=== PATIENT | female | born 1985 | race Caucasian/White ===

== ENCOUNTER → 2019-12-31 15:53 | Outpatient (BNVA) | payer OTHER, SELFPAY | PROVIDERS: Family Provider Family Medicine; PCP Family Medicine; Visit Provider Nurse Practitioner | DX: F31.76 Bipolar disorder, in full remission, most recent episode depressed (principal); F43.12 Post-traumatic stress disorder, chronic | CPT/HCPCS: 99214 ==

== ENCOUNTER → 2020-02-11 15:14 | Outpatient (BNVA) | payer OTHER, SELFPAY | PROVIDERS: Family Provider Family Medicine; PCP Family Medicine; Visit Provider Nurse Practitioner | DX: F43.12 Post-traumatic stress disorder, chronic (principal); F31.76 Bipolar disorder, in full remission, most recent episode depressed | CPT/HCPCS: 99214 ==

== ENCOUNTER → 2020-03-28 08:28 | Outpatient (BNVA) | payer OTHER, SELFPAY | PROVIDERS: Family Provider Family Medicine; PCP Family Medicine; Visit Provider Nurse Practitioner | DX: F43.12 Post-traumatic stress disorder, chronic (principal); F31.76 Bipolar disorder, in full remission, most recent episode depressed | CPT/HCPCS: 99213 ==

== ENCOUNTER → 2020-05-28 07:51 | Outpatient (BNVA) | payer OTHER, SELFPAY | PROVIDERS: Family Provider Family Medicine; PCP Family Medicine; Visit Provider Nurse Practitioner | DX: F43.12 Post-traumatic stress disorder, chronic (principal); F31.76 Bipolar disorder, in full remission, most recent episode depressed | CPT/HCPCS: 90832; 99213 ==

== ENCOUNTER 2020-06-07 16:37 | Emergency (ER) | payer OTHER, SELFPAY ==
[2020-06-07 16:57] VITALS: BP 133/87; PULSE 97; RESP 18; TEMP 37.6; O2SAT 99; BMI 22.3
--- NOTE | 2020-06-07 17:07 | ED_ITS ---
HPI - Wound/Laceration General: Chief Complaint: Wound/Laceration Stated Complaint: face lac Time Seen by Provider: 06/07/20 17:06 Source: patient Mode of arrival: ambulatory Limitations: no limitations History of Present Illness: HPI narrative: 35-year-old female comes in today with laceration to the left side of the cheek. [place] lacerating the left cheek. Patient appears well. Patient appears in no acute distress. Patient has a history of posttraumatic stress disorder and bipolar disorder. Review of Systems General: Reports: 10 or more systems reviewed and unremarkable except in HPI and below Skin/Breast: Reports: other (face laceration) [facility] ED PFS: Medical History (Updated 06/07/20 @ 18:08 by DARRYL Farias) Bipolar disorder, in full remission, most recent episode depressed Post-traumatic stress disorder, chronic Social History (Updated 12/31/19 @ 16:00 by Sheeba Yoon LPN) Smoking and tobacco status: current every day smoker cigarettes Smoking risk assessment/counseling performed?: Yes Tobacco counseling given: counseling >3 minutes Physical Exam Const: COMMON NORMALS: no acute distress and patient oriented x3 GENERAL APPEARANCE: cooperative HENMT: COMMON NORMALS: normocephalic, TM's normal bilaterally and Normal external nose present HEAD & SCALP: normocephalic and other (3 cm irregular laceration to the left facial cheek. Patient has good facial movement. No injury to the teeth were noted.) NOSE: Normal external nose present TYMPANIC MEMBRANE: TM's normal bilaterally MOUTH: Normal oral and palatal mucosa present THROAT: posterior oropharynx normal Eye: GENERAL EYE: appearance normal, both eyes and all related structures Neck/C-Spine: COMMON NORMALS: full ROM Chest: COMMONS NORMALS: normal inspection of the chest Resp: COMMON NORMALS: normal respiratory effort EFFORT & INSPECTION: Yes able to speak in complete sentences Cardio: COMMON NORMALS: regular rate and regular rhythm RATE: regular rate RHYTHM: regular rhythm GI: COMMON NORMALS: non-tender Back/Pelvis: COMMON NORMALS: thoracic and lumbar spine normal to inspection Extremity: COMMON NORMALS: normal to inspection Neuro: COMMON NORMALS: patient oriented x3 and moves all extremities Psych: COMMON NORMALS: mental status grossly normal and cooperative Skin: COMMON NORMALS: no rashes or lesions noted GENERAL SKIN EXAM: no rashes or lesions noted Procedures Laceration Laceration 1: Site: face Side (If applicable): left Size (cm): 2 Description: linear Depth: simple, single layer Local Anesthetic: lidocaine 1% and with epi Amount of anesthesia used (mL): 2 Pre-repair: wound explored and irrigated extensively Skin layer closed with: vicryl Size (cm): 6-0 Number of sutures: 4 Technique: simple, interrupted Laceration 2: Site: face Side (If applicable): left Size (cm): 3 Description: irregular Depth: simple, single layer Local Anesthetic: lidocaine 1% and with epi Amount of anesthesia used (mL): 5 Pre-repair: wound explored, irrigated extensively and deep structures intact Skin layer closed with: vicryl Size (cm): 6-0 Number of sutures: 9 Technique: simple, interrupted Course Vital Signs: Vital signs: Vital Signs Temperature 99.7 F H 06/07/20 16:57 Pulse Rate 97 06/07/20 16:57 Respiratory Rate 18 06/07/20 16:57 Blood Pressure 133/87 06/07/20 16:57 Pulse Oximetry 99 06/07/20 16:57 MDM - Wound/Laceration MDM Narrative: Medical decision making narrative: Patient comes in today for injury to the left facial cheek. Patient reports slipping at the river and cutting face on a rock. On exam we note 2 simple lacerations 1 approximately 4 centimeters and the other approximately 2 cm. Patient had good facial movement without any deficits in the muscle. Patient does have trigeminal neuralgia chronic to that side of the face. Vital signs were normal. Differential diagnosis includes but not limited to foreign body, fracture, dental injury, laceration, need for prophylaxis tetanus. Patient reports tetanus is up-to-date within the last 10 years. No sign of fracture or dental injury was noted. Wounds were irrigated and some mild debris was noted to the wound but it flushed out without difficulty. Some contusions were noted to the tissue of the face. Patient was anesthetized and both wounds were closed with simple interrupted sutures. Well approximation of the margins were noted. Reviewed postprocedure treatment and recommendations for follow-up with patient. Patient reported understanding and agreed to plan. Discharge Plan Discharge Patient Disposition: Home, Self-Care Clinical Impression: Laceration, Bipolar disorder, in full remission, most recent episode depressed Condition: Stable Prescriptions: New cephalexin 500 mg capsule 500 mg PO TID 7 Days Qty: 21 RF: 0 No Action lorazepam 0.5 mg tablet 0.5 mg PO TID PRN (Reason: anxiety) Qty: 90 RF: 1 sertraline [Zoloft] 50 mg tablet 50 mg PO DAILY Qty: 30 RF: 1 eszopiclone [Lunesta] 3 mg tablet 3 mg PO .HS Qty: 30 RF: 1 bupropion HCl [Forfivo XL] 450 mg tablet extended release 24 hr 450 mg PO QAM Qty: 30 RF: 1 aripiprazole [Abilify] 15 mg tablet 15 mg PO DAILY Qty: 30 RF: 1 Discharge Orders: Discharge Order (Routine); Ordered 06/07/20 Ordered By: Wero Araujo Referrals: Natalie Moraes MD [Primary Care Provider] - Jay Collins MD [Family Provider] - Discharge Diet: Usual diet Discharge Activity: Increase activity as tolerated Patient Instructions: Laceration (ED) Activity Restrictions/Additional Instructions: Keep wound clean and dry. You may wash it gently with some mild soap and water then pat dry immediately. It is important to keep the wound as dry as possible for the next 48 hours. You may use a little petroleum jelly or bacitracin antibiotic ointment to the abrasions and wound. Take antibiotic as directed. Have sutures taken out in 5 to 7 days. Return to the ER for high fever or new concerns. Follow-up with primary care within 1 week. Coding Level of Care Code ED Back Stayer for Ranulfo Fwbenny Exam Comprehensive
--- NOTE | 2020-06-07 17:25 | PC.NURSE ---
Notified provider of SI statement to triage nurse, provider spoke with family and patient, she denied SI to provider. Provider not concerned with this at this time, family has strong family support and feels she is safe to go home.
[2020-06-07] MEDS: cephALEXin 500 mg Capsule PO (17:28)
[2020-06-07 18:22] VITALS: BP 110/68; PULSE 95; RESP 18; O2SAT 100
== END 2020-06-07 18:20 | disposition home or self-care (01) ==
PROVIDERS: Emergency Provider Nurse Practitioner Family; Family Provider Family Medicine; PCP Family Medicine
DX: S01.412A Laceration without foreign body of left cheek and temporomandibular area, initial encounter (principal); W01.198A Fall on same level from slipping, tripping and stumbling with subsequent striking against other object, initial encounter; F17.210 Nicotine dependence, cigarettes, uncomplicated
CPT/HCPCS: 12013; 12345; 99281; 99283

== ENCOUNTER → 2020-07-01 10:00 | Outpatient (BNVA) | payer OTHER, SELFPAY | PROVIDERS: Family Provider Family Medicine; PCP Family Medicine; Visit Provider Nurse Practitioner | DX: F31.76 Bipolar disorder, in full remission, most recent episode depressed (principal); F43.12 Post-traumatic stress disorder, chronic | CPT/HCPCS: 90832; 99214 ==

== ENCOUNTER 2020-07-18 20:08 | Inpatient (IN) | payer OTHER, SELFPAY ==
[2020-07-18 20:42] VITALS: BP 127/83; PULSE 89; RESP 18; TEMP 36.7; O2SAT 100; BMI 23.1
--- NOTE | 2020-07-18 20:53 | ECG_ITS ---
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 Measurements Intervals [place] Rate: 66 P: 74 DE: 181 QRS: 18 QRSD: 91 T: 52 QT: 415 QTc: 435 Interpretive Statements SINUS RHYTHM No previous ECG available for comparison Electronically Signed On 07-19-2020 19:25:26 CDT by Derik Dolan M.D. [id number]
[2020-07-18 21:07] LABS: Basophils # 0.1 10^3/uL (0.0-0.1); Basophils % 1.1 %; Eosinophils # 0.3 10^3/uL (0.0-0.8); Eosinophils % 4.7 %; Hematocrit 42.4 % (37.0-47.0); Hemoglobin 12.8 g/dL (11.5-15.3); Mean Corpuscular HGB Conc 30.2 g/dL (30.0-36.0); Mean Corpuscular Hemoglobin 31.1 pg (28.0-34.0); Mean Corpuscular Volume 102.9 fL (81-99); Mean Platelet Volume 8.6 fL (7.4-10.4); Monocytes # 0.5 10^3/uL (0.2-0.9); Monocytes % 9.4 %; Neutrophils # 2.49 10^3/uL (1.8-7.7); Neutrophils % 46.6 %; Nucleated Red Blood Cells % 0 %; Platelet Count 295 10^3/cmm (130-400); Red Blood Count 4.12 10^6/uL (4.1-5.3); Red Cell Distribution Width 12.5 % (12.1-15.1); White Blood Count 5.3 10^3/uL (4.0-10.0)
[2020-07-18 21:12] VITALS: BP 113/79; PULSE 69; RESP 14; O2SAT 100
[2020-07-18 21:24] LABS: INR 1.04 (0.8-1.2)
[2020-07-18 21:24] LABS: ABG PCO2 34.7 mmHg (35-45); Alveolar-Arterial Oxygen Gradi 3.7 mmHg (5-10); Arterial Blood Gas Hematocrit 38.7 % (37-47); Base Excess ABG -8.3 mmol/L (-2.0-2.0); Blood Gas Allen Test Pos; Blood Gas Sample Site Brachial, right; Blood Gas Sample Type Arterial; Carboxyhemoglobin 1.4 %THgb (0.4-20.1); HCO3 ABG 17.2 mmol/L (22-26); HGB O2 Sat 93.8 % (95-100); Ionized Calcium Level - ABG 1.3 mmol/L (1.1-1.4); Methemoglobin 0.8 % (0.4-1.5); Oxygen Saturation ABG 95.9; PO2 ABG 77.1 mmHg (80.0-100.0); Potassium Level - ABG 3.8 mmol/L (3.5-5.0); Total Hemoglobin 12.6 g/dL (12-16)
[2020-07-18 21:31] VITALS: BP 115/85; PULSE 79; RESP 13; O2SAT 100
[2020-07-18] MEDS: sodium chloride 0.9% 1,000 ML 999 ML IV (21:36)
[2020-07-18 21:38] LABS: Acetaminophen 6.6 ug/mL (10-30); Alanine Aminotransferase 20 U/L (0-33); Albumin Level 4.6 g/dL (3.5-5.2); Alkaline Phosphatase 55 IU/L (35-105); Aspartate Amino Transferase 15 U/L (0-32); Blood Urea Nitrogen 17 mg/dL (6-20); Calcium 8.4 mg/dL (8.5-10.5); Carbon Dioxide 21 mmol/L (22-29); Chloride 113 mmol/L (98-107); Globulin 2.3 g/dL (1.3-4.6); Glomerular Filtration Rate 81.2 mL/min (90-130); Glucose 82 mg/dL (65-115); HCG, Serum Qual Negative (Negative); Osmolality Calculated 287 mOsm/kg (285-295); Sodium 141 mmol/L (136-145); Thyroid Stimulating Hormone 1.16 uIU/mL (0.27-4.20); Total Bilirubin 0.2 mg/dL (0.15-1.2); Total Protein 6.9 g/dL (6.6-8.7)
[2020-07-18 21:39] LABS: Alcohol Level < 10 mg/dL (0-10); Salicylate < 0.3 mg/dL (3-10)
[2020-07-18 21:50] LABS: Lithium 0.1 mmol/L (0.6-1.2); Phenytoin Dilantin 0.8 ug/mL (10-20); Valproic Acid Level 2.8 ug/mL (50-100)
[2020-07-18 21:53] LABS: Amphetamines Screen Urine Negative (Negative); Barbiturates Screen Urine Negative (Negative); Benzodiazepines Screen Urine Positive (Negative); Cocaine Screen Urine Negative (Negative); Opiate Screen Urine Negative (Negative); PCP Screen Urine Negative (Negative); THC Screen Urine Negative (Negative)
--- NOTE | 2020-07-18 22:15 | W.ED.PSYCH ---
HPI - Psych General: Chief Complaint: Psychiatric Symptoms Stated Complaint: mhe Time Seen by Provider: 07/18/20 20:53 Source: patient Mode of arrival: ambulatory Limitations: no limitations History of Present Illness: HPI Narrative: Kiara is a 35-year-old female who comes in after an overdose attempt last night. Patient states that she was just taking the medicines for pain but family believes that she did this in a suicidal gesture. Patient took a large amount of gabapentin, Topamax, and small amounts of Ativan and [place]. Patient is lethargic here but has a GCS of 15. Patient does not want to go into details but has had significant posttraumatic stress in her life. She does agree that she needs psychiatric help and wants to get that. Review of Systems Const: Denies: fever(s), chills, body aches, fatigue, malaise or diaphoresis Eyes: Denies: change in vision, blurry vision, photophobia, eye discomfort, eye discharge or eye redness ENMT: Denies: throat pain, odynophagia, hoarseness, swelling of lips/tongue, ear or mastoid pain, ear discharge, change in hearing or nasal discharge Card: Denies: chest pain, palpitations, irregular heart rhythm, edema, lightheadedness, syncope, pre-syncope, dyspnea on exertion or orthopnea Resp: Denies: dyspnea, productive cough, non-productive cough, wheezing, hemoptysis or chest congestion GI: Denies: abdominal pain, nausea, vomiting, hematemesis, coffee ground emesis, heartburn, diarrhea, constipation, GI cramping, hematochezia or melena : Denies: flank pain, dysuria, urinary frequency, urinary urgency or hematuria Musc: Denies: neck pain, back pain, extremity pain, extremity swelling, joint pain, joint swelling, joint redness, joint warmth or joint stiffness Skin/Breast: Denies: rash, pruritus, erythema or skin tenderness Neuro: Denies: headache(s), numbness in extremities, weakness in extremities, sensory changes, lack of coordination, difficulty walking, dizziness, vertigo, confusion, Slurred speech present or seizure-like activity Naveen/Lymph: Denies: easy bruising, easy bleeding, petechiae, purpura or enlarged lymph nodes All/Imm: Denies: urticaria, throat swelling, tongue swelling, facial swelling or acute wheezing PFSH ED PFSH: Medical History Bipolar disorder with psychotic features Bipolar disorder, in full remission, most recent episode depressed Hypothyroidism Lumbar post-laminectomy syndrome Motor nerve conduction block Post-traumatic stress disorder, chronic Spondylosis of lumbar region without myelopathy or radiculopathy Social History Smoking and tobacco status: current every day smoker cigarettes Smoking risk assessment/counseling performed?: Yes Tobacco counseling given: counseling >3 minutes Alcohol intake: current Substance/Drug Use: former Date of last use: Overdosed on her prescription medications such as lithium Household members: family Housing: House Current occupational status: unemployed Physical Exam Const: COMMON NORMALS: no acute distress, patient oriented x3, no limitations, healthy appearing and well nourished GENERAL APPEARANCE: cooperative, well kempt and well developed HENMT: COMMON NORMALS: normocephalic, atraumatic, external ears normal, EAC's normal and Normal external nose present HEAD & SCALP: normal to inspection, normocephalic and atraumatic FACE & SINUS: normal facial exam and face symmetric NOSE: Normal external nose present and Normal nares present EXTERNAL EAR: Yes external ears normal EXTERNAL AUDITORY CANAL: EAC's normal MOUTH: Normal oral and palatal mucosa present, lip normal and tongue normal Eye: COMMON NORMALS: Equal, round and reactive pupils present and conjunctivae normal GENERAL EYE: appearance normal, both eyes and all related structures ALIGNMENT: Yes alignment normal PERIORBITAL: periorbital findings normal EYELID: eyelids normal CONJUNCTIVA: Yes conjunctivae normal SCLERA: sclerae normal PUPIL: Yes Equal, round and reactive pupils present Neck/C-Spine: COMMON NORMALS: full ROM, no lymphadenopathy, supple, no meningeal signs and no JVD GENERAL: Yes normal visual inspection and Yes trachea midline Chest: COMMONS NORMALS: normal inspection of the chest and normal palpation of entire chest wall Resp: COMMON NORMALS: normal respiratory effort, No retractions, No use of accessory muscles and clear to auscultation bilaterally EFFORT & INSPECTION: Yes able to speak in complete sentences and Yes symmetric chest movement AUSCULTATION: clear to auscultation bilaterally, no crackles, no rales, no rhonchi and no wheezes Cardio: COMMON NORMALS: no JVD, regular rate, regular rhythm, S1 normal heart sound present and S2 normal heart sound present RATE: regular rate RHYTHM: regular rhythm HEART SOUNDS: S1 normal heart sound present, S2 normal heart sound present, no click, no gallops, no murmurs, no rubs and abnormal split S2 GI: COMMON NORMALS: Soft to palpation and No hepatosplenomegaly present PALPATION: Yes Soft to palpation, No Tenderness to palpation present (GI), No Guarding due to palpation present (GI), No Rigid due to palpation, Yes No hepatosplenomegaly present, No Hernia present, No Palpable mass present and No Pulsatile mass present : COMMON NORMALS: Yes no CVA tenderness BLADDER/KIDNEY EXAM: Yes no CVA tenderness EXTERNAL FEMALE EXAM: No Hernia present Back/Pelvis: COMMON NORMALS: no CVA tenderness, thoracic and lumbar spine normal to inspection, no thoracic nor lumbar tenderness and thoraco-lumbar ROM normal Extremity: COMMON NORMALS: normal to inspection, full ROM, capillary refill normal, no joint enlargement, no clubbing, cyanosis or edema and no calf tenderness Neuro: COMMON NORMALS: patient oriented x3, CN's II-XII intact bilaterally, moves all extremities, no focal motor deficits and no sensory deficits noted MENINGEAL SIGNS: Yes no meningeal signs SPEECH: speech normal Psych: COMMON NORMALS: mental status grossly normal, Normal thought process present, cooperative, normal affect, speech normal and activity/motor behavior normal APPEARANCE: Yes well kempt SPEECH: Yes normal speech THOUGHT PROCESS: Normal thought process present Skin: COMMON NORMALS: no rashes or lesions noted, turgor normal, no jaundice, no petechiae and no mottling GENERAL SKIN EXAM: no rashes or lesions noted and turgor normal MDM - Psych MDM Narrative: Medical decision making narrative: The case was reviewed with poison control. Based upon the patient's lab results they think that she has a non-gap metabolic acidosis caused by the Topamax. This can cause EKG abnormalities and though hers does not show any at this time the half-life is 21 hours and they recommend observation. I have reviewed the case in full with Dr. Kaur and he agrees to admission for further evaluation and care. Lab Data: Attestation: I reviewed the patient's lab results. Labs: Lab Results 08/21/20 08/21/20 08/21/20 Range/Units 21:02 21:02 21:02 WBC 5.3 (4.0-10.0) 10^3/ uL RBC 4.12 (4.1-5.3) 10^6/u L Hgb 12.8 (11.5-15.3) g/dL Hct 42.4 (37.0-47.0) % MCV 102.9 H (81-99) fL MCH 31.1 (28.0-34.0) pg MCHC 30.2 (30.0-36.0) g/dL RDW 12.5 (12.1-15.1) % Plt Count 295 (130-400) 10^3/c mm MPV 8.6 (7.4-10.4) fL Neut % (Auto) 46.6 % Lymph % (Auto) 38.0 % [place] % (Auto) 9.4 % Eos % (Auto) 4.7 % Baso % (Auto) 1.1 % Neut # (Auto) 2.49 (1.8-7.7) 10^3/u L Lymph # (Auto) 2.0 (0.8-4.8) 10^3/u L [place] # (Auto) 0.5 (0.2-0.9) 10^3/u L Eos # (Auto) 0.3 (0.0-0.8) 10^3/u L Baso # (Auto) 0.1 (0.0-0.1) 10^3/u L Nucleated RBC % (a uto) 0 % Nucleated RBCs # 0.0 /100WBC PT 13.90 (12.1-14.9) SECO NDS INR 1.04 (0.8-1.2) Specimen Type Sample Site ABG pH (7.35-7.45) ABG pCO2 (35-45) mmHg ABG pO2 (80.0-100.0) mmH g ABG HCO3 (22-26) mmol/L ABG O2 Saturation ABG Base Excess (-2.0-2.0) mmol/ L Vince Test A-a O2 Gradient (5-10) mmHg Hematocrit (37-47) % Hgb O2 Saturation (95-100) % Carboxyhemoglobin (0.4-20.1) %THgb Methemoglobin (0.4-1.5) % Total Hemoglobin (12-16) g/dL Ionized Calcium (1.1-1.4) mmol/L O2 Delivery Device FiO2 % Backer Up ID Sodium 141 (136-145) mmol/L Potassium 4.0 (3.5-5.1) mmol/L Chloride 113 H (98-107) mmol/L Carbon Dioxide 21 L (22-29) mmol/L Anion Gap 11.0 (5-19) BUN 17 (6-20) mg/dL Creatinine 0.8 (0.5-0.9) mg/dL GFR Calculation 81.2 L (90-130) mL/min Glucose 82 (65-115) mg/dL Calculated Osmolal ity 287 (285-295) mOsm/k g Calcium 8.4 L (8.5-10.5) mg/dL Total Bilirubin 0.2 (0.15-1.2) mg/dL AST 15 (0-32) U/L ALT 20 (0-33) U/L Alkaline Phosphata se 55 (35-105) IU/L Total Protein 6.9 (6.6-8.7) g/dL Albumin 4.6 (3.5-5.2) g/dL Globulin 2.3 (1.3-4.6) g/dL TSH 1.16 (0.27-4.20) uIU/ mL HCG, Qual (Negative) Salicylates < 0.3 L (3-10) mg/dL Urine Opiates Scre en (Negative) ng/mL Acetaminophen 6.6 L (10-30) ug/mL Ur Barbiturates Sc reen (Negative) ng/mL Phenytoin (10-20) ug/mL Valproic Acid 2.8 L (50-100) ug/mL Carbamazepine (4.0-12.0) ug/mL Ur Phencyclidine S crn (Negative) ng/mL Ur Amphetamines Sc reen (Negative) ng/mL U Benzodiazepines Scrn (Negative) ng/mL [place] (0.6-1.2) mmol/L Urine Cocaine Scre en (Negative) ng/mL U Marijuana (THC) Screen (Negative) ng/mL Ethyl Alcohol < 10 (0-10) mg/dL 07/18/20 07/18/20 07/18/20 Range/Units 21:02 21:02 21:12 WBC (4.0-10.0) 10^3/ uL RBC (4.1-5.3) 10^6/u L Hgb (11.5-15.3) g/dL Hct (37.0-47.0) % MCV (81-99) fL MCH (28.0-34.0) pg MCHC (30.0-36.0) g/dL RDW (12.1-15.1) % Plt Count (130-400) 10^3/c mm MPV (7.4-10.4) fL Neut % (Auto) % Lymph % (Auto) % [place] % (Auto) % Eos % (Auto) % Baso % (Auto) % Neut # (Auto) (1.8-7.7) 10^3/u L Lymph # (Auto) (0.8-4.8) 10^3/u L [place] # (Auto) (0.2-0.9) 10^3/u L Eos # (Auto) (0.0-0.8) 10^3/u L Baso # (Auto) (0.0-0.1) 10^3/u L Nucleated RBC % (a uto) % Nucleated RBCs # /100WBC PT (12.1-14.9) SECO NDS INR (0.8-1.2) Specimen Type Arterial Sample Site Brachial, right ABG pH 7.30 L (7.35-7.45) ABG pCO2 34.7 L (35-45) mmHg ABG pO2 77.1 L (80.0-100.0) mmH g ABG HCO3 17.2 L (22-26) mmol/L ABG O2 Saturation 95.9 ABG Base Excess -8.3 L (-2.0-2.0) mmol/ L Vince Test Pos A-a O2 Gradient 3.7 L (5-10) mmHg Hematocrit 38.7 (37-47) % Hgb O2 Saturation 93.8 L (95-100) % Carboxyhemoglobin 1.4 (0.4-20.1) %THgb Methemoglobin 0.8 (0.4-1.5) % Total Hemoglobin 12.6 (12-16) g/dL Ionized Calcium 1.3 (1.1-1.4) mmol/L O2 Delivery Device None FiO2 21.0 % Backer Up ID [id number] Sodium 143.0 (136-145) mmol/L Potassium 3.8 (3.5-5.1) mmol/L Chloride (98-107) mmol/L Carbon Dioxide (22-29) mmol/L Anion Gap (5-19) BUN (6-20) mg/dL Creatinine (0.5-0.9) mg/dL GFR Calculation (90-130) mL/min Glucose 83.0 (65-115) mg/dL Calculated Osmolal ity (285-295) mOsm/k g Calcium (8.5-10.5) mg/dL Total Bilirubin (0.15-1.2) mg/dL AST (0-32) U/L ALT (0-33) U/L Alkaline Phosphata se (35-105) IU/L Total Protein (6.6-8.7) g/dL Albumin (3.5-5.2) g/dL Globulin (1.3-4.6) g/dL TSH (0.27-4.20) uIU/ mL HCG, Qual Negative (Negative) Salicylates (3-10) mg/dL Urine Opiates Scre en (Negative) ng/mL Acetaminophen (10-30) ug/mL Ur Barbiturates Sc reen (Negative) ng/mL Phenytoin 0.8 L (10-20) ug/mL Valproic Acid (50-100) ug/mL Carbamazepine 2.0 L (4.0-12.0) ug/mL Ur Phencyclidine S crn (Negative) ng/mL Ur Amphetamines Sc reen (Negative) ng/mL U Benzodiazepines Scrn (Negative) ng/mL [place] 0.1 L (0.6-1.2) mmol/L Urine Cocaine Scre en (Negative) ng/mL U Marijuana (THC) Screen (Negative) ng/mL Ethyl Alcohol (0-10) mg/dL 07/18/20 Range/Units 21:24 WBC (4.0-10.0) 10^3/ uL RBC (4.1-5.3) 10^6/u L Hgb (11.5-15.3) g/dL Hct (37.0-47.0) % MCV (81-99) fL MCH (28.0-34.0) pg MCHC (30.0-36.0) g/dL RDW (12.1-15.1) % Plt Count (130-400) 10^3/c mm MPV (7.4-10.4) fL Neut % (Auto) % Lymph % (Auto) % [place] % (Auto) % Eos % (Auto) % Baso % (Auto) % Neut # (Auto) (1.8-7.7) 10^3/u L Lymph # (Auto) (0.8-4.8) 10^3/u L [place] # (Auto) (0.2-0.9) 10^3/u L Eos # (Auto) (0.0-0.8) 10^3/u L Baso # (Auto) (0.0-0.1) 10^3/u L Nucleated RBC % (a uto) % Nucleated RBCs # /100WBC PT (12.1-14.9) SECO NDS INR (0.8-1.2) Specimen Type Sample Site ABG pH (7.35-7.45) ABG pCO2 (35-45) mmHg ABG pO2 (80.0-100.0) mmH g ABG HCO3 (22-26) mmol/L ABG O2 Saturation ABG Base Excess (-2.0-2.0) mmol/ L Vince Test A-a O2 Gradient (5-10) mmHg Hematocrit (37-47) % Hgb O2 Saturation (95-100) % Carboxyhemoglobin (0.4-20.1) %THgb Methemoglobin (0.4-1.5) % Total Hemoglobin (12-16) g/dL Ionized Calcium (1.1-1.4) mmol/L O2 Delivery Device FiO2 % Backer Up ID Sodium (136-145) mmol/L Potassium (3.5-5.1) mmol/L Chloride (98-107) mmol/L Carbon Dioxide (22-29) mmol/L Anion Gap (5-19) BUN (6-20) mg/dL Creatinine (0.5-0.9) mg/dL GFR Calculation (90-130) mL/min Glucose (65-115) mg/dL Calculated Osmolal ity (285-295) mOsm/k g Calcium (8.5-10.5) mg/dL Total Bilirubin (0.15-1.2) mg/dL AST (0-32) U/L ALT (0-33) U/L Alkaline Phosphata se (35-105) IU/L Total Protein (6.6-8.7) g/dL Albumin (3.5-5.2) g/dL Globulin (1.3-4.6) g/dL TSH (0.27-4.20) uIU/ mL HCG, Qual (Negative) Salicylates (3-10) mg/dL Urine Opiates Scre en Negative (Negative) ng/mL Acetaminophen (10-30) ug/mL Ur Barbiturates Sc reen Negative (Negative) ng/mL Phenytoin (10-20) ug/mL Valproic Acid (50-100) ug/mL Carbamazepine (4.0-12.0) ug/mL Ur Phencyclidine S crn Negative (Negative) ng/mL Ur Amphetamines Sc reen Negative (Negative) ng/mL U Benzodiazepines Scrn Positive H (Negative) ng/mL [place] (0.6-1.2) mmol/L Urine Cocaine Scre en Negative (Negative) ng/mL U Marijuana (THC) Screen Negative (Negative) ng/mL Ethyl Alcohol (0-10) mg/dL EKG Data^: EKG 1: Attestation: I personally reviewed and interpreted this EKG as follows: EKG interpretation date: 07/18/20 EKG interpretation time: 22:35 Interpretation: Normal sinus rhythm at 66 beats a minute, normal axis, no acute ST-T wave changes. No blocks, normal intervals. Discharge Plan Discharge Patient Disposition: Admitted As Inpatient Admit Provider: Avril Kaur Clinical Impression: Overdose Condition: Stable Coding Level of Care Code ED Electrical Engineering Drafting Officer for Ranulfo Fernandez
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
[2020-07-18 23:53] LABS: Creatine Phosphokinase 77 U/L (26-192)
[2020-07-19] VITALS (56 sets, daily range): BP systolic 101–131; BP diastolic 63–96; PULSE 62–112; RESP 11–23; TEMP 36.3–37.1; O2SAT 97–100; BMI 24.0
--- NOTE | 2020-07-19 00:12 | PC.NURSE ---
Verbal report given to ICU nurse who was sitting with patient at bedside.
[2020-07-19] MEDS: LORazepam 0.5 mg Tablet PO ×3 (00:55→18:48)
[2020-07-19] MEDS: sodium chloride 0.9% 1,000 ML 30 ML IV (00:56)
[2020-07-19] MEDS: enoxaparin 40 mg/0.4 mL Syringe SUBCUT (00:59)
[2020-07-19] MEDS: sertraline 50 mg Tablet PO ×2 (02:17→08:07)
[2020-07-19] MEDS: buPROPion XL (24 HR) 300 mg Tablet PO ×2 (02:17→08:07)
[2020-07-19 03:09] LABS: Basophils # 0.1 10^3/uL (0.0-0.1); Eosinophils # 0.2 10^3/uL (0.0-0.8); Eosinophils % 4.3 %; Hematocrit 38.8 % (37.0-47.0); Hemoglobin 12.2 g/dL (11.5-15.3); Lymphocytes # 1.9 10^3/uL (0.8-4.8); Lymphocytes % 38.2 %; Mean Corpuscular HGB Conc 31.4 g/dL (30.0-36.0); Mean Corpuscular Hemoglobin 32.5 pg (28.0-34.0); Mean Corpuscular Volume 103.5 fL (81-99); Mean Platelet Volume 8.3 fL (7.4-10.4); Monocytes # 0.4 10^3/uL (0.2-0.9); Monocytes % 8.4 %; Neutrophils # 2.34 10^3/uL (1.8-7.7); Neutrophils % 47.9 %; Nucleated Red Blood Cells % 0 %; Platelet Count 235 10^3/cmm (130-400); Red Blood Count 3.75 10^6/uL (4.1-5.3); Red Cell Distribution Width 12.5 % (12.1-15.1); White Blood Count 4.9 10^3/uL (4.0-10.0)
[2020-07-19 03:31] LABS: Anion Gap 9.1 (5-19); Blood Urea Nitrogen 14 mg/dL (6-20); Calcium 8.1 mg/dL (8.5-10.5); Carbon Dioxide 20 mmol/L (22-29); Chloride 116 mmol/L (98-107); Glomerular Filtration Rate 81.2 mL/min (90-130); Glucose 86 mg/dL (65-115); Magnesium 2.1 mg/dL (1.7-2.3); Osmolality Calculated 288 mOsm/kg (285-295); Potassium 4.1 mmol/L (3.5-5.1); Sodium 141 mmol/L (136-145)
[2020-07-19] MEDS: HYDROmorphone 1 mg/mL INJ 1 mL 2 MG IVP (03:57)
--- NOTE | 2020-07-19 06:11 | PC.NURSE ---
Pt arrived to unit in , accompanied by RN x2. Placed in bed, HOB up at 30 degrees, and leads attached. VSS. Pt awake but sleepy, oriented x4. Winifred and was a bit unsteady when getting out of WC with 1 assist. LS clear, resps easy. O2 sats are 97-100% on RA. NSR on monitor. Pt c/o pain in left lower face d/t trigeminal neuralgia. Stated that she was not trying to hurt herself yesterday but that she was trying to get the facial pain under control by taking a larger amt of gabapentin. Stated pain 07/07 and is cont. Pt observed rocking back and forth in bed, rubbing her face. Reported to doctor and he ordered a 1x dose of IV Dilaudid which did give her some relief and allowed her to get some sleep for about 90 mins. Indep with repo in bed. Pt has not voided since arriving from ER. IVF infusing per order. Resting quietly at this time and in no acute distress.
--- NOTE | 2020-07-19 06:36 | PC.NURSE ---
Pt awake, watching TV. Stated that her pain was returning. Explained that the doctor would be rounding here shortly and would be seeing her. Asked pt if she need to void and she asked if there was a toilet to used BSC at change of shift. Report to Sammie ROSARIO.
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
[2020-07-19] MEDS: folic acid 1 mg Tablet PO (08:07)
--- NOTE | 2020-07-19 08:20 | ECG_ITS ---
[facility] [facility] Date: 2020-07-19 Pat Name: Kiara Ventura Department: Room: ICU10 Gender: Female Clinical Application Manager: : [id number] Requested By: Ez Jackson Order Number: [id number] Tess MD: Derik Dolan M.D. Measurements Intervals [place] Rate: 73 P: 70 ID: [id number] QRS: 55 QRSD: 95 T: 71 QT: 402 QTc: 445 Interpretive Statements SINUS RHYTHM Compared to ECG 07/18/2020 22:35:16 No significant changes Electronically Signed On 07-21-2020 12:13:58 CDT by Derik Dolan M.D. [email or web address]
[2020-07-19 09:30] LABS: Alanine Aminotransferase 250 U/L (0-33); Albumin Level 3.9 g/dL (3.5-5.2); Alkaline Phosphatase 81 IU/L (35-105); Anion Gap 8.9 (5-19); Aspartate Amino Transferase 403 U/L (0-32); Blood Urea Nitrogen 14 mg/dL (6-20); Calcium 8.2 mg/dL (8.5-10.5); Carbon Dioxide 21 mmol/L (22-29); Chloride 113 mmol/L (98-107); Globulin 1.8 g/dL (1.3-4.6); Glomerular Filtration Rate 81.2 mL/min (90-130); Glucose 87 mg/dL (65-115); Osmolality Calculated 284 mOsm/kg (285-295); Potassium 3.9 mmol/L (3.5-5.1); Sodium 139 mmol/L (136-145); Total Bilirubin 0.6 mg/dL (0.15-1.2); Total Protein 5.7 g/dL (6.6-8.7)
[2020-07-19 09:31] LABS: Acetaminophen < 5.0 ug/mL (10-30)
--- NOTE | 2020-07-19 10:28 | PC.NURSE ---
[place] [facility] called for update on patient. made aware of new lab/lab trends. and recent vitals
--- NOTE | 2020-07-19 10:30 | PC.NURSE ---
made aware that consult was not ordered for psychiatry. stated he would put in orders and make call for consult.
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
[2020-07-19] MEDS: HYDROcodone-acetaminophen 10-325 mg Tablet 1 TAB PO (16:44)
[2020-07-19 19:02] LABS: Alanine Aminotransferase 204 U/L (0-33); Aspartate Amino Transferase 147 U/L (0-32); Gamma Glutamyl Transferase 118 U/L (5-36); Lactate Dehydrogenase 182 U/L (135-214)
[2020-07-20] VITALS (12 sets, daily range): BP systolic 100–127; BP diastolic 65–87; PULSE 66–88; RESP 14–19; TEMP 36.6–37; O2SAT 92–100
[2020-07-20] MEDS: enoxaparin 40 mg/0.4 mL Syringe SUBCUT (01:34)
[2020-07-20] MEDS: HYDROcodone-acetaminophen 10-325 mg Tablet 1 TAB PO ×2 (01:37→12:01)
--- NOTE | 2020-07-20 05:10 | PC.NURSE ---
Shift Summary Patient was tearful at beginning of shift, stating that she wanted to go home at she wanted to talk to her mother. I let her speak with her mother on the phone. Patient seemed to calm down and agreed to stay overnight and speak with the DR in the morning. Patient seems to be in constant pain with her left jaw pain. PRN pain medication given and slightly helps for her to rest and sleep some. See MAR. Patient is able to ambulate with stand by assist well.
[2020-07-20] MEDS: LORazepam 0.5 mg Tablet PO ×2 (05:50→16:45)
--- NOTE | 2020-07-20 07:50 | PC.NURSE ---
ok to change vital signs to q2 hour per MD [email or web address]
[2020-07-20 07:58] LABS: Basophils % 0.8 %; Eosinophils # 0.2 10^3/uL (0.0-0.8); Eosinophils % 4.9 %; Hematocrit 36.5 % (37.0-47.0); Hemoglobin 11.5 g/dL (11.5-15.3); Lymphocytes # 1.2 10^3/uL (0.8-4.8); Lymphocytes % 31.4 %; Mean Corpuscular HGB Conc 31.5 g/dL (30.0-36.0); Mean Corpuscular Hemoglobin 31.8 pg (28.0-34.0); Mean Corpuscular Volume 100.8 fL (81-99); Mean Platelet Volume 8.8 fL (7.4-10.4); Monocytes # 0.3 10^3/uL (0.2-0.9); Monocytes % 8.2 %; Neutrophils # 1.99 10^3/uL (1.8-7.7); Neutrophils % 54.4 %; Nucleated Red Blood Cells % 0 %; Platelet Count 243 10^3/cmm (130-400); Red Blood Count 3.62 10^6/uL (4.1-5.3); Red Cell Distribution Width 12.2 % (12.1-15.1); White Blood Count 3.7 10^3/uL (4.0-10.0)
[2020-07-20 08:10] LABS: Alanine Aminotransferase 167 U/L (0-33); Albumin Level 3.8 g/dL (3.5-5.2); Alkaline Phosphatase 79 IU/L (35-105); Anion Gap 9.3 (5-19); Aspartate Amino Transferase 98 U/L (0-32); Blood Urea Nitrogen 11 mg/dL (6-20); Calcium 8.7 mg/dL (8.5-10.5); Carbon Dioxide 21 mmol/L (22-29); Chloride 113 mmol/L (98-107); Globulin 1.9 g/dL (1.3-4.6); Glomerular Filtration Rate 70.8 mL/min (90-130); Glucose 94 mg/dL (65-115); Osmolality Calculated 284 mOsm/kg (285-295); Potassium 4.3 mmol/L (3.5-5.1); Sodium 139 mmol/L (136-145); Total Bilirubin 0.2 mg/dL (0.15-1.2); Total Protein 5.7 g/dL (6.6-8.7)
--- NOTE | 2020-07-20 08:20 | P.PN_ITS ---
Subjective Subjective: Interval history: Patient reports feeling better this morning. Reports that her headache is improved. She is requesting to restart Topamax as it was helping with her trigeminal neuralgia. Her liver enzymes are trending down. Today she reports that she only overdosed on gabapentin. Vitals/I&O/Wt Last Vital Signs Temp 98.2 F 07/19/20 20:00 Pulse 69 07/20/20 05:00 Resp 19 H 07/20/20 05:00 BP 119/83 07/20/20 06:00 Pulse Ox 97 07/20/20 06:00 07/19/20 07/20/20 07/20/20 22:59 06:59 14:59 Intake Total 160 / 620 Balance 160 / 470 Weight last 48 hrs Weight 63.458 kg Weight 61.235 kg Physical Exam Const: COMMON NORMALS: no acute distress and patient oriented x3 Resp: COMMON NORMALS: normal respiratory effort and clear to auscultation bilaterally AUSCULTATION: clear to auscultation bilaterally Cardio: COMMON NORMALS: regular rate, regular rhythm and S2 normal heart sound present RATE: regular rate RHYTHM: regular rhythm HEART SOUNDS: S2 normal heart sound present OTHER: No lower extremity edema GI: COMMON NORMALS: Normal to inspection, nondistended, normoactive bowel sounds present, Soft to palpation and non-tender PALPATION: Yes Soft to palpation Neuro: COMMON NORMALS: patient oriented x3 and no focal motor deficits Data : 07/20/20 07:38 07/20/20 07:38 A&P Assessment and plan (1) Drug overdose: Status: Acute (2) Normal anion gap metabolic acidosis: Status: Acute (3) Dehydration: Status: Acute (4) Post-traumatic stress disorder, chronic: Status: Acute Additional A&P Information Suicidal attempt with drug overdose Patient took multiple doses of Topamax, gabapentin and Ativan These are her prescription medications, Patient currently attending [facility], looking for a therapist at the moment Scheduled to see neurosurgeon for trigeminal neuralgia in September of this year, patient is endorsing that her gabapentin has been graduated up to 120 mg and she probably took 90 tablets today 96-hour hold Poison control recommended ICU monitoring with monitoring for QRS interval widening, for severe acidosis recommend bicarb Currently patient has normal anion gap acidosis, I would request calculated and measured osmolality Monitor in ICU PTSD/major depressive disorder 96-hour To avoid benzodiazepine withdrawal I would continue her home regimen for now along with antidepressant When she is medically stable kindly consult psychiatry in the morning Dehydration: I will keep patient on mechanical soft diet and normal saline for resuscitation PLAN: Patient medically stable and we will go ahead and transfer her to neuropsychiatric unit for further monitoring and treatment. DVT prophylaxis Lovenox Full code Mechanical soft diet Attestations Medical Necessity Statement*: Patient with suicidal attempt requires close inpatient monitoring and treatment until deemed safe for discharge. Time Spent in Patient Care: 16 - 35 minutes Coding Level of Care Code Acute Sql Developer for Ranulfo Fwd Diagnoses Drug overdose T50.901A Normal anion gap metabolic acidosis E87.2 Dehydration E86.0 Post-traumatic stress disorder, chronic F43.12
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
[2020-07-20] MEDS: folic acid 1 mg Tablet PO (09:31)
[2020-07-20] MEDS: buPROPion XL (24 HR) 300 mg Tablet PO (09:31)
--- NOTE | 2020-07-20 09:50 | PC.CHAP ---
Pastoral Care Encounter/Spiritual Assessment Type of Contact [] Declined vinyl welder and fabricator visit [] Patient/Family/Request visit [] Outpatient visit [X] Follow-up visit [] Physician referral [] Code/Alert [] Routine visit [] Staff referral [] Actively dying [] Patient sleeping [] Family support [] [] Out of room [] Palliative care [] [] Receiving care in room [] Pre-surgical visit [] Trauma [] Long length of stay [X] ICU visit [] Other: Relational/Emotional Strength [] Patient feels connected with others/family/visitors/staff [] Distress [] Loneliness/isolation [] Abandonment Spirituality of Patient [] Person of Garima [] Attends Congregational of their Garima [] Believes in Prayer [] Reads Bible or Mosque materials [] There are Spiritual issues to be addressed Business Liaison Officer Interventions [] Prayer [] Active listening [] Non-anxious presence [] Spiritual/emotional support [] Crisis/trauma care [] Spiritual counseling [] Bereavement support [] Provided bereavement packet [X] Provided Bible/devotional materials [] Provided toy/stuffed animal, coloring book to patient or family member [] Provided Communion [] Anointing/[place] [] Salvation [] Completed spiritual assessment [] Other: Impact on Illness or Injury [] Angry [] Fearful [] Anxious [] Often cries [] Exhaustion [] Unable to work [] Unable to attend jainism [] Unable to walk/stand [] Unable to read [] Unable to drive [] Unable to eat/drink [] Unable to sleep [] Unable to be with family [] Patient intubated [] Other: Summary: Provided her with a 12 steps and 12 traditions book from AA as promised from our conversation yesterday. Time spent with patient: negligible
[2020-07-20] MEDS: OLANZapine 5 mg ODT PO (12:02)
--- NOTE | 2020-07-20 12:04 | PC.NURSE ---
Addendum entered by Lizabeth Collado LPN 07/20/20 12:50: medication effective, no further c/o agitation/anxiety. patient is resting. Original Note: PRN ZYPREXA ZYDIS ZYPREXA ZYDIS 5MG PO PER PATIENT C/O AGITATION/ANXIETY. WILL CONTINUE TO MONITOR FOR MEDICATION EFFECTIVENESS.
[2020-07-20] MEDS: acetaminophen 325 mg Tablet 650 MG PO (16:45)
--- NOTE | 2020-07-20 16:45 | PC.NURSE ---
Addendum entered by Lizabeth Collado LPN 07/20/20 17:47: medication effective, no further c/o anxiety. Original Note: PRN ATIVAN ATIVAN 0.5MG PO PER PATIENT C/O ANXIETY. WILL CONTINUE TO MONITOR FOR MEDICATION EFFECTIVENESS.
[2020-07-20] MEDS: topiramate 100 mg Tablet 200 MG PO (20:30)
--- NOTE | 2020-07-20 20:30 | PC.NURSE ---
pt given scheduled HS topamax
[2020-07-21 06:00] VITALS: BP 108/72; PULSE 75; RESP 14; TEMP 36.7; O2SAT 98
[2020-07-21] MEDS: HYDROcodone-acetaminophen 10-325 mg Tablet 1 TAB PO ×2 (06:33→20:16)
--- NOTE | 2020-07-21 06:35 | PC.NURSE ---
pt given norco for c/o jaw pain.
[2020-07-21] MEDS: folic acid 1 mg Tablet PO (09:11)
[2020-07-21] MEDS: buPROPion XL (24 HR) 300 mg Tablet PO (09:11)
[2020-07-21] MEDS: buPROPion XL (24 HR) 150 mg Tablet PO (11:57)
[2020-07-21] MEDS: LORazepam 0.5 mg Tablet PO (11:57)
[2020-07-21] MEDS: escitalopram 10 mg Tablet PO (11:57)
--- NOTE | 2020-07-21 11:57 | PC.NURSE ---
PRN ATIVAN ATIVAN 0.5MG PO PER PATIENT C/O ANXIETY. WILL CONTINUE TO MONITOR FOR MEDICATION EFFECTIVENESS.
--- NOTE | 2020-07-21 13:00 | PC.NURSE ---
PRN ATIVAN FOLLOW UP MEDICATION EFFECTIVE. NO FURTHER C/O ANXIETY. PATIENT RESTING IN ROOM.
--- NOTE | 2020-07-21 13:22 | P.PN_ITS ---
Subjective NPU Subjective: Interval history: Kiara presents today reporting that she made some calls and from what she recalls she has been on Prozac which maybe helped some, but she ended up having some kind of issue with it at some point, but she reports it was a long time ago and that it might not be the same now that she is significantly older. After discussing the different SSRI?s, which she has been exposed to, and reviewing her symptoms again, we discussed the risks, benefits and alternatives of initiating Lexapro and she understood and agreed to proceed as is documented in this note. She reports that she is feeling a tiny bit better but still feeling like she needs something to help the intensity of her depression and she was open to giving the Lexapro a try. Otherwise she endorsed that sleep was tough last night, but she has been eating okay but that eating has been a problem recently. She reviewed having some difficulty with managing how she had been taking the Lamictal. We discussed considering what to do with that but right now just sticking with one change at a time. Mental Status Exam MSE Comments: This is a well-nourished, well-developed, white female, with adequate dress, grooming, and eye contact. No abnormal movements except for psychomotor retardation. Cooperative with exam in no acute distress. Speech was decreased rate and volume. Mood described as depressed; affect congruent. Thought process, organized. Thought content: patient denied any suicidal or john icidal ideation, there were no delusions reported or noted, patient denied any auditory or visual hallucinations. Attention, concentration, and memory appear intact but were not formally tested. He is alert and oriented times three. Insight and judgment appear fair. Impulse control is limited. Vitals/I&O/Wt Last Vital Signs Temp 98.0 F 07/21/20 06:00 Pulse 75 07/21/20 06:00 Resp 14 07/21/20 06:00 BP 108/72 07/21/20 06:00 Pulse Ox 98 07/21/20 06:00 Data NPU : 07/20/20 07:38 07/20/20 07:38 A&P Additional A&P Information (1) Overdose: (2) Encephalopathy: (3) Drug overdose: (4) Post-traumatic stress disorder, chronic: (5) Bipolar disorder, in full remission, most recent episode depressed: This is a 35 year old, white female, with history of post-traumatic stress disorder, endorsed recent increased alcohol intake, and childhood trauma, as well as recent trauma presenting reporting that she feels overwhelmed and the medication intervention that she and an outpatient doctor had attempted was not effective and endorsed an openness to look at her medications and consider an alternative to assist with her depression. Continue current medication. Start Lexapro 10 mg by mouth every morning Encourage individual, group, and milieu therapy. Continue q-15 minute checks for safety. Recommend sober living treatment at the highest level of care to which the patient is willing to commit. Involuntary Hold Information 96 Hour Hold: 96 Hour Involuntary Admission: No Attestations NPU Medical Necessity Statement*: Inpatient hospitalization is medically necessary and the clinically appropriate intervention, at this time. We will monitor medications and make changes as indicated. Likely length of stay 3-5 days. Coding Level of Care Code Acute Cigarette Machine Filler for Ranulfo Fernandez
[2020-07-21 14:00] VITALS: BP 110/73; PULSE 83; RESP 18; TEMP 37.1; O2SAT 98
[2020-07-21 15:22] LABS: Osmolality Serum 293 mOsm/kg (278-305)
[2020-07-21 15:22] LABS: Osmolality Urine 471 mOsm/kg (50-1200)
[2020-07-21] MEDS: acetaminophen 325 mg Tablet 650 MG PO (15:51)
[2020-07-21] MEDS: OLANZapine 5 mg ODT PO (15:51)
--- NOTE | 2020-07-21 15:51 | PC.NURSE ---
PRN ZYPREXA ZYDIS ZYPREXA ZYDIS 5MG PO PER PATIENT C/O ANXIETY/AGITATION. WILL CONTINUE TO MONITOR FOR MEDICATION EFFECTIVENESS.
--- NOTE | 2020-07-21 15:56 | PC.RESP ---
SMOKING CESSATION INFORMATION SENT TO PATIENT.
--- NOTE | 2020-07-21 16:50 | PC.NURSE ---
PRN ZYPREXA ZYDIS FOLLOW UP MEDICATION EFFECTIVE. NO FURTHER C/O ANXIETY.
[2020-07-21] MEDS: topiramate 100 mg Tablet 200 MG PO (20:15)
--- NOTE | 2020-07-21 20:33 | PC.NURSE ---
pt given scheduled topamax and prn norco per pt request for c/o jaw pain.
[2020-07-21 20:54] VITALS: BP 101/70; PULSE 71; RESP 17; TEMP 37.1; O2SAT 97
[2020-07-22 06:00] VITALS: BP 96/62; PULSE 62; RESP 20; TEMP 37; O2SAT 95
[2020-07-22] MEDS: folic acid 1 mg Tablet PO (08:24)
[2020-07-22] MEDS: escitalopram 10 mg Tablet PO (08:24)
[2020-07-22] MEDS: buPROPion XL (24 HR) 150 mg Tablet 450 MG PO (08:24)
[2020-07-22] MEDS: HYDROcodone-acetaminophen 10-325 mg Tablet 1 TAB PO ×2 (08:24→20:08)
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
[2020-07-22 13:25] VITALS: BP 116/81; PULSE 80; RESP 18; TEMP 36.8; O2SAT 96
[2020-07-22] MEDS: LORazepam 0.5 mg Tablet PO (17:22)
[2020-07-22] MEDS: acetaminophen 325 mg Tablet 650 MG PO (17:22)
--- NOTE | 2020-07-22 17:23 | PC.NURSE ---
PRN ATIVAN 0.5 MG GIVEN PO PER PT C/O STATED ANXIETY. PT TEARFUL, C/O JUST HAVING A HARD TIME WILL CONT TO MONITOR FOR DESIRED MED EFFECTIVENESS.
[2020-07-22] MEDS: topiramate 100 mg Tablet 200 MG PO (20:08)
[2020-07-22 21:09] VITALS: BP 115/77; PULSE 66; RESP 17; TEMP 37.2; O2SAT 99
--- NOTE | 2020-07-22 21:09 | PC.NURSE ---
pt requested pain med for jaw pain. prn [place] given with scheduled topamax.
[2020-07-23 06:00] VITALS: BP 107/74; PULSE 82; RESP 15; TEMP 37.1; O2SAT 98
[2020-07-23] MEDS: folic acid 1 mg Tablet PO (08:43)
[2020-07-23] MEDS: escitalopram 10 mg Tablet PO (08:43)
[2020-07-23] MEDS: buPROPion XL (24 HR) 150 mg Tablet 450 MG PO (08:43)
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
[2020-07-23 13:21] VITALS: BP 107/74; PULSE 82; RESP 15; TEMP 37.1; O2SAT 98
--- NOTE | 2020-07-23 15:37 | PC.SOCIAL ---
Appointment scheduled with Dr. Diaz, [facility] for 08/22/2020 at 9:30am. Clinic will call patient to confirm.
== END 2020-07-23 13:47 | disposition home or self-care (01) | DRG 917 ==
LOC: ER 20:53 → ICU 22:55 → NP 07-20 10:09
PROVIDERS: Emergency Medicine; Internal Medicine; Admitting Provider Internal Medicine; PCP Family Medicine; Visit Provider Psychiatry & Neurology Psychiatry
DX: T42.6X2A Poisoning by other antiepileptic and sedative-hypnotic drugs, intentional self-harm, initial encounter (principal); G93.5 Compression of brain; R45.851 Suicidal ideations; E87.2 Acidosis; G93.40 Encephalopathy, unspecified; F43.12 Post-traumatic stress disorder, chronic; F31.76 Bipolar disorder, in full remission, most recent episode depressed; G50.0 Trigeminal neuralgia; F10.20 Alcohol dependence, uncomplicated; F17.210 Nicotine dependence, cigarettes, uncomplicated; E03.9 Hypothyroidism, unspecified; E86.0 Dehydration; Z81.8 Family history of other mental and behavioral disorders
CPT/HCPCS: 12345; 36415; 36600; 80048; 80051; 80053; 80156; 80164; 80178; 80185; 80306; 80307; 82550; 82810; 82977; 83615; 83735; 83930; 83935; 83986; 84443; 84450; 84460; 84703; 85025; 85610; 93005; 96372; 96375; 99284; J1170; J1650; J3411; J7030

== ENCOUNTER → 2020-08-01 10:17 | Outpatient (BNVA) | payer OTHER, SELFPAY | PROVIDERS: PCP Family Medicine; Visit Provider Counselor Professional | DX: F43.12 Post-traumatic stress disorder, chronic (principal); F31.31 Bipolar disorder, current episode depressed, mild | CPT/HCPCS: 90834 ==

== ENCOUNTER → 2020-08-08 09:19 | Outpatient (BNVA) | payer OTHER, SELFPAY | PROVIDERS: PCP Family Medicine; Visit Provider Nurse Practitioner | DX: F43.12 Post-traumatic stress disorder, chronic (principal); F31.30 Bipolar disorder, current episode depressed, mild or moderate severity, unspecified | CPT/HCPCS: 99214 ==

== ENCOUNTER → 2020-08-13 08:30 | Outpatient (BNVA) | payer OTHER, SELFPAY | PROVIDERS: PCP Family Medicine; Visit Provider Counselor Professional | DX: F43.12 Post-traumatic stress disorder, chronic (principal); F31.31 Bipolar disorder, current episode depressed, mild | CPT/HCPCS: 90834 ==

== ENCOUNTER → 2020-08-20 09:47 | Outpatient (BNVA) | payer OTHER, SELFPAY | PROVIDERS: PCP Family Medicine; Visit Provider Counselor Professional | DX: F43.12 Post-traumatic stress disorder, chronic (principal); F31.31 Bipolar disorder, current episode depressed, mild | CPT/HCPCS: 90834 ==

== ENCOUNTER → 2020-08-27 08:32 | Outpatient (BNVA) | payer OTHER, SELFPAY | PROVIDERS: PCP Family Medicine; Visit Provider Counselor Professional | DX: F43.12 Post-traumatic stress disorder, chronic (principal); F31.31 Bipolar disorder, current episode depressed, mild | CPT/HCPCS: 90832 ==

== ENCOUNTER → 2020-09-08 07:41 | Outpatient (BNVA) | payer OTHER, SELFPAY | PROVIDERS: PCP Family Medicine; Visit Provider Nurse Practitioner | DX: F31.30 Bipolar disorder, current episode depressed, mild or moderate severity, unspecified (principal); F43.12 Post-traumatic stress disorder, chronic | CPT/HCPCS: 99214 ==

== ENCOUNTER 2020-10-08 14:24 | Inpatient (IN) | payer OTHER, SELFPAY ==
[2020-10-08 14:28] VITALS: BP 121/84; PULSE 62; RESP 16; TEMP 36.6; O2SAT 97; BMI 22.6
[2020-10-08 15:11] LABS: HCG Qualitative Urine. Negative (Negative)
--- NOTE | 2020-10-08 15:11 | W.ED.PSYCH ---
HPI - Psych General: Chief Complaint: Psychiatric Symptoms Stated Complaint: MHE Time Seen by Provider: 10/08/20 14:46 Source: patient Mode of arrival: ambulatory Limitations: no limitations History of Present Illness: HPI Narrative: 35-year-old female who is here from her PCPs office for suicidal ideations along with acute psychosis. I spoke to her PCP and she has not been taking her meds and has a history of bipolar disorder has been quite manic per her PCP and her mother. Patient is anxious here as well. She states she is hurting so bad yesterday from her trigeminal neuralgia she wanted to get a gun and shoot herself. Mother is concerned that she is just been extremely manic and feels she needs to be admitted to the psych [facility]. Associated symptoms: Reports suicidal ideation Review of Systems Const: Denies: fever(s), chills, body aches or change in appetite Eyes: Denies: blurry vision or eye discomfort ENMT: Denies: throat pain or dental pain Card: Denies: chest pain Resp: Denies: dyspnea GI: Denies: abdominal pain, nausea, vomiting or diarrhea : Denies: dysuria Musc: Denies: neck pain or back pain Skin/Breast: Denies: rash Neuro: Denies: headache(s) Psych: Reports: anxiety and suicidal ideation Naveen/Lymph: Denies: easy bruising All/Imm: Denies: urticaria PFSH ED PFSH: Medical History (Updated 10/08/20 @ 15:45 by Mihaela Weaver MD) Bipolar disorder with psychotic features Bipolar disorder, current episode depressed, mild or moderate severity, unspecified Bipolar disorder, in full remission, most recent episode depressed Endometriosis Facial scar Hypothyroidism Lumbar post-laminectomy syndrome Motor nerve conduction block Post-traumatic stress disorder, chronic Spondylosis of lumbar region without myelopathy or radiculopathy Surgical History History of liver biopsy Hx of cholecystectomy Family History Denies family history of Psychiatric illness Social History Smoking and tobacco status: current every day smoker cigarettes [ Other cigarette details: 3 to 4 cigarettes a day ] Smoking risk assessment/counseling performed?: Yes Tobacco counseling given: counseling >3 minutes Alcohol intake: current Household members: family Housing: House Current occupational status: employed Female Reproductive History: Date of last menstrual period: 07/17/20 Physical Exam Const: COMMON NORMALS: no acute distress, patient oriented x3 and healthy appearing HENMT: COMMON NORMALS: normocephalic and atraumatic HEAD & SCALP: normocephalic and atraumatic Eye: COMMON NORMALS: Equal, round and reactive pupils present and EOMs intact bilaterally PUPIL: Yes Equal, round and reactive pupils present Neck/C-Spine: COMMON NORMALS: full ROM and supple Chest: COMMONS NORMALS: normal inspection of the chest and normal palpation of entire chest wall Resp: COMMON NORMALS: normal respiratory effort, No retractions, No use of accessory muscles and clear to auscultation bilaterally AUSCULTATION: clear to auscultation bilaterally Cardio: COMMON NORMALS: regular rate, regular rhythm and No murmurs present (Cardio) RATE: regular rate RHYTHM: regular rhythm GI: COMMON NORMALS: Normal to inspection, nondistended, normoactive bowel sounds present, Soft to palpation, non-tender and no masses PALPATION: Yes Soft to palpation Extremity: COMMON NORMALS: normal to inspection and full ROM Neuro: COMMON NORMALS: patient oriented x3, moves all extremities and no focal motor deficits Psych: COMMON NORMALS: mental status grossly normal, Normal thought process present and cooperative MOOD & AFFECT: Yes anxious THOUGHT PROCESS: Normal thought process present THOUGHT CONTENT: Yes Suicidality present Skin: COMMON NORMALS: no rashes or lesions noted and no wounds GENERAL SKIN EXAM: no rashes or lesions noted MDM - Psych MDM Narrative: Medical decision making narrative: Kiara presents for suicidal ideation along with bipolar disorder. I not feel she is safe on her own and she has not been taking her meds. She is well-appearing here and I placed her in a 96-hour hold. I spoke to Dr. Linda and will admit. Lab Data: Labs: Lab Results 10/08/20 10/08/20 Range/Units 15:04 15:10 WBC 9.5 (4.0-10.0) 10^3/ uL RBC 4.51 (4.1-5.3) 10^6/u L Hgb 14.4 (11.5-15.3) g/dL Hct 44.6 (37.0-47.0) % MCV 98.9 (81-99) fL MCH 31.9 (28.0-34.0) pg MCHC 32.3 (30.0-36.0) g/dL RDW 12.0 L (12.1-15.1) % Plt Count 320 (130-400) 10^3/c mm MPV 8.9 (7.4-10.4) fL Neut % (Auto) 60.8 % Lymph % (Auto) 28.0 % Bowman % (Auto) 7.6 % Eos % (Auto) 2.5 % Baso % (Auto) 0.8 % Neut # (Auto) 5.79 (1.8-7.7) 10^3/u L Lymph # (Auto) 2.7 (0.8-4.8) 10^3/u L Bowman # (Auto) 0.7 (0.2-0.9) 10^3/u L Eos # (Auto) 0.2 (0.0-0.8) 10^3/u L Baso # (Auto) 0.1 (0.0-0.1) 10^3/u L Nucleated RBC % (a uto) 0 % Nucleated RBCs # 0.0 /100WBC HCG, Qual Negative (Negative) Discharge Plan Discharge Patient Disposition: Admitted As Inpatient Clinical Impression: Bipolar disorder, current episode depressed, mild or moderate severity, unspecified, Suicidal ideation Condition: Stable Coding Level of Care Code ED Surface Supply Breathing Apparatus for Ranulfo Fwd Exam Comprehensive
[2020-10-08 15:23] LABS: Basophils # 0.1 10^3/uL (0.0-0.1); Basophils % 0.8 %; Eosinophils # 0.2 10^3/uL (0.0-0.8); Eosinophils % 2.5 %; Hematocrit 44.6 % (37.0-47.0); Hemoglobin 14.4 g/dL (11.5-15.3); Lymphocytes # 2.7 10^3/uL (0.8-4.8); Mean Corpuscular HGB Conc 32.3 g/dL (30.0-36.0); Mean Corpuscular Hemoglobin 31.9 pg (28.0-34.0); Mean Corpuscular Volume 98.9 fL (81-99); Mean Platelet Volume 8.9 fL (7.4-10.4); Monocytes # 0.7 10^3/uL (0.2-0.9); Monocytes % 7.6 %; Neutrophils # 5.79 10^3/uL (1.8-7.7); Neutrophils % 60.8 %; Nucleated Red Blood Cells % 0 %; Platelet Count 320 10^3/cmm (130-400); Red Blood Count 4.51 10^6/uL (4.1-5.3); White Blood Count 9.5 10^3/uL (4.0-10.0)
[2020-10-08 15:49] LABS: Alanine Aminotransferase 24 U/L (0-33); Albumin Level 4.8 g/dL (3.5-5.2); Alkaline Phosphatase 75 IU/L (35-105); Anion Gap 11.2 (5-19); Aspartate Amino Transferase 16 U/L (0-32); Blood Urea Nitrogen 15 mg/dL (6-20); Calcium 9.2 mg/dL (8.5-10.5); Carbon Dioxide 23 mmol/L (22-29); Chloride 107 mmol/L (98-107); Globulin 2.4 g/dL (1.3-4.6); Glomerular Filtration Rate 113.1 mL/min (90-130); Glucose 84 mg/dL (65-115); Osmolality Calculated 286 mOsm/kg (285-295); Potassium 3.2 mmol/L (3.5-5.1); Sodium 138 mmol/L (136-145); Total Bilirubin 0.5 mg/dL (0.15-1.2); Total Protein 7.2 g/dL (6.6-8.7)
[2020-10-08 15:59] LABS: Amphetamines Screen Urine Negative (Negative); Barbiturates Screen Urine Negative (Negative); Benzodiazepines Screen Urine Negative (Negative); Cocaine Screen Urine Negative (Negative); Opiate Screen Urine Negative (Negative); PCP Screen Urine Negative (Negative); THC Screen Urine Negative (Negative)
[2020-10-08 16:10] LABS: Acetaminophen < 5.0 ug/mL (10-30); Alcohol Level < 10 mg/dL (0-10); Salicylate < 0.3 mg/dL (3-10)
[2020-10-08 16:27] VITALS: BP 120/85; PULSE 64; RESP 16; O2SAT 98
[2020-10-08 16:51] VITALS: BP 111/75; PULSE 66; RESP 18; TEMP 36.3; O2SAT 96
[2020-10-08 19:36] LABS: Lithium 0.1 mmol/L (0.6-1.2)
[2020-10-08 21:48] VITALS: BP 115/79; PULSE 60; RESP 18; TEMP 36.7; O2SAT 99
--- NOTE | 2020-10-08 23:00 | PC.NURSE ---
ASSESSMENT [PT DENIES HI/SI. PT DENIES AH/VH. PT IS PLEASANT AND COOPERATIVE. SHE SEEMS SAD AND CONFUSED AT TO WHY SHE IS HERE.
[2020-10-09 06:00] VITALS: BP 104/64; PULSE 75; RESP 18; TEMP 36.7; O2SAT 97
[2020-10-09 13:29] VITALS: BP 113/76; PULSE 60; RESP 18; TEMP 37.2; O2SAT 98
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
[2020-10-09 20:08] VITALS: BP 139/80; PULSE 72; RESP 17; TEMP 36.4; O2SAT 100
[2020-10-10 05:25] VITALS: BP 109/73; PULSE 76; RESP 17; TEMP 36.7; O2SAT 97
--- NOTE | 2020-10-10 07:55 | PC.RESP ---
SMOKING CESSATION INFORMATION SENT TO PATIENT.
[2020-10-10] MEDS: lithium carbonate 300 mg Capsule PO ×2 (11:45→17:20)
[2020-10-10 13:37] VITALS: BP 107/76; PULSE 72; RESP 18; TEMP 36.6; O2SAT 100
--- NOTE | 2020-10-10 17:10 | P.PN_ITS ---
Subjective NPU Subjective: Interval history: Kiara presented today reporting that she was doing okay on the medication. She only had 1 dose at this time and denied any significant changes. She had seen her visitor and reported that it was her brother and there was a good visit. She denied any significant changes since her admission. Mental Status Exam MSE Comments: This is a well-nourished, well-developed white female with scrubs on with appropriate grooming and eye contact. Notable scar at the angle of her upper and lower lips on the left side. Cooperative with exam in mild distress. Speech was decreased rate and volume with pauses for confusion occasionally. Mood described as Okay, affect odd with inappropriate laughter on multiple occasions. Thought process organized at times other times confused. Thought content: Patient denied suicidal or homicidal ideation, there were no delusions reported or noted, she denied any auditory or visual hallucinations, but did at times seem to be attending to internal realities. Attention and concentration appeared impaired memory was unreliable but none were formally tested. She is alert and oriented x3. Insight and judgment are impaired. Vitals/I&O/Wt Last Vital Signs Temp 97.7 F 10/11/20 02:13 Pulse 82 10/10/20 20:02 Resp 17 10/10/20 20:02 BP 128/82 10/10/20 20:02 Pulse Ox 100 10/10/20 20:02 Data NPU : 10/08/20 15:10 10/08/20 15:10 A&P Additional A&P Information (1) Suicidal ideation: (2) Post-traumatic stress disorder, chronic: (3) Bipolar 1 disorder: Additional A&P Information This is a 35-year-old white female with bipolar disorder and PTSD who presents confused likely secondary to bryan being off of her medications. 1. Continue current medication. We will continue the lithium and plan to increase dose aggressively, then add an SSRI and if that does not get stability explore a new antipsychotic. 2. Continue every 15 minute checks for safety. 3. Encourage individual, group and milieu therapy. 4. We will attempt to get a hold of mom to get a sense of what she thinks has been going on the last months. Involuntary Hold Information 96 Hour Hold: 96 Hour Involuntary Admission: No Attestations NPU Medical Necessity Statement*: Inpatient hospitalization is medically necessary and the clinically appropriate intervention, at this time. We will monitor medications and make changes as indicated. Likely length of stay 4-6 days. Coding Level of Care Code Acute Horse Riding Coach Or Instructor for Ranulfo Fernandez
[2020-10-10 20:02] VITALS: BP 128/82; PULSE 82; RESP 17; TEMP 36.6; O2SAT 100
[2020-10-11] MEDS: hyDROXYzine 25 mg Capsule 50 MG PO (01:14)
[2020-10-11] MEDS: acetaminophen 325 mg Tablet 650 MG PO (01:14)
--- NOTE | 2020-10-11 02:09 | PC.NURSE ---
pt reports feeling like she has a fever. tylenol given 0114- temp taken temporal 99.3 & retaken orally 97.7. Will continue to monitor patient for s/s of illness.
[2020-10-11 02:11] VITALS: TEMP 37.4
[2020-10-11 02:13] VITALS: TEMP 36.5
[2020-10-11 06:00] VITALS: BP 108/72; PULSE 72; RESP 15; TEMP 37; O2SAT 97
[2020-10-11] MEDS: lithium carbonate 300 mg Capsule PO ×2 (07:55→17:00)
[2020-10-11 13:38] VITALS: BP 106/70; PULSE 70; RESP 18; TEMP 36.7; O2SAT 100
--- NOTE | 2020-10-11 13:45 | P.PN_ITS ---
Subjective NPU Subjective: Interval history: Kiara presented today appearing a little better and seeming more stable. She was interacting with other patients in a healthy manner. She denies any side effects to the initiation of lithium. We discussed the risks, benefits and alternatives of possibly of increasing her lithium tomorrow, and she understood and agreed to proceed as is documented in this note. She reports that sleep was tough but that she is eating okay. Mental Status Exam MSE Comments: This is a well-nourished, well-developed white female with scrubs on with appropriate grooming and eye contact. Notable scar at the angle of her upper and lower lips on the left side. Cooperative with exam in mild distress. Speech was decreased rate and volume with less pauses for confusion o ccasionally. Mood described as alright, affect odd with less inappropriate laughter. Thought process organized at times other times confused. Thought content: Patient denied suicidal or homicidal ideation, there were no delusions reported or noted, she denied any auditory or visual hallucinations, but did at times seem to be attending to internal realities. Attention and concentration appeared impaired memory was unreliable but none were formally tested. She is alert and oriented x3. Insight and judgment are impaired. Vitals/I&O/Wt Last Vital Signs Temp 98.0 F 10/11/20 13:38 Pulse 70 10/11/20 13:38 Resp 18 10/11/20 13:38 BP 106/70 10/11/20 13:38 Pulse Ox 100 10/11/20 13:38 Data NPU : 10/08/20 15:10 10/08/20 15:10 A&P Additional A&P Information (1) Suicidal ideation: (2) Post-traumatic stress disorder, chronic: (3) Bipolar 1 disorder: This is a 35-year-old white female with bipolar disorder and PTSD who presents confused likely secondary to bryan being off of her medications. 1. Continue current medication. We will continue the lithium and plan to increase dose aggressively, then add an SSRI and if that does not get stability explore a new antipsychotic. 2. Continue every 15 minute checks for safety. 3. Encourage individual, group and milieu therapy. 4. We will attempt to get a hold of mom to get a sense of what she thinks has been going on the last months. Involuntary Hold Information 96 Hour Hold: 96 Hour Involuntary Admission: No Attestations NPU Medical Necessity Statement*: Inpatient hospitalization is medically necessary and the clinically appropriate intervention, at this time. We will monitor medications and make changes as indicated. Likely length of stay 3-5 days. Coding Level of Care Code Acute Pool Hall Inspector for Ranulfo Fernandez
[2020-10-11 20:11] VITALS: BP 115/82; PULSE 76; RESP 15; TEMP 36.5; O2SAT 98
[2020-10-12] MEDS: acetaminophen 325 mg Tablet 650 MG PO ×3 (02:35→21:21)
[2020-10-12 06:00] VITALS: BP 107/71; PULSE 66; RESP 14; TEMP 36.4; O2SAT 98
[2020-10-12] MEDS: lithium carbonate 300 mg Capsule PO ×3 (08:31→17:34)
[2020-10-12 13:52] VITALS: BP 107/68; PULSE 74; RESP 18; TEMP 36.9
--- NOTE | 2020-10-12 15:09 | PM.NPN ---
Subjective NPU Subjective: Interval history: Kiara presents today reporting that things are going a little better. She endorses feeling a little less energy/edginess. We discussed the risk benefits and alternatives of adding 300 mg of lithium this evening and checking her lithium level in the morning and she understood and agreed to proceed as is documented in this note.. Additionally talked about plans for a antidepressant moving forward. She reports she did see the plastic surgeon about her face and gave her something to use in the interim before their appointment again in December. Mental Status Exam MSE Comments: This is a well-nourished, well-developed white female with scrubs on with appropriate grooming and eye contact. Notable scar at the angle of her upper and lower lips on the left side. Cooperative with exam in no acute distress. Speech was decreased rate and volume with no pauses for confusion occasionally. Mood described as better, affect congruent with no inappropriate laughter. Thought process more organized. Thought content: Patient denied suicidal or homicidal ideation, there were no delusions reported or noted, she denied any auditory or visual hallucinations. Attention and concentration appeared intact and memory was more reliable but none were formally tested. She is alert and oriented x3. Insight and judgment are improving. Vitals/I&O/Wt Last Vital Signs Temp 97.6 F 10/12/20 20:07 Pulse 67 10/12/20 20:07 Resp 18 10/12/20 20:07 BP 114/79 10/12/20 20:07 Pulse Ox 100 10/12/20 20:07 Weight last 48 hrs Weight 58.967 kg Data NPU : 10/08/20 15:10 10/08/20 15:10 A&P Additional A&P Information (1) Suicidal ideation: (2) Post-traumatic stress disorder, chronic: (3) Bipolar 1 disorder: This is a 35-year-old white female with bipolar disorder and PTSD who presents confused likely secondary to bryan being off of her medications. 1. Continue current medication. Increase lithium to 300mg qam and 600mg qhs 2. Continue every 15 minute checks for safety. 3. Encourage individual, group and milieu therapy. 4. We will attempt to get a hold of mom to get a sense of what she thinks has been going on the last months. Involuntary Hold Information 96 Hour Hold: 96 Hour Involuntary Admission: No Attestations NPU Medical Necessity Statement*: Inpatient hospitalization is medically necessary and the clinically appropriate intervention, at this time. We will monitor medications and make changes as indicated. Likely length of stay 1-3 days. Coding Level of Care Code Acute Palm And Back Forger for Ranulfo Fernandez
[2020-10-12 20:07] VITALS: BP 114/79; PULSE 67; RESP 18; TEMP 36.4; O2SAT 100
[2020-10-12] MEDS: trazodone 50 mg Tablet PO (21:22)
--- NOTE | 2020-10-12 22:30 | PC.NURSE ---
Addendum entered by Rosaura Kimbrough RN 10/12/20 22:32: followup-= pt is resting exhibiting no s/s of pain Original Note: @2121-tylenol 650mg po given for pain rated4 on scale of 1-10.
--- NOTE | 2020-10-12 22:33 | PC.NURSE ---
Hold [place] Hold morning lithium dose until lab completes level.
--- NOTE | 2020-10-13 05:07 | PC.NURSE ---
trazodone 50mg po for sleep. Patient has slept well all evening.
[2020-10-13 06:00] VITALS: BP 100/59; PULSE 68; RESP 15; TEMP 36.7; O2SAT 97
[2020-10-13] MEDS: lithium carbonate 300 mg Capsule PO (08:21)
[2020-10-13] MEDS: acetaminophen 325 mg Tablet 650 MG PO (08:24)
[2020-10-13 08:47] LABS: Lithium 0.5 mmol/L (0.6-1.2)
[2020-10-13 14:00] VITALS: BP 107/72; PULSE 71; RESP 18; TEMP 36.6; O2SAT 97
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
[2020-10-13 15:00] VITALS: BP 107/72; PULSE 71; RESP 18; TEMP 36.6; O2SAT 97
== END 2020-10-13 15:53 | disposition home or self-care (01) | DRG 885 ==
LOC: ER 15:45 → NP 16:06
PROVIDERS: Admitting Provider Psychiatry & Neurology Psychiatry; Emergency Provider Emergency Medicine; PCP Family Medicine; Visit Provider Psychiatry & Neurology Psychiatry
DX: F23 Brief psychotic disorder (principal); R45.851 Suicidal ideations; F31.9 Bipolar disorder, unspecified; F43.12 Post-traumatic stress disorder, chronic; G50.0 Trigeminal neuralgia; Z91.5 Personal history of self-harm; F17.210 Nicotine dependence, cigarettes, uncomplicated; Z81.8 Family history of other mental and behavioral disorders
CPT/HCPCS: 12345; 36415; 80053; 80178; 80306; 80307; 81025; 85025; 99284

== ENCOUNTER → 2020-10-27 07:44 | Outpatient (BNVA) | payer OTHER, SELFPAY | PROVIDERS: PCP Family Medicine; Visit Provider Nurse Practitioner | DX: F43.12 Post-traumatic stress disorder, chronic (principal); F31.76 Bipolar disorder, in full remission, most recent episode depressed | CPT/HCPCS: 99214 ==

== ENCOUNTER → 2020-12-09 07:55 | Outpatient (BNVA) | payer OTHER, SELFPAY | PROVIDERS: PCP Family Medicine; Visit Provider Nurse Practitioner | DX: F31.9 Bipolar disorder, unspecified (principal); F43.12 Post-traumatic stress disorder, chronic | CPT/HCPCS: 99214 ==

== ENCOUNTER 2022-02-09 08:58 | Inpatient (IN) | payer OTHER, SELFPAY ==
[2022-02-09] VITALS (8 sets, daily range): BP systolic 112–136; BP diastolic 70–87; PULSE 97–118; RESP 17–22; TEMP 36.6–37.1; O2SAT 97–99; BMI 22.8
--- NOTE | 2022-02-09 09:28 | ED.C_ITS ---
HPI - Psych General: Chief Complaint: Psychiatric Symptoms Stated Complaint: Mental health eval Time Seen by Provider: 02/09/22 09:01 Source: patient Mode of arrival: ambulatory Limitations: altered mental status History of Present Illness: 36-year-old female presents emergency room she has a history of bipolar disorder. She has been having auditory visual hallucinations for the last couple of days. She states she has been feeling overwhelmed at work. She not missed any medications but she had been states she has been trying to cut down her Ativan she takes 2 mg at night and to mention taking 1 mg but when I try to get a confirm when she started trying to taper states she did take 2 mg last night. Otherwise she has been current on all of her medications. She denies any intent to harm herself or others. She has a very flat timid affect at this time avoids all eye contact. Hesitant to answer questions at times. She denies any recent illness denies any cough fever sweats chills. MD complaint: feels depressed and other (Auditory visual loose Nations) Onset (ago): day(s) (3-4) History of same: Yes Relieving factors: none Exacerbating factors: none Context: significant life stressor Associated psychiatric symptoms: depression, auditory hallucinations and visual hallucinations Associated symptoms: Reports auditory hallucinations and visual hallucinations; Deny homicidal ideation or suicidal ideation Treatments prior to arrival: none Review of Systems Const: Denies: fever(s), chills, body aches, change in appetite, fatigue or malaise ENMT: Denies: throat pain, ear or mastoid pain, nasal discharge or nasal congestion Card: Denies: chest pain, edema, dyspnea on exertion or orthopnea Resp: Denies: dyspnea, productive cough or non-productive cough GI: Denies: abdominal pain, nausea, vomiting, hematemesis, coffee ground emesis, diarrhea, constipation, bloating, hematochezia or melena : Denies: flank pain, difficulty voiding, dysuria, urinary frequency or urinary urgency Psych: Reports: visual hallucinations and auditory hallucinations; Denies: suicidal ideation or homicidal ideation [facility] PFSH: Medical History (Updated 02/09/22 @ 10:35 by Harry Julian DO) Bipolar disorder with psychotic features Endometriosis Facial scar Hypothyroidism Lumbar post-laminectomy syndrome Motor nerve conduction block Post-traumatic stress disorder, chronic Psychiatric care Spondylosis of lumbar region without myelopathy or radiculopathy Surgical History History of liver biopsy Hx of cholecystectomy Family History Denies family history of Psychiatric illness Social History Smoking and tobacco status: current every day smoker cigarettes [ Other cigarette details: 3 to 4 cigarettes a day] Smoking risk assessment/counseling performed?: Yes Tobacco counseling given: counseling >3 minutes Alcohol intake: current Household members: family Housing: House Current occupational status: employed Physical Exam Const: COMMON NORMALS: no acute distress GENERAL APPEARANCE: cooperative and comfortable ORIENTATION/CONSCIOUSNESS: Yes awake, Yes oriented to person, Yes oriented to place and Yes oriented to time HENMT: COMMON NORMALS: normocephalic, atraumatic and hearing grossly normal bilaterally HEAD & SCALP: normocephalic and atraumatic Neck/C-Spine: COMMON NORMALS: no JVD Resp: COMMON NORMALS: normal respiratory effort, No retractions, No use of accessory muscles and clear to auscultation bilaterally AUSCULTATION: clear to auscultation bilaterally Cardio: COMMON NORMALS: no JVD, regular rate, regular rhythm and No murmurs present (Cardio) RATE: regular rate RHYTHM: regular rhythm Extremity: COMMON NORMALS: normal to inspection, capillary refill normal, no clubbing, cyanosis or edema, no calf tenderness and no pedal edema Neuro: SENSORIUM/ORIENTATION: Yes oriented to person, Yes oriented to place and Yes oriented to time Course Vital Signs: Vital signs: Vital Signs Temperature 98.7 F 02/09/22 11:05 Pulse Rate 100 02/09/22 11:05 Respiratory Rate 22 H 02/09/22 11:05 Blood Pressure 127/87 02/09/22 11:05 Pulse Oximetry 97 02/09/22 11:05 MDM - Psych Medical Decision Making Reviewed findings with the patient also discussed Dr. Dean. Recommend that she be admitted for acute psychosis related to her bipolar. Patient still extremely anxious give her 2 mg Ativan. Medical Records I reviewed the patient's medical records. Lab Data I reviewed the patient's lab results. : 02/09/22 09:33 02/09/22 09:33 Laboratory Results WBC 7.5 10^3/uL (4.0-10.0) 02/09/22 09: RBC 4.89 10^6/uL (4.1-5.3) 02/09/22 09: Hgb 15.6 g/dL (11.5-15.3) H 02/09/22: Hct 46.2 % (37.0-47.0) 02/09/22: MCV 94.5 fl (81-99) 02/09/22 09: MCH 31.9 pg (28.0-34.0) 02/09/22: MCHC 33.8 g/dL (30.0-36.0) 02/09/22: RDW 11.9 % (12.1-15.1) L 02/09/22: Plt Count 310 10^3/cmm (130-400) 02/09/22: MPV 8.9 fL (7.4-10.4) 02/09/22 09: Neut % (Auto) 72.3 % 02/09/22 09: Lymph % (Auto) 17.7 % 02/09/22 09: [place] % (Auto) 8.5 % 02/09/22 09: Eos % (Auto) 0.7 % 02/09/22 09: Baso % (Auto) 0.5 % 02/09/22 09: Neut # (Auto) 5.44 10^3/uL (1.8-7.7) 02/09/22 09: Lymph # (Auto) 1.3 10^3/uL (0.8-4.8) 02/09/22 09:33 [place] # (Auto) 0.6 10^3/uL (0.2-0.9) 02/09/22 09: Eos # (Auto) 0.1 10^3/uL (0.0-0.8) 02/09/22 09: Baso # (Auto) 0.0 10^3/uL (0.0-0.1) 02/09/22: Nucleated RBC % (auto) 0 % 02/09/22:33 Nucleated RBCs # 0.0 /100WBC 02/09/22 09:33 Sodium 137 mmol/L (136-145) 02/09/22 09:33 Potassium 3.1 mmol/L (3.5-5.1) L 02/09/22 09:33 Chloride 103 mmol/L (98-107) 02/09/22 09:33 Carbon Dioxide 19 mmol/L (22-29) L 02/09/22 09:33 Anion Gap 18.1 (5-19) 02/09/22 09:33 BUN 14 mg/dL (6-20) 02/09/22 09:33 Creatinine 0.9 mg/dL (0.5-0.9) 02/09/22 09:33 GFR Calculation 70.5 mL/min (90-130) L 02/09/22 09:33 Glucose 85 mg/dL (65-115) 02/09/22 09:33 Calculated Osmolality 284 mOsm/kg (285-295) L 02/09/22 09:33 Calcium 8.7 mg/dL (8.5-10.5) 02/09/22 09:33 Total Bilirubin 0.5 mg/dL (0.15-1.2) 02/09/22 09:33 AST 16 U/L (0-32) 02/09/22 09:33 ALT 19 U/L (0-33) 02/09/22 09:33 Alkaline Phosphatase 76 IU/L (35-105) 02/09/22 09:33 Total Protein 7.2 g/dL (6.6-8.7) 02/09/22 09:33 Albumin 5.1 g/dL (3.5-5.2) 02/09/22 09:33 Globulin 2.1 g/dL (1.3-4.6) 02/09/22 09:33 HCG, Qual Negative (Negative) 02/09/22 09:33 Salicylates < 0.3 mg/dL (3-10) L 02/09/22 09:33 Acetaminophen < 5.0 ug/mL (10-30) L 02/09/22 09:33 Discharge Plan Discharge Patient Disposition: Admitted As Inpatient Admit Provider: Hemant Dean Clinical Impression: Bipolar 1 disorder, Acute psychosis, Post-traumatic stress disorder, chronic Condition: Stable Coding Level of Care Code ED Service Car Driver for [facility] Fwd Exam Detailed
[2022-02-09 09:52] LABS: Basophils % 0.5 %; Eosinophils # 0.1 10^3/uL (0.0-0.8); Eosinophils % 0.7 %; Hematocrit 46.2 % (37.0-47.0); Hemoglobin 15.6 g/dL (11.5-15.3); Lymphocytes # 1.3 10^3/uL (0.8-4.8); Lymphocytes % 17.7 %; Mean Corpuscular HGB Conc 33.8 g/dL (30.0-36.0); Mean Corpuscular Hemoglobin 31.9 pg (28.0-34.0); Mean Corpuscular Volume 94.5 fl (81-99); Mean Platelet Volume 8.9 fL (7.4-10.4); Monocytes # 0.6 10^3/uL (0.2-0.9); Monocytes % 8.5 %; Neutrophils # 5.44 10^3/uL (1.8-7.7); Neutrophils % 72.3 %; Nucleated Red Blood Cells % 0 %; Platelet Count 310 10^3/cmm (130-400); Red Blood Count 4.89 10^6/uL (4.1-5.3); Red Cell Distribution Width 11.9 % (12.1-15.1); White Blood Count 7.5 10^3/uL (4.0-10.0)
[2022-02-09 10:07] LABS: HCG, Serum Qual Negative (Negative)
[2022-02-09 10:13] LABS: Alanine Aminotransferase 19 U/L (0-33); Albumin Level 5.1 g/dL (3.5-5.2); Alkaline Phosphatase 76 IU/L (35-105); Anion Gap 18.1 (5-19); Aspartate Amino Transferase 16 U/L (0-32); Blood Urea Nitrogen 14 mg/dL (6-20); Calcium 8.7 mg/dL (8.5-10.5); Carbon Dioxide 19 mmol/L (22-29); Chloride 103 mmol/L (98-107); Globulin 2.1 g/dL (1.3-4.6); Glomerular Filtration Rate 70.5 mL/min (90-130); Glucose 85 mg/dL (65-115); Osmolality Calculated 284 mOsm/kg (285-295); Potassium 3.1 mmol/L (3.5-5.1); Sodium 137 mmol/L (136-145); Total Bilirubin 0.5 mg/dL (0.15-1.2); Total Protein 7.2 g/dL (6.6-8.7)
[2022-02-09 10:20] LABS: Acetaminophen < 5.0 ug/mL (10-30); Salicylate < 0.3 mg/dL (3-10)
[2022-02-09] MEDS: LORazepam 2 mg Tablet PO (11:19)
--- NOTE | 2022-02-09 11:19 | NPU.GN ---
[facility] Group Topic: Roll The Dice General Mood of Group: Kiara did not attend group today.
[2022-02-09] MEDS: OLANZapine 5 mg ODT PO (12:16)
[2022-02-09] MEDS: LORazepam 0.5 mg Tablet PO (21:11)
[2022-02-09] MEDS: meloxicam 7.5 mg tablet PO (21:11)
[2022-02-09] MEDS: topiramate 100 mg Tablet 200 MG PO (21:11)
[2022-02-09] MEDS: lamoTRIgine 25 mg Tablet 50 MG PO (21:12)
--- NOTE | 2022-02-10 05:05 | PC.NURSE ---
Patient received Lorazepam 0.5mg po with her night meds per request related to anxiety.
[2022-02-10 06:00] VITALS: BP 108/71; PULSE 91; RESP 18; TEMP 36.6; O2SAT 97
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
[2022-02-10] MEDS: fluoxetine 20 mg Capsule PO (10:01)
[2022-02-10] MEDS: buPROPion XL (24 HR) 300 mg Tablet PO (10:02)
[2022-02-10] MEDS: fluoxetine 10 mg Capsule PO (10:02)
[2022-02-10] MEDS: meloxicam 7.5 mg tablet PO ×2 (10:48→20:55)
[2022-02-10] MEDS: cyclobenzaprine 10 mg Tablet 5 MG PO (10:48)
[2022-02-10] MEDS: LORazepam 0.5 mg Tablet PO (10:48)
--- NOTE | 2022-02-10 11:27 | NPU.GN ---
[facility] Group Topic:Coping Mechanisms Activity General Mood of Group: Kiara did not attend group today. CSS did meet with patient and discussed [facility] services. This CSS aided client in completing the intake [facility] paperwork and discussed treatment programs , the process to access the initial intake for out patient mental health services. Patient completed the [facility] intake paperwork. Patient does see [facility] provider for medication management. Patient would also like Case Management services as well as therapy services with [facility]. CSS turned in the intake paperwork and contacted the treatment team.
[2022-02-10 14:00] VITALS: BP 128/82; PULSE 93; RESP 18; TEMP 36.6; O2SAT 98
[2022-02-10] MEDS: topiramate 100 mg Tablet 200 MG PO (20:54)
[2022-02-10] MEDS: lamoTRIgine 25 mg Tablet 50 MG PO (20:54)
[2022-02-10 21:02] VITALS: BP 118/85; PULSE 100; RESP 16; TEMP 36.7; O2SAT 98
[2022-02-11 06:00] VITALS: BP 106/68; PULSE 93; RESP 18; TEMP 36.8; O2SAT 96
[2022-02-11] MEDS: acetaminophen 325 mg Tablet 650 MG PO ×2 (10:03→23:21)
[2022-02-11] MEDS: fluoxetine 10 mg Capsule PO (10:04)
[2022-02-11] MEDS: fluoxetine 20 mg Capsule PO (10:04)
[2022-02-11] MEDS: meloxicam 7.5 mg tablet PO ×2 (10:04→20:23)
[2022-02-11] MEDS: buPROPion XL (24 HR) 300 mg Tablet PO (10:04)
[2022-02-11 13:49] VITALS: BP 133/67; PULSE 95; RESP 16; TEMP 37.1; O2SAT 97
--- NOTE | 2022-02-11 14:50 | PC.NURSE ---
PRN C/O BACK PAIN RATED AT A 4. TOOK PRN TYLENOL AT 1003 TO GOOD EFFECT.
--- NOTE | 2022-02-11 15:23 | W.PM.NPUPNS ---
Subjective NPU Subjective: She says that she is doing a little better. She was visiting with her mother in the day room at 3:15 PM. They seem to be having a good conversation. She says that she slept fairly well last night. Mental Status Exam MSE Comments: This is a 36-year-old appropriate weight female who appears approximately her stated age and is in no acute distress. She is pleasant and cooperative with the evaluation. Fairly good. She is dressed in hospital scrubs. psychomotor activity is normal Speech is is not pressured. She has difficulty organizing her thoughts and is frequently delayed in her answers. Alert, oriented X3 Attention and concentration may be somewhat decreased Memory is intact Mood is depressed and affect is dysphoric Thought process is logical and goal-directed. Thought content: She reports visual and auditory hallucinations as described above. No delusions or paranoia are noted. No current suicidal ideation, and no homicidal ideation. Fund of knowledge is average Insight and judgment appear to be only fair. Impulse control is only fair. Cognition: Patient Appearance: Appropriate Level of Consciousness: Awake, Alert and Follows Commands Patient Cognition Impaired: No Ability to Follow Directions: Excellent Patient Orientation (long list): Person, Place, Name, Age and Birthday Comprehension Ability: No Impairment Hallucination Type: None Delusion Description: Not Present Thought Process: Blocking, Disorganized and Flight of Ideas Affect: Affect Description: Appropriate Depressive Symptoms: Difficulty Concentrating, Difficulty Sleeping, Insomnia, Increased Anxiety and Unexplained Headaches Behavior: Patient Behavior: Appropriate Speech Pattern: Appropriate Vitals/I&O/Wt Last Vital Signs Temp 98.8 F 02/11/22 13:49 Pulse 95 02/11/22 13:49 Resp 16 02/11/22 13:49 BP 133/67 02/11/22 13:49 Pulse Ox 97 02/11/22 13:49 Data NPU : 02/09/22 09:33 02/09/22 09:33 A&P Assessment and plan (1) Acute psychosis: Status: Acute (2) Bipolar 1 disorder: Status: Acute (3) Post-traumatic stress disorder, chronic: Status: Acute Plan This is a 36-year old female with a history of bipolar 1 disorder and PTSD who reports worsening of psychosis over the last week, possibly due to stress. She has been compliant with her medications. Plan: 1. Continue current medication. 2. Continue every 15 minute checks for safety. 3. Encourage individual, group and milieu therapies. 4. Encourage sober living treatment after discharge at the highest level of care to which she is willing to commit. 5. We will monitor for safety for herself in the community prior to discharge. Involuntary Hold Information 96 Hour Hold: 96 Hour Involuntary Admission: No Attestations NPU Medical Necessity Statement*: Inpatient hospitalization is medically necessary and the clinically appropriate intervention at this time. We will initiate medications and make changes as indicated. Coding Level of Care Code Acute Servicenow Administrator Developer for Ranulfo Fernandez Diagnoses Acute psychosis F23 Bipolar 1 disorder F31.9 Post-traumatic stress disorder, chronic F43.12
[2022-02-11] MEDS: topiramate 100 mg Tablet 200 MG PO (20:22)
[2022-02-11] MEDS: lamoTRIgine 25 mg Tablet 50 MG PO (20:23)
[2022-02-11 21:27] VITALS: BP 109/67; PULSE 78; RESP 17; TEMP 37; O2SAT 97
[2022-02-12 06:00] VITALS: BP 105/69; PULSE 77; RESP 17; TEMP 36.8; O2SAT 97
[2022-02-12] MEDS: buPROPion XL (24 HR) 300 mg Tablet PO (08:32)
[2022-02-12] MEDS: fluoxetine 10 mg Capsule PO (08:33)
[2022-02-12] MEDS: fluoxetine 20 mg Capsule PO (08:33)
[2022-02-12] MEDS: meloxicam 7.5 mg tablet PO ×2 (08:33→20:56)
--- NOTE | 2022-02-12 13:19 | P.NPUPN_ITS ---
Subjective NPU Subjective: She said that she continues to struggle. She says that she has seen flashes of light and shadows almost all of her life. She has taken Abilify in Geodon but it does cause side effects. Geodon caused akathisia. She does not want to take any of the other second-generation antipsychotics because she really struggles with her appetite the way it is. She thinks she will not have insurance because she is going to lose her job. She took off too much time last year and was fired and then they have rehired her but she is sure if she will be fired again now. She said that she quit taking the Lamictal at 1 point because she was already on Topamax. Topamax is for her trigeminal neuralgia. She has just been on the lamotrigine for a short time. She did not take the 25 mg as long as she was supposed to have the right to the 50 mg because her hallucinations were getting worse. Her hallucinations are just back to baseline now she has not seen the things hanging from the ceiling since she has been here. She agreed to try some perphenazine. He also agreed to increase the lamotrigine to 100 mg. Mental Status Exam MSE Comments: This is a 36-year-old appropriate weight female who appears a pproximately her stated age and is in no acute distress. She is pleasant and cooperative with the evaluation. Fairly good. She is dressed in hospital scrubs. psychomotor activity is normal Speech is is not pressured. She has difficulty organizing her thoughts and is frequently delayed in her answers. Alert, oriented X3 Attention and concentration may be somewhat decreased Memory is intact Mood is depressed and affect is anxious and dysphoric Thought process is logical and goal-directed. Thought content: She reports visual and auditory hallucinations as described above. No delusions or paranoia are noted. No current suicidal ideation, and no homicidal ideation. Fund of knowledge is average Insight and judgment appear to be only fair. Impulse control is only fair. Cognition: Patient Appearance: Appropriate Level of Consciousness: Awake, Alert and Follows Commands Patient Cognition Impaired: No Ability to Follow Directions: Excellent Patient Orientation (long list): Person, Place, Name, Age and Birthday Comprehension Ability: No Impairment Hallucination Type: None Delusion Description: Not Present Thought Process: Blocking, Disorganized and Flight of Ideas Affect: Affect Description: Calm Depressive Symptoms: Difficulty Concentrating, Difficulty Sleeping, Insomnia, Increased Anxiety and Unexplained Headaches Behavior: Patient Behavior: Appropriate, Cooperative and Withdrawn Speech Pattern: Appropriate Vitals/I&O/Wt Last Vital Signs Temp 98.3 F 02/12/22 06:00 Pulse 77 02/12/22 06:00 Resp 17 02/12/22 06:00 BP 105/69 02/12/22 06:00 Pulse Ox 97 02/12/22 06:00 Data NPU : 02/09/22 09:33 02/09/22 09:33 A&P Assessment and plan (1) Acute psychosis: Status: Acute (2) Bipolar 1 disorder: Status: Acute (3) Post-traumatic stress disorder, chronic: Status: Acute Plan This is a 36-year old female with a history of bipolar 1 disorder and PTSD who reports worsening of psychosis over the last week, possibly due to stress. She has been compliant with her medications. Plan: 1. Continue current medication. Increase lamotrigine to 100 mg and add perphenazine 4 mg at bedtime. 2. Continue every 15 minute checks for safety. 3. Encourage individual, group and milieu therapies. 4. Encourage sober living treatment after discharge at the highest level of care to which she is willing to commit. 5. We will monitor for safety for herself in the community prior to discharge. Involuntary Hold Information 96 Hour Hold: 96 Hour Involuntary Admission: No Attestations NPU Medical Necessity Statement*: Inpatient hospitalization is medically necessary and the clinically appropriate intervention at this time. We will initiate medications and make changes as indicated. Coding Level of Care Code Acute Ruching Machine Operator for Ranulfo Fernandez Diagnoses Acute psychosis F23 Bipolar 1 disorder F31.9 Post-traumatic stress disorder, chronic F43.12
[2022-02-12 14:00] VITALS: BP 128/81; PULSE 74; RESP 18; TEMP 36.8; O2SAT 100
--- NOTE | 2022-02-12 16:31 | PC.NURSE ---
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 INFORMATION LEFT FOR CONTINUED CONTACT. MOTHER INFORMED THAT [employer] AND OFF UNIT FOR DAY AND MOTHER VOICED THAT FOLLOW UP ON TUESDAY WOULD BE FINE SINCE [place]'S HR WOULD BE OUT FOR WEEKEND. COPY OF CONTACT INFORMATION PLACED IN OFFICE WELL IN HARD CHART. [facility] HR [employer]: [phone] HR FAX: [phone]
[2022-02-12 20:16] VITALS: BP 134/87; PULSE 99; RESP 17; TEMP 36.6; O2SAT 100
[2022-02-12] MEDS: lamoTRIgine 25 mg Tablet 50 MG PO (20:56)
[2022-02-12] MEDS: topiramate 100 mg Tablet 200 MG PO (20:56)
[2022-02-12] MEDS: perphenazine 4 mg Tablet PO (21:47)
[2022-02-13 06:00] VITALS: PULSE 110; RESP 16; TEMP 36.9; O2SAT 94
[2022-02-13] MEDS: buPROPion XL (24 HR) 300 mg Tablet PO (10:30)
[2022-02-13] MEDS: meloxicam 7.5 mg tablet PO ×2 (10:30→21:35)
[2022-02-13] MEDS: fluoxetine 10 mg Capsule PO (10:31)
[2022-02-13] MEDS: fluoxetine 20 mg Capsule PO (10:31)
--- NOTE | 2022-02-13 12:34 | P.NPUPN_ITS ---
Subjective NPU Subjective: She is about the same. She did not have any side effects from Trilafon that she took last night. Her sleep is about the same. She said that the antipsychotics generally shut her down. She said that she was on lithium before and it was one of the best medicine she has been on. Except for down in a different way, a better way. She said that 1200 mg was too much but a lower dose would be good. She said that she stopped taking it because of general noncompliance not because of there was a problem with the lithium. She would like to try some lithium. Mental Status Exam MSE Comments: This is a 36-year-old appropriate weight female who appears approximately her stated age and is in no acute distress. She is pleasant and cooperative with the evaluation. Fairly good. She is dressed in hospital scrubs. psychomotor activity is normal Speech is is not pressured. She has difficulty organizing her thoughts and is frequently delayed in her answers. Alert, oriented X3 Attention and concentration may be somewhat decreased Memory is intact Mood is depressed and affect is anxious and dysphoric Thought process is logical and goal-directed. Thought content: She reports visual and auditory hallucinations as described above. No delusions or paranoia are noted. No current suicidal ideation, and no homicidal ideation. Fund of knowledge is average Insight and judgment appear to be only fair. Impulse control is only fair. Cognition: Patient Appearance: Appropriate Level of Consciousness: Awake, Alert and Follows Commands Patient Cognition Impaired: No Ability to Follow Directions: Excellent Patient Orientation (long list): Person, Place, Name, Age and Birthday Comprehension Ability: No Impairment Hallucination Type: None Delusion Description: Not Present Thought Process: Blocking, Disorganized and Flight of Ideas Affect: Affect Description: Calm Depressive Symptoms: Difficulty Concentrating, Difficulty Sleeping, Insomnia, Increased Anxiety and Unexplained Headaches Behavior: Patient Behavior: Appropriate and Cooperative Speech Pattern: Appropriate Vitals/I&O/Wt Last Vital Signs Temp 98.4 F 02/13/22 06:00 Pulse 110 H 02/13/22 06:00 Resp 16 02/13/22 06:00 BP 134/87 02/12/22 20:16 Pulse Ox 94 02/13/22 06:00 Data NPU : 02/09/22 09:33 02/09/22 09:33 A&P Assessment and plan (1) Acute psychosis: Status: Acute (2) Bipolar 1 disorder: Status: Acute (3) Post-traumatic stress disorder, chronic: Status: Acute Plan This is a 36-year old female with a history of bipolar 1 disorder and PTSD who reports worsening of psychosis over the last week, possibly due to stress. She has been compliant with her medications. Plan: 1. Continue current medication. Increase lamotrigine to 100 mg and add perphenazine 4 mg at bedtime. Add Bassett 300 mg once today and BID tomorrow. 2. Continue every 15 minute checks for safety. 3. Encourage individual, group and milieu therapies. 4. Encourage sober living treatment after discharge at the highest level of care to which she is willing to commit. 5. We will monitor for safety for herself in the community prior to discharge. Involuntary Hold Information 96 Hour Hold: 96 Hour Involuntary Admission: No Attestations U Medical Necessity Statement*: Inpatient hospitalization is medically necessary and the clinically appropriate intervention at this time. We will initiate medications and make changes as indicated. Coding Level of Care Code Acute Electrical Maintenance Man for Ranulfo Fernandez Diagnoses Acute psychosis F23 Bipolar 1 disorder F31.9 Post-traumatic stress disorder, chronic F43.12
[2022-02-13] MEDS: OLANZapine 5 mg ODT PO (13:59)
[2022-02-13 14:00] VITALS: BP 149/106; PULSE 77; RESP 16; TEMP 36.4; O2SAT 100
--- NOTE | 2022-02-13 14:01 | PC.NURSE ---
PRN OLANZAPINE PT WAS VISIBLY ANXIOUS, HANDS TREMBLING, BP WAS ALSO ELEVATED. ASKED PT IS SHE WOULD LIKE SOMETHING TO HELP WITH AFOREMENTIONED SYMPTOMS, PT AGREED. ADMINISTERED PRN ZYPREXA, WILL CONTINUE TO MONITOR WITH BP RECHECK AFTER THERAPEUTIC EFFECT HAS BEEN ACHIEVED.
[2022-02-13] MEDS: lithium carbonate 300 mg Capsule PO (17:18)
[2022-02-13 20:26] VITALS: BP 143/96; PULSE 91; RESP 20; O2SAT 99
[2022-02-13] MEDS: lamoTRIgine 100 mg Tablet PO (21:14)
[2022-02-13] MEDS: topiramate 100 mg Tablet 200 MG PO (21:14)
[2022-02-13] MEDS: perphenazine 4 mg Tablet PO (21:14)
--- NOTE | 2022-02-14 00:40 | PC.NURSE ---
She came up to the aide station asking to go AMA. She stated, I don't feel safe. Dr. Dean was called. He stated that she could go. She called her mother for a ride. She became tearful on the phone. After phone call, she went back to her room. I went in and asked if she is still wanting to go. She stated, NO . I asked if she wanted to talk and she shook her head.
[2022-02-14] MEDS: OLANZapine 5 mg ODT PO ×2 (05:37→09:29)
[2022-02-14 06:00] VITALS: BMI 23.1
[2022-02-14] MEDS: lithium carbonate 300 mg Capsule PO ×2 (08:44→17:16)
[2022-02-14] MEDS: buPROPion XL (24 HR) 300 mg Tablet PO (08:44)
[2022-02-14] MEDS: fluoxetine 20 mg Capsule PO (08:44)
[2022-02-14] MEDS: meloxicam 7.5 mg tablet PO ×2 (08:44→20:18)
[2022-02-14] MEDS: fluoxetine 10 mg Capsule PO (08:44)
--- NOTE | 2022-02-14 09:42 | W.PM.NPUPNS ---
Subjective NPU Subjective: She continues to be very anxious. She almost signed out AGAINST MEDICAL ADVICE last night because of mother patient was having an episode and required sedation. She said that she did not feel safe. She said that she slept fairly well last night. She says that she feels like she is overmedicated. She feels like she started to go downhill when the Prozac was increased from 20 up to 30 mg and asked for that to be decreased 20 mg. She would also like the Trilafon discontinued. She has had 2 doses of lithium and feels a little more thirsty but no other side effects. Mental Status Exam MSE Comments: This is a 36-year-old appropriate weight female who appears approximately her stated age and is in mild distress. She is pleasant and cooperative with the evaluation. Grooming is fairly good. She is dressed in hospital scrubs. psychomotor activity is normal Speech is is not pressured. She has difficulty organizing her thoughts and is frequently delayed in her answers. Alert, oriented X3 Attention and concentration may be somewhat decreased Memory is intact Mood is depressed and affect is anxious and dysphoric Thought process is logical and goal-directed. Thought content: She denies visual and auditory hallucinations. No delusions or paranoia are noted. No current suicidal ideation, and no homicidal ideation. Fund of knowledge is average Insight and judgment appear to be only fair. Impulse control is only fair. Cognition: Patient Appearance: Appropriate Level of Consciousness: Awake, Alert and Follows Commands Patient Cognition Impaired: No Ability to Follow Directions: Excellent Patient Orientation (long list): Person, Place, Time, Name, Age, Birthday, Day of Month, Day of Week, Month, Time of Day and Year Comprehension Ability: No Impairment Hallucination Type: None Delusion Description: Not Present Thought Process: Confused Affect: Affect Description: Anxious and Guarded Depressive Symptoms: Difficulty Concentrating, Difficulty Sleeping, Insomnia, Increased Anxiety and Unexplained Headaches Behavior: Patient Behavior: Appropriate and Cooperative Speech Pattern: Appropriate and Clear Vitals/I&O/Wt Last Vital Signs Temp 97.6 F 02/13/22 14:00 Pulse 91 02/13/22 20:26 Resp 20 H 02/13/22 20:26 BP 143/96 02/13/22 20:26 Pulse Ox 99 02/13/22 20:26 Weight last 48 hrs Weight 61.235 kg Data NPU : 02/09/22 09:33 02/09/22 09:33 A&P Assessment and plan (1) Acute psychosis: Status: Acute (2) Bipolar 1 disorder: Status: Acute (3) Post-traumatic stress disorder, chronic: Status: Acute Plan This is a 36-year old female with a history of bipolar 1 disorder and PTSD who reports worsening of psychosis over the last week, possibly due to stress. She has been compliant with her medications. Plan: 1. Continue current medication. lamotrigine 100 mg's continue perphenazine 4 mg at bedtime. Decrease Prozac to 20 mg. [place] BID today and probably 3 times daily tomorrow. 2. Continue every 15 minute checks for safety. 3. Encourage individual, group and milieu therapies. 4. Encourage sober living treatment after discharge at the highest level of care to which she is willing to commit. 5. We will monitor for safety for herself in the community prior to discharge. Involuntary Hold Information 96 Hour Hold: 96 Hour Involuntary Admission: No Attestations NPU Medical Necessity Statement*: Inpatient hospitalization is medically necessary and the clinically appropriate intervention at this time. We will initiate medications and make changes as indicated. Coding Level of Care Code Acute Title Department Manager for [facility] Fernandez Diagnoses Acute psychosis F23 Bipolar 1 disorder F31.9 Post-traumatic stress disorder, chronic F43.12
[2022-02-14] MEDS: haloperidol 5 mg Tablet PO (10:38)
--- NOTE | 2022-02-14 10:45 | PC.NURSE ---
Addendum entered by Rupa Marcelo RN 02/14/22 12:08: Patient less anxious, in day room having lunch. Haldol effective at this time. Original Note: Prn note Patient given Zyprexa at 0929 for anxiety, patient noted to be standing by nurses station shaking and staring into space. Zyprexa not effective. Given Haldol for worsening anxiety. Patient continues to shake. She denies all but is visibly anxious. Will monitor for effectiveness.
--- NOTE | 2022-02-14 12:57 | PC.NURSE ---
prn note Patient noted to be standing in [place], when asked if staff could help or if patient would like to talk she is noted to have tears in her eyes and stated I am fine, noone can help. She stated she would let staff know if she needed anything.
[2022-02-14 14:00] VITALS: BP 139/78; PULSE 108; RESP 18; TEMP 36.1; O2SAT 100
--- NOTE | 2022-02-14 17:36 | PC.NURSE ---
Prn note Patient continues to show signs of anxiety while denying needs. She trembles all over, darts her eyes and is paranoid around staff. She is refusing to eat, stating its more important for me to shower rather than eat. I can do without food. Physician aware.
[2022-02-14 20:05] VITALS: BP 123/68; PULSE 91; RESP 17; TEMP 36.6; O2SAT 98
[2022-02-14] MEDS: topiramate 100 mg Tablet 200 MG PO (20:18)
[2022-02-14] MEDS: lamoTRIgine 100 mg Tablet PO (20:19)
[2022-02-15 06:00] VITALS: BP 93/66; PULSE 98; RESP 16; TEMP 37; O2SAT 97
[2022-02-15] MEDS: fluoxetine 20 mg Capsule PO (09:26)
[2022-02-15] MEDS: meloxicam 7.5 mg tablet PO ×2 (09:26→20:20)
[2022-02-15] MEDS: buPROPion XL (24 HR) 300 mg Tablet PO (09:26)
[2022-02-15] MEDS: lithium carbonate 300 mg Capsule PO ×2 (09:26→20:20)
--- NOTE | 2022-02-15 10:06 | P.NPUPN_ITS ---
Subjective NPU Subjective: She continues to be very anxious. She said that everything is too much. She wanted to go home but understood that she is not ready. She would like to get back to work. I asked her if she thought that she was capable of working and she did not respond. She thought that she had taken lithium 3 times yesterday and felt that it was too much and thought that we had already talked about reducing it back to twice a day. She actually only took 2 doses yesterday. She says that she cannot take Vistaril, Benadryl or Zyprexa for anxiety. She also said that she could not deal with our conversation and asked that I leave. Medications: Medication Review Details: This is a 36-year-old appropriate weight female who appears approximately her stated age and is in moderate distress.? She is pleasant and cooperative with the evaluation.? Grooming is fairly good.? She is dressed in hospital scrubs. psychomotor activity is normal Speech is is not pressured.? She has difficulty organizing her thoughts and is frequently delayed in her answers. Alert, oriented X3 Attention and concentration may be somewhat decreased Memory is intact Mood is depressed and affect is anxious and dysphoric Thought process is logical and goal-directed. Thought content: She denies visual and auditory hallucinations.? No delusions or paranoia are noted.? No current suicidal ideation, and no homicidal ideation.? Fund of knowledge is average Insight and judgment appear to be only fair.? Impulse control is only fair. Mental Status Exam Cognition: Patient Appearance: Appropriate Level of Consciousness: Awake, Alert and Follows Commands Patient Cognition Impaired: No Ability to Follow Directions: Excellent Patient Orientation (long list): Person, Place, Time, Name, Age, Birthday, Day of Month, Day of Week, Month, Time of Day and Year Comprehension Ability: No Impairment Hallucination Type: None Delusion Description: Not Present Thought Process: Appropriate Affect: Affect Description: Anxious, Depressed and Sad Depressive Symptoms: Difficulty Concentrating, Difficulty Sleeping, Insomnia, Increased Anxiety and Unexplained Headaches Behavior: Patient Behavior: Appropriate Speech Pattern: Pressured Vitals/I&O/Wt Last Vital Signs Temp 98.6 F 02/15/22 06:00 Pulse 98 02/15/22 06:00 Resp 16 02/15/22 06:00 BP 93/66 02/15/22 06:00 Pulse Ox 97 02/15/22 06:00 Weight last 48 hrs Weight 61.235 kg Data NPU : 02/09/22 09:33 02/09/22 09:33 A&P Assessment and plan (1) Acute psychosis: Status: Acute (2) Bipolar 1 disorder: Status: Acute (3) Post-traumatic stress disorder, chronic: Status: Acute Plan This is a 36-year old female with a history of bipolar 1 disorder and PTSD who reports worsening of psychosis over the last week, possibly due to stress.? She has been compliant with her medications. Plan: 1.? Continue current medication. ? lamotrigine 100 mg,? Decrease Prozac to 20 mg. increase [place]? TID today. Clonazepam .5 mg now and 1 mg QHS. 2.? Continue every 15 minute checks for safety. 3.? Encourage individual, group and milieu therapies. 4.? Encourage sober living treatment after discharge at the highest level of care to which she is willing to commit. 5.? We will monitor for safety for herself in the community prior to discharge Involuntary Hold Information 96 Hour Hold: 96 Hour Involuntary Admission: No Attestations NPU Medical Necessity Statement*: Inpatient hospitalization is medically necessary and the clinically appropriate intervention at this time. We will initiate medications and make changes as indicated. 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
[2022-02-15] MEDS: acetaminophen 325 mg Tablet 650 MG PO ×2 (10:20→16:40)
[2022-02-15] MEDS: hyDROXYzine 25 mg Capsule 50 MG PO (10:23)
--- NOTE | 2022-02-15 10:35 | PC.NURSE ---
Addendum entered by Scot Bowman RN 02/15/22 11:38: PT CALM AT THIS TIME MED EFFECTIVE, WILL CONTINUE TO MONITOR. Original Note: prn med pt given 50mg vistaril for anxiety, will continue to monitor.
--- NOTE | 2022-02-15 11:35 | NPU.GN ---
[facility] Topic:Mental Health discussion General Mood of Group: Kiara did not attend group today she seemed anxious today and withdrawn.
[2022-02-15] MEDS: CLONazepam 0.5 mg Tablet PO (12:56)
[2022-02-15 14:00] VITALS: BP 122/86; PULSE 102; RESP 16; TEMP 36.7; O2SAT 99
[2022-02-15] MEDS: CLONazepam 1 mg Tablet PO (20:19)
[2022-02-15] MEDS: lamoTRIgine 100 mg Tablet PO (20:20)
[2022-02-15] MEDS: topiramate 100 mg Tablet 200 MG PO (20:20)
[2022-02-15 21:11] VITALS: BP 132/82; PULSE 137; RESP 17; TEMP 36.8; O2SAT 98
[2022-02-16 06:00] VITALS: BP 104/71; PULSE 103; RESP 18; TEMP 37.3; O2SAT 98
[2022-02-16] MEDS: fluoxetine 20 mg Capsule PO (08:34)
[2022-02-16] MEDS: buPROPion XL (24 HR) 300 mg Tablet PO (08:34)
[2022-02-16] MEDS: lithium carbonate 300 mg Capsule PO ×3 (08:35→21:02)
[2022-02-16] MEDS: meloxicam 7.5 mg tablet PO ×2 (08:35→21:02)
--- NOTE | 2022-02-16 10:52 | NPU.GN ---
[facility] Topic:Positive Coping Skills General Mood of Group: Kiara did attend group today. She was social and her hygiene was ok. Her demeanor was good.
[2022-02-16] MEDS: HYDROcodone-acetaminophen 10-325 mg Tablet 1 TAB PO (13:33)
--- NOTE | 2022-02-16 13:33 | W.PM.NPUPNS ---
Subjective NPU Subjective: She is much better with the clonazepam 0.5 mg yesterday afternoon and 1 mg last night. She slept better last night. She understands that she was being overmedicated because would not have improved with clonazepam. She agreed to increase the lithium to 3 times a day and Prozac to 40 mg daily. She was reminded again that Prozac needed to generally get up to 80 mg before helping with anxiety. She has been suspended on and needs to get back to work. She agreed to stay until tomorrow. Medications: Medication Review Details: This is a 36-year-old appropriate weight female who appears approximately her stated age and is in moderate distress.? She is pleasant and cooperative with the evaluation.? Grooming is fairly good.? She is dressed in hospital scrubs. psychomotor activity is normal Speech is is not pressured.? She has difficulty organizing her thoughts and is frequently delayed in her answers. Alert, oriented X3 Attention and concentration may be somewhat decreased Memory is intact Mood is depressed and affect is anxious and dysphoric Thought process is logical and goal-directed. Thought content: She denies visual and auditory hallucinations.? No delusions or paranoia are noted.? No current suicidal ideation, and no homicidal ideation.? Fund of knowledge is average Insight and judgment appear to be only fair.? Impulse control is only fair. Mental Status Exam MSE Comments: This is a 36-year-old appropriate weight female who appears about her stated age and is in no acute distress. She continues to be anxious. She is fairly well-groomed in hospital scrubs. psychomotor activity is normal. She is somewhat tremulous. Speech is at a regular rate and rhythm, normal volume, good articulation, not pressured. Alert, oriented X3 Attention and concentration appear to be normal. Memory is intact Mood is mildly depressed. Affect is mildly dysphoric. Much better than yesterday Thought process is logical and goal-directed. Thought content: Denies auditory and visual hallucinations. No delusions or paranoia are noted. No current suicidal ideation, and no homicidal ideation. Fund of knowledge is average. Insight and judgment appear to be fair. Impulse control is fairly good. Cognition: Patient Appearance: Appropriate Level of Consciousness: Awake, Alert and Follows Commands Patient Cognition Impaired: No Ability to Follow Directions: Excellent Patient Orientation (long list): Person, Place, Time, Name, Age, Birthday, Day of Month, Day of Week, Month, Time of Day and Year Comprehension Ability: No Impairment Hallucination Type: None Delusion Description: Not Present Thought Process: Appropriate Affect: Affect Description: Appropriate Depressive Symptoms: Difficulty Concentrating, Difficulty Sleeping, Insomnia, Increased Anxiety and Unexplained Headaches Behavior: Patient Behavior: Appropriate Speech Pattern: Appropriate Vitals/I&O/Wt Last Vital Signs Temp 99.1 F 02/16/22 06:00 Pulse 103 H 02/16/22 06:00 Resp 18 02/16/22 06:00 BP 104/71 02/16/22 06:00 Pulse Ox 98 02/16/22 06:00 Data NPU : 02/09/22 09:33 02/09/22 09:33 A&P Assessment and plan (1) Acute psychosis: Status: Acute (2) Bipolar 1 disorder: Status: Acute (3) Post-traumatic stress disorder, chronic: Status: Acute Plan This is a 36-year old female with a history of bipolar 1 disorder and PTSD who reports worsening of psychosis over the last week, possibly due to stress.? She has been compliant with her medications. Plan: 1.? Continue current medication. ? lamotrigine 100 mg,?increase Prozac to 40 mg. increase [place]? TID today. Clonazepam 1 mg QHS. 2.? Continue every 15 minute checks for safety. 3.? Encourage individual, group and milieu therapies. 4.? Encourage sober living treatment after discharge at the highest level of care to which she is willing to commit. 5.? We will monitor for safety for herself in the community prior to discharge Involuntary Hold Information 96 Hour Hold: 96 Hour Involuntary Admission: No Attestations NPU Medical Necessity Statement*: Inpatient hospitalization is medically necessary and the clinically appropriate intervention at this time. We will initiate medications and make changes as indicated. Coding Level of Care Code Acute Senior Python Developer for Ranulfo Fernandez Diagnoses Acute psychosis F23 Bipolar 1 disorder F31.9 Post-traumatic stress disorder, chronic F43.12
[2022-02-16] MEDS: hyDROXYzine 25 mg Capsule 50 MG PO (13:34)
[2022-02-16 17:23] VITALS: BP 125/87; PULSE 78; RESP 16; TEMP 36.7; O2SAT 100
[2022-02-16] MEDS: topiramate 100 mg Tablet 200 MG PO (21:02)
[2022-02-16] MEDS: CLONazepam 1 mg Tablet PO (21:02)
[2022-02-16] MEDS: acetaminophen 325 mg Tablet 650 MG PO (21:03)
[2022-02-16] MEDS: lamoTRIgine 100 mg Tablet PO (21:03)
[2022-02-16 22:00] VITALS: BP 112/82; PULSE 74; RESP 16; TEMP 36.4; O2SAT 100
[2022-02-17] MEDS: HYDROcodone-acetaminophen 10-325 mg Tablet 1 TAB PO (05:01)
[2022-02-17 06:00] VITALS: BP 107/72; PULSE 78; RESP 18; TEMP 36.7; O2SAT 99
[2022-02-17] MEDS: fluoxetine 20 mg Capsule 40 MG PO (09:55)
[2022-02-17] MEDS: meloxicam 7.5 mg tablet PO (09:55)
[2022-02-17] MEDS: lithium carbonate 300 mg Capsule PO (09:55)
[2022-02-17] MEDS: buPROPion XL (24 HR) 300 mg Tablet PO (09:55)
--- NOTE | 2022-02-17 11:24 | NPU.GN ---
[facility] Topic:Positive Thoughts/ Negative Thoughts General Mood of Group: Kiara did attend group . She was social and her hygiene is good. 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 Patient expressed that she needs a note for work. Patient seems stable.
--- NOTE | 2022-02-17 11:29 | W.PM.NPUDCS ---
Diagnoses at Discharge Discharge Diagnosis (1) Acute psychosis: Status: Acute (2) Bipolar 1 disorder: Status: Acute (3) Post-traumatic stress disorder, chronic: Status: Acute Reason for Visit Reason for Visit: Mental health eval Brief History: History of Present Illness Kiara Ventura is a 36 year old female with who was admitted through an outside emergency room with the following report.? 36-year-old female presents emergency room she has a history of bipolar disorder.? She has been having auditory visual hallucinations for the last couple of days.? She states she has been feeling overwhelmed at work.? She not missed any medications but she had been states she has been trying to cut down her Ativan she takes 2 mg at night and to mention taking 1 mg but when I try to get a confirm when she started trying to taper states she did take 2 mg last night.? Otherwise she has been current on all of her medications.? She denies any intent to harm herself or others.? She has a very flat timid affect at this time avoids all eye contact.? Hesitant to answer questions at times.? She denies any recent illness denies any cough fever sweats chills. ? She was admitted to the neuropsychiatry unit for definitive treatment of these issues. She says that she has been compliant with her medication. She says that she messed up in October and used methamphetamine one time. She says she had increased auditory visual hallucinations after that but they cleared up. She has been under more stress recently because of her mother's friend who has been living with them. She said there is nothing bad about this friend but it is her issue. She says that she auditory and visual hallucinations have been bad again for the last week. She says that she saw herself as a child hanging from the ceiling. She saw other people and ropes hanging down from the ceiling. She also hears voices and see shadows. She says that she is very distracted by hearing everything when she works. She hears her phone, the computer screen and people in the next room. 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 She also has been sleeping with the lights on and cannot sleep. Things taste bad and she has not been eating well. She slept well last night and ate a good breakfast this morning and things tasted normal. She feels it is most appropriate to leave her medication unchanged and see how she does in a less stressful environment. Hospital Course Hospital Course She slowly acclimated to the individual, group and milieu therapies provided. We tried increasing the Prozac and adding lithium but she was so anxious she could not tolerate that. Finally added clonazepam 1 mg at bedtime which helped dramatically. She was unable to tolerate increasing doses of Prozac to 40 mg and the addition of lithium 300 mg TID which she felt was beneficial. She tolerated these doses and showed steady improvement during her stay. She was able to contract for safety outside hospital prior to discharge. During the hospitalization, patient had routine laboratory studies which were within normal limits except for few outliers. Additionally there was a general medical evaluation which was also within normal limits and revealed no new acute processes. Discharge Summary: At the time of discharge, lethality was denied. Mood and anxiety were well managed. Patient endorsed a plan to follow-up with the aftercare recommendations of the treatment team. Patient was evaluated and deemed to be absent credible lethality, and had achieved the maximum benefit from an inpatient hospitalization, so was discharged. Involuntary Hold Information 96 Hour Hold: 96 Hour Involuntary Admission: No Mental Status Exam MSE Comments: This is a 36-year-old appropriate weight female who appears about her stated age and is in no acute distress. She appears much more comfortable. She is fairly well-groomed in hospital scrubs. psychomotor activity is normal. She is somewhat tremulous. Speech is at a regular rate and rhythm, normal volume, good articulation, not pressured. Alert, oriented X3 Attention and concentration appear to be normal. Memory is intact Mood is good. Affect is euthymic. Thought process is logical and goal-directed. Thought content: Denies auditory and visual hallucinations. No delusions or paranoia are noted. No current suicidal ideation, and no homicidal ideation. Fund of knowledge is average. Insight and judgment appear to be fair. Impulse control is fairly good. Cognition: Patient Appearance: Appropriate Level of Consciousness: Awake, Alert and Follows Commands Patient Cognition Impaired: No Ability to Follow Directions: Excellent Patient Orientation (long list): Person, Place, Time, Name, Age, Birthday, Day of Month, Month and Year Comprehension Ability: No Impairment Hallucination Type: None Delusion Description: Not Present Thought Process: Appropriate Affect: Affect Description: Appropriate and Calm Depressive Symptoms: Difficulty Concentrating, Difficulty Sleeping, Insomnia, Increased Anxiety and Unexplained Headaches Behavior: Patient Behavior: Appropriate and Cooperative Speech Pattern: Appropriate and Clear Discharge Data Studies Completed and Pending: Laboratory Results WBC 7.5 10^3/uL (4.0- 10.0) 02/09/22 09: RBC 4.89 10^6/uL (4.1 -5.3) 02/09/22 09:33 Hgb 15.6 g/dL (11.5-1 5.3) H 02/09/22: Hct 46.2 % (37.0-47.0 ) 02/09/22 09: MCV 94.5 fl (81-99) 02/09/22 09: MCH 31.9 pg (28.0-34. 0) 02/09/22 09: MCHC 33.8 g/dL (30.0-3 6.0) 02/09/22 09: RDW 11.9 % (12.1-15.1 ) L 02/09/22 09: Plt Count 310 10^3/cmm (130 -400) 02/09/22 09: MPV 8.9 fL (7.4-10.4) 02/09/22 09: Neut % (Auto) 72.3 % 02/09/22 09: Lymph % (Auto) 17.7 % 02/09/22 09: [place] % (Auto) 8.5 % 02/09/22 09:33 Eos % (Auto) 0.7 % 02/09/22 09:33 Baso % (Auto) 0.5 % 02/09/22: Neut # (Auto) 5.44 10^3/uL (1.8 -7.7) 02/09/22 09: Lymph # (Auto) 1.3 10^3/uL (0.8- 4.8) 02/09/22 09: [place] # (Auto) 0.6 10^3/uL (0.2- 0.9) 02/09/22 09:33 Eos # (Auto) 0.1 10^3/uL (0.0- 0.8) 02/09/22 09:33 Baso # (Auto) 0.0 10^3/uL (0.0- 0.1) 02/09/22 09:33 Nucleated RBC % (a uto) 0 % 02/09/22 09:33 Nucleated RBCs # 0.0 /100WBC 02/09/22 09:33 Sodium 137 mmol/L (136-1 45) 02/09/22 09:33 Potassium 3.1 mmol/L (3.5-5 .1) L 02/09/22 09:33 Chloride 103 mmol/L (98-10 7) 02/09/22 09:33 Carbon Dioxide 19 mmol/L (22-29) L 02/09/22 09:33 Anion Gap 18.1 (5-19) 02/09/22 09:33 BUN 14 mg/dL (6-20) 02/09/22 09:33 Creatinine 0.9 mg/dL (0.5-0. 9) 02/09/22 09:33 GFR Calculation 70.5 mL/min (90-1 30) L 02/09/22 09:33 Glucose 85 mg/dL (65-115) 02/09/22 09:33 Calculated Osmolal ity 284 mOsm/kg (285- 295) L 02/09/22 09:33 Calcium 8.7 mg/dL (8.5-10 .5) 02/09/22 09:33 Total Bilirubin 0.5 mg/dL (0.15-1 .2) 02/09/22 09:33 AST 16 U/L (0-32) 02/09/22 09:33 ALT 19 U/L (0-33) 02/09/22 09:33 Alkaline Phosphata se 76 IU/L (35-105) 02/09/22 09:33 Total Protein 7.2 g/dL (6.6-8.7 ) 02/09/22 09:33 Albumin 5.1 g/dL (3.5-5.2 ) 02/09/22 09:33 Globulin 2.1 g/dL (1.3-4.6 ) 02/09/22 09:33 HCG, Qual Negative (Negati ve) 02/09/22 09:33 Salicylates < 0.3 mg/dL (3-10 ) L 02/09/22 09:33 Acetaminophen < 5.0 ug/mL (10-3 0) L 02/09/22 09:33 Vitals: Last Vital Signs Temp 98.0 F 02/17/22 06:00 Pulse 78 02/17/22 06:00 Resp 18 02/17/22 06:00 BP 107/72 02/17/22 06:00 Pulse Ox 99 02/17/22 06:00 Discharge Plan Discharge Patient Disposition: Home Condition: Stable Prescriptions: New lithium carbonate 300 mg Capsule 300 mg PO TID 30 Days Qty: 90 1RF fluoxetine 20 mg Capsule 40 mg PO DAILY 30 Days Qty: 60 0RF lamotrigine 100 mg Tablet 100 mg PO BEDTIME 30 Days Qty: 30 0RF clonazepam 1 mg Tablet 1 mg PO BEDTIME 30 Days Qty: 30 0RF Continued bupropion HCl [Wellbutrin XL] 300 mg tablet extended release 24 hr 300 mg PO QAM Qty: 30 2RF meloxicam 7.5 mg tablet 7.5 mg PO BID 0RF hydrocodone-acetaminophen 10-325 mg tablet 1 tab PO Q6H MDD 2 tabs PRN (Reason: Pain) 0RF ibuprofen 200 mg Tablet 800 mg PO Q8H PRN (Reason: Pain) 0RF topiramate 200 mg tablet 200 mg PO BEDTIME 0RF Excedrin Migraine 250-250-65 mg Tablet 1 tab PO Q6H PRN (Reason: Migraine Headache) 0RF cyclobenzaprine 5 mg tablet 5 mg PO Q12H PRN (Reason: Muscle Spasm) 0RF Discontinued lorazepam 0.5 mg tablet 0.5 mg PO TID PRN (Reason: anxiety) Qty: 90 2RF lamotrigine [Lamictal] 25 mg tablet 50 mg PO QPM 0RF fluoxetine [Prozac] 10 mg capsule 10 mg PO QAM 0RF Rx Instructions: takes with 20mg to =30mg fluoxetine [Prozac] 20 mg capsule 20 mg PO QAM 0RF Rx Instructions: takes with 10mg to =30mg Discharge Orders: Discharge Order (Routine); Ordered 02/17/22 Ordered By: Hemant Dean Referrals: Kacie Christina PMHNP [Staff Physician] - 02/22/22 7:45 am Jay Collins MD [Primary Care Provider] - Discharge Diet: Regular Discharge Activity: Resume usual activity Patient Instructions: Opioid Safety Discharge Attestations NPU Time Spent in Discharge Care*: less than 30 min Specific Discharge Activities: Specific discharge activities: educating patient, discussing with telehealth case manager/social workers/dc planners, documenting/other paperwork and evaluating patient/reviewing data Coding Level of Care Code Acute Chg FW DC note Diagnoses Acute psychosis F23 Bipolar 1 disorder F31.9 Post-traumatic stress disorder, chronic F43.12
[2022-02-17 11:42] VITALS: BP 107/72; PULSE 78; RESP 18; TEMP 36.7; O2SAT 99
[2022-02-17 11:44] VITALS: BP 107/72; PULSE 78; RESP 18; TEMP 36.7; O2SAT 99
[2022-02-17 11:55] VITALS: BP 107/72; PULSE 78; RESP 18; TEMP 36.7; O2SAT 99
== END 2022-02-17 12:20 | disposition home or self-care (01) | DRG 885 ==
LOC: ER 10:45 → NP 11:11
PROVIDERS: Admitting Provider Psychiatry & Neurology Psychiatry; Emergency Provider Family Medicine; PCP Family Medicine; Visit Provider Psychiatry & Neurology Psychiatry
DX: F23 Brief psychotic disorder (principal); F31.9 Bipolar disorder, unspecified; F43.12 Post-traumatic stress disorder, chronic; F41.9 Anxiety disorder, unspecified; F17.210 Nicotine dependence, cigarettes, uncomplicated; G89.29 Other chronic pain; M47.816 Spondylosis without myelopathy or radiculopathy, lumbar region; M96.1 Postlaminectomy syndrome, not elsewhere classified; G50.0 Trigeminal neuralgia; Z73.3 Stress, not elsewhere classified; Z79.891 Long term (current) use of opiate analgesic
CPT/HCPCS: 80053; 80307; 84703; 85025; 97150; 97165; 99285; Q0175

== ENCOUNTER 2022-11-12 12:27 | Inpatient (IN) | payer OTHER, SELFPAY ==
[2022-11-12 13:11] VITALS: BP 122/81; PULSE 105; RESP 14; TEMP 36.8; O2SAT 100; BMI 24.9
--- NOTE | 2022-11-12 13:42 | ED.C_ITS ---
HPI - Psych General: Chief Complaint: Psychiatric Symptoms Stated Complaint: psycosis Time Seen by Provider: 11/12/22 13:22 History of Present Illness: 37-year-old female presents to the emergency department along with her mother who reports that she is having psychosis and suicidal ideation. Patient lives with her mother. She has a history of bipolar disorder with psychosis. Patient also has a chronic pain disorder related to trigeminal neuralgia and scoliosis. Patient is currently taking 1400 mg of gabapentin per day, Prozac 30 mg daily, hydrocodone twice a day, Ativan 4 times a day, meloxicam twice a day, Wellbutrin 450 mg daily. She does not endorse currently taking Topamax or lithium. Mother found out that patient was attempting to buy a pistol. She stopped the t ransaction. The patient states that she was planning to shoot herself in the head to get rid of her trigeminal neuralgia pain. Patient reports her only protective factor is her mother. She is not attached to anyone else, her job, restoration, or any other protective factors. She has been using alcohol to cope with pain, according to her report. This morning patient had visual hallucinations of relatives bantering [id number] in the hallway and talking about [place] presents. She also has seemingly nonsensical commentary in her head that is being projected in her own voice. Associated symptoms: Reports auditory hallucinations, visual hallucinations, depression and suicidal ideation; Deny homicidal ideation Review of Systems General: Reports: 10 or more systems reviewed and unremarkable except in HPI and below Const: Denies: fever(s), chills or body aches Eyes: Denies: change in vision ENMT: Denies: throat pain Card: Denies: chest pain, edema or syncope Resp: Denies: dyspnea or productive cough GI: Denies: abdominal pain, nausea, vomiting or diarrhea : Denies: flank pain, dysuria or urinary frequency Musc: Denies: neck pain or extremity swelling Skin/Breast: Denies: rash or erythema Neuro: Reports: headache(s), lack of coordination (Gabapentin, vodka, Ativan), dizziness, Slurred speech present and difficulty communicating thoughts; Denies: seizure-like activity Psych: Reports: anxiety, depression, hopelessness, loss of interest, change in appetite, difficulty concentrating, visual hallucinations, auditory hallucinat ions and suicidal ideation; Denies: sleeping less, sleeping more, paranoia or homicidal ideation PFS ED PFSH: Medical History (Updated 11/12/22 @ 14:51 by Omkar Sharp MD) Bipolar disorder with psychotic features Endometriosis Facial scar Hypothyroidism [place]bow use Lumbar post-laminectomy syndrome Motor nerve conduction block Post-traumatic stress disorder, chronic Psychiatric care Spondylosis of lumbar region without myelopathy or radiculopathy Surgical History History of liver biopsy Hx of cholecystectomy Family History Denies family history of Psychiatric illness Social History Smoking and tobacco status: current every day smoker cigarettes [ Other cigarette details: 3 to 4 cigarettes a day] Smoking risk assessment/counseling performed?: Yes Tobacco counseling given: counseling >3 minutes Alcohol intake: current Household members: family Housing: House Current occupational status: employed Physical Exam Const: COMMON NORMALS: no limitations, alert and well nourished EXAM LIMITATIONS: no altered mental status GENERAL APPEARANCE: well kempt HENMT: COMMON NORMALS: normocephalic, atraumatic and external ears normal HEAD & SCALP: normocephalic and atraumatic EXTERNAL EAR: Yes external ears normal MOUTH: no muffled voice Eye: COMMON NORMALS: EOMs intact bilaterally, conjunctivae normal and no scleral icterus CONJUNCTIVA: Yes conjunctivae normal Neck/C-Spine: COMMON NORMALS: no JVD GENERAL: Yes normal visual inspection and Yes trachea midline Resp: COMMON NORMALS: normal respiratory effort, No use of accessory muscles and clear to auscultation bilaterally AUSCULTATION: clear to auscultation bilaterally Cardio: COMMON NORMALS: no JVD and regular rhythm RATE: tachycardic RHYTHM: regular rhythm GI: COMMON NORMALS: Soft to palpation and non-tender PALPATION: Yes Soft to palpation and No Guarding due to palpation present (GI) Extremity: COMMON NORMALS: normal to inspection Neuro: COMMON NORMALS: moves all extremities, no focal motor deficits and no sensory deficits noted SENSORIUM/ORIENTATION: Yes alert COORDINATION/BALANCE: No tandem gait normal and sways with eyes open SPEECH: Other neuro speech findings (Slight slur) MOTOR EXAM: no tremor noted and no asterixis COORDINATION: tandem gait abnormal Psych: COMMON NORMALS: mental status grossly normal and cooperative; negative for Normal thought process present APPEARANCE: Yes grossly normal and Yes well kempt ATTITUDE: Yes calm MOOD & AFFECT: Yes constricted affect THOUGHT PROCESS: abnormal and Illogical thought process present THOUGHT CONTENT: Yes Suicidality present ATTENTION/CONCENTRATION: Yes attention grossly intact INSIGHT: Fair insight present (Psych) JUDGEMENT: Fair judgement present (Psych) Skin: COMMON NORMALS: no rashes or lesions noted, turgor normal and no jaundice GENERAL SKIN EXAM: no rashes or lesions noted and turgor normal Course Vital Signs: Vital signs: Vital Signs Temperature 98.2 F 11/12/22 13:11 Pulse Rate 105 H 11/12/22 13:11 Respiratory Rate 14 11/12/22 13:11 Blood Pressure 122/81 11/12/22 13:11 Pulse Oximetry 100 11/12/22 13:11 Oxygen Delivery Me thod 11/12/22 13:11 [facility] - Psych Medical Decision Making Patient is presenting with audiovisual hallucinations, suicidal thoughts, and apparent polysubstance dependence with benzodiazepines, gabapentin, opiates, and intermittent abuse of alcohol. Patient will be medically screened and will require admission to inpatient psychiatry. Patient's UA/UPT/UDS are pending. Otherwise, she is medically cleared. I went ahead and discussed with Dr Linda for psychiatric admission and he has accepted. Lab Data 11/12/22 12:50 11/12/22 12:50 Laboratory Results WBC 11.1 10^3/uL (4.0-10.0) H 11/12/22 12:50 RBC 4.58 10^6/uL (4.1-5.3) 11/12/22 12:50 Hgb 14.7 g/dL (11.5-15.3) 11/12/22 12:50 Hct 45.6 % (37.0-47.0) 11/12/22 12:50 MCV 99.6 fl (81-99) H 11/12/22 12:50 MCH 32.1 pg (28.0-34.0) 11/12/22 12:50 MCHC 32.2 g/dL (30.0-36.0) 11/12/22 12:50 RDW 12.6 % (12.1-15.1) 11/12/22 12:50 Plt Count 331 10^3/cmm (130-400) 11/12/22 12:50 MPV 8.8 fL (7.4-10.4) 11/12/22 12:50 Neut % (Auto) 73.6 % 11/12/22 12:50 Lymph % (Auto) 18.1 % 11/12/22 12:50 [place] % (Auto) 7.0 % 11/12/22 12:50 Eos % (Auto) 0.4 % 11/12/22 12:50 Baso % (Auto) 0.6 % 11/12/22 12:50 Neut # (Auto) 8.16 10^3/uL (1.8-7.7) H 11/12/22 12:50 Lymph # (Auto) 2.0 10^3/uL (0.8-4.8) 11/12/22 12:50 [place] # (Auto) 0.8 10^3/uL (0.2-0.9) 11/12/22 12:50 Eos # (Auto) 0.0 10^3/uL (0.0-0.8) 11/12/22 12:50 Baso # (Auto) 0.1 10^3/uL (0.0-0.1) 11/12/22 12:50 Nucleated RBC % (auto) 0 % 11/12/22 12:50 Nucleated RBCs # 0.0 /100WBC 11/12/22 12:50 Sodium 139 mmol/L (136-145) 11/12/22 12:50 Potassium 3.9 mmol/L (3.5-5.1) 11/12/22 12:50 Chloride 109 mmol/L (98-107) H 11/12/22 12:50 Carbon Dioxide 18 mmol/L (22-29) L 11/12/22 12:50 Anion Gap 15.9 (5-19) 11/12/22 12:50 BUN 14 mg/dL (6-20) 11/12/22 12:50 Creatinine 1.0 mg/dL (0.5-0.9) H 11/12/22 12:50 GFR Calculation 62.1 mL/min (90-130) L 11/12/22 12:50 Glucose 85 mg/dL (65-115) 11/12/22 12:50 Calculated Osmolality 288 mOsm/kg (285-295) 11/12/22 12:50 Calcium 9.0 mg/dL (8.5-10.5) 11/12/22 12:50 Total Bilirubin 0.2 mg/dL (0.15-1.2) 11/12/22 12:50 AST 14 U/L (0-32) 11/12/22 12:50 ALT 14 U/L (0-33) 11/12/22 12:50 Alkaline Phosphatase 72 U/L (35-105) 11/12/22 12:50 Total Protein 7.8 g/dL (6.6-8.7) 11/12/22 12:50 Albumin 5.1 g/dL (3.5-5.2) 11/12/22 12:50 Globulin 2.7 g/dL (1.3-4.6) 11/12/22 12:50 HCG, Qual Negative (Negative) 11/12/22 13:53 Salicylates < 0.3 mg/dL (3-10) L 11/12/22 12:50 Acetaminophen < 5.0 ug/mL (10-30) L 11/12/22 12:50 Ethyl Alcohol < 10 mg/dL (0-10) 11/12/22 12:50 EKG Data EKG 1: Interpretation: Sinus rhythm at a rate of 97 bpm, normal axis, normal intervals, no concerning ST segment elevations, few nonspecific ST to T wave morphology transitions Discharge Plan Discharge Patient Disposition: Admitted As Inpatient Clinical Impression: Bipolar 1 disorder, Acute psychosis, Suicidal behavior, Chronic pain disorder Condition: Stable Coding Level of Care Code ED Epidemiology Investigator for Joelg Fwd Exam Comprehensive
[2022-11-12] MEDS: nicotine 14 mg Patch 1 PATCH TRANSDERMA (14:00)
[2022-11-12 14:05] LABS: HCG Qualitative Urine. Negative (Negative)
[2022-11-12 14:08] LABS: Basophils # 0.1 10^3/uL (0.0-0.1); Basophils % 0.6 %; Eosinophils % 0.4 %; Hematocrit 45.6 % (37.0-47.0); Hemoglobin 14.7 g/dL (11.5-15.3); Lymphocytes % 18.1 %; Mean Corpuscular HGB Conc 32.2 g/dL (30.0-36.0); Mean Corpuscular Hemoglobin 32.1 pg (28.0-34.0); Mean Corpuscular Volume 99.6 fl (81-99); Mean Platelet Volume 8.8 fL (7.4-10.4); Monocytes # 0.8 10^3/uL (0.2-0.9); Neutrophils # 8.16 10^3/uL (1.8-7.7); Neutrophils % 73.6 %; Nucleated Red Blood Cells % 0 %; Platelet Count 331 10^3/cmm (130-400); Red Blood Count 4.58 10^6/uL (4.1-5.3); Red Cell Distribution Width 12.6 % (12.1-15.1); White Blood Count 11.1 10^3/uL (4.0-10.0)
--- NOTE | 2022-11-12 14:14 | ECG_ITS ---
[facility] Test Date: 2022-11-12 Pat Name: Kiara Ventura Department: Room: Gender: Female Take Away Man: : 1985 Requested By: Omkar Sharp Order Number: [id number] Pulido MD: Derik Dolan M.D. Measurements Intervals [place] Rate: 97 P: 55 WI: 168 QRS: 33 QRSD: 93 T: 55 QT: 357 QTc: 454 Interpretive Statements SINUS RHYTHM NONSPECIFIC T-WAVE ABNORMALITY Compared to ECG 07/19/2020 09:29:01 T-wave abnormality now present Electronically Signed On 11-12-2022 15:17:11 PEWTER FABRICATOR by Derik Dolan M.D. [id number]
[2022-11-12 14:28] LABS: Alanine Aminotransferase 14 U/L (0-33); Albumin Level 5.1 g/dL (3.5-5.2); Alkaline Phosphatase 72 U/L (35-105); Anion Gap 15.9 (5-19); Aspartate Amino Transferase 14 U/L (0-32); Blood Urea Nitrogen 14 mg/dL (6-20); Carbon Dioxide 18 mmol/L (22-29); Chloride 109 mmol/L (98-107); Globulin 2.7 g/dL (1.3-4.6); Glomerular Filtration Rate 62.1 mL/min (90-130); Glucose 85 mg/dL (65-115); Osmolality Calculated 288 mOsm/kg (285-295); Potassium 3.9 mmol/L (3.5-5.1); Sodium 139 mmol/L (136-145); Total Bilirubin 0.2 mg/dL (0.15-1.2); Total Protein 7.8 g/dL (6.6-8.7)
[2022-11-12 14:31] LABS: Acetaminophen < 5.0 ug/mL (10-30); Alcohol Level < 10 mg/dL (0-10); Salicylate < 0.3 mg/dL (3-10)
[2022-11-12 14:47] VITALS: BP 132/94; PULSE 101; RESP 18; TEMP 36.3; O2SAT 100
--- NOTE | 2022-11-12 15:26 | PC.NURSE ---
REPORT CALLED TO LENORE ROSARIO IN NPU.
[2022-11-12 15:48] LABS: Add Urine Microscopic? YES; Bilirubin Urine Neg (Negative); Blood Urine Neg (Negative); Glucose Urine UA Norm (Normal); Ketones Urine 1+ (Negative); Leukocyte Esterase Urine Negative (Negative); Nitrate Urine Negative (Negative); Protein Urine 1+ (Negative); RBC Urine 0-4 /hpf (0-2); Specific Gravity, Urine 1.015 (1.005-1.030); Urine Appearance Cloudy (CLEAR); Urine Color Yellow (Yellow); Urobilinogen Urine Norm (Negative); WBC Urine 0-4 /hpf (0-5); pH Urine 5 (5-7)
[2022-11-12 15:49] LABS: Bacteria Urine TRACE /hpf
[2022-11-12 15:50] LABS: Amphetamines Screen Urine Positive (Negative); Barbiturates Screen Urine Negative (Negative); Benzodiazepines Screen Urine Positive (Negative); Cocaine Screen Urine Negative (Negative); Opiate Screen Urine Positive (Negative); PCP Screen Urine Negative (Negative); THC Screen Urine Negative (Negative)
[2022-11-12] MEDS: meloxicam 7.5 mg tablet PO (18:02)
[2022-11-12 20:41] VITALS: RESP 18
[2022-11-12] MEDS: topiramate 100 mg Tablet 200 MG PO (20:58)
[2022-11-12] MEDS: HYDROcodone-acetaminophen 10-325 mg Tablet 1 TAB PO (21:46)
[2022-11-12 21:57] LABS: Lithium 0.1 mmol/L (0.6-1.2)
[2022-11-13 06:00] VITALS: RESP 18
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
[2022-11-13] MEDS: fluoxetine 20 mg Capsule PO (07:38)
[2022-11-13] MEDS: fluoxetine 10 mg Capsule PO (07:39)
[2022-11-13] MEDS: meloxicam 7.5 mg tablet PO ×2 (07:39→18:04)
[2022-11-13] MEDS: HYDROcodone-acetaminophen 10-325 mg Tablet 1 TAB PO ×2 (07:39→20:52)
[2022-11-13] MEDS: LORazepam 2 mg Tablet PO ×2 (07:40→12:10)
[2022-11-13] MEDS: gabapentin 300 mg Capsule 900 MG PO ×3 (08:49→20:48)
[2022-11-13] MEDS: acetaminophen 325 mg Tablet 650 MG PO (12:10)
[2022-11-13 14:00] VITALS: BP 116/67; PULSE 87; RESP 20; TEMP 36.7; O2SAT 100
[2022-11-13 20:00] VITALS: BP 123/81; PULSE 87; RESP 16; TEMP 37.1; O2SAT 98
[2022-11-13] MEDS: topiramate 100 mg Tablet 200 MG PO (20:49)
[2022-11-13] MEDS: LORazepam 0.5 mg Tablet PO (20:52)
[2022-11-13] MEDS: loperamide 2 mg Capsule PO (20:52)
[2022-11-14 06:00] VITALS: BP 108/75; PULSE 90; RESP 17; TEMP 36.6; O2SAT 92
[2022-11-14] MEDS: ibuprofen 800 mg tablet PO ×2 (06:29→17:06)
[2022-11-14] MEDS: fluoxetine 20 mg Capsule PO (08:05)
[2022-11-14] MEDS: gabapentin 300 mg Capsule 900 MG PO ×3 (08:05→20:08)
[2022-11-14] MEDS: fluoxetine 10 mg Capsule PO (08:05)
[2022-11-14] MEDS: meloxicam 7.5 mg tablet PO ×2 (08:06→17:07)
[2022-11-14] MEDS: HYDROcodone-acetaminophen 10-325 mg Tablet 1 TAB PO ×2 (09:14→20:10)
[2022-11-14 14:00] VITALS: BP 135/74; PULSE 68; RESP 18; TEMP 36.9; O2SAT 99
[2022-11-14] MEDS: LORazepam 0.5 mg Tablet PO ×2 (15:34→20:10)
--- NOTE | 2022-11-14 15:35 | PC.NURSE ---
PRN ATIVAN 0.5 MG GIVEN PO PER PT REQUEST AND C/O ANXIETY. UPSET AFTER VISIT WITH MOTHER, TEARFUL. WILL CONT TO MONITOR
--- NOTE | 2022-11-14 16:43 | W.PM.NPUPNS ---
Subjective NPU Subjective: Patient is a 37-year-old white female with a history of depression admitted with suicidal ideation and reports of auditory hallucinations. Patient has reported that she has been having increased problems with her pain over the past few months with complaints of trigeminal neuralgia. She was reporting that she continued to have suicidal thoughts. She had reported a long history of depressed mood and stated she been having increased problems with concentration and memory. She reports that she had struggled to maintain her mood and stated that she had attempted to purchase a gun. She continued to isolate herself on the milieu. She had reported continued problems with being able to complete tasks since starting Topamax several years ago. Mental Status Exam MSE Comments: This is a medium built white female in hospital scrubs with appropriate grooming and eye contact. Notable scar starting at the angle of upper and lower lips on the left side angling up. No abnormal involuntary motor movements other than mild psychomotor retardation. Cooperative with exam in mild distress. Speech was normal rate and volume. Mood described as depressed. Her affect was constricted and mood congruent.. Thought process: was linear and logical. Thought content: patient endorses suicidal ideation but denies homicidal ideation, no delusions reported or noted and denies any auditory or visual hallucinations currently but reports experiencing some recent auditory hallucinations. Attention was variable and memory appeared grossly intact.She is alert and oriented times three. Insight and judgment are limited. Impulse control is limited. Vitals/I&O/Wt Last Vital Signs Temp 98.5 F 11/14/22 14:00 Pulse 68 11/14/22 14:00 Resp 18 11/14/22 14:00 BP 135/74 11/14/22 14:00 Pulse Ox 99 11/14/22 14:00 O2 Del Method 11/14/22 14:00 Weight last 48 hrs Weight 70.125 kg Data NPU 11/12/22 12:50 11/12/22 12:50 A&P Assessment and plan (1) Acute psychosis: (2) Post-traumatic stress disorder, chronic: (3) Bipolar disorder, unspecified: (4) Bipolar 1 disorder: Plan This is a 37-year old female with a history of bipolar disorder N[place] PTSD who presents reporting challenging issues related to her relationship with her mother and stress at work with recent psychosis with a UDS positive for amphetamines. She has been compliant with her medications. Plan: 1. Discontinue prozac and continue wellbutrin xl at this time with addition of low dose of Cymbalta 30mg in am. 2. Continue every 15 minute checks for safety. 3. Encourage individual, group and milieu therapies. 4. Encourage sober living treatment after discharge at the highest level of care to which she is willing to commit. Evaluate the significance of her positive UDS. 5. We will monitor for safety for herself in the community prior to discharge. Involuntary Hold Information 96 Hour Hold: 96 Hour Involuntary Admission: No Attestations NPU Medical Necessity Statement*: Inpatient hospitalization is medically necessary and the clinically appropriate intervention at this time. We will monitor/initiate medications and make changes as indicated. She will be in the hospital with likely length of stay 2-4 days. Coding Level of Care Code Established Pt Acute Claims Support Specialist for Ranulfo Fernandez Patient Type Established History Problem Focused Exam Problem Focused Medical Decision Making Straight Forward Diagnoses Acute psychosis F23 Post-traumatic stress disorder, chronic F43.12 Bipolar disorder, unspecified F31.9 Bipolar 1 disorder F31.9
[2022-11-14] MEDS: topiramate 100 mg Tablet 200 MG PO (20:07)
[2022-11-14 20:11] VITALS: RESP 16
[2022-11-15] MEDS: HYDROcodone-acetaminophen 10-325 mg Tablet 1 TAB PO ×2 (07:49→19:57)
[2022-11-15] MEDS: topiramate 100 mg Tablet PO ×2 (07:49→19:59)
[2022-11-15] MEDS: duloxetine 30 mg Capsule PO (07:49)
[2022-11-15] MEDS: meloxicam 7.5 mg tablet PO ×2 (07:49→19:58)
[2022-11-15] MEDS: gabapentin 300 mg Capsule 900 MG PO ×3 (07:49→19:59)
[2022-11-15] MEDS: ibuprofen 800 mg tablet PO ×2 (09:46→17:01)
[2022-11-15 14:00] VITALS: BP 114/75; PULSE 87; RESP 18; TEMP 36.8; O2SAT 100
[2022-11-15] MEDS: LORazepam 0.5 mg Tablet PO ×2 (17:09→19:57)
--- NOTE | 2022-11-15 17:10 | PC.NURSE ---
PRN ATIVAN 0.5 MG GIVEN PO PER PT C/O ANXIETY
--- NOTE | 2022-11-15 19:16 | W.PM.NPUPNS ---
Subjective NPU Subjective: Patient is a 37-year-old white female with a history of depression admitted with suicidal ideation and reports of auditory hallucinations. Patient has reported that she has been having increased problems with her pain over the past few months with complaints of trigeminal neuralgia. Patient reported feeling better after taking her first dose of Cymbalta today. She continued to report that she had no idea why she has tested positive for amphetamines as she states that she had not used methamphetamine for several. She minimized having any problems with addiction. She had reported issues with chronic pain that had exacerbated her depression recently. Patient had reported increased motivation to return to work and stated that she no longer had thoughts of suicide. He was compliant on the milieu and was able to attend groups today. Mental Status Exam MSE Comments: This is a medium built white female in hospital scrubs with appropriate grooming and eye contact. Notable scar starting at the angle of upper and lower lips on the left side angling up. No abnormal involuntary motor movements other than mild psychomotor retardation. Cooperative with exam in mild distress. Speech was normal rate and volume. Mood described as better. Her affect was constricted and mood congruent.. Thought process: was linear and logical. Thought content: patient endorses no suicidal ideation and no homicidal ideation, no delusions reported or noted and denies any auditory or visual hallucinations currently but reports experiencing some recent auditory hallucinations. Attention was variable and memory appeared grossly intact.She is alert and oriented times three. Insight and judgment are limited. Impulse control is limited. Vitals/I&O/Wt Last Vital Signs Temp 98.2 F 11/15/22 14:00 Pulse 87 11/15/22 14:00 Resp 18 11/15/22 14:00 BP 114/75 11/15/22 14:00 Pulse Ox 100 11/15/22 14:00 O2 Del Method 11/14/22 14:00 Weight last 48 hrs Weight 70.125 kg Data NPU 11/12/22 12:50 11/12/22 12:50 A&P Assessment and plan (1) Acute psychosis: (2) Post-traumatic stress disorder, chronic: (3) Bipolar disorder, unspecified: (4) Bipolar 1 disorder: Plan This is a 37-year old female with a history of bipolar disorder NOSand PTSD who presents reporting challenging issues related to her relationship with her mother and stress at work with recent psychosis with a UDS positive for amphetamines. She has been compliant with her medications. Plan: 1. Continue wellbutrin xl 450mg in am at this time with addition of low dose of Cymbalta 30mg in am. 2. Continue every 15 minute checks for safety. 3. Encourage individual, group and milieu therapies. 4. Encourage sober living treatment after discharge at the highest level of care to which she is willing to commit. Evaluate the significance of her positive UDS for amphetamine. 5. We will monitor for safety for herself in the community prior to discharge. Involuntary Hold Information 96 Hour Hold: 96 Hour Involuntary Admission: No Attestations NPU Medical Necessity Statement*: Inpatient hospitalization is medically necessary and the clinically appropriate intervention at this time. We will monitor/initiate medications and make changes as indicated. She will be in the hospital with likely length of stay 2-4 days. 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
[2022-11-15 20:54] VITALS: BP 137/82; PULSE 75; RESP 16; TEMP 36.8; O2SAT 100
[2022-11-16 05:54] VITALS: RESP 16
[2022-11-16] MEDS: ibuprofen 800 mg tablet PO ×3 (06:03→17:59)
[2022-11-16] MEDS: meloxicam 7.5 mg tablet PO ×2 (08:40→20:02)
[2022-11-16] MEDS: HYDROcodone-acetaminophen 10-325 mg Tablet 1 TAB PO ×2 (08:40→20:02)
[2022-11-16] MEDS: gabapentin 300 mg Capsule 900 MG PO ×3 (08:40→20:01)
[2022-11-16] MEDS: topiramate 100 mg Tablet PO ×2 (08:40→20:03)
[2022-11-16] MEDS: duloxetine 30 mg Capsule PO (08:40)
--- NOTE | 2022-11-16 09:25 | PC.NURSE ---
notified pt does not have her own bpupropion hcl here so staff unable to give her anything today.
[2022-11-16] MEDS: LORazepam 0.5 mg Tablet PO ×4 (09:54→20:01)
--- NOTE | 2022-11-16 11:56 | PC.NURSE ---
Pt requesting additional ativan due to increasing pressure/discomfort from her trigeminal nerve problem. Rated it 6/10. Pt said if she's 10/10, she can't talk or eat. Appears as if the pt's face on left side isn't as mobile as the right. Pt aware of the QID prn schedule.
--- NOTE | 2022-11-16 13:09 | PC.NURSE ---
Pt reported Ibuprofen effective in relieving her head pain; appears less anxious and uncomfortable. Pt smiling and appreciative pain has dissipated.
[2022-11-16 13:35] VITALS: BP 105/73; PULSE 115; RESP 18; TEMP 36.7; O2SAT 97
--- NOTE | 2022-11-16 15:16 | P.NPUPN_ITS ---
Subjective NPU Subjective: Patient is a 37-year-old white female with a history of depression admitted with suicidal ideation and reports of auditory hallucinations. The patient had reported no auditory hallucinations at this time. She reports having a slight decrease in pain from her trigeminal neuralgia since the We llbutrin was discontinued. The patient had reported having no suicidal thoughts and states that she has continued to remain in pain but states that it has been more tolerable since the initiation of Cymbalta. She had reported some feelings of hopelessness and worthlessness but states that it has been improving. She had reported that she had been using recreational stimulants to help with energy in the past but reports no active use in over 1 month of cocaine despite the positive test for methamphetamines. Mental Status Exam MSE Comments: This is a medium built white female in hospital scrubs with appropriate grooming and eye contact. Notable scar starting at the angle of upper and lower lips on the left side angling up. No abnormal involuntary motor movements other than mild psychomotor retardation. Cooperative with exam in mild distress. Speech was normal rate and volume. Mood described as better. Her affect remained constricted. Thought process was linear and logical. Thought content: patient endorses no suicidal ideation and no homicidal ideation, no delusions reported or noted and denies any auditory or visual hallucinations. She did not appear to be responding to internal stimuli. Attention was variable and memory appeared grossly intact.She is alert and oriented times three. Insight and judgment are limited. Impulse control is limited. Vitals/I&O/Wt Last Vital Signs Temp 98.1 F 11/16/22 13:35 Pulse 115 H 11/16/22 13:35 Resp 18 11/16/22 13:35 BP 105/73 11/16/22 13:35 Pulse Ox 97 11/16/22 13:35 O2 Del Method 11/14/22 14:00 Data NPU 11/12/22 12:50 11/12/22 12:50 A&P Assessment and plan (1) Acute psychosis: (2) Post-traumatic stress disorder, chronic: (3) Bipolar disorder, unspecified: (4) Bipolar 1 disorder: Plan This is a 37-year old female with a history of bipolar disorder NOSand PTSD who presents reporting challenging issues related to her relationship with her mother and stress at work with recent psychosis with a UDS positive for amphetamines. She has been compliant with her medications. Plan: 1. Increase Cymbalta 60mg in am (patient had not been taking Wellbutrin 450mg on unit) , continue topamax 100mg bid, continue Neurontin 900 mg 3 times a day. 2. Continue every 15 minute checks for safety. 3. Encourage individual, group and milieu therapies. 4. Encourage sober living treatment after discharge at the highest level of care to which she is willing to commit. Evaluate the significance of her positive UDS for amphetamine.-referral for substance abuse counseling/dual diagnosis treatment. 5. We will monitor for safety for herself in the community prior to discharge. Involuntary Hold Information 96 Hour Hold: 96 Hour Involuntary Admission: No Attestations NPU Medical Necessity Statement*: Inpatient hospitalization is medically necessary and the clinically appropriate intervention at this time. We will monitor/initiate medications and make changes as indicated. She will be in the hospital with likely length of stay 2-4 days. 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
[2022-11-16 20:44] VITALS: BP 112/64; PULSE 80; RESP 15; O2SAT 100
[2022-11-17 05:50] VITALS: BP 103/69; PULSE 79; RESP 18; O2SAT 100
[2022-11-17] MEDS: meloxicam 7.5 mg tablet PO ×2 (08:00→20:33)
[2022-11-17] MEDS: HYDROcodone-acetaminophen 10-325 mg Tablet 1 TAB PO ×2 (08:00→20:37)
[2022-11-17] MEDS: duloxetine 30 mg Capsule 60 MG PO (08:00)
[2022-11-17] MEDS: LORazepam 0.5 mg Tablet PO ×2 (08:00→12:46)
[2022-11-17] MEDS: topiramate 100 mg Tablet PO ×2 (08:01→20:33)
[2022-11-17] MEDS: gabapentin 300 mg Capsule 900 MG PO ×3 (08:01→20:32)
--- NOTE | 2022-11-17 09:34 | PC.NURSE ---
IN DAY AREA CALM AND COOPERATIVE. DENIES SI/HI AND AVH AT THIS TIME. REPORTS PAIN IS BETTER SINCE TAKING NORCO. LAST BM 11/17/22. REPORTS IMPROVED ANXIETY AND DEPRESSION. AFFECT IS FLAT AND GUARDED. NEEDS MET AND SUPPORT VOICED.
[2022-11-17] MEDS: acetaminophen 325 mg Tablet 650 MG PO (12:45)
[2022-11-17 14:00] VITALS: BP 116/76; PULSE 93; RESP 18; TEMP 36.9; O2SAT 100
--- NOTE | 2022-11-17 17:02 | W.PM.NPUPNS ---
Subjective NPU Subjective: Patient is a 37-year-old white female with a history of depression admitted with suicidal ideation and reports of auditory hallucinations. The patient had refused to consider any substance abuse treatment. She did report that she was willing to consider outpatient treatment as she had reported that she had attended a job that required a 40-hour workweek. Patient had reported less pain associated with her trigeminal neuralgia. She did report having acute exacerbations of her of the neuralgia which had led her to at times feel depressed and suicidal but states it has been better managed. The patient did not endorse any feelings of hopelessness or worthlessness. She had reported some adequate sleep and reported that she would be ready to return home to her mother and began work soon. Patient has been attending groups and had been attending to her self-care. She reported that she had no desire to purchase a gun at this time and reported that she felt motivated to get further treatment for her depression. Mental Status Exam MSE Comments: This is a medium built white female in hospital scrubs with appropriate grooming and eye contact. Notable scar starting at the angle of upper and lower lips on the left side angling up. No abnormal involuntary motor movements other than mild psychomotor retardation. Cooperative with exam in no acute mood distress. Speech was normal rate, rhythm and volume. Mood described as good. Her affect was less restricted today. Thought process was linear and logical. Thought content: patient endorses no suicidal ideation and no homicidal ideation, no delusions reported or noted and denies any auditory or visual hallucinations. She did not appear to be responding to internal stimuli. Attention was variable and memory appeared grossly intact.She is alert and oriented times three. Insight and judgment are limited. Impulse control is limited. Vitals/I&O/Wt Last Vital Signs Temp 98.5 F 11/17/22 14:00 Pulse 93 11/17/22 14:00 Resp 18 11/17/22 14:00 BP 116/76 11/17/22 14:00 Pulse Ox 100 11/17/22 14:00 O2 Del Method 11/17/22 14:00 Data NPU 11/12/22 12:50 11/12/22 12:50 A&P Assessment and plan (1) Acute psychosis: (2) Post-traumatic stress disorder, chronic: (3) Bipolar disorder, unspecified: (4) Bipolar 1 disorder: Plan This is a 37-year old female with a history of bipolar disorder NOSand PTSD who presents reporting challenging issues related to her relationship with her mother and stress at work with recent psychosis with a UDS positive for amphetamines. She has been compliant with her medications. Plan: 1. Continue Cymbalta 60mg in am , continue topamax 100mg bid, continue Neurontin 900 mg 3 times a day. 2. Continue every 15 minute checks for safety. 3. Encourage individual, group and milieu therapies. 4. Encourage sober living treatment after discharge at the highest level of care to which she is willing to commit. Evaluate the significance of her positive UDS for amphetamine.-referral for substance abuse counseling/dual diagnosis treatment. 5. We will monitor for safety for herself in the community prior to discharge. Involuntary Hold Information 96 Hour Hold: 96 Hour Involuntary Admission: No Attestations NPU Medical Necessity Statement*: Inpatient hospitalization is medically necessary and the clinically appropriate intervention at this time. We will monitor/initiate medications and make changes as indicated. She will be in the hospital with likely length of stay 2-4 days. 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
[2022-11-17 20:05] VITALS: BP 111/76; PULSE 92; RESP 16; O2SAT 100
[2022-11-18 06:00] VITALS: RESP 16
[2022-11-18] MEDS: HYDROcodone-acetaminophen 10-325 mg Tablet 1 TAB PO ×2 (09:09→19:26)
[2022-11-18] MEDS: meloxicam 7.5 mg tablet PO ×2 (09:09→19:25)
[2022-11-18] MEDS: topiramate 100 mg Tablet PO ×2 (09:09→19:26)
[2022-11-18] MEDS: duloxetine 30 mg Capsule 60 MG PO (09:09)
[2022-11-18] MEDS: LORazepam 0.5 mg Tablet PO ×2 (09:10→14:25)
[2022-11-18] MEDS: gabapentin 300 mg Capsule 900 MG PO ×3 (09:10→19:26)
[2022-11-18] MEDS: ibuprofen 800 mg tablet PO ×2 (11:20→14:25)
[2022-11-18 14:00] VITALS: BP 106/54; PULSE 79; RESP 18; TEMP 36.4; O2SAT 96
[2022-11-18] MEDS: acetaminophen 325 mg Tablet 650 MG PO (16:24)
--- NOTE | 2022-11-18 17:43 | W.PM.NPUPNS ---
Subjective NPU Subjective: LastPatient is a 37-year-old white female with a history of depression admitted with suicidal ideation and reports of auditory hallucinations. The patient had reported episodes of intense pain from the trigeminal neuralgia. She was more active and social on the milieu. She had attended therapy. She had reported that her depression was improving. She had felt optimistic about getting help for her pain with her impending appointment with her pain specialist and a separate appointment with her neurosurgeon for her trigeminal neuralgia. She also reported a history of back pain that had led to the patient having unbearable back pain and nerve pain. She had reported being motivated to return back to work and return to live with her mother. She had acknowledged having used alcohol excessively over the last few years and had stated that she had used cocaine in the past but had expressed confusion as to why she tested positive for amphetamines. Mental Status Exam MSE Comments: This is a medium built white female in hospital scrubs with appropriate grooming and eye contact. Notable scar starting at the angle of upper and lower lips on the left side angling up. No abnormal involuntary motor movements were appreciated. She was cooperative with exam in no acute mood distress. Speech was normal rate, rhythm and volume. Mood described as good. Her affect appeared brighter today. Thought process was linear and logical. Thought content: patient endorses no suicidal ideation and no homicidal ideation. There was no evidence of any delusional thinking. She denies any auditory or visual hallucinations. She did not appear to be responding to internal stimuli. Attention was variable and memory appeared grossly intact. She is alert and oriented times three. Insight and judgment are limited. Impulse control is limited. Vitals/I&O/Wt Last Vital Signs Temp 97.5 F L 11/18/22 14:00 Pulse 79 11/18/22 14:00 Resp 18 11/18/22 14:00 BP 106/54 11/18/22 14:00 Pulse Ox 96 11/18/22 14:00 O2 Del Method 11/17/22 14:00 Data NPU 11/12/22 12:50 11/12/22 12:50 A&P Assessment and plan (1) Acute psychosis: (2) Post-traumatic stress disorder, chronic: (3) Bipolar disorder, unspecified: (4) Bipolar 1 disorder: Plan This is a 37-year old female with a history of bipolar disorder NOSand PTSD who presents reporting challenging issues related to her relationship with her mother and stress at work with recent psychosis with a UDS positive for amphetamines. She has been compliant with her medications. Plan: 1. Continue Cymbalta 60mg in am , continue topamax 100mg bid, continue Neurontin 900 mg 3 times a day. 2. Continue every 15 minute checks for safety. 3. Encourage individual, group and milieu therapies. 4. Encourage sober living treatment after discharge at the highest level of care to which she is willing to commit. Evaluate the significance of her positive UDS for amphetamine.-referral for substance abuse counseling/dual diagnosis treatment. 5. We will monitor for safety for herself in the community prior to discharge. Involuntary Hold Information 96 Hour Hold: 96 Hour Involuntary Admission: No Attestations NPU Medical Necessity Statement*: Inpatient hospitalization is medically necessary and the clinically appropriate intervention at this time. We will monitor/initiate medications and make changes as indicated. She will be in the hospital with likely length of stay 2-4 days. 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
[2022-11-18 19:55] VITALS: BP 120/82; PULSE 76; RESP 17; TEMP 36.6; O2SAT 100
[2022-11-19] MEDS: ibuprofen 800 mg tablet PO (04:55)
[2022-11-19 06:00] VITALS: BP 107/72; PULSE 73; RESP 16; TEMP 36.8; O2SAT 98
[2022-11-19] MEDS: gabapentin 300 mg Capsule 900 MG PO (08:40)
[2022-11-19] MEDS: duloxetine 30 mg Capsule 60 MG PO (08:40)
[2022-11-19] MEDS: meloxicam 7.5 mg tablet PO (08:40)
[2022-11-19] MEDS: topiramate 100 mg Tablet PO (08:41)
[2022-11-19] MEDS: HYDROcodone-acetaminophen 10-325 mg Tablet 1 TAB PO (08:43)
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
[2022-11-19 14:10] VITALS: BP 107/72; PULSE 73; RESP 16; TEMP 36.8; O2SAT 98
== END 2022-11-19 15:30 | disposition home or self-care (01) | DRG 885 ==
LOC: ER 14:51 → NP 15:02
PROVIDERS: Admitting Provider Psychiatry & Neurology Psychiatry; Emergency Provider Emergency Medicine; PCP Family Medicine; Visit Provider Psychiatry & Neurology Psychiatry
DX: F31.9 Bipolar disorder, unspecified (principal); R45.851 Suicidal ideations; G89.29 Other chronic pain; G50.0 Trigeminal neuralgia; F10.10 Alcohol abuse, uncomplicated; F15.90 Other stimulant use, unspecified, uncomplicated; E03.9 Hypothyroidism, unspecified; M96.1 Postlaminectomy syndrome, not elsewhere classified; F43.12 Post-traumatic stress disorder, chronic; M47.816 Spondylosis without myelopathy or radiculopathy, lumbar region; F17.210 Nicotine dependence, cigarettes, uncomplicated; Z79.891 Long term (current) use of opiate analgesic
CPT/HCPCS: 80053; 80178; 80306; 80307; 81001; 81025; 85025; 93005; 97150; 97165; 99285

== ENCOUNTER 2022-11-30 09:37 | Inpatient (IN) | payer OTHER, SELFPAY ==
[2022-11-30] VITALS (88 sets, daily range): BP systolic 111–158; BP diastolic 82–108; PULSE 91–128; RESP 13–36; TEMP 36.8–37.1; O2SAT 91–100; BMI 24.9; BMI 25.7
[2022-11-30] MEDS: sodium chloride 0.9% 1,000 ML 999 ML IV (09:50)
--- NOTE | 2022-11-30 10:08 | PC.PHAR ---
pt unable to verify - pt brought in pill bottles - verified by pill bottles and last filled on external med history.
--- NOTE | 2022-11-30 10:08 | W.ED.AMS ---
HPI - Altered Mental Status General: Chief Complaint: ER Hold Stated Complaint: AMS/ POSSIBLE OVERDOSE Time Seen by Provider: 11/30/22 09:48 Source: patient Mode of arrival: EMS History of Present Illness: 37-year-old female presents to the emergency room altered mental status. Family called EMS because she was altered at home she told EMS she had taken pills in attempt to hurt herself. She has multiple bruises on her knees looks like from various episodes and small hematoma to the right eye no other evidence of trauma anywhere in the extremities or torso. She has a lidocaine patch on her lower back she is not able to really give us any other information. She is grasping at her IVs not responding to questions other than just some some eye coherent babbling. No family member available at the bedside. MD complaint: altered mental status and confusion Onset (ago): hour(s) Severity: severe Consistency of symptoms: Constant Context: history of similar presentation (Intentional medication overdose) Associated symptoms: Reports depression and suicidal ideation (Recurrent hx of SI in the past recent statements similar) Review of Systems General: Reports: ROS unobtainable due to mental status Psych: Reports: depression and suicidal ideation (Recurrent hx of SI in the past recent statements similar) PFS ED PFSH: Medical History Bipolar disorder with psychotic features Endometriosis Facial scar Hypothyroidism [place] use Lumbar post-laminectomy syndrome Motor nerve conduction block Post-traumatic stress disorder, chronic Psychiatric care Spondylosis of lumbar region without myelopathy or radiculopathy Surgical History History of liver biopsy Hx of cholecystectomy Family History Denies family history of Psychiatric illness Social History Smoking and tobacco status: current every day smoker cigarettes [ Other cigarette details: 3 to 4 cigarettes a day] Smoking risk assessment/counseling performed?: Yes Tobacco counseling given: counseling >3 minutes Alcohol intake: current Household members: family Housing: House Current occupational status: employed Physical Exam Const: EXAM LIMITATIONS: altered mental status GENERAL APPEARANCE: disheveled and lethargic ORIENTATION/CONSCIOUSNESS: Yes lethargic HENMT: COMMON NORMALS: normocephalic, atraumatic, EAC's normal, TM's normal bilaterally and Normal external nose present HEAD & SCALP: normocephalic and atraumatic FACE & SINUS: normal facial exam NOSE: Normal external nose present and Normal nares present EXTERNAL AUDITORY CANAL: EAC's normal TYMPANIC MEMBRANE: TM's normal bilaterally MOUTH: Normal oral and palatal mucosa present THROAT: posterior oropharynx normal Eye: COMMON NORMALS: conjunctivae normal and no scleral icterus CONJUNCTIVA: Yes conjunctivae normal Neck/C-Spine: COMMON NORMALS: full ROM and no lymphadenopathy Lymph: LYMPHATIC: no lymphadenopathy noted Resp: COMMON NORMALS: normal respiratory effort and clear to auscultation bilaterally EFFORT & INSPECTION: No able to speak in complete sentences AUSCULTATION: clear to auscultation bilaterally Cardio: RATE: tachycardic HEART SOUNDS: no murmurs GI: COMMON NORMALS: Soft to palpation and No hepatosplenomegaly present PALPATION: Yes Soft to palpation, No Tenderness to palpation present (GI), No Guarding due to palpation present (GI) and Yes No hepatosplenomegaly present : COMMON NORMALS: Yes no CVA tenderness BLADDER/KIDNEY EXAM: Yes no CVA tenderness Back/Pelvis: COMMON NORMALS: no CVA tenderness Neuro: SENSORIUM/ORIENTATION: Yes lethargic Course Vital Signs: Vital signs: Vital Signs Temperature 98.1 F 12/01/22 22:00 Pulse Rate 90 12/01/22 22:00 Respiratory Rate 18 12/01/22 22:00 Blood Pressure 134/84 12/01/22 22:00 Pulse Oximetry 98 12/01/22 22:00 Oxygen Delivery Me thod 12/01/22 16:00 MDM - Altered Mental Status Medical Decision Making Tegretol level significantly elevated patient very sedate. In addition to Tegretol other concerning medicines may be appropriate on lorazepam and topiramate and hydrocodone. No anion gap. Acetaminophen and salicylate levels are undetectable. She is positive for benzodiazepines. Discussed with hospitalist will admit to ICU because of overdose and have psychiatry consult Medical Records I reviewed the patient's medical records. Lab Data I reviewed the patient's lab results. 11/30/22 09:21 11/30/22 10:[address] 11/30/22 13:[address]: [address] evidence of acute intracranial pathology. 2. Additional findings, as above. Chest X-Ray 11/30/22 13:31 Impression: Right aortic arch with no acute cardiopulmonary disease. Laboratory Results WBC 16.3 10^3/uL (4.0-10.0) H 11/30/22 09:21 RBC 4.06 10^6/uL (4.1-5.3) L 11/30/22 09:21 Hgb 12.9 g/dL (11.5-15.3) 11/30/22 09:21 Hct 40.3 % (37.0-47.0) 11/30/22 09:21 MCV 99.3 fl (81-99) H 11/30/22 09:21 MCH 31.8 pg (28.0-34.0) 11/30/22 09: MCHC 32.0 g/dL (30.0-36.0) 11/30/22 09: RDW 12.6 % (12.1-15.1) 11/30/22 09:21 Plt Count 371 10^3/cmm (130-400) 11/30/22 09:21 MPV 9.2 fL (7.4-10.4) 11/30/22 09:21 Neut % (Auto) 88.7 % 11/30/22 09:21 Lymph % (Auto) 5.3 % 11/30/22 09:21 [place] % (Auto) 4.7 % 11/30/22 09:21 Eos % (Auto) 0.3 % 11/30/22 09:21 Baso % (Auto) 0.6 % 11/30/22 09:21 Neut # (Auto) 14.49 10^3/uL (1.8-7.7) H 11/30/22 09:21 Lymph # (Auto) 0.9 10^3/uL (0.8-4.8) 11/30/22 09:21 [place] # (Auto) 0.8 10^3/uL (0.2-0.9) 11/30/22 09:21 Eos # (Auto) 0.1 10^3/uL (0.0-0.8) 11/30/22 09:21 Baso # (Auto) 0.1 10^3/uL (0.0-0.1) 11/30/22 09:21 Nucleated RBC % (auto) 0 % 11/30/22 09:21 Nucleated RBCs # 0.0 /100WBC 11/30/22 09:21 Specimen Type Arterial 11/30/22 09:57 Sample Site Radial, left 11/30/22 09:57 ABG pH 7.33 (7.35-7.45) L 11/30/22 09:57 ABG pCO2 31.6 mmHg (35-45) L 11/30/22 09:57 ABG pO2 113.0 mmHg (80.0-100.0) H 11/30/22 09:57 ABG HCO3 16.7 mmol/L (22-26) L 11/30/22 09:57 ABG O2 Saturation 99.1 11/30/22 09:57 ABG Base Excess -8.1 mmol/L (-2.0-2.0) L 11/30/22 09:57 Vince Test Pos 11/30/22 09:57 A-a O2 Gradient Not Reportable 11/30/22 09:57 Hematocrit 37.0 % (37-47) 11/30/22 09:57 Hgb O2 Saturation 97.5 % (95-100) 11/30/22 09:57 Carboxyhemoglobin 1.0 %THgb (0.4-20.1) 11/30/22 09:57 Methemoglobin 0.6 % (0.4-1.5) 11/30/22 09:57 Total Hemoglobin 12.1 g/dL (12-16) 11/30/22 09:57 Sodium 144.0 mmol/L (131-143) H 11/30/22 09:57 Potassium 3.5 mmol/L (3.5-5.0) 11/30/22 09:57 Glucose 120.0 mg/dL (70-115) H 11/30/22 09:57 Ionized Calcium 1.1 mmol/L (1.1-1.4) 11/30/22 09:57 O2 Delivery Device Room air 11/30/22 09:57 FiO2 21.0 % 11/30/22 09:57 Utility Bag Assembler ID Cak 11/30/22 09:57 Sodium 139 mmol/L (136-145) 11/30/22 10:39 Potassium 3.5 mmol/L (3.5-5.1) 11/30/22 10:39 Chloride 113 mmol/L (98-107) H 11/30/22 10:39 Carbon Dioxide 17 mmol/L (22-29) L 11/30/22 10:39 Anion Gap 12.5 (5-19) 11/30/22 10:39 BUN 13 mg/dL (6-20) 11/30/22 10:39 Creatinine 0.5 mg/dL (0.5-0.9) 11/30/22 10:39 GFR Calculation 138.1 mL/min (90-130) H 11/30/22 10:39 Glucose 104 mg/dL (65-115) 11/30/22 10:39 Calculated Osmolality 288 mOsm/kg (285-295) 11/30/22 10:39 Lactic Acid 1.0 mmol/L (0.5-2.2) 11/30/22 10:01 Calcium 7.6 mg/dL (8.5-10.5) L 11/30/22 10:39 Total Bilirubin 0.2 mg/dL (0.15-1.2) 11/30/22 10:39 AST 65 U/L (0-32) H 11/30/22 10:39 ALT 98 U/L (0-33) H 11/30/22 10:39 Alkaline Phosphatase 72 U/L (35-105) 11/30/22 10:39 Creatine Kinase 154 U/L (26-192) 11/30/22 10:39 Total Protein 6.2 g/dL (6.6-8.7) L 11/30/22 10:39 Albumin 4.2 g/dL (3.5-5.2) 11/30/22 10:39 Globulin 2.0 g/dL (1.3-4.6) 11/30/22 10:39 HCG, Qual Negative (Negative) 11/30/22 10:39 Urine Color Yellow (Yellow) 11/30/22 14:20 Urine Appearance Hazy (CLEAR) A 11/30/22 14:20 Urine pH 6.5 (5-7) 11/30/22 14:20 Ur Specific [place] 1.015 (1.005-1.030) 11/30/22 14:20 Urine Protein Neg (Negative) 11/30/22 14:20 Urine Glucose (UA) Norm (Normal) 11/30/22 14:20 Urine Ketones Negative (Negative) 11/30/22 14:20 Urine Blood 2+ (Negative) H 11/30/22 14:20 Urine Nitrate Negative (Negative) 11/30/22 14:20 Urine Bilirubin Neg (Negative) 11/30/22 14:20 Urine Urobilinogen Neg mg/dL (Negative) 11/30/22 14:20 Ur Leukocyte Esterase Negative (Negative) 11/30/22 14:20 Urine RBC 0-4 /hpf (0-2) H 11/30/22 14:20 Urine WBC 0-4 /hpf (0-5) H 11/30/22 14:20 Ur Squamous Epith Cells 5-10 /hpf (0-5) H 11/30/22 14:20 Amorphous Sediment Not Reportable 11/30/22 14:20 Urine Bacteria 2+ /hpf (NONE) H 11/30/22 14:20 Salicylates < 0.3 mg/dL (3-10) L 11/30/22 10:39 Urine Opiates Screen Negative ng/mL (Negative) 11/30/22 14:20 Acetaminophen < 5.0 ug/mL (10-30) L 11/30/22 10:39 Ur Barbiturates Screen Negative ng/mL (Negative) 11/30/22 14:20 Carbamazepine 32.0 ug/mL (4.0-12.0) H* 11/30/22 10:39 Ur Phencyclidine Scrn Negative ng/mL (Negative) 11/30/22 14:20 Ur Amphetamines Screen Negative ng/mL (Negative) 11/30/22 14:20 U Benzodiazepines Scrn Positive ng/mL (Negative) H 11/30/22 14:20 Urine Cocaine Screen Negative ng/mL (Negative) 11/30/22 14:20 U Marijuana (THC) Screen Negative ng/mL (Negative) 11/30/22 14:20 Ethyl Alcohol < 10 mg/dL (0-10) 11/30/22 10:39 Serum Ketones Negative (Negative) 11/30/22 10:39 Hepatitis A IgM Ab Non-reactive (Nonreactive) 11/30/22 10:39 Hep Bs Antigen Non-reactive (Nonreactive) 11/30/22 10:39 Hep B Core IgM Ab Non-reactive (Nonreactive) 11/30/22 10:39 Hepatitis C Antibody Non-reactive (Nonreactive) 11/30/22 10:39 Discharge Plan Discharge Patient Disposition: Admitted As Inpatient Admit Provider: Ashish Reina Clinical Impression: Suicidal ideation, Overdose, Head contusion Condition: Stable Coding Level of Care Code ED Bolt Maker for [facility]
[2022-11-30 10:09] LABS: ABG PCO2 31.6 mmHg (35-45); ABG PH Result 7.33 (7.35-7.45); Base Excess ABG -8.1 mmol/L (-2.0-2.0); Blood Gas Allen Test Pos; Blood Gas Operator Identificat CAK; Blood Gas Sample Site Radial, left; Blood Gas Sample Type Arterial; HCO3 ABG 16.7 mmol/L (22-26); HGB O2 Sat 97.5 % (95-100); Ionized Calcium Level - ABG 1.1 mmol/L (1.1-1.4); Methemoglobin 0.6 % (0.4-1.5); Oxygen Device ROOM AIR; Oxygen Saturation ABG 99.1; Potassium Level - ABG 3.5 mmol/L (3.5-5.0); Total Hemoglobin 12.1 g/dL (12-16)
--- NOTE | 2022-11-30 10:12 | ECG_ITS ---
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 Measurements Intervals [place] Rate: 105 P: 49 MD: 187 QRS: 32 QRSD: 93 T: 44 QT: 349 QTc: 463 Interpretive Statements SINUS TACHYCARDIA LOW QRS VOLTAGE IN PRECORDIAL LEADS [QRS DEFLECTION < 1.0 mV IN CHEST LEADS] NONSPECIFIC T-WAVE ABNORMALITY ABNORMAL RHYTHM ECG Compared to ECG 11/12/2022 14:14:26 Low QRS voltage now present Sinus rhythm no longer present T-wave abnormality still present Electronically Signed On 11-30-2022 20:26:56 SAUSAGE SMOKER by Elizabeth Donnelly M.D. [id number]
[2022-11-30 10:13] LABS: Basophils # 0.1 10^3/uL (0.0-0.1); Basophils % 0.6 %; Eosinophils # 0.1 10^3/uL (0.0-0.8); Eosinophils % 0.3 %; Hematocrit 40.3 % (37.0-47.0); Hemoglobin 12.9 g/dL (11.5-15.3); Lymphocytes # 0.9 10^3/uL (0.8-4.8); Lymphocytes % 5.3 %; Mean Corpuscular Hemoglobin 31.8 pg (28.0-34.0); Mean Corpuscular Volume 99.3 fl (81-99); Mean Platelet Volume 9.2 fL (7.4-10.4); Monocytes # 0.8 10^3/uL (0.2-0.9); Monocytes % 4.7 %; Neutrophils # 14.49 10^3/uL (1.8-7.7); Neutrophils % 88.7 %; Nucleated Red Blood Cells % 0 %; Platelet Count 371 10^3/cmm (130-400); Red Blood Count 4.06 10^6/uL (4.1-5.3); Red Cell Distribution Width 12.6 % (12.1-15.1); White Blood Count 16.3 10^3/uL (4.0-10.0)
[2022-11-30 11:09] LABS: Ketone (Acetest) Serum Negative (Negative)
[2022-11-30 11:13] LABS: HCG, Serum Qual Negative (Negative)
[2022-11-30 11:18] LABS: Alanine Aminotransferase 98 U/L (0-33); Albumin Level 4.2 g/dL (3.5-5.2); Alkaline Phosphatase 72 U/L (35-105); Anion Gap 12.5 (5-19); Aspartate Amino Transferase 65 U/L (0-32); Blood Urea Nitrogen 13 mg/dL (6-20); Calcium 7.6 mg/dL (8.5-10.5); Carbon Dioxide 17 mmol/L (22-29); Chloride 113 mmol/L (98-107); Creatine Phosphokinase 154 U/L (26-192); Glomerular Filtration Rate 138.1 mL/min (90-130); Glucose 104 mg/dL (65-115); Osmolality Calculated 288 mOsm/kg (285-295); Potassium 3.5 mmol/L (3.5-5.1); Sodium 139 mmol/L (136-145); Total Bilirubin 0.2 mg/dL (0.15-1.2); Total Protein 6.2 g/dL (6.6-8.7)
[2022-11-30 11:20] LABS: Acetaminophen < 5.0 ug/mL (10-30); Alcohol Level < 10 mg/dL (0-10); Salicylate < 0.3 mg/dL (3-10)
--- NOTE | 2022-11-30 12:52 | PM.HP ---
Providers/Chief Complaint Admitting Physician: Ashish Reina MD Primary Care Provider: Jay Collins MD Chief Complaint: AMS/ POSSIBLE OVERDOSE History of Present Illness Kiara Ventura is a 37 year old female presenting to the emergency department with confusion. Mother reports that she seemed to be doing okay Tuesday, but Tuesday was becoming more tearful. Mother relates she has bipolar disorder, and was recently in the neuropsychiatric unit and has prior history of suicide attempts. She states she found her down at home, between the bed and a piece of furniture acting oddly. Pills were at bedside and she suspect she overdosed. Patient herself is able to respond, but seems confused and talking very simply. No recent history of fever, headache, other injury. Review of Systems General: Reports: 10 or more systems reviewed and unremarkable except in HPI and below and ROS unobtainable due to mental status (Patient unable to participate well enough in review of systems to be reliab) Medications/Allergies Home Medications Medication Instructions Recorded Confirmed Last Taken Type vnetvwc-grgwlmkgxzvjc-amygokaz 250 1 tab PO Q6H PRN Migraine Headache 02/09/22 11/30/22 02/05/22 History mg-250 mg-65 mg tablet (Excedrin Migraine) hydrocodone 10 mg-acetaminophen 1 tab PO Q6H PRN Pain 02/09/22 11/30/22 02/09/22 07:15 History 325 mg tablet ibuprofen 200 mg tablet 800 mg PO Q8H PRN Pain 02/09/22 11/30/22 02/05/22 History topiramate 200 mg tablet 200 mg PO BEDTIME 02/09/22 11/30/22 11/11/22 History cyclobenzaprine 5 mg tablet 5 mg PO Q12H 07/12/22 11/30/22 Unknown History lorazepam 0.5 mg tablet 0.5 mg PO QID PRN anxiety #120 tabs 11/04/22 11/30/22 Unknown Rx gabapentin 300 mg capsule 900 mg PO TID 11/13/22 11/30/22 Unknown History (Neurontin) duloxetine 30 mg capsule,delayed 60 mg PO DAILY 30 days #60 caps 11/19/22 11/30/22 Unknown Rx release bupropion HCl 450 mg 24 hr tablet, 450 mg PO DAILY 11/30/22 11/30/22 Unknown History extended release (Forfivo XL) carbamazepine 200 mg 200 mg PO BID 11/30/22 11/30/22 Unknown History tablet,extended release,12 hr Allergies Allergy/AdvReac Type Severity Reaction Status Date / Time No Known Allergies Allergy Verified 11/04/22 15:30 PFSH Acute PFSH: Medical History Bipolar disorder with psychotic features Endometriosis Facial scar Hypothyroidism [place] use Lumbar post-laminectomy syndrome Motor nerve conduction block Post-traumatic stress disorder, chronic Psychiatric care Spondylosis of lumbar region without myelopathy or radiculopathy Surgical History History of liver biopsy Hx of cholecystectomy Family History Denies family history of Psychiatric illness Social History Smoking and tobacco status: current every day smoker cigarettes [ Other cigarette details: 3 to 4 cigarettes a day] Smoking risk assessment/counseling performed?: Yes Tobacco counseling given: counseling >3 minutes Alcohol intake: current Household members: family Housing: House Current occupational status: employed Vitals/I&O/Wt Last Vital Signs Temp 98.2 F 11/30/22 09:38 Pulse 101 H 11/30/22 12:04 Resp 18 11/30/22 11:25 BP 158/101 11/30/22 12:04 Pulse Ox 99 11/30/22 12:04 O2 Del Method 11/30/22 10:46 Weight last 48 hrs Weight 65.771 kg Physical Exam Narrative: General exam demonstrates a white female, with multiple redirection can say hello but I cannot carry on a good conversation. She does not appear to be in any pain. Mother is with her at bedside and she is able to recognize and name her mother. HEENT: Contusion is noted overlying her right eyebrow area. Pupils equally round. Oropharynx clear. Neck is supple no lymphadenopathy or thyromegaly. She appears to be moving and free of pain Cardiovascular slight tachycardia, no murmur Lungs clear no wheezing or crackles Abdomen is soft nontender positive bowel sounds. No obvious organomegaly exam demonstrates Shultz Extremities no cyanosis or clubbing. Bruising is noted over her knees and lower extremities. It appears she has full range of motion. Cap refill brisk. Skin see findings above Neuro: No obvious focal deficits. Data 11/30/22 09:21 11/30/22 10:39 Other Labs: I have ordered a CT head noncontrast I have ordered a chest x-ray as she was found on the ground and could have fallen ABG demonstrates a pH 7.33, PCO2 32, PO2 of 113 on room air LFTs slightly high with an AST of 65, and ALT of 98. Bilirubin, alk phos are normal. Calcium 7.6. Urinalysis not yet obtained along with urine drug screen Tegretol level 32 Salicylates, Tylenol level not detectable. Alcohol level not detectable. Serum ketones negative. Serum hCG negative. EKG demonstrates sinus tachycardia, normal axis, no acute changes A&P Assessment and plan (1) Overdose: Patient presents with mother. She has filled out an affidavit concerning for intentional overdose with suicidal ideation. Continue 96-hour hold Psychiatric consultation Tegretol level is high. Hydrate. Recheck tomorrow. Fall precautions, suicide precautions (2) Suicidal ideation: See above (3) Bipolar disorder, unspecified: See above Recent hospitalization for suicidal ideation (4) Head contusion: Patient with head contusion on exam, bruising to her legs Monitor for any other injury not apparent on admission Check chest x-ray secondary to likely fall as well as CT head Plan Other medical problems as noted in past medical history Full code Low risk for DVT, no prophylaxis needed. Attestations Medical Necessity Statement*: Will require greater than 2 midnight stay secondary to Tegretol overdose, suicidal ideation Critical Care Time: The high probability of a clinically significant, sudden or life threatening deterioration of the patient's [neurologic, metabolic, psychiatric] system(s) required my full and direct attention, intervention and personal management. The critical care time is as shown. This time is in addition to time spent performing any reported procedures but includes the following: [x] Data and vital sign review and interpretation [x] Patient assessment, examination and intervention [x] Documentation [x] Medication orders and management Critical Care Time (min): 50 Coding Level of Care Code Acute Software Implementation Specialist for [facility] Fwd Diagnoses Overdose T50.901A Suicidal ideation R45.851 Bipolar disorder, unspecified F31.9 Head contusion S00.93XA
--- NOTE | 2022-11-30 13:28 | CTR_ITS ---
PROCEDURE INFORMATION: Exam: CT Head Without Contrast Exam date and time: 11/30/2022 2:24 PM Age: 37 years old Clinical indication: Altered mental status/memory loss; Prior surgery; Additional info: Confusion, contusion above right eye TECHNIQUE: Imaging protocol: Computed tomography of the head without contrast. Axial, coronal and sagittal reformatted images were created and reviewed. Radiation optimization: All CT scans at this facility use at least one of these dose optimization techniques: automated exposure control; mA and/or kV adjustment per patient size (includes targeted exams where dose is matched to clinical indication); or iterative reconstruction. COMPARISON: CT head wo con* [id number] 01/14/2019 6:29 PM RADIATION DOSE METRICS: Total DLP (mGy-cm): 1045.68 FINDINGS: Brain: No CT evidence of acute intracranial hemorrhage or acute territorial infarction. No significant mass effect or midline shift. Basal cisterns patent. Cerebral ventricles: Normal in size and configuration. Paranasal sinuses: Unremarkable. No fluid levels. Mastoid air cells: Grossly unremarkable. Bones/joints: No acute osseous abnormality. Postsurgical changes in the left occipital calvarium. Soft tissues: Mild right periorbital soft tissue swelling. CT/CT head wo con* [id number] IMPRESSION: 1. No CT evidence of acute intracranial pathology. 2. Additional findings, as above.
--- NOTE | 2022-11-30 13:31 | XR_ITS ---
WS: [id number] Portable AP supine chest, 11/30/2022 Clinical Data: fall Comparison: Portable chest, 01/14/2019 Findings: No nodules, masses or effusions are seen. The heart is normal. The pulmonary vascularity is not increased. No pneumonia or pneumothorax is seen. There is a right aortic arch. There is a levosc oliosis of the upper thoracic spine with a dextroscoliosis of the lower thoracic spine. Monitor leads are on the chest wall. XR/XR chest 1V portable [id number] Impression: Right aortic arch with no acute cardiopulmonary disease.
[2022-11-30] MEDS: LORazepam 2 mg/mL INJ 1 mL IVP (13:55)
[2022-11-30 14:36] LABS: Urine Color Yellow (Yellow)
[2022-11-30 14:37] LABS: Add Urine Microscopic? YES; Bacteria Urine 2+ /hpf; Bilirubin Urine Neg (Negative); Blood Urine 2+ (Negative); Glucose Urine UA Norm (Normal); Ketones Urine Negative (Negative); Leukocyte Esterase Urine Negative (Negative); Nitrate Urine Negative (Negative); Protein Urine Neg (Negative); RBC Urine 0-4 /hpf (0-2); Specific Gravity, Urine 1.015 (1.005-1.030); Urine Appearance Hazy (CLEAR); Urobilinogen Urine Neg (Negative); WBC Urine 0-4 /hpf (0-5); pH Urine 6.5 (5-7)
[2022-11-30 14:38] LABS: Add Urine Culture? Yes
[2022-11-30 14:39] LABS: Amphetamines Screen Urine Negative (Negative); Barbiturates Screen Urine Negative (Negative); Benzodiazepines Screen Urine Positive (Negative); Cocaine Screen Urine Negative (Negative); Opiate Screen Urine Negative (Negative); PCP Screen Urine Negative (Negative); THC Screen Urine Negative (Negative)
[2022-11-30] MEDS: ondansetron 2 mg/ML SDV 2 mL 4 MG IVP (17:06)
[2022-11-30] MEDS: sodium chloride 0.9% 1,000 ML 100 ML IV (17:31)
--- NOTE | 2022-11-30 18:58 | PC.NURSE ---
Transfer Note Patient transferred to ICU from ER via stretcher. Handoff received from MARLENE Aparicio. Patient oriented to environment and equipment. Covering service notified. Orders reviewed and will continue to monitor. Family and/or registered representative notified. Patient on room air and is alert upon arrival to ICU, home medications and phone human resources generalist brought with patient. Multiple bruises noted to arms and legs. Contusion noted to right side face.
[2022-11-30 22:52] LABS: Hepatitis A Antibody IgM Non-Reactive (Nonreactive); Hepatitis B Core IgM Non-Reactive (Nonreactive); Hepatitis B Surface Antigen Non-Reactive (Nonreactive); Hepatitis C Virus Antibody Non-Reactive (Nonreactive)
[2022-12-01] VITALS (119 sets, daily range): BP systolic 106–140; BP diastolic 71–92; PULSE 82–102; RESP 8–31; TEMP 36.7–37.1; O2SAT 92–100
[2022-12-01 04:03] LABS: Basophils % 0.7 %; Eosinophils # 0.1 10^3/uL (0.0-0.8); Eosinophils % 2.4 %; Hematocrit 35.2 % (37.0-47.0); Hemoglobin 11.2 g/dL (11.5-15.3); Lymphocytes # 1.2 10^3/uL (0.8-4.8); Lymphocytes % 22.7 %; Mean Corpuscular HGB Conc 31.8 g/dL (30.0-36.0); Mean Corpuscular Hemoglobin 31.7 pg (28.0-34.0); Mean Corpuscular Volume 99.7 fl (81-99); Mean Platelet Volume 8.6 fL (7.4-10.4); Monocytes # 0.6 10^3/uL (0.2-0.9); Monocytes % 10.8 %; Neutrophils # 3.44 10^3/uL (1.8-7.7); Nucleated Red Blood Cells % 0 %; Platelet Count 234 10^3/cmm (130-400); Red Blood Count 3.53 10^6/uL (4.1-5.3); Red Cell Distribution Width 12.3 % (12.1-15.1); White Blood Count 5.5 10^3/uL (4.0-10.0)
[2022-12-01] MEDS: sodium chloride 0.9% 1,000 ML 100 ML IV (04:19)
[2022-12-01 04:32] LABS: Carbamazepine Tegretol 14.9 ug/mL (4.0-12.0)
[2022-12-01 04:34] LABS: Alanine Aminotransferase 69 U/L (0-33); Albumin Level 3.7 g/dL (3.5-5.2); Alkaline Phosphatase 66 U/L (35-105); Anion Gap 11.4 (5-19); Aspartate Amino Transferase 35 U/L (0-32); Blood Urea Nitrogen 7 mg/dL (6-20); Calcium 7.6 mg/dL (8.5-10.5); Carbon Dioxide 21 mmol/L (22-29); Chloride 112 mmol/L (98-107); Globulin 1.9 g/dL (1.3-4.6); Glomerular Filtration Rate 138.1 mL/min (90-130); Glucose 89 mg/dL (65-115); Osmolality Calculated 289 mOsm/kg (285-295); Potassium 3.4 mmol/L (3.5-5.1); Sodium 141 mmol/L (136-145); Total Bilirubin 0.3 mg/dL (0.15-1.2); Total Protein 5.6 g/dL (6.6-8.7)
[2022-12-01 04:37] LABS: Creatine Phosphokinase 195 U/L (26-192); Magnesium 1.9 mg/dL (1.7-2.3)
[2022-12-01] MEDS: acetaminophen 325 mg Tablet 650 MG PO ×2 (07:22→13:47)
[2022-12-01] MEDS: HYDROcodone-acetaminophen 10-325 mg Tablet 1 TAB PO ×3 (08:53→20:33)
[2022-12-01] MEDS: gabapentin 300 mg Capsule PO ×3 (08:53→20:33)
[2022-12-01] MEDS: potassium chloride ER 20 mEq Tablet 40 MEQ PO (08:54)
--- NOTE | 2022-12-01 10:27 | PM.PN ---
Subjective Subjective: Kiara reports she feels okay. She denies any suicidal ideation or attempt, reporting she was just in pain and started taking more Tegretol. Medications: Reviewed: Yes Vitals/I&O/Wt Last Vital Signs Temp 98.6 F 12/01/22 07:30 Pulse 91 12/01/22 09:36 Resp 15 12/01/22 07:35 BP 124/85 12/01/22 07:35 Pulse Ox 96 12/01/22 09:36 O2 Del Method 12/01/22 09:36 11/30/22 12/01/22 12/01/22 22:59 06:59 14:59 Intake Total 110 / 1110 1110 / 2220 Output Total 1475 / 1475 375 / 1850 Balance -1365 / -365 735 / 370 Weight last 48 hrs Weight 73 kg Weight 68.175 kg Weight 65.771 kg Physical Exam Narrative: General exam demonstrates a white female, much more interactive than yesterday with some of her her verbal responses still odd HEENT: Contusion is noted overlying her right eyebrow area. Unchanged from yesterday Neck is supple no lymphadenopathy or thyromegaly. She appears to be moving and free of pain Cardiovascular regular rate and rhythm without murmur Lungs clear no wheezing or crackles Abdomen is soft nontender positive bowel sounds. No obvious organomegaly exam demonstrates [place] Extremities no cyanosis or clubbing. Bruising is noted over her knees and lower extremities. It appears she has full range of motion. Cap refill brisk. Skin see findings above Neuro: No obvious focal deficits. Urinary Catheter Management: Shultz: Cath Placed During This Visit: yes Reason for Continuing Indwelling Catheter: Accurate Measurement of Urinary Output in Critically Ill Patients Urinary Catheter Date of Insertion: 11/30/22 Urinary Catheter Time of Insertion: 14:40 Data 12/01/22 03:32 12/01/22 03:32 A&P Assessment and plan (1) Overdose: Patient presents with mother. She has filled out an affidavit concerning for intentional overdose with suicidal ideation. Continue 96-hour hold Psychiatric consultation pending Tegretol level is high. Hydrated, and Tegretol level only slightly elevated this morning Fall precautions, suicide precautions (2) Suicidal ideation: See above (3) Bipolar disorder, unspecified: See above Recent hospitalization for suicidal ideation (4) Head contusion: Patient with head contusion on exam, bruising to her legs Monitor for any other injury not apparent on admission CT head, chest x-ray negative Plan Mild hypokalemia, supplement Mild transaminitis. Hepatitis panel negative. Other medical problems as noted in past medical history Full code Low risk for DVT, no prophylaxis needed. Attestations Medical Necessity Statement*: Appears to be stable to transfer to neuropsychiatric unit Needs continued hospitalization secondary to overdose with questionable intent Coding Level of Care Code Acute Revolving Field Assembler for [facility] Diagnoses Overdose T50.901A Suicidal ideation R45.851 Bipolar disorder, unspecified F31.9 Head contusion S00.93XA
--- NOTE | 2022-12-01 10:50 | PC.CHAP ---
Pastoral Care Encounter/Spiritual Assessment Type of Contact [] Declined gold buyer visit [] Patient/Family/Request visit [] Outpatient visit [] Follow-up visit [] Physician referral [] Code/Alert [x] Routine visit [] Staff referral [] Actively dying [x] Patient sleeping [] Family support [] [] Out of room [] Palliative care [] [] Receiving care in room [] Pre-surgical visit [] Trauma [] Long length of stay [x] ICU visit [x] Other: sitter Relational/Emotional Strength [] Patient feels connected with others/family/visitors/staff [] Distress [] Loneliness/isolation [] Abandonment Spirituality of Patient [] Person of Garima [] Attends Islam of their Garima [] Believes in Prayer [] Reads Bible or Zoroastrian materials [] There are Spiritual issues to be addressed Bookkeeping Machine Operator Interventions [x] Prayer [] Active listening [] Non-anxious presence [] Spiritual/emotional support [] Crisis/trauma care [] Spiritual counseling [] Bereavement support [] Provided bereavement packet [] Provided Bible/devotional materials [] Provided toy/stuffed animal, coloring book to patient or family member [] Provided Communion [] Anointing/[place] [] Salvation [x] Completed spiritual assessment [] Other: Impact on Illness or Injury [] Angry [] Fearful [] Anxious [] Often cries [] Exhaustion [] Unable to work [] Unable to attend caodaism [] Unable to walk/stand [] Unable to read [] Unable to drive [] Unable to eat/drink [] Unable to sleep [] Unable to be with family [] Patient intubated [] Other: Summary Time spent with patient
[2022-12-01] MEDS: LORazepam 0.5 mg Tablet PO ×2 (11:02→20:33)
--- NOTE | 2022-12-01 15:14 | PC.NURSE ---
Patient has a bed in NPU. ICU nurse gave report to nurse blanco in NPU. Patient home medicaitons were sent home with the patients mom. The patient is aware of this. Patient taken to NPU via wheelchair and internal security manager. IVs and ugalde catheter removed before transfer to NPU.
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
[2022-12-02] MEDS: gabapentin 300 mg Capsule PO ×3 (08:07→20:16)
[2022-12-02] MEDS: HYDROcodone-acetaminophen 10-325 mg Tablet 1 TAB PO ×3 (08:09→20:16)
[2022-12-02 09:35] LABS: Basophils # 0.1 10^3/uL (0.0-0.1); Basophils % 1.1 %; Eosinophils # 0.2 10^3/uL (0.0-0.8); Eosinophils % 3.5 %; Hematocrit 39.4 % (37.0-47.0); Hemoglobin 12.2 g/dL (11.5-15.3); Lymphocytes # 1.1 10^3/uL (0.8-4.8); Lymphocytes % 23.2 %; Mean Corpuscular Hemoglobin 31.5 pg (28.0-34.0); Mean Corpuscular Volume 101.8 fl (81-99); Monocytes # 0.4 10^3/uL (0.2-0.9); Monocytes % 8.8 %; Neutrophils # 2.86 10^3/uL (1.8-7.7); Neutrophils % 63.2 %; Nucleated Red Blood Cells % 0 %; Platelet Count 282 10^3/cmm (130-400); Red Blood Count 3.87 10^6/uL (4.1-5.3); Red Cell Distribution Width 12.1 % (12.1-15.1); White Blood Count 4.5 10^3/uL (4.0-10.0)
[2022-12-02] MEDS: ibuprofen 600 mg Tablet PO ×3 (09:52→22:55)
[2022-12-02 10:05] LABS: Alanine Aminotransferase 53 U/L (0-33); Albumin Level 4.1 g/dL (3.5-5.2); Alkaline Phosphatase 73 U/L (35-105); Anion Gap 12.7 (5-19); Aspartate Amino Transferase 21 U/L (0-32); Blood Urea Nitrogen 8 mg/dL (6-20); Carbamazepine Tegretol 10.4 ug/mL (4.0-12.0); Carbon Dioxide 24 mmol/L (22-29); Chloride 107 mmol/L (98-107); Creatinine Clr Calc Pharmacy 148.9554; Globulin 2.2 g/dL (1.3-4.6); Glomerular Filtration Rate 138.1 mL/min (90-130); Glucose 91 mg/dL (65-115); Osmolality Calculated 288 mOsm/kg (285-295); Potassium 3.7 mmol/L (3.5-5.1); Sodium 140 mmol/L (136-145); Total Bilirubin 0.2 mg/dL (0.15-1.2); Total Protein 6.3 g/dL (6.6-8.7)
[2022-12-02 14:00] VITALS: BP 127/72; PULSE 86; RESP 16; TEMP 36.6; O2SAT 99
--- NOTE | 2022-12-02 15:22 | PM.PN ---
Subjective Subjective: Kiara reports she feels better. Would like to be back on Tegretol to try to help with trigeminal neuralgia pain. I discussed with her the need to take the prescribed dose, and not more than needed. Discussed this briefly with psychiatry as well. Medications: Reviewed: Yes Vitals/I&O/Wt Last Vital Signs Temp 98 F 12/02/22 14:00 Pulse 86 12/02/22 14:00 Resp 16 12/02/22 14:00 BP 127/72 12/02/22 14:00 Pulse Ox 99 12/02/22 14:00 O2 Del Method 12/02/22 14:00 Weight last 48 hrs Weight 72.575 kg Weight 73 kg Weight 68.175 kg Physical Exam Narrative: General exam demonstrates a white female, no distress Conversant and alert Urinary Catheter Management: Shultz: Cath Placed During This Visit: yes Reason for Continuing Indwelling Catheter: Accurate Measurement of Urinary Output in Critically Ill Patients Urinary Catheter Date of Insertion: 11/30/22 Urinary Catheter Time of Insertion: 14:40 Data 12/02/22 09:05 12/02/22 09:05 Micro: Microbiology 11/30/22 14:20 Urine Culture - Final Urine,Clean Catch A&P Assessment and plan (1) Overdose: Tegretol level has come back down to within normal range Psychiatry managing concern with suicide ideation and overdose (2) Suicidal ideation: See above (3) Bipolar disorder, unspecified: See above Recent hospitalization for suicidal ideation (4) Head contusion: Patient with head contusion on exam, bruising to her legs Monitor for any other injury not apparent on admission CT head, chest x-ray negative Plan Trigeminal neuralgia. Restart carbamazepine at 200 mg twice daily. Check a level on Tuesday. Mild hypokalemia, resolved Mild transaminitis. Hepatitis panel negative. Other medical problems as noted in past medical history Full code Low risk for DVT, no prophylaxis needed. Attestations Medical Necessity Statement*: As per primary, psychiatry Coding Level of Care Code Acute Retail Service Lead Merchandiser for Chg Fwd Diagnoses Overdose T50.901A Suicidal ideation R45.851 Bipolar disorder, unspecified F31.9 Head contusion S00.93XA
[2022-12-02] MEDS: carBAMazepine 200 mg Tablet PO (18:03)
[2022-12-02 20:21] VITALS: BP 132/87; PULSE 77; RESP 16; TEMP 36.8; O2SAT 97
[2022-12-03] MEDS: LORazepam 0.5 mg Tablet PO ×3 (01:05→22:36)
[2022-12-03 06:00] VITALS: BMI 27.4
[2022-12-03] MEDS: HYDROcodone-acetaminophen 10-325 mg Tablet 1 TAB PO ×3 (07:29→20:46)
[2022-12-03] MEDS: carBAMazepine 200 mg Tablet PO ×2 (09:34→17:29)
[2022-12-03] MEDS: fluoxetine 20 mg Capsule PO (09:34)
[2022-12-03] MEDS: gabapentin 300 mg Capsule PO ×3 (09:34→20:46)
[2022-12-03 14:00] VITALS: BP 80/61; PULSE 70; RESP 16; TEMP 36.6; O2SAT 99
--- NOTE | 2022-12-03 14:18 | W.PM.NPUPNS ---
Subjective NPU Subjective: Patient presented today reporting that she feels much better and is wanting to be discharged. She did get a visit from her mother who was quite supportive and wondering about the process and making sure that we do not have a bad outcome given the 2 fairly concerning suicidal gestures/attempts in the last 30 to 40 days. She denies feeling suicidal anymore but she cannot give a real sense of what has changed that would make her safe now other than her just reporting she does not feel like she would hurt herself now. She is tolerating the restarting of the Prozac and we are considering restarting her Topamax soon. Mental Status Exam MSE Comments: This is an overweight female in hospital scrubs with appropriate grooming and eye contact. Notable scar starting at the angle of upper and lower lips on the left side angling up. Notable bruising above and around her right eye and on her exposed skin of her arms. No abnormal movements except for mild psychomotor agitation. She was cooperative with exam in no acute distress. Speech was slightly increased rate, but with normal rhythm and volume. Mood described as good. Her affect appeared congruent. Thought process was linear and logical. Thought content: patient endorses no suicidal ideation and no homicidal ideation. There was no evidence of any delusional thinking. She denies any auditory or visual hallucinations. She did not appear to be responding to internal stimuli. Attention was and concentration were intact and memory appeared grossly intact and none were formally tested. She is alert and oriented times three. Insight and judgment are limited. Impulse control appeared impaired. Vitals/I&O/Wt Last Vital Signs Temp 98.3 F 12/02/22 20:21 Pulse 77 12/02/22 20:21 Resp 16 12/02/22 20:21 BP 132/87 12/02/22 20:21 Pulse Ox 97 12/02/22 20:21 O2 Del Method 12/02/22 14:00 Weight last 48 hrs Weight 72.575 kg Weight 72.575 kg Physical Exam Urinary Catheter Management: Shultz: Cath Placed During This Visit: yes Reason for Continuing Indwelling Catheter: Accurate Measurement of Urinary Output in Critically Ill Patients Urinary Catheter Date of Insertion: 11/30/22 Urinary Catheter Time of Insertion: 14:40 Data NPU 12/02/22 09:05 12/02/22 09:05 Micro: Microbiology 11/30/22 14:20 Urine Culture - Final Urine,Clean Catch Microbiology 11/30/22 14:20 Urine,Clean Catch Urine Culture - Final A&P Assessment and plan (1) Acute psychosis: (2) Bipolar 1 disorder: (3) Post-traumatic stress disorder, chronic: (4) Suicidal ideation: (5) Overdose: Plan This is a 37-year old female with a history of bipolar 1 disorder and PTSD who presents reporting challenging issues related to her relationship with her mother and stress at work with recent psychosis with a UDS positive for amphetamines. She has been compliant with her medications. Plan: 1. Continue current medication. Restarted Prozac 20 mg p.o. every morning. We will evaluate medication for possible changes including either adding or increasing a mood stabilizer she is already on. 2. Continue every 15 minute checks for safety. 3. Encourage individual, group and milieu therapies. 4. Encourage sober living treatment after discharge at the highest level of care to which she is willing to commit. Evaluate the significance of her positive UDS. 5. We will monitor for safety for herself in the community prior to discharge. 6. Consider restarting Topamax. Involuntary Hold Information 96 Hour Hold: 96 Hour Involuntary Admission: Yes 96 Hour Hold Ending Date: 12/06/22 96 Hour Hold Ending Time: 10:50 Attestations NPU Medical Necessity Statement*: Inpatient hospitalization is medically necessary and the clinically appropriate intervention at this time. We will monitor/initiate medications and make changes as indicated. Likely length of stay 3-5 days. Coding Level of Care Code Acute Director Life Insurance for Ranulfo Fernandez Diagnoses Acute psychosis F23 Bipolar 1 disorder F31.9 Post-traumatic stress disorder, chronic F43.12 Suicidal ideation R45.851 Overdose T50.909D
[2022-12-03] MEDS: ibuprofen 600 mg Tablet PO ×2 (14:37→21:04)
[2022-12-03] MEDS: acetaminophen 325 mg Tablet 650 MG PO (18:01)
[2022-12-03 20:04] VITALS: BP 140/85; PULSE 70; RESP 16; TEMP 36.7; O2SAT 98
[2022-12-04 06:00] VITALS: BP 126/85; PULSE 71; RESP 16; TEMP 36.7; O2SAT 97
[2022-12-04] MEDS: HYDROcodone-acetaminophen 10-325 mg Tablet 1 TAB PO ×3 (06:21→20:46)
[2022-12-04] MEDS: ibuprofen 600 mg Tablet PO ×3 (07:28→22:34)
[2022-12-04] MEDS: fluoxetine 20 mg Capsule PO (09:14)
[2022-12-04] MEDS: carBAMazepine 200 mg Tablet PO ×2 (09:14→17:57)
[2022-12-04] MEDS: gabapentin 300 mg Capsule PO ×3 (09:15→20:45)
[2022-12-04] MEDS: acetaminophen 325 mg Tablet 650 MG PO (10:35)
[2022-12-04] MEDS: LORazepam 0.5 mg Tablet PO ×3 (10:35→20:48)
[2022-12-04 14:00] VITALS: BP 124/86; PULSE 70; RESP 16; TEMP 36.5; O2SAT 100
--- NOTE | 2022-12-04 17:14 | W.PM.NPUPNS ---
Subjective NPU Subjective: Patient presented today reporting that she is feeling somewhat antsy about going home. We talked about some of the concerns specifically for safety given her most recent para suicidal behavior. We discussed the situation with her mother who was somewhat leaning towards having her not work. We discussed having concerns with her not having anything to fill her time and that we may need to look at more intensive outpatient services. She continued to focus on her trigeminal neuralgia and that these behaviors surrounding suicide have been more related to pain control than pure depression per se. Mental Status Exam MSE Comments: This is an overweight female in hospital scrubs with appropriate grooming and eye contact. Notable scar starting at the angle of upper and lower lips on the left side angling up. Notable bruising above and around her right eye and on her exposed skin of her arms. No abnormal movements except for mild psychomotor retardation. She was cooperative with exam in no acute distress. Speech was slightly increased rate, but with normal rhythm and volume. Mood described as a little irritated with my mom. Her affect appeared congruent. Thought process was linear and logical. Thought content: patient endorses no suicidal ideation and no homicidal ideation. There was no evidence of any delusional thinking. She denies any auditory or visual hallucinations. She did not appear to be responding to internal stimuli. Attention was and concentration were intact and memory appeared grossly intact and none were formally tested. She is alert and oriented times three. Insight and judgment are limited. Impulse control appeared impaired. Vitals/I&O/Wt Last Vital Signs Temp 97.8 F 12/04/22 20:41 Pulse 76 12/04/22 20:41 Resp 18 12/04/22 20:41 BP 143/96 12/04/22 20:41 Pulse Ox 100 12/04/22 20:41 O2 Del Method 12/03/22 14:00 Weight last 48 hrs Weight 73.028 kg Weight 73.028 kg Weight 71.838 kg Physical Exam Urinary Catheter Management: Shultz: Cath Placed During This Visit: yes Reason for Continuing Indwelling Catheter: Accurate Measurement of Urinary Output in Critically Ill Patients Urinary Catheter Date of Insertion: 11/30/22 Urinary Catheter Time of Insertion: 14:40 Data NPU 12/02/22 09:05 12/02/22 09:05 A&P Assessment and plan (1) Acute psychosis: (2) Bipolar 1 disorder: (3) Post-traumatic stress disorder, chronic: (4) Suicidal ideation: (5) Overdose: Plan This is a 37-year old female with a history of bipolar 1 disorder and PTSD who presents reporting challenging issues related to her relationship with her mother and stress at work with recent psychosis with a UDS positive for amphetamines. She has been compliant with her medications. Plan: 1. Continue current medication. Restarted Prozac 20 mg p.o. every morning. We will evaluate medication for possible changes including either adding or increasing a mood stabilizer she is already on. Add Topamax 100 mg p.o. nightly in the process of returning to 200 mg p.o. nightly. 2. Continue every 15 minute checks for safety. 3. Encourage individual, group and milieu therapies. 4. Encourage sober living treatment after discharge at the highest level of care to which she is willing to commit. Evaluate the significance of her positive UDS. 5. We will monitor for safety for herself in the community prior to discharge. Involuntary Hold Information 96 Hour Hold: 96 Hour Involuntary Admission: Yes 96 Hour Hold Ending Date: 12/06/22 96 Hour Hold Ending Time: 10:50 Attestations NPU Medical Necessity Statement*: Inpatient hospitalization is medically necessary and the clinically appropriate intervention at this time. We will monitor/initiate medications and make changes as indicated. Likely length of stay 2-4 days. Coding Level of Care Code Acute Director Speech And Hearing for Ranulfo Fernandez Diagnoses Acute psychosis F23 Bipolar 1 disorder F31.9 Post-traumatic stress disorder, chronic F43.12 Suicidal ideation R45.851 Overdose T50.906B
[2022-12-04 20:41] VITALS: BP 143/96; PULSE 76; RESP 18; TEMP 36.6; O2SAT 100
[2022-12-05] MEDS: HYDROcodone-acetaminophen 10-325 mg Tablet 1 TAB PO ×3 (06:06→18:15)
[2022-12-05] MEDS: fluoxetine 20 mg Capsule PO (08:10)
[2022-12-05] MEDS: ibuprofen 600 mg Tablet PO ×3 (08:11→21:20)
[2022-12-05] MEDS: LORazepam 0.5 mg Tablet PO ×2 (08:11→19:57)
[2022-12-05] MEDS: gabapentin 300 mg Capsule PO ×3 (08:11→19:57)
[2022-12-05] MEDS: carBAMazepine 200 mg Tablet PO ×2 (08:11→17:50)
[2022-12-05 10:06] LABS: Carbamazepine Tegretol 6.2 ug/mL (4.0-12.0)
--- NOTE | 2022-12-05 10:20 | P.NPUPN_ITS ---
Subjective NPU Subjective: Patient presented today reporting that she is feeling better. She has some anxiety about missing an appointment on Tuesday for her 1 year follow-up for her surgery for trigeminal neuralgia. Spoke with mother and patient and we discussed the likelihood of discharge on Tuesday with appropriate follow-up and family support. We had a long discussion about the seriousness of the last 2 Suicidal episodes and how we could stop the chain of events prior to action. Mental Status Exam MSE Comments: This is an overweight female in hospital scrubs with appropriate grooming and eye contact. Notable scar starting at the angle of upper and lower lips on the left side angling up. Resolving ecchymosis/bruising above and around her right eye and on her exposed skin of her arms. No abnormal movements except for mild psychomotor retardation. She was cooperative with exam in no acute distress. Speech was more normal rate, rhythm and volume. Mood described as better than yesterday. Her affect appeared congruent. Thought process was linear and logical. Thought content: patient endorses no suicidal ideation and no homicidal ideation. There was no evidence of any delusional thinking. She denies any auditory or visual hallucinations. She did not appear to be responding to internal stimuli. Attention was and concentration were intact and memory appeared grossly intact and none were formally tested. She is alert and oriented times three. Insight and judgment are limited. Impulse control appeared limited but improving . Vitals/I&O/Wt Last Vital Signs Temp 97.8 F 12/04/22 20:41 Pulse 76 12/04/22 20:41 Resp 18 12/04/22 20:41 BP 143/96 12/04/22 20:41 Pulse Ox 100 12/04/22 20:41 O2 Del Method 12/03/22 14:00 Weight last 48 hrs Weight 73.028 kg Weight 73.028 kg Weight 71.838 kg Physical Exam Urinary Catheter Management: Shultz: Cath Placed During This Visit: yes Reason for Continuing Indwelling Catheter: Accurate Measurement of Urinary Output in Critically Ill Patients Urinary Catheter Date of Insertion: 11/30/22 Urinary Catheter Time of Insertion: 14:40 Data NPU 12/02/22 09:05 12/02/22 09:05 A&P Assessment and plan (1) Acute psychosis: (2) Bipolar 1 disorder: (3) Post-traumatic stress disorder, chronic: (4) Suicidal ideation: (5) Overdose: Plan This is a 37-year old female with a history of bipolar 1 disorder and PTSD who presents reporting challenging issues related to her relationship with her mother and stress at work with recent psychosis with a UDS positive for amphetamines. She has been compliant with her medications. Plan: 1. Continue current medication. Restarted Prozac 20 mg p.o. every morning. We will evaluate medication for possible changes including either adding or increasing a mood stabilizer she is already on. Add Topamax 100 mg p.o. nightly in the process of returning to 200 mg p.o. nightly. 2. Continue every 15 minute checks for safety. 3. Encourage individual, group and milieu therapies. 4. Encourage sober living treatment after discharge at the highest level of care to which she is willing to commit. Evaluate the significance of her positive UDS. 5. We will monitor for safety for herself in the community prior to discharge. Involuntary Hold Information 96 Hour Hold: 96 Hour Involuntary Admission: Yes 96 Hour Hold Ending Date: 12/06/22 96 Hour Hold Ending Time: 10:50 Attestations NPU Medical Necessity Statement*: Inpatient hospitalization is medically necessary and the clinically appropriate intervention at this time. We will monitor/initiate medications and make changes as indicated. Likely length of stay 1-3 days. Coding Level of Care Code Acute Skill Training Program Coordinator for Ranulfo Fernandez Diagnoses Acute psychosis F23 Bipolar 1 disorder F31.9 Post-traumatic stress disorder, chronic F43.12 Suicidal ideation R45.851 Overdose T50.907H
[2022-12-05 14:00] VITALS: BP 110/75; PULSE 65; RESP 16; TEMP 36.9; O2SAT 100
[2022-12-05] MEDS: topiramate 100 mg Tablet PO (19:56)
[2022-12-05 21:49] VITALS: BP 135/82; PULSE 76; RESP 18; TEMP 37; O2SAT 97
[2022-12-06] MEDS: HYDROcodone-acetaminophen 10-325 mg Tablet 1 TAB PO ×4 (01:26→20:08)
[2022-12-06] MEDS: ibuprofen 600 mg Tablet PO ×3 (03:03→17:55)
[2022-12-06 04:47] LABS: Add Urine Culture? No; Bacteria Urine TRACE /hpf; Bilirubin Urine Neg (Negative); Blood Urine Neg (Negative); Glucose Urine UA Norm (Normal); Ketones Urine Negative (Negative); Leukocyte Esterase Urine Negative (Negative); Nitrate Urine Negative (Negative); Protein Urine Neg (Negative); RBC Urine 0-4 /hpf (0-2); Specific Gravity, Urine 1.005 (1.005-1.030); Squamous Epithelial Cell Urine 0-4 /hpf (0-5); Urine Appearance Clear (CLEAR); Urine Color Yellow (Yellow); Urobilinogen Urine Norm (Negative); WBC Urine 0-4 /hpf (0-5); pH Urine 7 (5-7)
[2022-12-06 05:22] VITALS: RESP 16
[2022-12-06 06:00] VITALS: BMI 27.6
[2022-12-06] MEDS: acetaminophen 325 mg Tablet 650 MG PO ×2 (06:55→12:47)
[2022-12-06] MEDS: carBAMazepine 200 mg Tablet PO ×2 (08:11→17:55)
[2022-12-06] MEDS: gabapentin 300 mg Capsule PO ×3 (08:11→19:18)
[2022-12-06] MEDS: fluoxetine 20 mg Capsule PO (08:11)
[2022-12-06 14:00] VITALS: BP 112/62; PULSE 76; RESP 17; TEMP 36.7; O2SAT 98
[2022-12-06] MEDS: LORazepam 0.5 mg Tablet PO ×2 (15:48→19:18)
--- NOTE | 2022-12-06 15:49 | PC.NURSE ---
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 Patient did appear to get more anxious and fidgety when her mother arrived to visit at 3 and she is still visiting with her at this time. Ativan 2mg PO administered.
--- NOTE | 2022-12-06 18:01 | P.NPUPN_ITS ---
Subjective NPU Subjective: Patient presented today reporting that she is feeling better. She continues to report feeling safe and not having any suicidal thoughts. She has a follow-up with her surgeon for the trigeminal neuralgia on Tuesday and she is desirous of discharge so she can attend that appointment. We continued to discuss ways for her to manage her pain and depression. We agreed to continue her Topamax after discharge. She also submitted a request for [place] to support her continue to work given her recent absences due to hospitalizations. Mental Status Exam MSE Comments: This is an overweight female in hospital scrubs with appropriate grooming and eye contact. Notable scar starting at the angle of upper and lower lips on the left side angling up. Resolving ecchymosis/bruising above and around her right eye and on her exposed skin of her arms. No abnormal movements except for mild psychomotor retardation. She was cooperative with exam in no acute distress. Speech was more normal rate, rhythm and volume. Mood described as I feel ready. Her affect appeared euthymic and congruent. Thought process was linear and logical. Thought content: patient endorses no suicidal ideation and no homicidal ideation. There was no evidence of any delusional thinking. She denies any auditory or visual hallucinations. She did not appear to be responding to internal stimuli. Attention was and concentration were intact and memory appeared grossly intact and none were formally tested. She is alert and oriented times three. Insight, judgment and impulse control appear improving . Vitals/I&O/Wt Last Vital Signs Temp 98.3 F 12/06/22 22:00 Pulse 82 12/06/22 22:00 Resp 16 12/06/22 22:00 BP 125/83 12/06/22 22:00 Pulse Ox 97 12/06/22 22:00 O2 Del Method 12/05/22 14:00 Weight last 48 hrs Weight 73.028 kg Physical Exam Urinary Catheter Management: Shultz: Cath Placed During This Visit: yes Reason for Continuing Indwelling Catheter: Accurate Measurement of Urinary Output in Critically Ill Patients Urinary Catheter Date of Insertion: 11/30/22 Urinary Catheter Time of Insertion: 14:40 Data NPU 12/02/22 09:05 12/02/22 09:05 A&P Assessment and plan (1) Acute psychosis: (2) Bipolar 1 disorder: (3) Post-traumatic stress disorder, chronic: (4) Suicidal ideation: (5) Overdose: Plan This is a 37-year old female with a history of bipolar 1 disorder and PTSD who presents reporting challenging issues related to her relationship with her mother and stress at work with recent psychosis with a UDS positive for amphetamines. She has been compliant with her medications. Plan: 1. Continue current medication. Restarted Prozac 20 mg p.o. every morning. We will evaluate medication for possible changes including either adding or increasing a mood stabilizer she is already on. Add Topamax 100 mg p.o. nightly in the process of returning to 200 mg p.o. nightly. 2. Continue every 15 minute checks for safety. 3. Encourage individual, group and milieu therapies. 4. Encourage sober living treatment after discharge at the highest level of care to which she is willing to commit. Evaluate the significance of her positive UDS. 5. We will monitor for safety for herself in the community prior to discharge. Involuntary Hold Information 96 Hour Hold: 96 Hour Involuntary Admission: Yes 96 Hour Hold Ending Date: 12/06/22 96 Hour Hold Ending Time: 10:50 Attestations NPU Medical Necessity Statement*: Inpatient hospitalization is medically necessary and the clinically appropriate intervention at this time. We will monitor/initiate medications and make changes as indicated. Likely length of stay 1-2 days. Tentative plan for discharge tomorrow. Coding Level of Care Code Acute Senior Facilities Manager for Ranulfo Fernandez Diagnoses Acute psychosis F23 Bipolar 1 disorder F31.9 Post-traumatic stress disorder, chronic F43.12 Suicidal ideation R45.851 Overdose T50.903E
[2022-12-06] MEDS: topiramate 100 mg Tablet PO (19:18)
[2022-12-06 22:00] VITALS: BP 125/83; PULSE 82; RESP 16; TEMP 36.8; O2SAT 97
[2022-12-07 06:00] VITALS: RESP 16
[2022-12-07] MEDS: HYDROcodone-acetaminophen 10-325 mg Tablet 1 TAB PO (06:54)
[2022-12-07] MEDS: fluoxetine 20 mg Capsule PO (08:34)
[2022-12-07] MEDS: gabapentin 300 mg Capsule PO (08:34)
[2022-12-07] MEDS: carBAMazepine 200 mg Tablet PO (08:35)
[2022-12-07 11:03] VITALS: BP 125/83; PULSE 82; RESP 16; TEMP 36.8; O2SAT 97
--- NOTE | 2022-12-07 11:04 | P.NPUDS_ITS ---
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 450 mg tablet extended release 24 hr 450 mg PO DAILY gabapentin [Neurontin] 300 mg capsule 900 mg PO TID duloxetine 30 mg Capsule,Delayed Release(Dr/Ec) 60 mg PO DAILY 30 Days Qty: 60 1RF Discharge Orders: Discharge Order (Routine); Ordered 12/07/22 Ordered By: John Linda Referrals: [facility]- Dr. Cordell Leos [Other] - 12/09/22 1:30 pm (Check in at 1:30 pm and appointment time at 2:00 pm. ) Kacie Christina PMHNP [Staff Physician] - 12/08/22 1:45 pm Jay Collins MD [Primary Care Provider] - (Follow up) Discharge Diet: Regular Discharge Activity: Resume usual activity Patient Instructions: Fluoxetine (By mouth), Gabapentin (By mouth), Bipolar Disorder (DC), Suicide Prevention (DC), Opioid Safety Discharge Attestations NPU Time Spent in Discharge Care*: less than 30 min Specific Discharge Activities: Specific discharge activities: educating patient, discussing with patient case manager/social workers/dc planners, documenting/other paperwork and evaluating patient/reviewing data Coding Level of Care Code Acute Chg FW DC note Diagnoses Acute psychosis F23 Bipolar 1 disorder F31.9 Post-traumatic stress disorder, chronic F43.12 Suicidal ideation R45.851 Overdose T50.901A
== END 2022-12-07 12:34 | disposition home or self-care (01) | DRG 918 ==
LOC: ER 18:25 → ICU 19:15 → NP 12-01 14:54
PROVIDERS: Admitting Provider Internal Medicine; Emergency Provider Family Medicine; PCP Family Medicine; Visit Provider Psychiatry & Neurology Psychiatry
DX: T42.1X2A Poisoning by iminostilbenes, intentional self-harm, initial encounter (principal); R45.851 Suicidal ideations; F31.9 Bipolar disorder, unspecified; Z91.51 Personal history of suicidal behavior; E03.9 Hypothyroidism, unspecified; F43.12 Post-traumatic stress disorder, chronic; F17.210 Nicotine dependence, cigarettes, uncomplicated; S00.11XA Contusion of right eyelid and periocular area, initial encounter; W19.XXXA Unspecified fall, initial encounter; Z81.8 Family history of other mental and behavioral disorders; G50.0 Trigeminal neuralgia
CPT/HCPCS: 36415; 36600; 51702; 70450; 71045; 80051; 80053; 80074; 80156; 80306; 80307; 81001; 82009; 82330; 82550; 82805; 83605; 83735; 84703; 85025; 87086; 93005; 96374; 97150; 97165; 99285; J2060; J2405; J7030

== ENCOUNTER 2023-01-11 08:45 | Inpatient (IN) | payer OTHER, MEDICAID, SELFPAY ==
[2023-01-11] VITALS (90 sets, daily range): BP systolic 72–151; BP diastolic 37–105; PULSE 76–122; RESP 15–26; TEMP 34.1–37.6; O2SAT 85–100; BMI 27.4; BMI 29.1
--- NOTE | 2023-01-11 08:45 | PC.NURSE ---
PT PLACED ON CONTINUOUS SPO2, NIBP, AND CM.
--- NOTE | 2023-01-11 08:45 | PC.NURSE ---
PER DR. RANGEL ORDER 20 MG OF ETOMIDATE AND 10 MG OF VECURONIUM ADM VIA IVP. PT THEN INTUBATED BY DR. RANGEL.
--- NOTE | 2023-01-11 08:52 | CT_ITS ---
WS: [id number] CT HEAD NONCONTRAST HISTORY: LOC TECHNIQUE: Contiguous axial imaging performed through the brain in 2.5 mm imaging. Bone and soft tiss ue windows. Sagittal and coronal reformats reviewed. All CT scans at [facility] use at least one of these dose optimization techniques: automated exposure control; mA and/or kV adjustment per pa tient size (includes targeted exams where dose is matched to clinical indication); or iterative recon struction. DLP: 1077.35 mGy.cm COMPARISON: Prior CT head 11/30/2022, prior MRI brain two 2015 No acute intracranial hemorrhage, midline shift or mass effect. No atrophy or prior infarcts or herniation. Ventricles: Normal size with no hydrocephalus. Crowding of the foramen magnum by inferior descent of the cerebellar tonsils. This was previously bernie cribed also by MRI. At least 6 mm descent of the cerebellar tonsils. Paranasal sinuses: As visualized are clear. Mastoid air cells: Well pneumatized. Calvarium and scalp: Skull is intact with no soft tissue edema or swelling. CT/CT head wo con* [id number] IMPRESSION: 1. No acute intracranial hemorrhage or edema. 2. 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
--- NOTE | 2023-01-11 08:53 | CT_ITS ---
WS: [id number] CT ABDOMEN AND PELVIS WITH CONTRAST HISTORY: abd pain TECHNIQUE: Imaging performed of the abdomen and pelvis with IV contrast. Single phase imaging of the abdomen. Coronal and sagittal reformats are submitted. All CT scans at [facility] use at cha st one of these dose optimization techniques: automated exposure control; mA and/or kV adjustment per patient size (includes targeted exams where dose is matched to clinical indication); or iterative re construction. IV CONTRAST: Omnipaque 300; 100 mL IV. Oral contrast: No DLP: 707.98 mGy.cm COMPARISON: 08/23/2019 Lower thorax: Mild dependent changes at the lung bases. Mild cardiomegaly. No hiatal hernia. Significant artifact through the patient's abdomen from patient's lead wires are most. Liver/biliary system: Normal size. Intrahepatic and extra hepatic duct dilatation has been previously described. No obvious progression. Poorly visualized portal vein. Gallbladder: Prior cholecystectomy. Mild physiologic dilatation of the common bile duct is similar to the prior studies. Pancreas: Normal size pancreas and pancreatic duct. No adjacent inflammation. Spleen: Normal size spleen. No mass or infarct. Adrenal glands: Normal. Right kidney: Normal size with a few tiny hypodensities which are too small to characterize. No obstr uction or perinephric stranding. 5 mm nonobstructing calcification lower pole. Left kidney: Normal size. No obstruction. No perinephric stranding. Aorta: Normal. Lymphadenopathy: None. Free fluid: None. No free air. GI tract: Moderate distention of the stomach with fluid. Small bowel loops are normal. No obstruction or wall thickening is evident. There is fluid distention of the colon. Majority of fluid distention is proximally. Collapsed distal colon. No evidence for acute diverticulitis. Normal appendix. Abdominal wall: Unremarkable abdominal wall. No hernia. Pelvis: Urinary bladder is nondistended. There is a Shultz catheter in the bladder. Uterus is antevert ed and slightly displaced to the LEFT of midline by a large cystic mass in the RIGHT adnexa. Cystic m ass in the RIGHT adnexa measures 4.5 x 5.7 cm. This is probably an ovarian cyst, complex cyst. No adj acent fluid. Bones: Mild curvature and scoliosis lumbar spine. CT/CT abdomen pelvis w con* [id number] IMPRESSION: 1. Mild fluid distention of the stomach and RIGHT colon. 2. Status post cholecystectomy with intrahepatic and extra hepatic mild duct d ilatation is similar to prior studies. 3. No free fluid or free air. 4. RIGHT adnexal complex cystic mass measures 4.5 x 5.7 cm. This mass can be f urther evaluated by transvaginal ultrasound as patients condition permits.
--- NOTE | 2023-01-11 08:53 | XRR_ITS ---
PROCEDURE INFORMATION: Exam: XR Chest Exam date and time: 01/11/2023 9:32 AM Age: 37 years old Clinical indication: Cough and dyspnea; Additional info: Dyspnea/cough TECHNIQUE: Imaging protocol: Radiologic exam of the chest. Views: 1 view. COMPARISON: CR XR chest 1V portable [id number] 11/30/2022 1:48 PM FINDINGS: Lungs: Unremarkable. No consolidation. There is a circumscribed density in the right lung apex 10 mm x 18 mm. This finding was not present on prior examination and may represent a structure outside of patient. Pleural spaces: Unremarkable. No pleural effusion. No pneumothorax. Heart/Mediastinum: Unremarkable. No cardiomegaly. Bones/joints: Unremarkable. Endotracheal tube is 40 mm above the shady. XR/XR chest 1V portable [id number] IMPRESSION: No acute findings. Endotracheal tube is above the shady.
--- NOTE | 2023-01-11 08:57 | ED_ITS ---
HPI - Overdose General: Chief Complaint: Overdose Stated Complaint: OVERDOSE Time Seen by Provider: 01/11/23 08:51 Source: EMS Mode of arrival: EMS History of Present Illness: 37-year-old female arrives via EMS with a GCS of 3. She was found down for an unknown length of time at home. She has a history of bipolar disorder multiple previous suicide attempts with hospitalization last month for suicide attempt. She was given 4 mg of Narcan in route with no improvement in condition on arrival here she has coffee-ground emesis in the hypopharynx MD complaint: intentional overdose Onset (ago): unknown Review of Systems General: Reports: ROS unobtainable due to endotracheal tube PFSH ED PFSH: Medical History Bipolar disorder with psychotic features Endometriosis Facial scar Hypothyroidism [place] use Lumbar post-laminectomy syndrome Motor nerve conduction block Post-traumatic stress disorder, chronic Psychiatric care Spondylosis of lumbar region without myelopathy or radiculopathy Surgical History History of liver biopsy Hx of cholecystectomy Family History Denies family history of Psychiatric illness Social History Smoking and tobacco status: current every day smoker cigarettes [ Other cigarette details: 3 to 4 cigarettes a day] Smoking risk assessment/counseling performed?: Yes Tobacco counseling given: counseling >3 minutes Alcohol intake: current Household members: family Housing: House Current occupational status: employed Female Reproductive History: Date of last menstrual period: 11/24/22 Physical Exam HENMT: COMMON NORMALS: normocephalic and atraumatic HEAD & SCALP: normocephalic and atraumatic Neck/C-Spine: COMMON NORMALS: no JVD Resp: EFFORT & INSPECTION: Yes abnormal respiratory pattern and Yes decreased respiratory effort Cardio: COMMON NORMALS: no JVD, regular rate, regular rhythm and No murmurs present (Cardio) RATE: regular rate RHYTHM: regular rhythm GI: COMMON NORMALS: Soft to palpation and No hepatosplenomegaly present AUSCULTATION: Yes normoactive bowel sounds PALPATION: Yes Soft to palpation, No Tenderness to palpation present (GI), No Guarding due to palpation present (GI) and Yes No hepatosplenomegaly present Extremity: COMMON NORMALS: normal to inspection, capillary refill normal, no clubbing, cyanosis or edema, no calf tenderness and no pedal edema Neuro: JIM COMA SCALE: document GCS findings Jim coma scale eye opening: None Jim coma scale verbal response: None Jim coma scale motor response: None [place] coma scale total score: 3 Skin: COMMON NORMALS: no rashes or lesions noted GENERAL SKIN EXAM: no rashes or lesions noted Procedures Intubation Time out performed: Yes sedative: Etomidate Mg Given: 20 Mg Given: 10 Laryngoscope: Cole ET Tube Size: 8 ET Tube Uncuffed: Yes Tube Secured Depth (cm): 22 Tube Secured Location: teeth Tube Placement Confirmation: visualized tube passing through cords, equal breath sounds bilaterally, no breath sounds over epigastrium and confirmation by capnometry Patient Tolerated Procedure: well Intubation Complications: none Course Vital Signs: Vital signs: Vital Signs Temperature 98.6 F 01/12/23 04:00 Pulse Rate 84 01/12/23 06:00 Respiratory Rate 15 01/12/23 06:00 Blood Pressure 103/67 01/12/23 06:00 Pulse Oximetry 100 01/12/23 06:00 Oxygen Delivery Me thod 01/12/23 04:00 Fraction of Inspir ed Oxygen 30 01/12/23 04:00 MDM - Overdose Medical Decision Making Tegretol level elevated other labs reviewed. Given patient's known history of previous suicide attempts suspect that this was intentional overdose. Patient intubated immediately upon arrival and stabilized. Laboratory test reviewed. CT head and abdomen pelvis all negative. Patient stabilized initially did not require any sedation later in the ER visit just prior to going to the ICU did begin to show signs of reaction to stimulus of the ET tube and required some sedation. Discussed patient with Dr. Garcia orders written admit. Medical Records I reviewed the patient's medical records. Lab Data I reviewed the patient's lab results. 01/12/23 02:48 01/12/23 02:[address] 01/11/23 08:52 IMPRESSION: 1. No acute intracranial hemorrhage or edema. 2. 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 Abdomen/Pelvis CT 01/11/23 08:53 IMPRESSION: 1. Mild fluid distention of the stomach and RIGHT colon. 2. Status post cholecystectomy with intrahepatic and extra hepatic mild duct dilatation is similar to prior studies. 3. No free fluid or free air. 4. RIGHT adnexal complex cystic mass measures 4.5 x 5.7 cm. This mass can be further evaluated by transvaginal ultrasound as patients condition permits. Chest X-Ray 01/11/23 12:55 IMPRESSION: No evidence of active cardiopulmonary disease. Laboratory Results WBC 12.0 10^3/uL (4.0-10.0) H 01/11/23 09:05 RBC 4.18 10^6/uL (4.1-5.3) 01/11/23 09:05 Hgb 13.1 g/dL (11.5-15.3) 01/11/23 09:05 Hct 41.2 % (37.0-47.0) 01/11/23 09:05 MCV 98.6 fl (81-99) 01/11/23 09:05 MCH 31.3 pg (28.0-34.0) 01/11/23 09:05 MCHC 31.8 g/dL (30.0-36.0) 01/11/23 09:05 RDW 12.8 % (12.1-15.1) 01/11/23 09:05 Plt Count 251 10^3/cmm (130-400) 01/11/23 09:05 MPV 9.3 fL (7.4-10.4) 01/11/23 09:05 Neut % (Auto) 92.1 % 01/11/23 09:05 Lymph % (Auto) 3.9 % 01/11/23 09:05 [place] % (Auto) 3.4 % 01/11/23 09:05 Eos % (Auto) 0.0 % 01/11/23 09:05 Baso % (Auto) 0.2 % 01/11/23 09:05 Neut # (Auto) 11.07 10^3/uL (1.8-7.7) H 01/11/23 09:05 Lymph # (Auto) 0.5 10^3/uL (0.8-4.8) L 01/11/23 09:05 [place] # (Auto) 0.4 10^3/uL (0.2-0.9) 01/11/23 09:05 Eos # (Auto) 0.0 10^3/uL (0.0-0.8) 01/11/23 09:05 Baso # (Auto) 0.0 10^3/uL (0.0-0.1) 01/11/23 09:05 Nucleated RBC % (auto) 0 % 01/11/23 09:05 Nucleated RBCs # 0.0 /100WBC 01/11/23 09:05 PT 13.90 SECONDS (12.1-14.9) 01/11/23 09:05 INR 1.04 (0.8-1.2) 01/11/23 09:05 APTT 22.0 SECONDS (23.9-36.7) L 01/11/23 09:05 Specimen Type Arterial 01/11/23 10:41 Sample Site Radial, right 01/11/23 10:41 ABG pH 7.25 (7.35-7.45) L 01/11/23 10:41 ABG pCO2 36.2 mmHg (35-45) 01/11/23 10:41 ABG pO2 > 488.0 mmHg (80.0-100.0) H 01/11/23 10:41 ABG HCO3 15.7 mmol/L (22-26) L 01/11/23 10:41 ABG O2 Saturation > 100.0 01/11/23 10:41 ABG Base Excess -10.7 mmol/L (-2.0-2.0) L 01/11/23 10:41 Vince Test Pos 01/11/23 10:41 A-a O2 Gradient 20.8 mmHg (5-10) H 01/11/23 10:41 Hematocrit 40.1 % (37-47) 01/11/23 10:41 Hgb O2 Saturation > 98.5 % (95-100) 01/11/23 10:41 Carboxyhemoglobin < 1.0 %THgb (0.4-20.1) 01/11/23 10:41 Methemoglobin 0.7 % (0.4-1.5) 01/11/23 10:41 Total Hemoglobin 13.1 g/dL (12-16) 01/11/23 10:41 Sodium 140.0 mmol/L (131-143) 01/11/23 10:41 Potassium 4.2 mmol/L (3.5-5.0) 01/11/23 10:41 Glucose 139.0 mg/dL (70-115) H 01/11/23 10:41 Ionized Calcium 1.1 mmol/L (1.1-1.4) 01/11/23 10:41 O2 Delivery Device Vent 01/11/23 10:41 FiO2 100.0 % 01/11/23 10:41 Tidal Volume 0.40 01/11/23 10:41 PEEP 8.0 cmH20 01/11/23 10:41 Company Pilot ID glc 01/11/23 10:41 Sodium 138 mmol/L (136-145) 01/11/23 09:05 Potassium 4.6 mmol/L (3.5-5.1) 01/11/23 09:05 Chloride 108 mmol/L (98-107) H 01/11/23 09:05 Carbon Dioxide 17 mmol/L (22-29) L 01/11/23 09:05 Anion Gap 17.6 (5-19) 01/11/23 09:05 BUN 15 mg/dL (6-20) 01/11/23 09:05 Creatinine 1.0 mg/dL (0.5-0.9) H 01/11/23 09:05 GFR Calculation 62.1 mL/min (90-130) L 01/11/23 09:05 Glucose 134 mg/dL (65-115) H 01/11/23 09:05 Calculated Osmolality 289 mOsm/kg (285-295) 01/11/23 09:05 Lactic Acid 1.4 mmol/L (0.5-2.2) 01/11/23 09:39 Calcium 8.3 mg/dL (8.5-10.5) L 01/11/23 09:05 Magnesium 2.2 mg/dL (1.7-2.3) 01/11/23 09:05 Total Bilirubin 0.2 mg/dL (0.15-1.2) 01/11/23 09:05 AST 44 U/L (0-32) H 01/11/23 09:05 ALT 36 U/L (0-33) H 01/11/23 09:05 Alkaline Phosphatase 91 U/L (35-105) 01/11/23 09:05 Creatine Kinase 58 U/L (26-192) 01/11/23 09:05 Troponin T Baseline 6 ng/L (0-10) 01/11/23 09:05 Troponin T 120 Minute 6.00 ng/L (0-10) 01/11/23 10:59 Delta Troponin T 0 ABS# (0-10) 01/11/23 10:59 Total Protein 6.5 g/dL (6.6-8.7) L 01/11/23 09:05 Albumin 4.5 g/dL (3.5-5.2) 01/11/23 09:05 Globulin 2.0 g/dL (1.3-4.6) 01/11/23 09:05 Lipase 26 U/L (13-60) 01/11/23 09:05 Urine Color Yellow (Yellow) 01/11/23 08:56 Urine Appearance Clear (CLEAR) 01/11/23 08:56 Urine pH 6 (5-7) 01/11/23 08:56 Ur Specific [place] 1.010 (1.005-1.030) 01/11/23 08:56 Urine Protein Neg (Negative) 01/11/23 08:56 Urine Glucose (UA) Norm (Normal) 01/11/23 08:56 Urine Ketones Negative (Negative) 01/11/23 08:56 Urine Blood Neg (Negative) 01/11/23 08:56 Urine Nitrate Negative (Negative) 01/11/23 08:56 Urine Bilirubin Neg (Negative) 01/11/23 08:56 Urine Urobilinogen Norm mg/dL (Negative) 01/11/23 08:56 Ur Leukocyte Esterase Negative (Negative) 01/11/23 08:56 Salicylates < 0.3 mg/dL (3-10) L 01/11/23 09:05 Urine Opiates Screen Positive ng/mL (Negative) H 01/11/23 08:56 Acetaminophen < 5.0 ug/mL (10-30) L 01/11/23 09:05 Ur Barbiturates Screen Negative ng/mL (Negative) 01/11/23 08:56 Carbamazepine 38.0 ug/mL (4.0-12.0) H* 01/11/23 09:05 Ur Phencyclidine Scrn Negative ng/mL (Negative) 01/11/23 08:56 Ur Amphetamines Screen Negative ng/mL (Negative) 01/11/23 08:56 U Benzodiazepines Scrn Positive ng/mL (Negative) H 01/11/23 08:56 Urine Cocaine Screen Negative ng/mL (Negative) 01/11/23 08:56 U Marijuana (THC) Screen Negative ng/mL (Negative) 01/11/23 08:56 Ethyl Alcohol < 10 mg/dL (0-10) 01/11/23 09:05 Critical Care Time Critical Care Time: Critical Care Time: Yes Total Critical Care Time: 60 Attestation: The high probability of a clinically significant, sudden or life threatening deterioration of the patient's respiratory system(s) required my full and direct attention, intervention and personal management. The critical care time is as shown. This time is in addition to time spent performing any reported procedures but includes the following: [x] Data and vital sign review and interpretation [x] Patient assessment, examination and intervention [x] Documentation [x] Medication orders and management Discharge Plan Discharge Patient Disposition: Admitted As Inpatient Admit Provider: Ashish Reina Clinical Impression: Acute respiratory failure, Bipolar disorder, unspecified, Overdose, Acute kidney injury, Coffee ground emesis, Transaminitis, Tegretol toxicity, Suicide attempt Condition: Stable Coding Level of Care Code ED [employer] Superintendent for Ranulfo Fernandez
--- NOTE | 2023-01-11 09:00 | PC.NURSE ---
DR. RANGEL INFORMED OF PT 93.3 RECTAL TEMP VO TO HOLD INTERVENTIONS FOR REWARMING UNTIL LABS ARE RESULTED.
--- NOTE | 2023-01-11 09:02 | ECG_ITS ---
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 Measurements Intervals [place] Rate: 83 P: 59 MT: 217 QRS: 61 QRSD: 109 T: 67 QT: 412 QTc: 485 Interpretive Statements SINUS RHYTHM WITH FIRST DEGREE AV BLOCK Compared to ECG 11/30/2022 10:12:38 First degree AV block now present Sinus tachycardia no longer present T-wave abnormality no longer present Electronically Signed On 01-11-2023 11:44:26 BOARDING MOTHER by Derik Dolan M.D. [email or web address]
[2023-01-11] MEDS: sodium chloride 0.9% 1,000 ML 999 ML IV ×2 (09:09→13:25)
[2023-01-11] MEDS: ondansetron 2 mg/ML SDV 2 mL 4 MG IVP (09:09)
[2023-01-11] MEDS: pantoprazole 40 mg SDV IVP ×2 (09:09→20:42)
[2023-01-11 09:12] LABS: Add Urine Microscopic? NO
[2023-01-11 09:13] LABS: Charge for UA Resulting for Rev
[2023-01-11 09:23] LABS: Basophils % 0.2 %; Hematocrit 41.2 % (37.0-47.0); Hemoglobin 13.1 g/dL (11.5-15.3); Lymphocytes # 0.5 10^3/uL (0.8-4.8); Lymphocytes % 3.9 %; Mean Corpuscular HGB Conc 31.8 g/dL (30.0-36.0); Mean Corpuscular Hemoglobin 31.3 pg (28.0-34.0); Mean Corpuscular Volume 98.6 fl (81-99); Mean Platelet Volume 9.3 fL (7.4-10.4); Monocytes # 0.4 10^3/uL (0.2-0.9); Monocytes % 3.4 %; Neutrophils # 11.07 10^3/uL (1.8-7.7); Neutrophils % 92.1 %; Nucleated Red Blood Cells % 0 %; Platelet Count 251 10^3/cmm (130-400); Red Blood Count 4.18 10^6/uL (4.1-5.3); Red Cell Distribution Width 12.8 % (12.1-15.1)
[2023-01-11 09:27] LABS: Bilirubin Urine Neg (Negative); Blood Urine Neg (Negative); Glucose Urine UA Norm (Normal); Ketones Urine Negative (Negative); Leukocyte Esterase Urine Negative (Negative); Nitrate Urine Negative (Negative); Protein Urine Neg (Negative); Urine Appearance Clear (CLEAR); Urine Color Yellow (Yellow); Urobilinogen Urine Norm (Negative); pH Urine 6 (5-7)
[2023-01-11 09:34] LABS: Amphetamines Screen Urine Negative (Negative); Barbiturates Screen Urine Negative (Negative); Benzodiazepines Screen Urine Positive (Negative); Cocaine Screen Urine Negative (Negative); Opiate Screen Urine Positive (Negative); PCP Screen Urine Negative (Negative); THC Screen Urine Negative (Negative)
[2023-01-11] MEDS: piperacillin-tazobactam 4.5 GM in sodium chloride 0.9% (plus) 50 ML IV (09:45)
[2023-01-11 09:46] LABS: INR 1.04 (0.8-1.2)
[2023-01-11 09:50] LABS: Alanine Aminotransferase 36 U/L (0-33); Albumin Level 4.5 g/dL (3.5-5.2); Alkaline Phosphatase 91 U/L (35-105); Anion Gap 17.6 (5-19); Aspartate Amino Transferase 44 U/L (0-32); Blood Urea Nitrogen 15 mg/dL (6-20); Calcium 8.3 mg/dL (8.5-10.5); Carbon Dioxide 17 mmol/L (22-29); Chloride 108 mmol/L (98-107); Creatine Phosphokinase 58 U/L (26-192); Glomerular Filtration Rate 62.1 mL/min (90-130); Glucose 134 mg/dL (65-115); Lipase 26 U/L (13-60); Magnesium 2.2 mg/dL (1.7-2.3); Osmolality Calculated 289 mOsm/kg (285-295); Potassium 4.6 mmol/L (3.5-5.1); Sodium 138 mmol/L (136-145); Total Bilirubin 0.2 mg/dL (0.15-1.2); Total Protein 6.5 g/dL (6.6-8.7)
[2023-01-11 09:51] LABS: Alcohol Level < 10 mg/dL (0-10)
[2023-01-11 09:52] LABS: Troponin(5th) Baseline 6 ng/L (0-10)
[2023-01-11 10:09] LABS: Lactic Sepsis W/Reflex 1.4 mmol/L (0.5-2.2)
--- NOTE | 2023-01-11 10:11 | PC.PHAR ---
pt unable to verify medications-medications entered are from ext med history previous entered med list and medication bottles the pt brought in-notes are made in the pharmacy comments- was notified about the pt getting gabapentin 600mg tid filled 12/28/22 30d/s and gabapentin 300mg take 900mg po tid filled 12/27/22 30d/s from
[2023-01-11 10:22] LABS: Acetaminophen < 5.0 ug/mL (10-30); Salicylate < 0.3 mg/dL (3-10)
--- NOTE | 2023-01-11 10:32 | P.HP_ITS ---
Providers/Chief Complaint Admitting Physician: Ashish Reina MD, hospitalist Primary Care Provider: Jay Collins MD Chief Complaint: OVERDOSE History of Present Illness Kiara Ventura is a 37 year old female with history of bipolar disorder as well as trigeminal neuralgia who presents to the hospital after being found down at home. Family reports she was last normal around 7 or 8 in the evening and they found her around 7 this morning, on the floor, with some coffee ground emesis over her face making a gurgling noise. She was found down on her stomach. They suspect that an overdose occurred. They are not for sure what she overdosed on but she is overdosed on medication in the past, with her last hospitalization in early November with Tegretol overdose. No other history can be obtained from the patient. Family reports no recent history of infection. Review of Systems General: Reports: ROS unobtainable due to mental status Medications/Allergies Home Medications Medication Instructions Recorded Confirmed Last Taken Type yasbbtx-oylpkazdmiyqy-scrukwms 250 1 tab PO Q6H PRN Migraine Headache 02/09/22 01/11/23 02/05/22 History mg-250 mg-65 mg tablet (Excedrin Migraine) hydrocodone 10 mg-acetaminophen 1 tab PO Q6H PRN Pain 02/09/22 01/11/23 02/09/22 07:15 History 325 mg tablet ibuprofen 200 mg tablet 800 mg PO Q8H PRN Pain 02/09/22 01/11/23 02/05/22 History cyclobenzaprine 5 mg tablet 5 mg PO Q12H PRN Muscle Spasm 07/12/22 01/11/23 Unknown History lorazepam 0.5 mg tablet 0.5 mg PO QID PRN anxiety #120 tabs 11/04/22 01/11/23 Unknown Rx fluoxetine 20 mg capsule 20 mg PO DAILY 30 days #30 caps 12/07/22 01/11/23 Unknown Rx topiramate 100 mg tablet See Rx Instructions .Route .COMPLEX 01/05/23 01/11/23 Unknown History bupropion HCl 300 mg 24 hr tablet, 300 mg PO QAM 01/11/23 01/11/23 Unknown History extended release carbamazepine 200 mg 600 mg PO BID 01/11/23 01/11/23 Unknown History tablet,extended release,12 hr famotidine 20 mg tablet (Pepcid) 20 mg PO DAILY 01/11/23 01/11/23 Unknown History fluoxetine 10 mg capsule 10 mg PO DAILY 01/11/23 01/11/23 Unknown History gabapentin 300 mg capsule 900 mg PO TID 01/11/23 01/11/23 Unknown History gabapentin 600 mg tablet 600 mg PO TID 01/11/23 01/11/23 Unknown History meloxicam 7.5 mg tablet 7.5 mg PO BID 01/11/23 01/11/23 Unknown History Allergies Allergy/AdvReac Type Severity Reaction Status Date / Time No Known Allergies Allergy Verified 01/05/23 15:15 PFSH Acute PFSH: Medical History (Updated 01/11/23 @ 10:42 by Ashish Reina MD) Bipolar disorder with psychotic features Endometriosis Facial scar Hypothyroidism [place] use Lumbar post-laminectomy syndrome Motor nerve conduction block Post-traumatic stress disorder, chronic Psychiatric care Spondylosis of lumbar region without myelopathy or radiculopathy Surgical History History of liver biopsy Hx of cholecystectomy Family History Denies family history of Psychiatric illness Social History Smoking and tobacco status: current every day smoker cigarettes [ Other cigarette details: 3 to 4 cigarettes a day] Smoking risk assessment/counseling performed?: Yes Tobacco counseling given: counseling >3 minutes Alcohol intake: current Household members: family Housing: House Current occupational status: employed Female Reproductive History: Date of last menstrual period: 11/24/22 Vitals/I&O/Wt Last Vital Signs Temp 93.3 F L 01/11/23 08:59 Pulse 89 01/11/23 08:51 Resp 15 01/11/23 09:08 BP 129/81 01/11/23 08:51 Pulse Ox 100 01/11/23 08:51 O2 Del Method 01/11/23 08:51 FiO2 100 01/11/23 09:08 Weight last 48 hrs Weight 72.575 kg Physical Exam Narrative: Patient is unresponsive, on the ventilator, with no sedative medications currently being given. She was given etomidate and paralytic for the innervation, but from my understanding had no gag prior to the procedure. Hypothermic on warmer currently with initial temperature of 93.3 Neurologic: Unresponsive. Pupils are reactive. HEENT: Atraumatic, normocephalic. Pupils dilated but reactive. Oropharynx with some dried blood. Neck is supple no lymph adenopathy, thyromegaly. Some blotchiness is present over her neck but not in any specific pattern. Cardiovascular regular rate and rhythm, no murmur Lungs diminished breath sounds bilaterally but no wheezing Abdomen is soft, no obvious organomegaly. exam demonstrates Shultz Extremities no cyanosis clubbing or edema, refill about 2 seconds Skin see findings under neck Urinary Catheter Management: Shultz: Cath Placed During This Visit: yes Urinary Catheter Date of Insertion: 01/11/23 Urinary Catheter Time of Insertion: 08:58 Data 01/11/23 09:05 01/11/23 09:05 Other Labs: INR is 1.04 Calcium is 8.3 Lactic acid 1.4 Magnesium is normal AST and ALT slightly elevated at 44 and 36 Bilirubin normal Urinalysis negative Opiates positive on urine drug screen. Acetaminophen and salicylate level not elevated Tegretol level pending Benzodiazepines and urine drug screen positive Alcohol level negative CT head no acute findings Chest x-ray CT abdomen pelvis mild fluid distention of the stomach, postcholecystectomy, right adnexal complex cystic mass Chest x-ray which I reviewed demonstrates endotracheal tube above shady, no infiltrate EKG demonstrates normal sinus rhythm, normal axis, and is essentially normal EKG. WA interval is slightly prolonged at 217 ms A&P Assessment and plan (1) Unresponsive: Patient was found down at home unresponsive. She has had multiple overdoses in the past, and suspected overdose this time. Secondary to her unresponsiveness, apparent airway problems, failure to protect airway she was intubated in the ER. At this point we will continue supportive care, provide hydration, and monitor for any meaningful response. Hold any sedation currently It is unknown if she had significant hypotension or hypoxic event at home. (2) Acute respiratory failure: Inability to protect airway. Intubated in the ER Wean FiO2 as tolerated Likely can reduce PEEP to 5 There was concern for possible aspiration. Chest x-ray does not show infiltrate. We will hold on any further antibiotics, reassessing tomorrow. She was given 1 dose of Zosyn in the emergency department. Fentanyl and Versed are ordered, but will hold off on these until we see if patient has meaningful responses (3) Acute kidney injury: Appears to have acute kidney injury Given bolus in the ER Continue IV fluids (4) Bipolar disorder with psychotic features: Long history of bipolar disorder with history of suicidal ideation. We will have to hold medications today, reassessing tomorrow after reexamination. (5) Trigeminal neuralgia: History of multiple medications including Neurontin, Tegretol. Awaiting Tegretol level as she is overdosed on this before. Reassessment tomorrow to ascertain if medication will need to be restarted. Monitor for any seizure activity. (6) Coffee ground emesis: Initiate Protonix 40 mg IV twice daily (7) Transaminitis: Recheck tomorrow. May be secondary to hypoxic event Plan Other medical problems as noted in past medical history Full code currently Visited with her mother who is her decision-maker currently. SCDs for DVT prophylaxis. Anticoagulation contraindicated secondary to coffee- ground emesis. Attestations Medical Necessity Statement*: Will need greater than 2 midnight stay for evaluation and treatment of likely overdose, with respiratory failure Critical Care Time: Critical Care Time (min): 54 Coding Level of Care Code Critical Care >/= 30 minutes Critical care time (in minutes): 54 The high probability of a clinically significant, sudden or life threatening deterioration, as referenced in this documentation, required my full and direct attention, intervention and personal management. The critical care time shown is in addition to time spent performing any reported separately billable procedures and includes the following: [x] Data and vital sign review and interpretation [x ] Patient assessment, examination and intervention [x] Medication orders and ma nagement [x] Patient/Family updates as able [x] Care Coordination and Documentation. Diagnoses Unresponsive R41.89 Acute respiratory failure J96.00 Acute kidney injury N17.9 Bipolar disorder with psychotic features F31.9 Trigeminal neuralgia G50.0 Coffee ground emesis K92.0 Transaminitis R74.01
--- NOTE | 2023-01-11 10:48 | ECG_ITS ---
[facility] Test Date: 2023-01-11 Pat Name: Kiara Ventura Department: Room: Gender: Female Him Specialist: : 1985 Requested By: Harry Hernandez Order Number: [id number] Tess MD: Derik Dolan M.D. Measurements Intervals [place] Rate: 92 P: 52 [place]: 226 QRS: 54 QRSD: 120 T: 54 QT: 413 QTc: 512 Interpretive Statements SINUS RHYTHM WITH FIRST DEGREE AV BLOCK MODERATE INTRAVENTRICULAR CONDUCTION DELAY [110+ ms QRS DURATION] Compared to ECG 01/11/2023 09:02:45 Intraventricular conduction delay now present Electronically Signed On 01-11-2023 11:45:27 PLATE FITTER by Derik Dolan M.D. [id number]
[2023-01-11 10:54] LABS: Arterial Blood Gas Hematocrit 40.1 % (37-47); Base Excess ABG -10.7 mmol/L (-2.0-2.0); Blood Gas Allen Test Pos; Blood Gas Operator Identificat glc; Blood Gas Sample Site Radial, right; Blood Gas Sample Type Arterial; HCO3 ABG 15.7 mmol/L (22-26); Oxygen Device VENT
[2023-01-11 10:55] LABS: Alveolar-Arterial Oxygen Gradi 20.8 mmHg (5-10)
[2023-01-11 10:56] LABS: ABG PCO2 36.2 mmHg (35-45); ABG PH Result 7.25 (7.35-7.45); Carboxyhemoglobin < 1.0 %THgb (0.4-20.1); Ionized Calcium Level - ABG 1.1 mmol/L (1.1-1.4); Methemoglobin 0.7 % (0.4-1.5); Oxygen Saturation ABG > 100.0; Potassium Level - ABG 4.2 mmol/L (3.5-5.0); Total Hemoglobin 13.1 g/dL (12-16)
--- NOTE | 2023-01-11 11:03 | P.HP_ITS ---
Providers/Chief Complaint Admitting Physician: Ashish Reina MD Primary Care Provider: Jay Collins MD Chief Complaint: OVERDOSE History of Present Illness Kiara Ventura is a 37 year old female Medications/Allergies Home Medications Medication Instructions Recorded Confirmed Last Taken Type csugnzr-beljfixnbtull-myvctfxc 250 1 tab PO Q6H PRN Migraine Headache 02/09/22 01/11/23 02/05/22 History mg-250 mg-65 mg tablet (Excedrin Migraine) hydrocodone 10 mg-acetaminophen 1 tab PO Q6H PRN Pain 02/09/22 01/11/23 02/09/22 07:15 History 325 mg tablet ibuprofen 200 mg tablet 800 mg PO Q8H PRN Pain 02/09/22 01/11/23 02/05/22 History cyclobenzaprine 5 mg tablet 5 mg PO Q12H PRN Muscle Spasm 07/12/22 01/11/23 Unknown History lorazepam 0.5 mg tablet 0.5 mg PO QID PRN anxiety #120 tabs 11/04/22 01/11/23 Unknown Rx fluoxetine 20 mg capsule 20 mg PO DAILY 30 days #30 caps 12/07/22 01/11/23 Unknown Rx topiramate 100 mg tablet See Rx Instructions .Route .COMPLEX 01/05/23 01/11/23 Unknown History bupropion HCl 300 mg 24 hr tablet, 300 mg PO QAM 01/11/23 01/11/23 Unknown History extended release carbamazepine 200 mg 600 mg PO BID 01/11/23 01/11/23 Unknown History tablet,extended release,12 hr famotidine 20 mg tablet (Pepcid) 20 mg PO DAILY 01/11/23 01/11/23 Unknown History fluoxetine 10 mg capsule 10 mg PO DAILY 01/11/23 01/11/23 Unknown History gabapentin 300 mg capsule 900 mg PO TID 01/11/23 01/11/23 Unknown History gabapentin 600 mg tablet 600 mg PO TID 01/11/23 01/11/23 Unknown History meloxicam 7.5 mg tablet 7.5 mg PO BID 01/11/23 01/11/23 Unknown History Allergies Allergy/AdvReac Type Severity Reaction Status Date / Time No Known Allergies Allergy Verified 01/05/23 15:15 PFSH Acute PFSH: Medical History (Updated 01/11/23 @ 10:42 by Ashish Reina MD) Bipolar disorder with psychotic features Endometriosis Facial scar Hypothyroidism [place] use Lumbar post-laminectomy syndrome Motor nerve conduction block Post-traumatic stress disorder, chronic Psychiatric care Spondylosis of lumbar region without myelopathy or radiculopathy Surgical History History of liver biopsy Hx of cholecystectomy Family History Denies family history of Psychiatric illness Social History Smoking and tobacco status: current every day smoker cigarettes [ Other cigarette details: 3 to 4 cigarettes a day] Smoking risk assessment/counseling performed?: Yes Tobacco counseling given: counseling >3 minutes Alcohol intake: current Household members: family Housing: House Current occupational status: employed Female Reproductive History: Date of last menstrual period: 11/24/22 Vitals/I&O/Wt Last Vital Signs Temp 93.3 F L 01/11/23 08:59 Pulse 89 01/11/23 08:51 Resp 15 01/11/23 09:08 BP 129/81 01/11/23 08:51 Pulse Ox 100 01/11/23 08:51 O2 Del Method 01/11/23 08:51 FiO2 100 01/11/23 09:08 Weight last 48 hrs Weight 72.575 kg Physical Exam Urinary Catheter Management: Shultz: Cath Placed During This Visit: yes Urinary Catheter Date of Insertion: 01/11/23 Urinary Catheter Time of Insertion: 08:58 Data 01/11/23 09:05 01/11/23 09:05 Coding Level of Care Code Acute Code for Chg Rebecca
--- NOTE | 2023-01-11 11:09 | PC.NURSE ---
REPORT GIVEN TO JUS ROSARIO IN ICU
[2023-01-11 11:35] LABS: Troponin 5 2HR Delta 0 ABS# (0-10)
--- NOTE | 2023-01-11 12:15 | PC.NURSE ---
fentanyl and versed drips were not started and both of them sent with the pt to the ICU
[2023-01-11] MEDS: LORazepam 2 mg/mL INJ 1 mL IVP ×4 (12:42→22:18)
--- NOTE | 2023-01-11 12:55 | XRR_ITS ---
PROCEDURE INFORMATION: Exam: XR Chest Exam date and time: 01/11/2023 1:15 PM Age: 37 years old Clinical indication: Device placement; Other: Og tube placement TECHNIQUE: Imaging protocol: Radiologic exam of the chest. Views: 1 view. COMPARISON: CR XR chest 1V portable [id number] 01/11/2023 9:32 AM FINDINGS: Tubes, catheters and devices: Endotracheal tube is in satisfactory position. Feeding tube is in satisfactory position. Lungs: Unremarkable. No consolidation. Pleural spaces: Unremarkable. No pleural effusion. No pneumothorax. Heart/Mediastinum: Stable cardiomediastinal silhouette. Bones/joints: Mild S shaped curvature of the spine is present. Organs: Cholecystectomy clips project over the right upper quadrant. XR/XR chest 1V portable [id number] IMPRESSION: No evidence of active cardiopulmonary disease.
[2023-01-11] MEDS: sodium chloride 0.9% 1,000 ML 125 ML IV ×2 (14:03→21:52)
--- NOTE | 2023-01-11 15:33 | ECG_ITS ---
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 Measurements Intervals [place] Rate: 94 P: 61 ID: [id number] QRS: 63 QRSD: 108 T: 62 QT: 377 QTc: 473 Interpretive Statements SINUS RHYTHM NONSPECIFIC T-WAVE ABNORMALITY Compared to ECG 01/11/2023 10:48:38 T-wave abnormality now present First degree AV block no longer present Intraventricular conduction delay no longer present Electronically Signed On 01-11-2023 17:36:37 PHARMACY TECHNICIAN TRAINEE by Derik Dolan M.D. [id number]
--- NOTE | 2023-01-11 15:34 | PC.NURSE ---
Addendum entered by Yong Kim RN 01/11/23 15:42: Patient Brought to ICU via stretcher, acocmpanied by RT and ER Staff at 1227. Vitals upon arrival: Temp: 96.9, BP 126/84, HR: 98, SPO2: 100%, RR: 17. SHOrtly after arrival, patient started seizure activity. NUrse alerted Dr velasquez and recieved orders for ativan and to start versed and fentanyl. Seizure activity ceased about 3 minute after administration....... Seizure activty last for about 13 minutes total, full body seizures with rhythmic jerking and decorticate posturing. Patient was on a venilator during the seizures and maintained an intact airway saturating 95-100%. Original Note: Patient Brought to ICU via stretcher, acocmpanied by RT and ER Staff at 1227. Vitals upon arrival: Temp: 96.9, BP 126/84, HR: 98, SPO2: 100%, RR: 17. SHOrtly after arrival, patient started seizure activity. NUrse alerted Dr velasquez and recieved orders for ativan and to start versed and fentanyl.
--- NOTE | 2023-01-11 15:36 | PC.NURSE ---
After starting Versed and Fentanyl, patient became hypotensive. BP: is in the 70's systolic, verified with manual pressure. Nurse turned off sedation and there was no improvement. NUrse alerted Dr velasquez and recieved an order for levophed, a 1L bolus, and PRN ativan pushes for agitation rather than versed and fentanyl.
[2023-01-11 16:39] LABS: Troponin 5 6HR Delta 0 ng/L (0-12)
--- NOTE | 2023-01-11 18:32 | PC.NURSE ---
Shift Summary: Seizure activity near beggining of shift which was treated with ativan and versed. Patient remains mostly resting in bed, but will occaisonally become agitated, gagging, turning side to side, lifting head and torso off the bed slightly. No aggravating factors identified. Blood pressure has been variable sometimes requiring levophed. ER reported that patent squeezed fingers and blinked eyes to command, but this nurse has not witnessed that even when sedations is off.
[2023-01-11] MEDS: propofol 1,000 MG/100 ML INJ 4.76 MG IV (21:38)
[2023-01-12] VITALS (81 sets, daily range): BP systolic 56–177; BP diastolic 31–146; PULSE 69–103; RESP 15–21; TEMP 36.8–37.2; O2SAT 89–100
--- NOTE | 2023-01-12 02:20 | PC.NURSE ---
2002 seizure activity noted 2004 ordered IV ativan given; seizure activity stopped 2156 seizure activity noted; Dr. Belcher notified, new orders noted (see MAR) 2135 seizure activity stopped with no interventions 2213 seizure activity noted 2217 ordred IV ativan given; seizure activity stopped
[2023-01-12 03:21] LABS: Basophils % 0.3 %; Eosinophils % 0.2 %; Hematocrit 36.8 % (37.0-47.0); Hemoglobin 11.5 g/dL (11.5-15.3); Lymphocytes # 1.5 10^3/uL (0.8-4.8); Lymphocytes % 13.9 %; Mean Corpuscular HGB Conc 31.3 g/dL (30.0-36.0); Mean Corpuscular Volume 99.2 fl (81-99); Mean Platelet Volume 9.2 fL (7.4-10.4); Monocytes # 0.8 10^3/uL (0.2-0.9); Monocytes % 7.7 %; Neutrophils # 8.29 10^3/uL (1.8-7.7); Neutrophils % 77.4 %; Nucleated Red Blood Cells % 0 %; Platelet Count 219 10^3/cmm (130-400); Red Blood Count 3.71 10^6/uL (4.1-5.3); Red Cell Distribution Width 13.2 % (12.1-15.1); White Blood Count 10.7 10^3/uL (4.0-10.0)
[2023-01-12 03:41] LABS: Carbamazepine Tegretol 17.2 ug/mL (4.0-12.0)
[2023-01-12 03:42] LABS: ABG PCO2 38.5 mmHg (35-45); ABG PH Result 7.29 (7.35-7.45); Arterial Blood Gas Hematocrit 37.8 % (37-47); Base Excess ABG -7.6 mmol/L (-2.0-2.0); Blood Gas Allen Test Pos; Blood Gas Operator Identificat JB; Blood Gas Sample Site Radial, right; Blood Gas Sample Type Arterial; HCO3 ABG 18.4 mmol/L (22-26); Oxygen Device VENT
[2023-01-12 03:44] LABS: Alanine Aminotransferase 27 U/L (0-33); Albumin Level 3.7 g/dL (3.5-5.2); Alkaline Phosphatase 74 U/L (35-105); Aspartate Amino Transferase 28 U/L (0-32); Blood Urea Nitrogen 12 mg/dL (6-20); Calcium 7.5 mg/dL (8.5-10.5); Carbon Dioxide 18 mmol/L (22-29); Chloride 116 mmol/L (98-107); Globulin 1.9 g/dL (1.3-4.6); Glomerular Filtration Rate 93.6 mL/min (90-130); Glucose 94 mg/dL (65-115); Magnesium 1.8 mg/dL (1.7-2.3); Osmolality Calculated 298 mOsm/kg (285-295); Sodium 144 mmol/L (136-145); Total Bilirubin 0.2 mg/dL (0.15-1.2); Total Protein 5.6 g/dL (6.6-8.7)
[2023-01-12] MEDS: sodium chloride 0.9% 1,000 ML 125 ML IV (05:50)
--- NOTE | 2023-01-12 07:00 | XRR_ITS ---
PROCEDURE INFORMATION: Exam: XR Chest Exam date and time: 01/12/2023 7:09 AM Age: 37 years old Clinical indication: Condition or disease; Lung condition and disease; Respiratory distress; Patient HX: Resp failure. Found unresponsive unknown how long. Intubation. Unable to obtain history and unable to move leads. TECHNIQUE: Imaging protocol: Radiologic exam of the chest. Views: 1 view. COMPARISON: CR XR chest 1V portable [id number] 01/11/2023 1:15 PM FINDINGS: Tubes, catheters and devices: The nasogastric tube is appropriately positioned with the tip in the stomach, well beyond the diaphragmatic hiatus. Endotracheal tube tip is 3 cm above the shady. Lungs: There is no consolidation. Pleural spaces: There is no pleural effusion or pneumothorax. Heart/Mediastinum: Cardiomediastinal contours are unremarkable. Heart size is normal. Vasculature: Right aortic arch noted. Bones/joints: Bones are unremarkable. XR/XR chest 1V portable [id number] IMPRESSION: 1. Stable satisfactory position of the endotracheal and nasogastric tubes. 2. Lungs are clear. 3. Right aortic arch.
[2023-01-12] MEDS: propofol 1,000 MG/100 ML INJ 4.76 MG IV (07:05)
[2023-01-12] MEDS: dexmedetomidine 400 MCG in sodium chloride 0.9% (100 ml) 100 ML 12.2 MCG IV ×2 (08:00→14:16)
[2023-01-12] MEDS: gabapentin 300 mg Capsule PO ×3 (08:21→21:00)
[2023-01-12] MEDS: pantoprazole 40 mg SDV IVP ×2 (08:21→21:00)
[2023-01-12] MEDS: topiramate 25 mg Tablet 50 MG PO ×2 (08:21→17:12)
--- NOTE | 2023-01-12 08:28 | P.PN_ITS ---
Subjective Subjective: Reponse on vent. Can follow directions for me. Nods her head. Family indicates occasional shaking episode. When I was in the room she was more awake on the ventilator, and had some shaking but good follow directions during this. Certainly question of seizure activity when she first came to the ICU, which can be a side effect of carbamazepine overdose. Medications: Reviewed: Yes Vitals/I&O/Wt Last Vital Signs Temp 98.6 F 01/12/23 04:00 Pulse 84 01/12/23 06:00 Resp 18 01/12/23 08:16 BP 103/67 01/12/23 06:00 Pulse Ox 100 01/12/23 08:16 O2 Del Method 01/12/23 04:00 FiO2 20 01/12/23 08:16 01/11/23 01/12/23 01/12/23 22:59 06:59 14:59 Intake Total 3302.205 / 3304.755 1105.833 / 4410.588 44.982 / 44.982 Output Total 1175 / 1175 650 / 1825 Balance 2127.205 / 2129.755 455.833 / 2585.588 44.982 / 44.982 Weight last 48 hrs Weight 78.2 kg Weight 79.379 kg Weight 72.575 kg Physical Exam Narrative: Patient is responsive, on the ventilator. She can follow directions. Neurologic: No obvious deficits. Moving both sides equally. HEENT: Endotracheal tube noted. Pupils equally round, reactive Neck is supple, no rash noted Cardiovascular regular rate and rhythm, no murmur Lungs clear without wheezing Abdomen is soft, no obvious organomegaly. exam demonstrates Shultz Extremities no cyanosis clubbing or edema, refill about 2 seconds Urinary Catheter Management: Shultz: Cath Placed During This Visit: yes Reason for Continuing Indwelling Catheter: Accurate Measurement of Urinary Output in Critically Ill Patients Urinary Catheter Date of Insertion: 01/11/23 Urinary Catheter Time of Insertion: 08:58 Data 01/12/23 02:48 01/12/23 02:48 Other Labs: Tegretol level has gone down substantially. Chest x-ray that I reviewed demonstrates no infiltrate. Endotracheal tube is noted above the shady. Micro: Microbiology 01/11/23 09:00 Gram Stain - Final Sputum - Endotracheal Tube Aspirate A&P Assessment and plan (1) Unresponsive: Patient was found down at home unresponsive. She has had multiple overdoses in the past, and suspected overdose this time. Secondary to her unresponsiveness, apparent airway problems, failure to protect airway she was intubated in the ER. She now appears to be responding She appears to be very anxious We will try to discontinue other sedation, changing to Precedex. After this is done attempt to d wean ventilator off It is unknown if she had significant hypotension or hypoxic event at home. (2) Acute respiratory failure: Inability to protect airway. Intubated in the ER She is currently on minimal ventilator settings. Hopefully can wean off the ventilator today. There was concern for possible aspiration. Chest x-ray does not show infiltrate. Will hold on any further antibiotics, reassessing tomorrow. She was given 1 dose of Zosyn in the emergency department. No evidence of pneumonia currently See above ABG demonstrates evidence of metabolic acidosis. Continue to follow. This is improved from yesterday. (3) Acute kidney injury: Appears to have acute kidney injury With fluids this is resolved. Repeat laboratory in the morning (4) Bipolar disorder with psychotic features: Long history of bipolar disorder with history of suicidal ideation. Will have to hold medications today, reassessing tomorrow after reexamination. She has had multiple overdoses in the past, and Tegretol level is significantly high. She will need a psychiatric consultation. If she attempts to leave the hospital, 96-hour hold will be initiated until evaluation is complete secondary to threat to her life. (5) Trigeminal neuralgia: History of multiple medications including Neurontin, Tegretol. Tegretol level is still slightly high. Hold off on giving this medicine. Start lower dose Neurontin, Topamax which she was on to prevent withdrawal (6) Coffee ground emesis: Continue Protonix 40 mg IV twice daily (7) Transaminitis: Improved. May be secondary to hypoxic event or Tegretol overdose Plan Possible seizure yesterday. This could be related to Tegretol toxicity. Benzodiazepines were used. Continue to monitor for any seizure activity. Check CK level today. Continue Ativan as needed. Other medical problems as noted in past medical history Full code currently Visited with her mother who is her decision-maker currently. SCDs for DVT prophylaxis. Anticoagulation contraindicated secondary to coffee- ground emesis. Attestations Medical Necessity Statement*: Needs continued hospitalization secondary to ventilator support and this ill patient with overdose of Tegretol Critical Care Time: Critical Care Time (min): 32 Coding Level of Care Code Critical Care >/= 30 minutes Critical care time (in minutes): 32 The high probability of a clinically significant, sudden or life threatening deterioration, as referenced in this documentation, required my full and direct attention, intervention and personal management. The critical care time shown is in addition to time spent performing any reported separately billable procedures and includes the following: [x] Data and vital sign review and interpretation [x ] Patient assessment, examination and intervention [x] Medication orders and management [x] Patient/Family updates as able [x] Care Coordination and Documentation. Diagnoses Unresponsive R41.89 Acute respiratory failure J96.00 Acute kidney injury N17.9 Bipolar disorder with psychotic features F31.9 Trigeminal neuralgia G50.0 Coffee ground emesis K92.0 Transaminitis R74.01
[2023-01-12 09:13] LABS: Creatine Phosphokinase 700 U/L (26-192)
[2023-01-12] MEDS: lactated ringers 1,000 ML 150 ML IV ×2 (10:37→17:21)
--- NOTE | 2023-01-12 14:05 | PC.NURSE ---
Patient became alert, tried pulling out ET tube, Dr. velasquez at bedside gave v.o. to extubate patient, extubated per RT
--- NOTE | 2023-01-12 14:10 | PC.NURSE ---
Addendum entered by Radha Suarez RN 01/12/23 19:07: Waste witnessed. Original Note: wasted 195.5 ml reji
--- NOTE | 2023-01-12 15:27 | PC.NURSE ---
Family st bedside, 1:1 sitter flowsheet to be continued once family leaves
[2023-01-13] VITALS (24 sets, daily range): BP systolic 113–167; BP diastolic 80–111; PULSE 87–108; RESP 0–26; TEMP 36.8–37.1; O2SAT 78–100
[2023-01-13] MEDS: lactated ringers 1,000 ML 150 ML IV ×4 (00:14→21:33)
[2023-01-13 03:33] LABS: Basophils % 0.2 %; Eosinophils % 0.4 %; Hematocrit 30.1 % (37.0-47.0); Hemoglobin 9.4 g/dL (11.5-15.3); Lymphocytes # 0.9 10^3/uL (0.8-4.8); Lymphocytes % 10.4 %; Mean Corpuscular HGB Conc 31.2 g/dL (30.0-36.0); Mean Corpuscular Hemoglobin 30.7 pg (28.0-34.0); Mean Corpuscular Volume 98.4 fl (81-99); Mean Platelet Volume 9.6 fL (7.4-10.4); Monocytes # 0.5 10^3/uL (0.2-0.9); Monocytes % 5.8 %; Neutrophils # 7.51 10^3/uL (1.8-7.7); Neutrophils % 82.9 %; Nucleated Red Blood Cells % 0 %; Platelet Count 151 10^3/cmm (130-400); Red Blood Count 3.06 10^6/uL (4.1-5.3); Red Cell Distribution Width 12.7 % (12.1-15.1); White Blood Count 9.1 10^3/uL (4.0-10.0)
[2023-01-13 03:50] LABS: Alanine Aminotransferase 22 U/L (0-33); Alkaline Phosphatase 68 U/L (35-105); Anion Gap 13.1 (5-19); Aspartate Amino Transferase 22 U/L (0-32); Blood Urea Nitrogen 7 mg/dL (6-20); Calcium 7.3 mg/dL (8.5-10.5); Carbon Dioxide 20 mmol/L (22-29); Chloride 105 mmol/L (98-107); Globulin 1.8 g/dL (1.3-4.6); Glomerular Filtration Rate 111.9 mL/min (90-130); Glucose 124 mg/dL (65-115); Osmolality Calculated 279 mOsm/kg (285-295); Potassium 3.1 mmol/L (3.5-5.1); Sodium 135 mmol/L (136-145); Total Bilirubin 0.2 mg/dL (0.15-1.2); Total Protein 4.8 g/dL (6.6-8.7)
[2023-01-13 04:41] LABS: Creatine Phosphokinase 609 U/L (26-192)
[2023-01-13] MEDS: potassium chloride premix 100 ML 25 MEQ IV (05:14)
[2023-01-13 07:43] LABS: Magnesium 1.5 mg/dL (1.7-2.3)
[2023-01-13] MEDS: potassium chloride ER 20 mEq Tablet 40 MEQ PO (09:06)
[2023-01-13] MEDS: ondansetron 2 mg/ML SDV 2 mL 4 MG IVP (09:09)
--- NOTE | 2023-01-13 09:18 | P.PN_ITS ---
Subjective Subjective: Kiara is alert and conversive today. She has pain in her back, and her head. She admits to taking too much Tegretol, but also reports it was not a harm herself. She acknowledges taking too much Tegretol could harm herself however. Medications: Reviewed: Yes Vitals/I&O/Wt Last Vital Signs Temp 98.3 F 01/13/23 04:00 Pulse 102 H 01/13/23 09:00 Resp 17 01/13/23 09:00 BP 159/95 01/13/23 09:00 Pulse Ox 100 01/13/23 08:00 O2 Del Method 01/13/23 04:00 FiO2 24 01/12/23 13:52 01/12/23 01/13/23 01/13/23 22:59 06:59 14:59 Intake Total 1060 / 9340.737 8840 / 3653.586 1050 / 1050 Output Total 550 / 550 1700 / 2250 Balance 510 / 1003.586 400 / 2248.886 3762 / 1050 Weight last 48 hrs Weight 79.469 kg Weight 78.2 kg Weight 79.379 kg Physical Exam Narrative: General exam is alert, responsive, conversive but hard to understand secondary to hoarseness Neck is supple, no rash noted Cardiovascular regular rate and rhythm, no murmur Lungs clear without wheezing Abdomen is soft, no obvious organomegaly. exam demonstrates Shultz Extremities no cyanosis clubbing or edema, refill about 2 seconds Skin no rash Neuro no obvious focal deficits Urinary Catheter Management: Shultz: Cath Placed During This Visit: yes Reason for Continuing Indwelling Catheter: Accurate Measurement of Urinary Output in Critically Ill Patients Urinary Catheter Date of Insertion: 01/11/23 Urinary Catheter Time of Insertion: 08:58 Data 01/13/23 02:38 01/13/23 02:38 Micro: Microbiology 01/11/23 09:00 Gram Stain - Final Sputum - Endotracheal Tube Aspirate Sputum Culture - Preliminary A&P Assessment and plan (1) Unresponsive: Patient was found down at home unresponsive. She has had multiple overdoses in the past, and suspected overdose this time. Secondary to her unresponsiveness, apparent airway problems, failure to protect airway she was intubated in the ER. Extubated 01/12 (2) Acute respiratory failure: Inability to protect airway. Intubated in the ER Extubated 01/12. Currently on room air. (3) Acute kidney injury: Appears to have acute kidney injury Resolved with hydration (4) Bipolar disorder with psychotic features: Long history of bipolar disorder with history of suicidal ideation. Will have to hold medications today, reassessing tomorrow after reexamination. She has had multiple overdoses in the past, and Tegretol level is significantly high. Psychiatric consultation has been ordered. If she attempts to leave the hospital, 96-hour hold will be initiated until evaluation is complete secondary to threat to her life. When she is able to ambulate without risk of fall, she can likely transition down to the neuropsychiatric unit Restart her fluoxetine Hold off on restarting Wellbutrin secondary to seizure risk (5) Trigeminal neuralgia: History of multiple medications including Neurontin, Tegretol. Repeat Tegretol level tomorrow Increase doses of Neurontin and Topamax to prevent withdrawal (6) Coffee ground emesis: No further episodes. Change Protonix to 40 mg twice daily (7) Transaminitis: Improved. May be secondary to hypoxic event or Tegretol overdose Plan Possible seizure yesterday. This could be related to Tegretol toxicity. Benzodiazepines were used. Keppra discontinued. This was thought to be secondary to Tegretol toxicity. Hypokalemia. Supplement today. Recheck tomorrow Mild anemia, recheck tomorrow Other medical problems as noted in past medical history Full code currently Visited with her mother who is her decision-maker currently. SCDs for DVT prophylaxis. Anticoagulation contraindicated secondary to coffee- ground emesis. Advance diet Attestations Medical Necessity Statement*: Needs continued hospitalization secondary to intentional overdose Diagnoses Unresponsive R41.89 Acute respiratory failure J96.00 Acute kidney injury N17.9 Bipolar disorder with psychotic features F31.9 Trigeminal neuralgia G50.0 Coffee ground emesis K92.0 Transaminitis R74.01 Time Spent (min) 29
[2023-01-13] MEDS: topiramate 100 mg Tablet PO ×2 (11:20→18:01)
[2023-01-13] MEDS: fluoxetine 20 mg Capsule PO (11:21)
[2023-01-13] MEDS: acetaminophen 325 mg Tablet 650 MG PO (11:21)
[2023-01-13] MEDS: pantoprazole DR 40 mg Tablet PO ×2 (11:27→18:03)
[2023-01-13] MEDS: gabapentin 300 mg Capsule 600 MG PO ×3 (11:29→20:18)
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
--- NOTE | 2023-01-13 18:15 | PC.NURSE ---
New Orders Received Patient reporting pain in lower back, stated I takes [place] 10-325mg at home every [address] Reina of patient request, received telephone orders from Dr. Reina to order Hydrocodone 10-325mg BID PRN.
--- NOTE | 2023-01-13 19:19 | PC.NURSE ---
Shift Note Frequent safety and comfort rounds continue. Orders and/or nursing care completed as indicated. Patient monitored for response to intervention and treatment(s). Education provided includes treatment plan. Patient family verbalized understanding of teaching. No wounds or skin issues noted at this time. IVF infusing per order please see MAR for detail. Patient voided 3 times since ugalde removal. Will continue to monitor.
[2023-01-13] MEDS: HYDROcodone-acetaminophen 10-325 mg Tablet 1 TAB PO (20:18)
[2023-01-13 21:03] LABS: Potassium 3.4 mmol/L (3.5-5.1)
[2023-01-14] VITALS (10 sets, daily range): BP systolic 127–153; BP diastolic 87–116; PULSE 75–100; RESP 14–21; TEMP 36.6–36.9; O2SAT 94–100
[2023-01-14 03:21] LABS: Basophils % 0.4 %; Eosinophils # 0.2 10^3/uL (0.0-0.8); Eosinophils % 1.9 %; Hematocrit 31.4 % (37.0-47.0); Hemoglobin 10.3 g/dL (11.5-15.3); Lymphocytes # 0.9 10^3/uL (0.8-4.8); Lymphocytes % 11.4 %; Mean Corpuscular HGB Conc 32.8 g/dL (30.0-36.0); Mean Corpuscular Hemoglobin 31.1 pg (28.0-34.0); Mean Corpuscular Volume 94.9 fl (81-99); Mean Platelet Volume 9.6 fL (7.4-10.4); Monocytes # 0.8 10^3/uL (0.2-0.9); Monocytes % 9.8 %; Neutrophils # 6.09 10^3/uL (1.8-7.7); Neutrophils % 76.1 %; Nucleated Red Blood Cells % 0 %; Platelet Count 160 10^3/cmm (130-400); Red Blood Count 3.31 10^6/uL (4.1-5.3); Red Cell Distribution Width 12.4 % (12.1-15.1)
[2023-01-14 03:40] LABS: Alanine Aminotransferase 21 U/L (0-33); Albumin Level 3.5 g/dL (3.5-5.2); Alkaline Phosphatase 77 U/L (35-105); Anion Gap 13.3 (5-19); Aspartate Amino Transferase 25 U/L (0-32); Blood Urea Nitrogen 3 mg/dL (6-20); Calcium 7.9 mg/dL (8.5-10.5); Carbon Dioxide 22 mmol/L (22-29); Chloride 108 mmol/L (98-107); Glomerular Filtration Rate 138.1 mL/min (90-130); Glucose 95 mg/dL (65-115); Magnesium 1.5 mg/dL (1.7-2.3); Osmolality Calculated 286 mOsm/kg (285-295); Potassium 3.3 mmol/L (3.5-5.1); Sodium 140 mmol/L (136-145); Total Bilirubin 0.2 mg/dL (0.15-1.2); Total Protein 5.5 g/dL (6.6-8.7)
[2023-01-14] MEDS: potassium chloride ER 20 mEq Tablet 80 MEQ PO (05:00)
[2023-01-14] MEDS: magnesium sulfate premix 2 GM/50 ML PIGGYBACK IV (05:00)
[2023-01-14] MEDS: lactated ringers 1,000 ML 150 ML IV (08:03)
[2023-01-14] MEDS: fluoxetine 20 mg Capsule PO (08:31)
[2023-01-14] MEDS: gabapentin 300 mg Capsule 600 MG PO ×3 (08:31→22:09)
[2023-01-14] MEDS: topiramate 100 mg Tablet PO ×2 (08:31→18:08)
[2023-01-14] MEDS: pantoprazole DR 40 mg Tablet PO ×2 (08:32→18:08)
--- NOTE | 2023-01-14 08:46 | P.PN_ITS ---
Subjective Subjective: Feels much better today. Denies dizziness. Reports no nausea. Nurse relates she is moving better and more balance. Medications: Reviewed: Yes Vitals/I&O/Wt Last Vital Signs Temp 97.9 F 01/14/23 04:00 Pulse 100 01/14/23 08:35 Resp 17 01/14/23 06:00 BP 137/89 01/14/23 06:00 Pulse Ox 98 01/14/23 08:35 O2 Del Method 01/14/23 08:35 FiO2 24 01/12/23 13:52 01/13/23 01/14/23 01/14/23 22:59 06:59 14:59 Intake Total 1120 / 3270 2050 / 5320 Output Total 3800 / 3800 1600 / 5400 Balance -2680 / -530 450 / -80 Weight last 48 hrs Weight 74.979 kg Weight 79.469 kg Physical Exam Narrative: General exam more conversive, alert on uptake Neck is supple, no rash noted Cardiovascular regular rate and rhythm, no murmur Lungs clear without wheezing Abdomen is soft, no obvious organomegaly. Extremities no cyanosis clubbing or edema Skin no rash Neuro no obvious focal deficits Urinary Catheter Management: Shultz: Cath Placed During This Visit: yes, but has since been removed by the nurse Reason for Continuing Indwelling Catheter: Accurate Measurement of Urinary Output in Critically Ill Patients Urinary Catheter Date of Insertion: 01/11/23 Urinary Catheter Time of Insertion: 08:58 Date Urinary Catheter Removed: 01/13/23 Time Urinary Catheter Discontinued: 11:30 Data 01/14/23 02:26 01/14/23 02:26 Micro: Microbiology 01/11/23 09:00 Gram Stain - Final Sputum - Endotracheal Tube Aspirate Sputum Culture - Preliminary Coag positive Staphylococcus A&P Assessment and plan (1) Unresponsive: Patient was found down at home unresponsive. She has had multiple overdoses in the past, and suspected overdose this time. Secondary to her unresponsiveness, apparent airway problems, failure to protect airway she was intubated in the ER. Extubated 01/12 Currently doing well, on room air (2) Acute respiratory failure: Inability to protect airway. Intubated in the ER Extubated 01/12. Currently on room air. (3) Acute kidney injury: Appears to have acute kidney injury Resolved with hydration Creatinine normal this morning. No need for further laboratory (4) Bipolar disorder with psychotic features: Long history of bipolar disorder with history of suicidal ideation. Will have to hold medications today, reassessing tomorrow after reexamination. She has had multiple overdoses in the past, and Tegretol level is significantly high. Psychiatric consultation has been ordered. If she attempts to leave the hospital, 96-hour hold will be initiated until evaluation is complete secondary to threat to her life. Continue fluoxetine She is now able to ambulate, can transition down to neuropsychiatric unit. (5) Trigeminal neuralgia: History of multiple medications including Neurontin, Tegretol. Neurontin, Topamax reinitiated at lower dose. Tegretol will not be discontinued (6) Coffee ground emesis: No further episodes. Protonix now 40 mg twice daily (7) Transaminitis: Improved. May be secondary to hypoxic event or Tegretol overdose Plan Possible seizure on admission. This could be related to Tegretol toxicity. Benzodiazepines were used. Keppra discontinued. This was thought to be secondary to Tegretol toxicity. Hypokalemia. Supplement today Hypomagnesemia, supplement today Mild anemia, stable Other medical problems as noted in past medical history Full code currently Visited with her mother who is her decision-maker currently. SCDs for DVT prophylaxis. Anticoagulation contraindicated secondary to coffee- ground emesis. Advance diet Attestations Medical Necessity Statement*: Needs continued hospitalization secondary to intentional overdose Diagnoses Unresponsive R41.89 Acute respiratory failure J96.00 Acute kidney injury N17.9 Bipolar disorder with psychotic features F31.9 Trigeminal neuralgia G50.0 Coffee ground emesis K92.0 Transaminitis R74.01
--- NOTE | 2023-01-14 10:09 | PC.NURSE ---
Report called to NPU RN. Patient to be transferred to NPU 131-1 via wheelchair accompanied by this nurse and security. Patient noted to be A&Ox4 at time of transfer.
[2023-01-14] MEDS: HYDROcodone-acetaminophen 10-325 mg Tablet 1 TAB PO ×2 (11:43→22:25)
--- NOTE | 2023-01-14 12:58 | PC.NURSE ---
Patient Overdose on home medication on 01/11/23. Brought to [facility] unresponsive via EMS.Patient is a 37-year-old female; She was found down for an unknown length of time at home. She has a history of bipolar disorder multiple previous suicide attempts with hospitalization last month for suicide attempt. She was given 4 mg of Narcan in route with no improvement in condition from intentional overdose. Patient arrived on NPU at 10:23 and was admitted from ICU. Tearful during assessment. Denies SI/HI at present. Denies AVH. States she has trigimenal pain and back pain all the time and she took all of medication intentional. Patient is involuntary, on a 96hr. hold. Skin intact. Orientated to unit.
--- NOTE | 2023-01-14 15:11 | P.NPUPN_ITS ---
Subjective NPU Subjective: 37-year-old white female admitted with a history of bipolar 1 disorder and multiple medical issues including trigeminal neuralgia currently on multiple medications. The patient reported that she did not wish to have any significant medication changes at this time despite being informed of the concern that the patient was not being treated for bipolar depression. She reported continued desire to return back to work. She had continue to minimize the multiple significant potentially lethal overdoses on medication over the past year. She had reported being agreeable to have her mother be her legal guardian. She had reported increased anxiety and continue to endorse depressed mood. She had reported active pain issues on the unit Mental Status Exam MSE Comments: She was a casually dressed white female with a disheveled appearance and poor hygiene. Her speech was normal in regards to rate rhythm and prosody. She appeared in mild distress with moderate psychomotor retardation. There was no evidence of any abnormal involuntary motor movements tics or tremors appreciated. Her mood was described as depressed and anxious. Her affect was mood congruent constricted. Her thought process was linear logical and superficial. Her thought content showed no evidence of active homicidal ideation she denied any active suicidal ideation there was no clear evidence of delusional thinking. She did not appear to be responding to internal stimuli. Her insight is impaired. Her judgment is poor. Her impulse control is poor as well. She was alert and oriented to person place and time h er recent and remote memory appeared grossly intact Vitals/I&O/Wt Last Vital Signs Temp 98.2 F 01/14/23 10:37 Pulse 76 01/14/23 10:37 Resp 20 H 01/14/23 10:37 BP 138/95 01/14/23 10:37 Pulse Ox 98 01/14/23 10:37 O2 Del Method 01/14/23 11:03 FiO2 24 01/12/23 13:52 01/14/23 01/14/23 01/14/23 06:59 14:59 22:59 Intake Total 2050 / 5320 540 / 540 Output Total 1600 / 5400 Balance 450 / -80 540 / 540 Weight last 48 hrs Weight 74.979 kg Weight 79.469 kg Physical Exam Urinary Catheter Management: Shultz: Cath Placed During This Visit: yes, but has since been removed by the nurse Reason for Continuing Indwelling Catheter: Accurate Measurement of Urinary Output in Critically Ill Patients Urinary Catheter Date of Insertion: 01/11/23 Urinary Catheter Time of Insertion: 08:58 Date Urinary Catheter Removed: 01/13/23 Time Urinary Catheter Discontinued: 11:30 Data NPU 01/14/23 02:26 01/14/23 02:26 Micro: Microbiology 01/11/23 09:00 Gram Stain - Final Sputum - Endotracheal Tube Aspirate Sputum Culture - Preliminary Coag positive Staphylococcus Microbiology 01/11/23 09:00 Sputum - Endotracheal Tube Aspirate Gram Stain - Final 01/11/23 09:00 Sputum - Endotracheal Tube Aspirate Sputum Culture - Preliminary Coag positive Staphylococcus A&P Assessment and plan (1) Bipolar I disorder with depression: (2) Trigeminal neuralgia: (3) Overdose: (4) Tegretol toxicity: Plan Patient is a 37-year-old white female with a history of bipolar disorder with multiple potentially lethal overdoses in the last year now admitted to NPU currently reporting desire to continue medication prescribed despite previous failure with those stated medication to treat bipolar depression. 1. Will increase prozac to 30mg and monitor closely for treating depression. Patient currently refusing lamotrigine, Seroquel, lithium, Latuda, or Vraylar to target bipolar depression. Add Valium in place of ativan to target anxiety. 2. Involuntary hospitalization is necessary and will except to MPU upon stabilization. #3. We will gather collateral information particularly from patient's family. Involuntary Hold Information 96 Hour Hold: 96 Hour Involuntary Admission: Yes 96 Hour Hold Ending Date: 12/06/22 96 Hour Hold Ending Time: 10:50 Attestations NPU Medical Necessity Statement*: Patient will remain hospitalized at the neuropsychiatric unit and her care will be expected to cross at least 2 midnights with a likely length of stay of 10-15 days. Guardianship likely necessary. Coding Level of Care Code Acute Code for [facility] Diagnoses Bipolar I disorder with depression F31.9 Trigeminal neuralgia G50.0 Overdose T50.901A Tegretol toxicity T42.1X1A
[2023-01-14] MEDS: diazePAM 5 mg Tablet PO (22:09)
[2023-01-15 06:00] VITALS: BP 120/75; PULSE 83; RESP 16; TEMP 36.6; O2SAT 97
--- NOTE | 2023-01-15 06:59 | PC.NURSE ---
during med pass pt became verbally aggressive with staff when notified her [place] was discontinued. Pt stated I may as well leave here and shoot myself in the head pt called mom and returned to nurse window stating that it could not be correct for the doctor to discontinue a medication he didn't order. RN recommended for patient to discuss with provider regarding all her meds. MD notified and Lamberton reordered. Pt will discuss with provider. pt calmed down and was cooperative.
[2023-01-15] MEDS: gabapentin 300 mg Capsule 600 MG PO ×3 (08:42→21:36)
[2023-01-15] MEDS: fluoxetine 20 mg Capsule 30 MG PO (08:42)
[2023-01-15] MEDS: pantoprazole DR 40 mg Tablet PO ×2 (08:43→18:30)
[2023-01-15] MEDS: topiramate 100 mg Tablet PO ×2 (08:43→18:30)
[2023-01-15] MEDS: diazePAM 5 mg Tablet PO ×3 (08:43→21:37)
[2023-01-15] MEDS: HYDROcodone-acetaminophen 10-325 mg Tablet 1 TAB PO ×2 (09:35→21:38)
--- NOTE | 2023-01-15 13:23 | W.PM.NPUPNS ---
Subjective NPU Subjective: Kiara is a 37-year-old white female with bipolar 1 disorder admitted with depressed mood after a serious overdose on Tegretol. Patient had reported no worsening pain secondary to her trigeminal neuralgia with the increase in Prozac. She had reported feeling more optimistic about managing pain for the trigeminal neuralgia by use of Botox treatments. She had indicated that much of her stress that had led to her overdoses had to do with the inability to manage acute pain and increased frustration with having to deal with chronic sometimes intractable and incessant pain from the trigeminal neuralgia. She had endorsed some feelings of hopelessness at this time. She had acknowledged some PTSD related issues but stated that she often struggled to talk about this. She had reported interest in continuing with medication management at [facility] and reported that she was okay with her mother becoming her guardian. She had expressed desire to return back to work. Mental Status Exam MSE Comments: She was a casually dressed white female with a disheveled appearance and poor hygiene. Her speech was normal in regards to rate rhythm and prosody. She appeared in mild distress with moderate psychomotor retardation. There was no evidence of any abnormal involuntary motor movements tics or tremors appreciated. Her mood was described as okay. Her affect was mood incongruent constricted. Her thought process was linear logical and superficial. Her thought content showed no evidence of active homicidal ideation she denied any active suicidal ideation there was no clear evidence of delusional thinking. She did not appear to be responding to internal stimuli. Her insight is impaired. Her judgment is poor. Her impulse control is poor as well. She was alert and oriented to person place and time her recent and remote memory appeared grossly intact Vitals/I&O/Wt Last Vital Signs Temp 97.9 F 01/15/23 06:00 Pulse 83 01/15/23 06:00 Resp 16 01/15/23 06:00 BP 120/75 01/15/23 06:00 Pulse Ox 97 01/15/23 06:00 O2 Del Method 01/15/23 06:00 FiO2 24 01/12/23 13:52 01/14/23 01/15/23 01/15/23 22:59 06:59 14:59 Intake Total 540 / 1080 Output Total 4100 / 4100 Balance -3560 / -3020 Weight last 48 hrs Weight 74.979 kg Physical Exam Urinary Catheter Management: Shultz: Cath Placed During This Visit: yes, but has since been removed by the nurse Reason for Continuing Indwelling Catheter: Accurate Measurement of Urinary Output in Critically Ill Patients Urinary Catheter Date of Insertion: 01/11/23 Urinary Catheter Time of Insertion: 08:58 Date Urinary Catheter Removed: 01/13/23 Time Urinary Catheter Discontinued: 11:30 Data NPU 01/14/23 02:26 01/14/23 02:26 A&P Assessment and plan (1) Bipolar I disorder with depression: (2) Trigeminal neuralgia: (3) Overdose: (4) Tegretol toxicity: Plan Patient is a 37-year-old white female with a history of bipolar disorder with multiple potentially lethal overdoses in the last year now admitted to NPU currently reporting desire to continue medication prescribed despite previous failure with those stated medication to treat bipolar depression. 1. Will increase prozac to 30mg and monitor closely for treating depression. Patient currently refusing lamotrigine, Seroquel, lithium, Latuda, or Vraylar to target bipolar depression. Continue Valium 5mg tid. 2. Involuntary hospitalization is necessary and will except to MPU upon stabilization. 3. We will gather collateral information particularly from patient's family. Involuntary Hold Information 96 Hour Hold: 96 Hour Involuntary Admission: Yes 96 Hour Hold Ending Date: 12/06/22 96 Hour Hold Ending Time: 10:50 Attestations NPU Medical Necessity Statement*: Patient will remain hospitalized at the neuropsychiatric unit and her care will be expected to cross at least 2 midnights with a likely length of stay of 10-15 days. Guardianship likely necessary. Coding Level of Care Code Acute Code for [facility] Diagnoses Bipolar I disorder with depression F31.9 Trigeminal neuralgia G50.0 Overdose T50.901A Tegretol toxicity T42.1X1A
[2023-01-15 14:00] VITALS: BP 139/96; PULSE 81; RESP 16; TEMP 36.4; O2SAT 97
[2023-01-15 20:54] VITALS: BP 144/92; PULSE 80; RESP 16; TEMP 36.8; O2SAT 99
[2023-01-16] MEDS: acetaminophen 325 mg Tablet 650 MG PO ×2 (01:05→17:05)
--- NOTE | 2023-01-16 04:07 | PC.NURSE ---
pt unable to sleep, stating she has a headache, explained hydrocodone was given at 2100, pt requesting tylenol at 0000, encouraged to try to use cool compresses, reduce stimuli and patient was requesting to watch TV, pt decided to rest with a cool compress, pt was unable to rest and tylenol given. pt encouraged to discuss pain management with provider. pt verbalized understanding.
--- NOTE | 2023-01-16 04:35 | PC.NURSE ---
pt approached RN stating she wasn't given her Topamax last night, stated she receives 100mg in the morning and 200gm at night, explained to pt she receives her Topamax 100mg twice a day, in the morning and at 1800. she reports she should be on 200mg at night. pt stating the doctor doesn't need to be changing my medications. Discussed with patient the facility verifies home medications with pharmacy and/or patient according to when it was last filled. pt stating I just feel like I have a gun to my head, i just need the gun, the topamax is my mood stabilizer and I need the extra 100 mg
[2023-01-16] MEDS: OLANZapine 5 mg ODT PO ×2 (05:03→22:05)
--- NOTE | 2023-01-16 05:13 | PC.NURSE ---
pt approached nurse's station, I need something, what can you give me? RN asked how do you feel? pt replied They took my extra topamax away, I feel like I'm going to explode pt appeared agitated, anxious, sweating, Zyprexa Zydis 5mg given.
[2023-01-16 06:00] VITALS: BP 136/92; PULSE 83; RESP 16; TEMP 36.8; O2SAT 98
[2023-01-16] MEDS: HYDROcodone-acetaminophen 10-325 mg Tablet 1 TAB PO ×2 (08:16→20:49)
[2023-01-16] MEDS: diazePAM 5 mg Tablet PO ×2 (09:03→11:47)
[2023-01-16] MEDS: gabapentin 300 mg Capsule 600 MG PO ×3 (09:03→20:38)
[2023-01-16] MEDS: pantoprazole DR 40 mg Tablet PO ×2 (09:04→17:05)
[2023-01-16] MEDS: topiramate 100 mg Tablet PO (09:04)
[2023-01-16] MEDS: fluoxetine 10 mg Capsule 30 MG PO (09:09)
[2023-01-16 14:00] VITALS: BP 115/69; PULSE 76; RESP 16; TEMP 36.8; O2SAT 99
--- NOTE | 2023-01-16 14:32 | W.PM.NPUPNS ---
Subjective NPU Subjective: Kiara is a 37-year-old white female with bipolar 1 disorder admitted with depressed mood after a serious overdose on Tegretol. The patient had reported difficulties with falling asleep stating that she did not sleep at all last night. She stated that her concentration has been worse. She had reported that her pain was substantially worse as well. She continued to appear resistant about any changes in her medications but agreed that she had been having some worsening pain associate with her trigeminal neuralgia with the increase in Prozac as of yesterday. She had been able to leave her room but continued to appear at times unable to concentrate with reports of brief intense periods of pain associated with her trigeminal neuralgia. She had asked repeatedly when she would be able to return home. She had again had avoided discussing the seriousness of her previous 3 overdoses including her last overdose during this hospitalization. Mental Status Exam MSE Comments: She was a casually dressed white female with a disheveled appearance and poor hygiene. Her speech was normal in regards to rate rhythm and prosody. She appeared in moderate distress with moderate psychomotor retardation. There was no evidence of any abnormal involuntary motor movements tics or tremors appreciated. Her mood was described as okay. Her affect was anxious and mood incongruent. Her thought process was linear logical and superficial. Her thought content showed no evidence of active homicidal ideation she denied any active suicidal ideation there was no clear evidence of delusional thinking. She did not appear to be responding to internal stimuli. Her insight is impaired. Her judgment is poor. Her impulse control is poor as well. She was alert and oriented to person place and time her recent and remote memory appeared grossly intact Vitals/I&O/Wt Last Vital Signs Temp 98.2 F 01/16/23 06:00 Pulse 83 01/16/23 06:00 Resp 16 01/16/23 06:00 BP 136/92 01/16/23 06:00 Pulse Ox 98 01/16/23 06:00 O2 Del Method 01/15/23 14:00 FiO2 24 01/12/23 13:52 01/15/23 01/16/23 01/16/23 22:59 06:59 14:59 Intake Total 540 / 540 Output Total 4100 / 4100 Balance -3560 / -3560 Weight last 48 hrs Weight 76.476 kg Physical Exam Urinary Catheter Management: Shultz: Cath Placed During This Visit: yes, but has since been removed by the nurse Reason for Continuing Indwelling Catheter: Accurate Measurement of Urinary Output in Critically Ill Patients Urinary Catheter Date of Insertion: 01/11/23 Urinary Catheter Time of Insertion: 08:58 Date Urinary Catheter Removed: 01/13/23 Time Urinary Catheter Discontinued: 11:30 Data NPU 01/14/23 02:26 01/14/23 02:26 Micro: Microbiology 01/11/23 09:00 Gram Stain - Final Sputum - Endotracheal Tube Aspirate Sputum Culture - Preliminary Coag positive Staphylococcus Microbiology 01/11/23 09:00 Sputum - Endotracheal Tube Aspirate Gram Stain - Final 01/11/23 09:00 Sputum - Endotracheal Tube Aspirate Sputum Culture - Preliminary Coag positive Staphylococcus A&P Assessment and plan (1) Bipolar I disorder with depression: (2) Trigeminal neuralgia: (3) Overdose: (4) Tegretol toxicity: Plan Patient is a 37-year-old white female with a history of bipolar disorder with multiple potentially lethal overdoses in the last year now admitted to NPU currently reporting desire to continue medication prescribed despite previous failure with those stated medication to treat bipolar depression. 1. Reduce Prozac to 20mg daily and monitor closely for treating depression. Patient currently refusing lamotrigine, Seroquel, lithium, Latuda, or Vraylar to target bipolar depression. Increase Valium to 10mg twice a day. 2. Involuntary hospitalization is necessary and will except to NPU upon stabilization. 3. We will gather collateral information particularly from patient's family. Involuntary Hold Information 96 Hour Hold: 96 Hour Involuntary Admission: Yes 96 Hour Hold Ending Date: 12/06/22 96 Hour Hold Ending Time: 10:50 Attestations NPU Medical Necessity Statement*: Patient will remain hospitalized at the neuropsychiatric unit and her care will be expected to cross at least 2 midnights with a likely length of stay of 10-15 days. Guardianship likely necessary. Coding Level of Care Code Acute Code for [facility] Fwd Diagnoses Bipolar I disorder with depression F31.9 Trigeminal neuralgia G50.0 Overdose T50.901A Tegretol toxicity T42.1X1A
[2023-01-16] MEDS: topiramate 100 mg Tablet 200 MG PO (20:41)
[2023-01-16 21:47] VITALS: BP 123/82; PULSE 87; RESP 18; TEMP 36.8; O2SAT 99
--- NOTE | 2023-01-16 22:05 | PC.NURSE ---
pt refused diazePAM at hs. pt educated on importance of taking scheduled medication. pt still refused medication. notified.
[2023-01-17] MEDS: haloperidol 5 mg Tablet PO (00:13)
[2023-01-17] MEDS: trazodone 50 mg Tablet PO (02:11)
--- NOTE | 2023-01-17 03:03 | PC.NURSE ---
PRN MEDS At 2205 pt came up to nurses station stating she was hearing someone clapping and whistling. Pt requested something to help with auditory hallucinations. Zprexa PO given as ordered. No further complaints voiced. At 0013 pt came up to murses station stating she was hearing someone clapping and a lady singing. Pt stated zyprexa was not effective and requested a PRN to help with AH. Haldol PO given as ordered. No further complaints voiced. At 0211 pt requested something for sleep. PRN trazodone given as ordered. Pt returned to room.
[2023-01-17 06:00] VITALS: BP 113/70; PULSE 90; RESP 16; TEMP 36.7; O2SAT 96
[2023-01-17] MEDS: topiramate 100 mg Tablet PO (08:48)
[2023-01-17] MEDS: gabapentin 300 mg Capsule 600 MG PO ×3 (08:48→20:38)
[2023-01-17] MEDS: pantoprazole DR 40 mg Tablet PO ×2 (08:49→17:28)
[2023-01-17] MEDS: HYDROcodone-acetaminophen 10-325 mg Tablet 1 TAB PO ×2 (08:49→20:34)
[2023-01-17] MEDS: diazePAM 5 mg Tablet 10 MG PO ×2 (08:49→17:28)
[2023-01-17] MEDS: fluoxetine 20 mg Capsule PO (08:49)
[2023-01-17] MEDS: ondansetron 4 MG Tablet PO (12:20)
[2023-01-17] MEDS: acetaminophen 325 mg Tablet 650 MG PO (12:20)
--- NOTE | 2023-01-17 12:21 | PC.NURSE ---
PRN ZOFRAN 4 MG GIVEN PO PER PT C/O STATED NAUSEA
[2023-01-17 14:00] VITALS: BP 112/72; PULSE 73; RESP 16; TEMP 36.8; O2SAT 98
--- NOTE | 2023-01-17 17:40 | P.NPUPN_ITS ---
Subjective NPU Subjective: Kiara is a 37-year-old white female with bipolar 1 disorder admitted with depressed mood after a serious overdose on Tegretol. Patient reported continued presence of worsening pain with trigeminal neuralgia. She had refused the Valium stating that it made her feel worse. She had reported th at her mother was having a hearing to obtain guardianship in a few days. She reports that she is agreeable to this idea and stated that she continued to struggle with managing her mood. She reported no feelings of hopelessness. She did report continued problems with concentration and memory. The patient continued to struggle with appropriately being able to manage her moods and did acknowledge having frequent bouts with pain that often led to her being frustrated and wanting to overdose on her medications. Mental Status Exam MSE Comments: She was a casually dressed white female with a disheveled appearance and poor hygiene. Her speech was normal in regards to rate rhythm and prosody. She appeared in moderate distress with mild psychomotor retardation. There was no evidence of any abnormal involuntary motor movements tics or tremors appreciated. Her mood was described as fine. Her affect was anxious and mood incongruent. Her thought process was linear logical and superficial. Her thought content showed no evidence of active homicidal ideation she denied any active suicidal ideation there was no clear evidence of delusional thinking. She did not appear to be responding to internal stimuli. Her insight is impaired. Her judgment is poor. Her impulse control is poor as well. She was alert and oriented to person place and time her recent and remote memory appeared grossly intact Vitals/I&O/Wt Last Vital Signs Temp 98.3 F 01/17/23 14:00 Pulse 73 01/17/23 14:00 Resp 16 01/17/23 14:00 BP 112/72 01/17/23 14:00 Pulse Ox 98 01/17/23 14:00 O2 Del Method 01/17/23 14:00 FiO2 24 01/12/23 13:52 Weight last 48 hrs Weight 76.476 kg Physical Exam Urinary Catheter Management: Shultz: Cath Placed During This Visit: yes, but has since been removed by the nurse Reason for Continuing Indwelling Catheter: Accurate Measurement of Urinary Output in Critically Ill Patients Urinary Catheter Date of Insertion: 01/11/23 Urinary Catheter Time of Insertion: 08:58 Date Urinary Catheter Removed: 01/13/23 Time Urinary Catheter Discontinued: 11:30 Data NPU 01/14/23 02:26 01/14/23 02:26 Micro: Microbiology 01/11/23 09:00 Gram Stain - Final Sputum - Endotracheal Tube Aspirate Sputum Culture - Preliminary Coag positive Staphylococcus Microbiology 01/11/23 09:00 Sputum - Endotracheal Tube Aspirate Gram Stain - Final 01/11/23 09:00 Sputum - Endotracheal Tube Aspirate Sputum Culture - Preliminary Coag positive Staphylococcus A&P Assessment and plan (1) Bipolar I disorder with depression: (2) Trigeminal neuralgia: (3) Overdose: (4) Tegretol toxicity: Plan Patient is a 37-year-old white female with a history of bipolar disorder with multiple potentially lethal overdoses in the last year now admitted to NPU currently reporting desire to continue medication prescribed despite previous failure with those stated medication to treat bipolar depression. 1. Continue Prozac at 20mg daily and monitor closely for treating depression. Patient restarted on low dose of Tegretol 200mg bid, D/C Valium on request of patient, trial of klonopin .5mg bid. 2. Involuntary hospitalization is necessary and will except to NPU upon stabilization. 3. We will gather collateral information particularly from patient's family. 4. Patient placed on involuntary hold, may need residential placement. Involuntary Hold Information 96 Hour Hold: 96 Hour Involuntary Admission: Yes 96 Hour Hold Ending Date: 12/06/22 96 Hour Hold Ending Time: 10:50 Attestations NPU Medical Necessity Statement*: Patient will remain hospitalized at the neuropsychiatric unit and her care will be expected to cross at least 2 mid nights with a likely length of stay of 10-15 days. Guardianship likely necessary. Coding Level of Care Code Acute Code for [facility] Fwd Diagnoses Bipolar I disorder with depression F31.9 Trigeminal neuralgia G50.0 Overdose T50.901A Tegretol toxicity T42.1X1A
[2023-01-17] MEDS: nicotine 2 mg Gum BUCCAL (18:54)
[2023-01-17 20:13] VITALS: BP 117/78; PULSE 76; RESP 16; TEMP 36.7; O2SAT 100
[2023-01-17] MEDS: CLONazepam 0.5 mg Tablet PO (20:38)
[2023-01-17] MEDS: topiramate 100 mg Tablet 200 MG PO (20:39)
[2023-01-17] MEDS: carBAMazepine 200 mg Tablet PO (21:12)
[2023-01-18 06:00] VITALS: BP 114/78; PULSE 85; RESP 16; TEMP 36.9; O2SAT 97
[2023-01-18] MEDS: topiramate 100 mg Tablet PO (06:40)
[2023-01-18] MEDS: CLONazepam 0.5 mg Tablet PO ×2 (08:27→20:07)
[2023-01-18] MEDS: gabapentin 300 mg Capsule 600 MG PO ×3 (08:27→20:05)
[2023-01-18] MEDS: carBAMazepine 200 mg Tablet PO ×2 (08:27→20:07)
[2023-01-18] MEDS: HYDROcodone-acetaminophen 10-325 mg Tablet 1 TAB PO ×2 (08:28→20:08)
[2023-01-18] MEDS: fluoxetine 20 mg Capsule PO (08:28)
[2023-01-18] MEDS: pantoprazole DR 40 mg Tablet PO ×2 (08:28→18:02)
[2023-01-18] MEDS: hyDROXYzine 25 mg Capsule 50 MG PO ×2 (12:11→21:23)
--- NOTE | 2023-01-18 12:11 | PC.NURSE ---
PRN VISTARIL 50 MG GIVEN PO PER PT C/O STATED ANXIETY
[2023-01-18] MEDS: acetaminophen 325 mg Tablet 650 MG PO ×3 (12:27→23:04)
[2023-01-18 14:00] VITALS: BP 116/79; PULSE 83; RESP 16; TEMP 36.6; O2SAT 100
--- NOTE | 2023-01-18 15:40 | P.NPUPN_ITS ---
Subjective NPU Subjective: Kiara is a 37-year-old white female with bipolar 1 disorder admitted with depressed mood after a serious overdose on Tegretol. Patient reported improvement with her pain with the restarting of Tegretol at 200 mg twice a day. She had reported that she was uncertain about what her mother would do when the patient was no longer her own legal guardian but rather under the authority of her mother. She had reported struggles with managing pain that it often led to her overdosing. She had reported having relative inability to manage her stress and distress without becoming panicky and overdosing on her medications. She had reported this repeated problem throughout her many admissions over the last year. She had been compliant and attending groups on the milieu. She had reported no manic symptoms. She had reported some difficulties with sleep but reported less intense and less frequent bouts of acute pain from her trigeminal neuralgia. Mental Status Exam MSE Comments: She was a casually dressed white female with a disheveled appearance and poor hygiene. Her speech was normal in regards to rate rhythm and prosody. She appeared in mild distress with mild psychomotor retardation. There was no evidence of any abnormal involuntary motor movements tics or tremors appreciated. Her mood was described as okay. Her affect was restricted in range and mood incongruent. Her thought process was linear logical and superficial. Her thought content showed no evidence of active homicidal ideation she denied any active suicidal ideation. there was no clear evidence of delusional thinking. She did not appear to be responding to internal stimuli. Her insight is impaired. Her judgment is poor. Her impulse control is poor as well. She was alert and oriented to person place and time. Her recent and remote memory appeared grossly intact Vitals/I&O/Wt Last Vital Signs Temp 98 F 01/18/23 14:00 Pulse 83 01/18/23 14:00 Resp 16 01/18/23 14:00 BP 116/79 01/18/23 14:00 Pulse Ox 100 01/18/23 14:00 O2 Del Method 01/18/23 14:00 FiO2 24 01/12/23 13:52 Physical Exam Urinary Catheter Management: Shultz: Cath Placed During This Visit: yes, but has since been removed by the nurse Reason for Continuing Indwelling Catheter: Accurate Measurement of Urinary Output in Critically Ill Patients Urinary Catheter Date of Insertion: 01/11/23 Urinary Catheter Time of Insertion: 08:58 Date Urinary Catheter Removed: 01/13/23 Time Urinary Catheter Discontinued: 11:30 Data NPU 01/14/23 02:26 01/14/23 02:26 Micro: Microbiology 01/11/23 09:00 Gram Stain - Final Sputum - Endotracheal Tube Aspirate Sputum Culture - Final Methicillin Resis Staph Aureus Microbiology 01/11/23 09:00 Sputum - Endotracheal Tube Aspirate Gram Stain - Final 01/11/23 09:00 Sputum - Endotracheal Tube Aspirate Sputum Culture - Final Methicillin Resis Staph Aureus A&P Assessment and plan (1) Bipolar I disorder with depression: (2) Trigeminal neuralgia: (3) Overdose: (4) Tegretol toxicity: Plan Patient is a 37-year-old white female with a history of bipolar disorder with multiple potentially lethal overdoses in the last year now admitted to NPU currently reporting desire to continue medication prescribed despite previous failure with those stated medication to treat bipolar depression. 1. Continue Prozac at 20mg daily and monitor closely for treating depression. Continue Tegretol 200mg bid, Continue klonopin .5mg bid. 2. Continue involuntary hospitalization. 3. Continue individual, group and milieu therapy. 4. Patient placed on involuntary hold, may need residential placement. Involuntary Hold Information 96 Hour Hold: 96 Hour Involuntary Admission: Yes 96 Hour Hold Ending Date: 12/06/22 96 Hour Hold Ending Time: 10:50 Attestations NPU Medical Necessity Statement*: Patient will remain hospitalized at the neuropsychiatric unit and her care will be expected to cross at least 2 [facility] with a likely length of stay of 10-15 days. Guardianship likely necessary. Coding Level of Care Code Acute Code for [facility] Diagnoses Bipolar I disorder with depression F31.9 Trigeminal neuralgia G50.0 Overdose T50.901A Tegretol toxicity T42.1X1A
[2023-01-18 21:10] VITALS: BP 119/77; PULSE 90; RESP 18; TEMP 36.7; O2SAT 99
[2023-01-18] MEDS: trazodone 50 mg Tablet PO ×2 (21:23→23:11)
--- NOTE | 2023-01-18 21:36 | PC.NURSE ---
PT PRESENTED TO NURSES STATION TEARY EYED STATING I NEED SOMETHING TO HELP WITH MY ANXIETY PT STATED SHE WAS FEELING OVERWHELMED . PT WAS GIVEN PRN VISTARIL AND TRAZODONE ORDERED.
[2023-01-18] MEDS: OLANZapine 5 mg ODT PO (22:01)
--- NOTE | 2023-01-18 22:04 | PC.NURSE ---
PT PRESENTED AT NURSES STATION ANXIOUS STATING CAN I HAVE SOMETHING TO HELP PRN ZYPREXA WAS GIVEN ORDERED.
[2023-01-18] MEDS: topiramate 100 mg Tablet 200 MG PO (22:38)
--- NOTE | 2023-01-18 23:12 | PC.NURSE ---
PRN TRAZODONE GIVEN FOR ANXIETY PER PT REQUEST.
[2023-01-19 06:00] VITALS: BP 100/60; PULSE 95; RESP 16; TEMP 36.7; O2SAT 94
[2023-01-19] MEDS: topiramate 100 mg Tablet PO (06:05)
[2023-01-19] MEDS: HYDROcodone-acetaminophen 10-325 mg Tablet 1 TAB PO ×2 (07:47→19:59)
[2023-01-19] MEDS: CLONazepam 0.5 mg Tablet PO ×2 (08:53→19:58)
[2023-01-19] MEDS: carBAMazepine 200 mg Tablet PO ×2 (08:54→20:00)
[2023-01-19] MEDS: pantoprazole DR 40 mg Tablet PO ×2 (08:54→18:24)
[2023-01-19] MEDS: fluoxetine 20 mg Capsule PO (08:54)
[2023-01-19] MEDS: gabapentin 300 mg Capsule 600 MG PO ×3 (08:54→19:59)
[2023-01-19] MEDS: acetaminophen 325 mg Tablet 650 MG PO ×2 (10:40→21:05)
[2023-01-19 14:00] VITALS: BP 98/64; PULSE 81; RESP 17; TEMP 37; O2SAT 98
[2023-01-19] MEDS: CELEcoxib 200 mg Capsule PO (15:46)
--- NOTE | 2023-01-19 15:59 | W.PM.NPUPNS ---
Subjective NPU Subjective: Kiara is a 37-year-old white female with bipolar 1 disorder admitted with depressed mood after a serious overdose on Tegretol. Patient's mother had obtained guardianship illegally in court today. Patient reported that she continued to be overwhelmed at times by the pain from the trigeminal neuralgia. She had sought pain medications on the unit and had admitted to taking excessive amounts of ibuprofen in the past to help her manage pain though unsuccessfully. Patient had admitted that her consumption of ibuprofen in the past had led to gastritis and she had reported that when she was in pain she had lost control and had been unable to make good decisions. Patient had reported that her mood was a little better. She had reported desire to receive follow-up with a neurologist locally for treating her trigeminal neuralgia as it may help with indirectly better gaining control of her pain and thereby improving her mood. She had minimized any recent episodes of bryan. She continued to express aversion over taking medications that may cause weight gain. She had reported no worsening headaches and no improvement yet on the restarting of Tegretol at 200 mg twice a day. Mental Status Exam MSE Comments: She was a casually dressed white female with a disheveled appearance and fair hygiene. Her speech was normal in regards to rate rhythm and prosody. She appeared in no acute distress with mild psychomotor retardation appreciated. There was no evidence of any abnormal involuntary motor movements tics or tremors appreciated. Her mood was described as all right. Her affect was restricted in range and mood incongruent. Her thought process was linear logical and superficial. Her thought content showed no evidence of active homicidal ideation she denied any active suicidal ideation. there was no clear evidence of delusional thinking. She did not appear to be responding to internal stimuli. Her insight is impaired. Her judgment is poor. Her impulse control is poor as well. She was alert and oriented to person place and time. Her recent and remote memory appeared grossly intact Vitals/I&O/Wt Last Vital Signs Temp 98.1 F 01/19/23 06:00 Pulse 95 01/19/23 06:00 Resp 16 01/19/23 06:00 BP 100/60 01/19/23 06:00 Pulse Ox 94 01/19/23 06:00 O2 Del Method 01/19/23 06:00 FiO2 24 01/12/23 13:52 01/19/23 01/19/23 01/19/23 06:59 14:59 22:59 Intake Total 540 / 540 Output Total 4100 / 4100 Balance -3560 / -3560 Physical Exam Urinary Catheter Management: Shultz: Cath Placed During This Visit: yes, but has since been removed by the nurse Reason for Continuing Indwelling Catheter: Accurate Measurement of Urinary Output in Critically Ill Patients Urinary Catheter Date of Insertion: 01/11/23 Urinary Catheter Time of Insertion: 08:58 Date Urinary Catheter Removed: 01/13/23 Time Urinary Catheter Discontinued: 11:30 Data NPU 01/14/23 02:26 01/14/23 02:26 Micro: Microbiology 01/11/23 09:00 Gram Stain - Final Sputum - Endotracheal Tube Aspirate Sputum Culture - Final Methicillin Resis Staph Aureus Microbiology 01/11/23 09:00 Sputum - Endotracheal Tube Aspirate Gram Stain - Final 01/11/23 09:00 Sputum - Endotracheal Tube Aspirate Sputum Culture - Final Methicillin Resis Staph Aureus A&P Assessment and plan (1) Bipolar I disorder with depression: (2) Trigeminal neuralgia: (3) Overdose: (4) Tegretol toxicity: Plan Patient is a 37-year-old white female with a history of bipolar disorder with multiple potentially lethal overdoses in the last year now admitted to NPU currently reporting desire to continue medication prescribed despite previous failure with those stated medication to treat bipolar depression. 1. Continue Prozac at 20mg daily and monitor closely for treating depression. Continue Tegretol 200mg bid, Continue klonopin .5mg bid. Added Celebrex for pain. Consider Neurology consult for trigeminal neuralgia treatment. 2. Continue involuntary hospitalization. 3. Continue individual, group and milieu therapy. 4. Patient placed on involuntary hold, may need residential placement. Involuntary Hold Information 96 Hour Hold: 96 Hour Involuntary Admission: Yes 96 Hour Hold Ending Date: 12/06/22 96 Hour Hold Ending Time: 10:50 Attestations NPU Medical Necessity Statement*: Patient will remain hospitalized at the neuropsychiatric unit and her care will be expected to cross at least 2 midnights with a likely length of stay of 10-15 days. Guardianship likely necessary. Coding Level of Care Code Acute Code for [facility] Diagnoses Bipolar I disorder with depression F31.9 Trigeminal neuralgia G50.0 Overdose T50.901A Tegretol toxicity T42.1X1A
[2023-01-19] MEDS: topiramate 100 mg Tablet 200 MG PO (19:59)
[2023-01-19] MEDS: trazodone 50 mg Tablet PO (20:00)
[2023-01-19] MEDS: hyDROXYzine 25 mg Capsule 50 MG PO (21:05)
[2023-01-19] MEDS: OLANZapine 5 mg ODT PO (21:46)
[2023-01-19 22:00] VITALS: BP 108/76; PULSE 84; RESP 16; TEMP 36.7; O2SAT 97
[2023-01-20] MEDS: acetaminophen 325 mg Tablet 650 MG PO ×3 (04:37→17:59)
[2023-01-20] MEDS: topiramate 100 mg Tablet PO (05:22)
[2023-01-20 06:00] VITALS: BP 101/68; PULSE 69; RESP 17; TEMP 36.3; O2SAT 100
[2023-01-20] MEDS: fluoxetine 20 mg Capsule PO (08:05)
[2023-01-20] MEDS: HYDROcodone-acetaminophen 10-325 mg Tablet 1 TAB PO ×2 (08:05→21:29)
[2023-01-20] MEDS: carBAMazepine 200 mg Tablet PO ×2 (08:05→21:29)
[2023-01-20] MEDS: CLONazepam 0.5 mg Tablet PO ×2 (08:05→21:29)
[2023-01-20] MEDS: pantoprazole DR 40 mg Tablet PO ×2 (08:06→17:57)
[2023-01-20] MEDS: gabapentin 300 mg Capsule 600 MG PO ×3 (08:06→21:22)
[2023-01-20] MEDS: OLANZapine 5 mg ODT PO (11:25)
--- NOTE | 2023-01-20 12:25 | P.NPUPN_ITS ---
Subjective NPU Subjective: Patient presented today reporting that she feels better. We discussed concerns about his multiple suicide attempts and their relation to pain. We discussed the possibility for guardianship and she seemed to perseverate on her mom having a large role in this almost greater than she did. We discussed today about her own frustration tolerance and difficulty perceiving safety in discharge. Mental Status Exam MSE Comments: This is an overweight female in hospital scrubs with appropriate grooming and eye contact. Notable scar starting at the angle of upper and lower lips on the left side angling up. No abnormal movements except for psychomotor retardation. She was cooperative with exam in no acute distress. Speech was more normal rate, rhythm and volume. Mood described as I feel pretty good. Her affect appeared slightly subdued. Thought process was linear and logical. Thought content: patient endorses no suicidal ideation and no homicidal ideation. There was no evidence of any delusional thinking. She denies any auditory or visual hallucinations. She did not appear to be responding to internal stimuli. Attention was and concentration were intact and memory appeared grossly intact and none were formally tested. She is alert and oriented times three. Insight, judgment and impulse control appear limited versus impaired. Vitals/I&O/Wt Last Vital Signs Temp 97.3 F L 01/20/23 06:00 Pulse 69 01/20/23 06:00 Resp 17 01/20/23 06:00 BP 101/68 01/20/23 06:00 Pulse Ox 100 01/20/23 06:00 O2 Del Method 01/20/23 06:00 FiO2 24 01/12/23 13:52 01/19/23 01/20/23 01/20/23 22:59 06:59 14:59 Intake Total 540 / 1080 Output Total 4100 / 8200 Balance -3560 / -7120 Physical Exam Urinary Catheter Management: Shultz: Cath Placed During This Visit: yes, but has since been removed by the nurse Reason for Continuing Indwelling Catheter: Accurate Measurement of Urinary Output in Critically Ill Patients Urinary Catheter Date of Insertion: 01/11/23 Urinary Catheter Time of Insertion: 08:58 Date Urinary Catheter Removed: 01/13/23 Time Urinary Catheter Discontinued: 11:30 Data NPU 01/14/23 02:26 01/14/23 02:26 A&P Assessment and plan (1) Bipolar I disorder with depression: (2) Trigeminal neuralgia: (3) Overdose: (4) Tegretol toxicity: Plan Patient is a 37-year-old white female with a history of bipolar disorder with multiple potentially lethal overdoses in the last year now admitted to NPU currently reporting desire to continue medication prescribed despite previous failure with those stated medication to treat bipolar depression. 1. Continue Prozac at 20mg daily and monitor closely for treating depression. Continue Tegretol 200mg bid, Continue klonopin .5mg bid. Added Celebrex for pain. Consider Neurology consult for trigeminal neuralgia treatment. 2. Continue involuntary hospitalization. 3. Continue individual, group and milieu therapy. 4. Patient placed on involuntary hold, may need residential placement/guardianship. Involuntary Hold Information 96 Hour Hold: 96 Hour Involuntary Admission: Yes 96 Hour Hold Ending Date: 12/06/22 96 Hour Hold Ending Time: 10:50 Attestations NPU Medical Necessity Statement*: Inpatient hospitalization is medically necessary and the clinically appropriate intervention at this time. We will monitor/in itiate medications and make changes as indicated. Likely length of stay 10-14 days. Coding Level of Care Code Acute Code for [facility] Diagnoses Bipolar I disorder with depression F31.9 Trigeminal neuralgia G50.0 Overdose T50.901A Tegretol toxicity T42.1X1A
[2023-01-20 14:00] VITALS: BP 96/70; PULSE 82; RESP 17; TEMP 36.7; O2SAT 98
--- NOTE | 2023-01-20 14:05 | PC.NURSE ---
Pt came to nurses station tearful. Upset after learning her mom is not wanting her to come home, but wants her to go to a facility. Staff visited with pt and allowed pt to vent her emotions. Pt said she doesn't know why her mom is doing this. Pt encouraged to journal her feelings so she can talk to the doctor and/or social science instructor about how she is feeling and to clarify her plan of action. Pt seemed a little calmer after visiting with staff. Pt had come to staff earlier and requested medication for anxiety after she'd attended group. She said the topic was about writing a letter of forgiveness, but she didn't think she could do that. Reassurance and encouragement provided. Pt encouraged to journal and a composition book was provided to her. Pt was medicated per request.
[2023-01-20] MEDS: topiramate 100 mg Tablet 200 MG PO (21:25)
[2023-01-20 22:00] VITALS: BP 104/52; PULSE 96; RESP 18; TEMP 36.7; O2SAT 99
[2023-01-21] MEDS: topiramate 100 mg Tablet PO (05:42)
[2023-01-21 06:00] VITALS: BP 101/69; PULSE 67; RESP 17; TEMP 36.6; O2SAT 98
[2023-01-21] MEDS: acetaminophen 325 mg Tablet 650 MG PO ×3 (06:08→16:57)
[2023-01-21] MEDS: pantoprazole DR 40 mg Tablet PO ×2 (08:58→18:27)
[2023-01-21] MEDS: gabapentin 300 mg Capsule 600 MG PO ×3 (08:58→20:31)
[2023-01-21] MEDS: fluoxetine 20 mg Capsule PO (08:58)
[2023-01-21] MEDS: HYDROcodone-acetaminophen 10-325 mg Tablet 1 TAB PO ×2 (09:01→20:32)
[2023-01-21] MEDS: CLONazepam 0.5 mg Tablet PO ×2 (09:02→20:34)
[2023-01-21] MEDS: carBAMazepine 200 mg Tablet PO ×2 (11:20→20:31)
[2023-01-21 14:00] VITALS: BP 109/75; PULSE 85; RESP 17; TEMP 37; O2SAT 93
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
[2023-01-21] MEDS: alum-mag-hydroxide-sime 30 mL UDC PO (14:44)
[2023-01-21] MEDS: OLANZapine 5 mg ODT PO ×2 (14:55→18:27)
[2023-01-21] MEDS: topiramate 100 mg Tablet 200 MG PO (20:31)
[2023-01-21 21:08] VITALS: BP 114/64; PULSE 75; RESP 18; TEMP 36.4; O2SAT 99
[2023-01-22] MEDS: nicotine 4 mg lozenge MUCOUS MEM ×10 (00:58→23:10)
[2023-01-22] MEDS: acetaminophen 325 mg Tablet 650 MG PO ×2 (01:52→17:53)
[2023-01-22] MEDS: ibuprofen 600 mg Tablet PO ×2 (04:20→12:57)
[2023-01-22] MEDS: topiramate 100 mg Tablet PO (05:35)
[2023-01-22 06:00] VITALS: BP 131/80; PULSE 65; RESP 16; TEMP 36.7; O2SAT 99
[2023-01-22] MEDS: carBAMazepine 200 mg Tablet PO ×2 (08:32→21:08)
[2023-01-22] MEDS: fluoxetine 20 mg Capsule PO (08:32)
[2023-01-22] MEDS: gabapentin 300 mg Capsule 600 MG PO ×3 (08:32→21:07)
[2023-01-22] MEDS: HYDROcodone-acetaminophen 10-325 mg Tablet 1 TAB PO ×2 (08:32→21:08)
[2023-01-22] MEDS: pantoprazole DR 40 mg Tablet PO ×2 (08:32→17:53)
[2023-01-22] MEDS: CLONazepam 0.5 mg Tablet PO ×2 (08:58→17:53)
--- NOTE | 2023-01-22 09:33 | P.NPUPN_ITS ---
Subjective NPU Subjective: Patient presented today reporting that she is still feeling focused on her weight and we discussed medications she felt might help her pain but also assist in her weight management. However after that conversation she returns to the radio script writer later in the day and and endorsed not wanting to try this new medication. She talked about her family and visit with her brother soon. We started talking about rehab and possible discharge planning. However significant concerns exist relative to her frequent suicide attempts and her safety to be discharged to home initially. Mental Status Exam MSE Comments: This is an overweight female in hospital scrubs with appropriate grooming and eye contact. Notable scar starting at the angle of upper and lower lips on the left side angling up. No abnormal movements except for psychomotor retardation. She was cooperative with exam in no acute distress. Speech was more normal rate, rhythm and volume. Mood described as okay except for the pain and anxiety. Her affect appeared slightly subdued. Thought process was linear and logical. Thought content: patient endorses no suicidal ideation and no homicidal ideation. There was no evidence of any delusional thinking. She denies any auditory or visual hallucinations. She did not appear to be respondi ng to internal stimuli. Attention was and concentration were intact and memory appeared grossly intact and none were formally tested. She is alert and oriented times three. Insight, judgment and impulse control appear limited versus impaired. Vitals/I&O/Wt Last Vital Signs Temp 98.0 F 01/22/23 06:00 Pulse 65 01/22/23 06:00 Resp 16 01/22/23 06:00 BP 131/80 01/22/23 06:00 Pulse Ox 99 01/22/23 06:00 O2 Del Method 01/22/23 06:00 FiO2 24 01/12/23 13:52 01/21/23 01/22/23 01/22/23 22:59 06:59 14:59 Intake Total 540 / 540 Output Total 4100 / 4100 Balance -3560 / -3560 Physical Exam Urinary Catheter Management: Shultz: Cath Placed During This Visit: yes, but has since been removed by the nurse Reason for Continuing Indwelling Catheter: Accurate Measurement of Urinary Output in Critically Ill Patients Urinary Catheter Date of Insertion: 01/11/23 Urinary Catheter Time of Insertion: 08:58 Date Urinary Catheter Removed: 01/13/23 Time Urinary Catheter Discontinued: 11:30 Data NPU 01/14/23 02:26 02/17/23 02:26 A&P Assessment and plan (1) Bipolar I disorder with depression: (2) Trigeminal neuralgia: (3) Overdose: (4) Tegretol toxicity: Plan Patient is a 37-year-old white female with a history of bipolar disorder with multiple potentially lethal overdoses in the last year now admitted to NPU currently reporting desire to continue medication prescribed despite previous failure with those stated medication to treat bipolar depression. 1. Continued Prozac at 20mg daily and monitor closely for treating depression. Continued Tegretol 200mg bid, Continued klonopin .5mg bid. Added Celebrex for pain. Consider Neurology consult for trigeminal neuralgia treatment. Consider increasing her benzodiazepine to 3 times daily. 2. Continue involuntary hospitalization. 3. Continue individual, group and milieu therapy. 4. Patient placed on involuntary hold, may need residential placement/guardianship. 5. Encourage sober living treatment after discharge at the highest level of care to which she is willing to commit. Involuntary Hold Information 96 Hour Hold: 96 Hour Involuntary Admission: Yes 96 Hour Hold Ending Date: 12/06/22 96 Hour Hold Ending Time: 10:50 Attestations NPU Medical Necessity Statement*: Inpatient hospitalization is medically necessary and the clinically appropriate intervention at this time. We will monitor/initiate medications and make changes as indicated. Likely length of stay 8-12 days. Coding Level of Care Code Acute Code for [facility] Diagnoses Bipolar I disorder with depression F31.9 Trigeminal neuralgia G50.0 Overdose T50.901A Tegretol toxicity T42.1X1A
[2023-01-22 14:00] VITALS: BP 112/77; PULSE 91; RESP 16; TEMP 36.6; O2SAT 100
[2023-01-22 20:43] VITALS: BP 125/84; PULSE 74; RESP 18; TEMP 36.9; O2SAT 97
[2023-01-22] MEDS: topiramate 100 mg Tablet 200 MG PO (21:09)
[2023-01-23] MEDS: ibuprofen 600 mg Tablet PO ×4 (00:40→22:15)
[2023-01-23] MEDS: OLANZapine 5 mg ODT PO ×4 (00:40→23:05)
[2023-01-23 06:00] VITALS: BP 96/64; PULSE 79; RESP 16; TEMP 36.7; O2SAT 97
[2023-01-23] MEDS: topiramate 100 mg Tablet PO (06:08)
[2023-01-23] MEDS: acetaminophen 325 mg Tablet 650 MG PO ×2 (06:09→16:56)
--- NOTE | 2023-01-23 07:33 | PC.NURSE ---
pt became agitated when RN asked pt to start wrapping up phone call which was just after 2200, she used the gesture (cut throat) towards staff when she hung the phone up.
[2023-01-23] MEDS: gabapentin 300 mg Capsule 600 MG PO ×3 (08:30→20:21)
[2023-01-23] MEDS: pantoprazole DR 40 mg Tablet PO ×2 (08:30→18:00)
[2023-01-23] MEDS: CLONazepam 0.5 mg Tablet PO ×2 (08:30→18:00)
[2023-01-23] MEDS: fluoxetine 20 mg Capsule PO (08:31)
[2023-01-23] MEDS: HYDROcodone-acetaminophen 10-325 mg Tablet 1 TAB PO ×2 (08:32→20:22)
[2023-01-23] MEDS: carBAMazepine 200 mg Tablet PO ×2 (08:32→20:21)
[2023-01-23] MEDS: nicotine 4 mg lozenge MUCOUS MEM ×4 (11:36→20:26)
[2023-01-23 14:00] VITALS: BP 98/66; PULSE 75; RESP 18; TEMP 36.6; O2SAT 97
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
--- NOTE | 2023-01-23 16:52 | P.NPUPN_ITS ---
Subjective NPU Subjective: Patient presented today reporting that she is doing okay. She has fairly contentious visit with her mother today and we decompressed some of those issues. We spoke about her not allowing people to draw her out of her situation. As she did with her mother today she talks about the loss of her father and some of the challenges that came with him being gone. We discussed possible plans for some kind of inpatient services after discharge from here and she is somewhat ambivalent about therapy and sharing some of her challenges. She spoke about anger she still holds out her family somewhat pushing her to have an in the past events that happened after that and her feeling like many things have gone on since that decision was made. Mental Status Exam MSE Comments: This is an overweight female in hospital scrubs with appropriate grooming and eye contact. Notable scar starting at the angle of upper and lower lips on the left side angling up. No abnormal movements except for psychomotor retardation. She was cooperative with exam in no acute distress. Speech was more normal rate, rhythm and volume. Mood described as okay except for the pain and anger at her mom. Her affect appeared slightly subdued. Thought process was linear and logical. Thought content: patient endorses no suicidal ideation and no homicidal ideation. There was no evidence of any delusional thinking. She denies any auditory or visual hallucinations. She did not appear to be responding to internal stimuli. Attention was and concentration were intact and memory appeared grossly intact and none were formally tested. She is alert and oriented times three. Insight, judgment and impulse control appear limited versus impaired. Vitals/I&O/Wt Last Vital Signs Temp 98.0 F 01/23/23 06:00 Pulse 79 01/23/23 06:00 Resp 16 01/23/23 06:00 BP 96/64 01/23/23 06:00 Pulse Ox 97 01/23/23 06:00 O2 Del Method 01/22/23 14:00 FiO2 24 01/12/23 13:52 01/22/23 01/23/23 01/23/23 22:59 06:59 14:59 Intake Total 540 / 540 Output Total 4100 / 4100 Balance -3560 / -3560 Physical Exam Urinary Catheter Management: Shultz: Cath Placed During This Visit: yes, but has since been removed by the nurse Reason for Continuing Indwelling Catheter: Accurate Measurement of Urinary Output in Critically Ill Patients Urinary Catheter Date of Insertion: 01/11/23 Urinary Catheter Time of Insertion: 08:58 Date Urinary Catheter Removed: 01/13/23 Time Urinary Catheter Discontinued: 11:30 Data NPU 01/14/23 02:26 01/14/23 02:26 A&P Assessment and plan (1) Bipolar I disorder with depression: (2) Trigeminal neuralgia: (3) Overdose: (4) Tegretol toxicity: Plan Patient is a 37-year-old white female with a history of bipolar disorder with multiple potentially lethal overdoses in the last year now admitted to NPU currently reporting desire to continue medication prescribed despite previous failure with those stated medication to treat bipolar depression. 1. Continued Prozac at 20mg daily and monitor closely for treating depression. Continued Tegretol 200mg bid, Continued klonopin .5mg bid. Added Celebrex for pain. Consider Neurology consult for trigeminal neuralgia treatment. Consider increasing her benzodiazepine to 3 times daily. 2. Continue involuntary hospitalization. 3. Continue individual, group and milieu therapy. 4. Patient placed on involuntary hold, may need residential placement/guardianship. 5. Encourage sober living treatment after discharge at the highest level of care to which she is willing to commit. Involuntary Hold Information 96 Hour Hold: 96 Hour Involuntary Admission: Yes 96 Hour Hold Ending Date: 12/06/22 96 Hour Hold Ending Time: 10:50 Attestations NPU Medical Necessity Statement*: Inpatient hospitalization is medically necessary and the clinically appropriate intervention at this time. We will monitor/initiate medications and make changes as indicated. Likely length of stay 7-11 days. Coding Level of Care Code Acute Code for [facility] Diagnoses Bipolar I disorder with depression F31.9 Trigeminal neuralgia G50.0 Overdose T50.901A Tegretol toxicity T42.1X1A
[2023-01-23 20:06] VITALS: BP 109/73; PULSE 75; RESP 18; TEMP 36.3; O2SAT 98
[2023-01-23] MEDS: topiramate 100 mg Tablet 200 MG PO (20:21)
[2023-01-24] MEDS: nicotine 4 mg lozenge MUCOUS MEM ×6 (02:57→20:05)
[2023-01-24] MEDS: ibuprofen 600 mg Tablet PO ×4 (04:16→23:36)
[2023-01-24 06:00] VITALS: BP 107/70; PULSE 66; RESP 16; TEMP 36.4; O2SAT 100
[2023-01-24] MEDS: topiramate 100 mg Tablet PO (06:03)
[2023-01-24] MEDS: fluoxetine 20 mg Capsule PO (08:43)
[2023-01-24] MEDS: HYDROcodone-acetaminophen 10-325 mg Tablet 1 TAB PO ×2 (08:43→20:06)
[2023-01-24] MEDS: carBAMazepine 200 mg Tablet PO ×2 (08:43→20:06)
[2023-01-24] MEDS: gabapentin 300 mg Capsule 600 MG PO ×3 (08:44→20:06)
[2023-01-24] MEDS: pantoprazole DR 40 mg Tablet PO ×2 (08:44→17:16)
[2023-01-24] MEDS: CLONazepam 0.5 mg Tablet PO ×3 (08:44→20:06)
[2023-01-24] MEDS: OLANZapine 5 mg ODT PO ×2 (11:57→16:17)
--- NOTE | 2023-01-24 12:27 | W.PM.NPUPNS ---
Subjective NPU Subjective: Patient presented today continuing to report a significant amount of anxiety. Will be discussion again about therapy to which she is quite resistant. She also is assisted to the idea of residential treatment for any period of time being clear about her willingness for outpatient services. We discussed that her mother does have guardianship and that she is going to need to have some flexibility that in the attempt to ensure her safety there may be options that are not able to and she would have agreed to. She continues to have a limited conceptualization of her hospital course that her mind is not in discharge as she has been previously to outpatient services. Mental Status Exam MSE Comments: This is an overweight female in hospital scrubs with appropriate grooming and eye contact. Notable scar starting at the angle of upper and lower lips on the left side angling up. No abnormal movements except for mild psychomotor retardation. She was cooperative with exam in mild distress. Speech was more normal rate, rhythm and volume. Mood described as okay except for the pain and anxiety. Her affect appeared slightly subdued. Thought process was linear and logical. Thought content: patient endorses no suicidal ideation and no homicidal ideation. There was no evidence of any delusional thinking. She denies any auditory or visual hallucinations. She did not appear to be responding to internal stimuli. Attention was and concentration were intact and memory appeared grossly intact and none were formally tested. She is alert and oriented times three. Insight, judgment and impulse control appear limited versus impaired. Vitals/I&O/Wt Last Vital Signs Temp 97.5 F L 01/24/23 06:00 Pulse 66 01/24/23 06:00 Resp 16 01/24/23 06:00 BP 107/70 01/24/23 06:00 Pulse Ox 100 01/24/23 06:00 O2 Del Method 01/23/23 14:00 FiO2 24 01/12/23 13:52 Physical Exam Urinary Catheter Management: Shultz: Cath Placed During This Visit: yes, but has since been removed by the nurse Reason for Continuing Indwelling Catheter: Accurate Measurement of Urinary Output in Critically Ill Patients Urinary Catheter Date of Insertion: 01/11/23 Urinary Catheter Time of Insertion: 08:58 Date Urinary Catheter Removed: 01/13/23 Time Urinary Catheter Discontinued: 11:30 Data NPU 01/14/23 02:26 01/14/23 02:26 A&P Assessment and plan (1) Bipolar I disorder with depression: (2) Trigeminal neuralgia: (3) Overdose: (4) Tegretol toxicity: Plan Patient is a 37-year-old white female with a history of bipolar disorder with multiple potentially lethal overdoses in the last year now admitted to NPU currently reporting desire to continue medication prescribed despite previous failure with those stated medication to treat bipolar depression. 1. Continued Prozac at 20mg daily and monitor closely for treating depression. Continued Tegretol 200mg bid, Continued klonopin .5mg bid. Added Celebrex for pain. Consider Neurology consult for trigeminal neuralgia treatment. Increase Klonopin 0.5 mg to 3 times daily. 2. Continue involuntary hospitalization. 3. Continue individual, group and milieu therapy. 4. Patient placed on involuntary hold, may need residential placement/guardianship. 5. Encourage sober living treatment after discharge at the highest level of care to which she is willing to commit. 6. Need to have a family meeting with her guardian to discuss discharge planning Involuntary Hold Information 96 Hour Hold: 96 Hour Involuntary Admission: Yes 96 Hour Hold Ending Date: 12/06/22 96 Hour Hold Ending Time: 10:50 Attestations NPU Medical Necessity Statement*: Inpatient hospitalization is medically necessary and the clinically appropriate intervention at this time. We will monitor/initiate medications and make changes as indicated. Likely length of stay 6-10 days. Coding Level of Care Code Acute Code for [facility] Diagnoses Bipolar I disorder with depression F31.9 Trigeminal neuralgia G50.0 Overdose T50.901A Tegretol toxicity T42.1X1A
[2023-01-24 14:00] VITALS: BP 91/58; PULSE 69; RESP 17; TEMP 36.6; O2SAT 98
[2023-01-24] MEDS: acetaminophen 325 mg Tablet 650 MG PO ×2 (14:08→21:02)
[2023-01-24] MEDS: topiramate 100 mg Tablet 200 MG PO (20:05)
[2023-01-24 20:12] VITALS: BP 109/76; PULSE 77; RESP 18; TEMP 36.8; O2SAT 96
[2023-01-25] MEDS: OLANZapine 5 mg ODT PO ×3 (01:57→23:31)
[2023-01-25] MEDS: acetaminophen 325 mg Tablet 650 MG PO ×2 (02:01→12:17)
[2023-01-25] MEDS: nicotine 4 mg lozenge MUCOUS MEM ×7 (04:24→21:00)
[2023-01-25 05:34] VITALS: BP 106/72; PULSE 76; RESP 17; TEMP 36.7; O2SAT 98
[2023-01-25] MEDS: ibuprofen 600 mg Tablet PO ×3 (06:10→23:31)
[2023-01-25] MEDS: topiramate 100 mg Tablet PO (06:10)
[2023-01-25] MEDS: pantoprazole DR 40 mg Tablet PO ×2 (08:59→17:29)
[2023-01-25] MEDS: gabapentin 300 mg Capsule 600 MG PO ×3 (08:59→20:13)
[2023-01-25] MEDS: fluoxetine 20 mg Capsule PO (08:59)
[2023-01-25] MEDS: carBAMazepine 200 mg Tablet PO ×2 (09:00→20:13)
[2023-01-25] MEDS: HYDROcodone-acetaminophen 10-325 mg Tablet 1 TAB PO ×2 (09:00→20:14)
[2023-01-25] MEDS: CLONazepam 0.5 mg Tablet PO ×3 (09:00→20:13)
[2023-01-25 13:13] LABS: Glucose Point of Care 81 mg/dL (70-110)
[2023-01-25 14:00] VITALS: BP 110/70; PULSE 95; RESP 16; TEMP 36.6; O2SAT 99
--- NOTE | 2023-01-25 15:55 | P.NPUPN_ITS ---
Subjective NPU Subjective: Patient is in today reporting frustration in her situation. We discussed her having to come to some level of acceptance surrounding her mother's guardianship. We discussed again having a family meeting and discussing her mother's vision as a guardian, the patient's desires and with treatment related. We continue to discuss the greatest concern being how to make sure there is not another suicide attempt right around the corner. She seems to miss this point as she talks about going home and resuming her studies and work. Mental Status Exam MSE Comments: This is an overweight female in hospital scrubs with appropriate grooming and eye contact. Notable scar starting at the angle of upper and lower lips on the left side angling up. No abnormal movements except for mild psychomotor retardation. She was cooperative with exam in mild distress. Speech was more normal rate, rhythm and volume. Mood described as okay except for the pain with less anxiety. Her affect appeared slightly subdued. Thought process was linear and logical. Thought content: patient endorses no suicidal ideation and no homicidal ideation. There was no evidence of any delusional thinking. She denies any auditory or visual hallucinations. She did not appear to be responding to internal stimuli. Attention was and concentration were intact and memory appeared grossly intact and none were formally tested. She is alert and oriented times three. Insight, judgment and impulse control appear limited versus impaired. Vitals/I&O/Wt Last Vital Signs Temp 97.8 F 01/25/23 14:00 Pulse 95 01/25/23 14:00 Resp 16 01/25/23 14:00 BP 110/70 01/25/23 14:00 Pulse Ox 99 01/25/23 14:00 O2 Del Method 01/25/23 14:00 FiO2 24 01/12/23 13:52 01/25/23 01/25/23 01/26/23 14:59 22:59 06:59 Intake Total Output Total Balance Physical Exam Urinary Catheter Management: Shultz: Cath Placed During This Visit: yes, but has since been removed by the nurse Reason for Continuing Indwelling Catheter: Accurate Measurement of Urinary Ou tput in Critically Ill Patients Urinary Catheter Date of Insertion: 01/11/23 Urinary Catheter Time of Insertion: 08:58 Date Urinary Catheter Removed: 01/13/23 Time Urinary Catheter Discontinued: 11:30 Data NPU 01/14/23 02:26 01/14/23 02:26 A&P Assessment and plan (1) Bipolar I disorder with depression: (2) Trigeminal neuralgia: (3) Overdose: (4) Tegretol toxicity: Plan Patient is a 37-year-old white female with a history of bipolar disorder with multiple potentially lethal overdoses in the last year now admitted to NPU currently reporting desire to continue medication prescribed despite previous failure with those stated medication to treat bipolar depression. 1. Continued Prozac at 20mg daily and monitor closely for treating depression. Continued Tegretol 200mg bid, Continued klonopin .5mg bid. Added Celebrex for pain. Consider Neurology consult for trigeminal neuralgia treatment. Increase Klonopin 0.5 mg to 3 times daily. Restart Wellbutrin XL 150 mg p.o. every morning. Increase Tegretol to 300 mg p.o. twice daily. 2. Continue involuntary hospitalization. 3. Continue individual, group and milieu therapy. 4. Patient placed on involuntary hold, may need residential placement/guardians hip. 5. Encourage sober living treatment after discharge at the highest level of care to which she is willing to commit. 6. Need to have a family meeting with her guardian to discuss discharge plan magaly Involuntary Hold Information 96 Hour Hold: 96 Hour Involuntary Admission: Yes 96 Hour Hold Ending Date: 12/06/22 96 Hour Hold Ending Time: 10:50 Attestations NPU Medical Necessity Statement*: Inpatient hospitalization is medically necessary and the clinically appropriate intervention at this time. We will monitor/initiate medications and make changes as indicated. Likely length of stay 6-10 days. Coding Level of Care Code Acute Code for [facility] Diagnoses Bipolar I disorder with depression F31.9 Trigeminal neuralgia G50.0 Overdose T50.901A Tegretol toxicity T42.1X1A
[2023-01-25] MEDS: topiramate 100 mg Tablet 200 MG PO (20:14)
[2023-01-25 20:24] VITALS: BP 106/72; PULSE 77; RESP 18; TEMP 36.6; O2SAT 95
[2023-01-26] MEDS: acetaminophen 325 mg Tablet 650 MG PO (03:20)
[2023-01-26] MEDS: nicotine 4 mg lozenge MUCOUS MEM ×6 (03:24→21:06)
[2023-01-26 06:00] VITALS: BP 113/76; PULSE 69; RESP 16; TEMP 37; O2SAT 98
[2023-01-26] MEDS: ibuprofen 600 mg Tablet PO ×2 (06:07→14:47)
[2023-01-26] MEDS: topiramate 100 mg Tablet PO (06:08)
--- NOTE | 2023-01-26 08:04 | P.NPUPN_ITS ---
Subjective NPU Subjective: Patient presented today reporting that she is frustrated with being here now. She seems to have limited insight into why we might have significant concerns about her being discharged. We discussed these recent suicide attempts and that her idea that just going home without any intervening programming is somewhat unreasonable. Her expectation for us to just know now that she is not going to attempt to kill herself again has no factual basis. We once again discussed having a meeting so that her guardian, her and the treatment team to make sure we are on the same page. Mental Status Exam MSE Comments: This is an overweight female in hospital scrubs with appropriate grooming and eye contact. Notable scar starting at the angle of upper and lower lips on the left side angling up. No abnormal movements except for mild psychomotor retardation. She was cooperative with exam in mild distress. Speech was more normal rate, rhythm and volume. Mood described as okay I just want to go home.. Her affect appeared slightly subdued. Thought process was linear and logical. Thought content: patient endorses no suicidal ideation and no homicidal ideation. There was no evidence of any delusional thinking. She denies any auditory or visual hallucinations. She did not appear to be responding to internal stimuli. Attention was and concentration were intact and memory appeared grossly intact and none were formally tested. She is alert and oriented times three. Insight, judgment and impulse control appear limited versus impaired. Vitals/I&O/Wt Last Vital Signs Temp 98.6 F 01/26/23 06:00 Pulse 69 01/26/23 06:00 Resp 16 01/26/23 06:00 BP 113/76 01/26/23 06:00 Pulse Ox 98 01/26/23 06:00 O2 Del Method 01/26/23 06:00 FiO2 24 01/12/23 13:52 01/25/23 01/26/23 01/26/23 22:59 06:59 14:59 Intake Total 400 / 400 Output Total 4100 / 4100 Balance -3700 / -3700 Physical Exam 2 Urinary Catheter Management: Shultz: Cath Placed During This Visit: yes, but has since been removed by the nurse Reason for Continuing Indwelling Catheter: Accurate Measurement of Urinary Output in Critically Ill Patients Urinary Catheter Date of Insertion: 01/11/23 Urinary Catheter Time of Insertion: 08:58 Date Urinary Catheter Removed: 01/13/23 Time Urinary Catheter Discontinued: 11:30 Data NPU 02/17/23 02:26 01/14/23 02:26 A&P Assessment and plan (1) Bipolar I disorder with depression: (2) Trigeminal neuralgia: (3) Overdose: (4) Tegretol toxicity: Plan Patient is a 37-year-old white female with a history of bipolar disorder with multiple potentially lethal overdoses in the last year now admitted to NPU currently reporting desire to continue medication prescribed despite previous failure with those stated medication to treat bipolar depression. 1. Continued Prozac at 20mg daily and monitor closely for treating depression. Continued Tegretol 200mg bid, Continued klonopin .5mg bid. Added Celebrex for pain. Consider Neurology consult for trigeminal neuralgia treatment. Increase Klonopin 0.5 mg to 3 times daily. Restarted Wellbutrin XL 150 mg p.o. every morning. Increased Tegretol to 300 mg p.o. twice daily. 2. Continue involuntary hospitalization. 3. Continue individual, group and milieu therapy. 4. Patient placed on involuntary hold, may need residential placement/guardianship. 5. Encourage sober living treatment after discharge at the highest level of care to which she is willing to commit. 6. Need to have a family meeting with her guardian to discuss discharge planning Involuntary Hold Information 96 Hour Hold: 96 Hour Involuntary Admission: Yes 96 Hour Hold Ending Date: 12/06/22 96 Hour Hold Ending Time: 10:50 Attestations NPU Medical Necessity Statement*: Inpatient hospitalization is medically necessary and the clinically appropriate intervention at this time. We will monitor/initiate medications and make changes as indicated. Likely length of stay 6-10 days. Coding Level of Care Code Acute Code for [facility] Diagnoses Bipolar I disorder with depression F31.9 Trigeminal neuralgia G50.0 Overdose T50.901A Tegretol toxicity T42.1X1A
[2023-01-26] MEDS: fluoxetine 20 mg Capsule PO (09:04)
[2023-01-26] MEDS: HYDROcodone-acetaminophen 10-325 mg Tablet 1 TAB PO ×2 (09:04→21:04)
[2023-01-26] MEDS: CLONazepam 0.5 mg Tablet PO ×3 (09:05→21:04)
[2023-01-26] MEDS: gabapentin 300 mg Capsule 600 MG PO ×3 (09:05→21:04)
[2023-01-26] MEDS: pantoprazole DR 40 mg Tablet PO ×2 (09:05→17:53)
[2023-01-26] MEDS: carBAMazepine 200 mg Tablet PO (09:05)
--- NOTE | 2023-01-26 10:27 | PC.NURSE ---
IN ROOM DENIES SI/HI AND AVH AT THIS TIME. PT IS COOPERATIVE, REQUESTING PAIN MEDICATION FOR BACK. LAST BM 01/25/23
[2023-01-26] MEDS: buPROPion XL (24 HR) 150 mg Tablet PO (11:53)
[2023-01-26 12:02] LABS: Glucose Point of Care 92 mg/dL (70-110)
[2023-01-26 14:00] VITALS: BP 106/61; PULSE 71; RESP 16; TEMP 36.6; O2SAT 98
[2023-01-26] MEDS: OLANZapine 5 mg ODT PO (15:00)
--- NOTE | 2023-01-26 16:52 | PC.NURSE ---
PT REQUESTED ZYPREXA 5 MG FOR MODERATE ANXIETY AND RESTLESSNESS. PT VOICED RELIEF OF SYMPTOMS. NO FURTHER INTERVENTION WAS REQUIRED.
[2023-01-26] MEDS: carBAMazepine 200 mg Tablet 300 MG PO (21:02)
[2023-01-26] MEDS: topiramate 100 mg Tablet 200 MG PO (21:05)
[2023-01-26 21:13] VITALS: BP 106/63; PULSE 102; RESP 17; TEMP 36.8; O2SAT 96
[2023-01-27] MEDS: ibuprofen 600 mg Tablet PO ×2 (01:42→14:09)
[2023-01-27] MEDS: nicotine 4 mg lozenge MUCOUS MEM ×7 (01:42→21:39)
[2023-01-27] MEDS: OLANZapine 5 mg ODT PO ×2 (02:22→15:56)
[2023-01-27] MEDS: topiramate 100 mg Tablet PO (05:37)
[2023-01-27 06:00] VITALS: BP 107/72; PULSE 75; RESP 16; TEMP 36.7; O2SAT 96
[2023-01-27] MEDS: acetaminophen 325 mg Tablet 650 MG PO ×2 (06:24→18:37)
[2023-01-27] MEDS: buPROPion XL (24 HR) 150 mg Tablet PO (09:31)
[2023-01-27] MEDS: gabapentin 300 mg Capsule 600 MG PO ×3 (09:31→21:29)
[2023-01-27] MEDS: CLONazepam 0.5 mg Tablet PO ×3 (09:32→21:30)
[2023-01-27] MEDS: pantoprazole DR 40 mg Tablet PO ×2 (09:32→17:50)
[2023-01-27] MEDS: HYDROcodone-acetaminophen 10-325 mg Tablet 1 TAB PO ×2 (09:32→21:30)
[2023-01-27] MEDS: fluoxetine 20 mg Capsule PO (09:32)
[2023-01-27] MEDS: carBAMazepine 200 mg Tablet 300 MG PO ×2 (09:33→21:30)
[2023-01-27 14:00] VITALS: BP 114/75; PULSE 82; RESP 16; TEMP 36.7; O2SAT 100
--- NOTE | 2023-01-27 16:32 | P.NPUPN_ITS ---
Subjective NPU Subjective: Patient presented today reporting that she wants to go home. She endorsed frustration surrounding still being here and not being able to go home. We discussed the issues surrounding concerns for suicidality and a plan to have a meeting with her mother tomorrow so that we can create a clear plan moving forward. She denies any new issues. Mental Status Exam MSE Comments: This is an overweight female in hospital scrubs with appropriate grooming and eye contact. Notable scar starting at the angle of upper and lower lips on the left side angling up. No abnormal movements except for mild psycho motor retardation. She was cooperative with exam in mild distress. Speech was more normal rate, rhythm and volume. Mood described as frustrated I just want to go home. Her affect appeared slightly subdued. Thought process was linear and logical. Thought content: patient endorses no suicidal ideation and no homicidal ideation. There was no evidence of any delusional thinking. She denies any auditory or visual hallucinations. She did not appear to be responding to internal stimuli. Attention was and concentration were intact and memory appeared grossly intact and none were formally tested. She is alert and oriented times three. Insight, judgment and impulse control appear limited vers us impaired. Vitals/I&O/Wt Last Vital Signs Temp 98.0 F 01/27/23 14:00 Pulse 82 01/27/23 14:00 Resp 16 01/27/23 14:00 BP 114/75 01/27/23 14:00 Pulse Ox 100 01/27/23 14:00 O2 Del Method 01/27/23 14:00 FiO2 24 01/12/23 13:52 01/27/23 01/27/23 01/27/23 06:59 14:59 22:59 Intake Total 400 / 400 Output Total 4100 / 4100 Balance -3700 / -3700 Physical Exam Urinary Catheter Management: Shultz: Cath Placed During This Visit: yes, but has since been removed by the nurse Reason for Continuing Indwelling Catheter: Accurate Measurement of Urinary Output in Critically Ill Patients Urinary Catheter Date of Insertion: 01/11/23 Urinary Catheter Time of Insertion: 08:58 Date Urinary Catheter Removed: 01/13/23 Time Urinary Catheter Discontinued: 11:30 Data NPU 01/14/23 02:26 01/14/23 02:26 A&P Assessment and plan (1) Bipolar I disorder with depression: (2) Trigeminal neuralgia: (3) Overdose: (4) Tegretol toxicity: Plan Patient is a 37-year-old white female with a history of bipolar disorder with multiple potentially lethal overdoses in the last year now admitted to NPU currently reporting desire to continue medication prescribed despite previous failure with those stated medication to treat bipolar depression. 1. Continued Prozac at 20mg daily and monitor closely for treating depression. Continued Tegretol 200mg bid, Continued klonopin .5mg bid. Added Celebrex for pain. Consider Neurology consult for trigeminal neuralgia treatment. Increase Klonopin 0.5 mg to 3 times daily. Restarted Wellbutrin XL 150 mg p.o. every morning. Increased Tegretol to 300 mg p.o. twice daily. 2. Continue involuntary hospitalization. 3. Continue individual, group and milieu therapy. 4. Patient placed on involuntary hold, may need residential placement/guardianship. 5. Encourage sober living treatment after discharge at the highest level of care to which she is willing to commit. 6. Need to have a family meeting with her guardian to discuss discharge planning Involuntary Hold Information 96 Hour Hold: 96 Hour Involuntary Admission: Yes 96 Hour Hold Ending Date: 12/06/22 96 Hour Hold Ending Time: 10:50 Attestations NPU Medical Necessity Statement*: Inpatient hospitalization is medically necessary and the clinically appropriate intervention at this time. We will m onitor/initiate medications and make changes as indicated. Likely length of stay 5-9 days. Coding Level of Care Code Acute Code for [facility] Diagnoses Bipolar I disorder with depression F31.9 Trigeminal neuralgia G50.0 Overdose T50.901A Tegretol toxicity T42.1X1A
[2023-01-27] MEDS: topiramate 100 mg Tablet 200 MG PO (21:30)
[2023-01-27 22:00] VITALS: BP 112/76; PULSE 72; RESP 17; TEMP 37; O2SAT 99
[2023-01-28] MEDS: ibuprofen 600 mg Tablet PO ×2 (03:49→15:26)
[2023-01-28] MEDS: nicotine 4 mg lozenge MUCOUS MEM ×7 (03:49→21:26)
[2023-01-28 06:00] VITALS: BP 115/77; PULSE 65; RESP 17; TEMP 36.6; O2SAT 98
[2023-01-28] MEDS: acetaminophen 325 mg Tablet 650 MG PO (06:14)
[2023-01-28] MEDS: carBAMazepine 200 mg Tablet 300 MG PO ×2 (09:43→21:19)
[2023-01-28] MEDS: fluoxetine 20 mg Capsule PO (09:43)
[2023-01-28] MEDS: gabapentin 300 mg Capsule 600 MG PO ×3 (09:43→21:20)
[2023-01-28] MEDS: pantoprazole DR 40 mg Tablet PO ×2 (09:44→17:01)
[2023-01-28] MEDS: topiramate 100 mg Tablet 200 MG PO (09:44)
[2023-01-28] MEDS: buPROPion XL (24 HR) 150 mg Tablet PO (09:44)
[2023-01-28] MEDS: CLONazepam 0.5 mg Tablet PO ×3 (09:45→23:22)
[2023-01-28] MEDS: HYDROcodone-acetaminophen 10-325 mg Tablet 1 TAB PO ×2 (09:49→21:23)
[2023-01-28] MEDS: topiramate 100 mg Tablet PO (10:28)
--- NOTE | 2023-01-28 11:16 | W.PM.NPUPNS ---
Subjective NPU Subjective: Patient presented today reporting that she is doing fine. We discussed the plans for the family meeting/guardianship meeting this afternoon so we can get a clear plan about where to go from here and what everyone's expectations are. She agreed to the meeting but seem to preemptively frustrated. We discussed her having a lot of baggage in relation to her mother that would be great elements to engage in in her therapy. She continues to talk about being discharged and doing outpatient services. She denies any new issues we discussed the risk benefits and alternatives of increasing the Wellbutrin XL to 300 mg and she understood and agreed to proceed as is documented in this note. Mental Status Exam MSE Comments: This is an overweight female in hospital scrubs with appropriate grooming and eye contact. Notable scar starting at the angle of upper and lower lips on the left side angling up. No abnormal movements except for mild psychomotor retardation. She was cooperative with exam in mild distress. Speech was more normal rate, rhythm and volume. Mood described as frustrated I just want to go home. Her affect appeared slightly irritated. Thought process was linear and logical. Thought content: patient endorses no suicidal ideation and no homicidal ideation. There was no evidence of any delusional thinking. She denies any auditory or visual hallucinations. She did not appear to be responding to internal stimuli. Attention was and concentration were intact and memory appeared grossly intact and none were formally tested. She is alert and oriented times three. Insight, judgment and impulse control appear limited versus impaired. Vitals/I&O/Wt Last Vital Signs Temp 97.9 F 01/28/23 06:00 Pulse 65 01/28/23 06:00 Resp 17 01/28/23 06:00 BP 115/77 01/28/23 06:00 Pulse Ox 98 01/28/23 06:00 O2 Del Method 01/28/23 06:00 FiO2 24 01/12/23 13:52 Physical Exam Urinary Catheter Management: Shultz: Cath Placed During This Visit: yes, but has since been removed by the nurse Reason for Continuing Indwelling Catheter: Accurate Measurement of Urinary Output in Critically Ill Patients Urinary Catheter Date of Insertion: 01/11/23 Urinary Catheter Time of Insertion: 08:58 Date Urinary Catheter Removed: 01/13/23 Time Urinary Catheter Discontinued: 11:30 Data NPU 01/14/23 02:26 01/14/23 02:26 A&P Assessment and plan (1) Bipolar I disorder with depression: (2) Trigeminal neuralgia: (3) Overdose: (4) Tegretol toxicity: Plan Patient is a 37-year-old white female with a history of bipolar disorder with multiple potentially lethal overdoses in the last year now admitted to NPU currently reporting desire to continue medication prescribed despite previous failure with those stated medication to treat bipolar depression. 1. Continued Prozac at 20mg daily and monitor closely for treating depression. Continued Tegretol 200mg bid, Continued klonopin .5mg bid. Added Celebrex for pain. Consider Neurology consult for trigeminal neuralgia treatment. Increase Klonopin 0.5 mg to 3 times daily. Restarted Wellbutrin XL 150 mg p.o. every morning. Increase Wellbutrin XL to 300 mg p.o. q. morning. Increased Tegretol to 300 mg p.o. twice daily. 2. Continue involuntary hospitalization. 3. Continue individual, group and milieu therapy. 4. Patient placed on involuntary hold, may need residential placement/guardianship. 5. Encourage sober living treatment after discharge at the highest level of care to which she is willing to commit. 6. Need to have a family meeting with her guardian to discuss discharge planning Involuntary Hold Information 96 Hour Hold: 96 Hour Involuntary Admission: Yes 96 Hour Hold Ending Date: 12/06/22 96 Hour Hold Ending Time: 10:50 Attestations NPU Medical Necessity Statement*: Inpatient hospitalization is medically necessary and the clinically appropriate intervention at this time. We will monitor/initiate medications and make changes as indicated. Likely length of stay 5-9 days. Coding Level of Care Code Acute Code for [facility] Diagnoses Bipolar I disorder with depression F31.9 Trigeminal neuralgia G50.0 Overdose T50.901A Tegretol toxicity T42.1X1A
[2023-01-28 14:00] VITALS: BP 105/68; PULSE 89; RESP 20; TEMP 36.4; O2SAT 98
[2023-01-28 20:39] VITALS: BP 112/78; PULSE 71; RESP 18; TEMP 37; O2SAT 99
[2023-01-29] MEDS: nicotine 4 mg lozenge MUCOUS MEM ×4 (04:35→14:25)
[2023-01-29] MEDS: ibuprofen 600 mg Tablet PO ×3 (04:35→18:12)
[2023-01-29 06:00] VITALS: BP 128/75; PULSE 81; RESP 18; TEMP 36.8; O2SAT 98
[2023-01-29] MEDS: acetaminophen 325 mg Tablet 650 MG PO ×3 (06:52→20:33)
[2023-01-29] MEDS: carBAMazepine 200 mg Tablet 300 MG PO ×2 (08:19→19:41)
[2023-01-29] MEDS: topiramate 100 mg Tablet 200 MG PO ×2 (08:20→19:52)
[2023-01-29] MEDS: CLONazepam 0.5 mg Tablet PO ×3 (08:20→19:41)
[2023-01-29] MEDS: HYDROcodone-acetaminophen 10-325 mg Tablet 1 TAB PO ×2 (08:20→19:40)
[2023-01-29] MEDS: pantoprazole DR 40 mg Tablet PO ×2 (08:21→17:50)
[2023-01-29] MEDS: buPROPion XL (24 HR) 150 mg Tablet PO ×2 (08:21→09:57)
[2023-01-29] MEDS: fluoxetine 20 mg Capsule PO (08:21)
--- NOTE | 2023-01-29 09:39 | PC.NURSE ---
Patient refused 0900 Gabapentin 600mg. This nurse attempted several times to encourage pt. to take to assist with pain. Pt. cont. refused. is aware.
[2023-01-29] MEDS: topiramate 100 mg Tablet PO (09:59)
--- NOTE | 2023-01-29 10:19 | W.PM.NPUPNS ---
Subjective NPU Subjective: Patient presented today reporting that she is feeling crappy. We discussed this being in relation to her conversation with her mother yesterday. She continues to have frustration in relation to her relationship with her mother. We discussed how importance of her making decisions and focusing on what in her best interest and not getting caught up in her mother and her feud. We continued to discuss concerns about her weight gain. We talked about possibly exploring metformin given she also reports a history of PCOS. Mental Status Exam MSE Comments: This is an overweight female in hospital scrubs with appropriate grooming and eye contact. Notable scar starting at the angle of upper and lower lips on the left side angling up. No abnormal movements except for mild psychomotor retardation. She was cooperative with exam in mild distress. Speech was more normal rate, rhythm and volume. Mood described as frustrated I just want to go home. Her affect appeared slightly irritated. Thought process was linear and logical. Thought content: patient endorses no suicidal ideation and no homicidal ideation. There was no evidence of any delusional thinking. She denies any auditory or visual hallucinations. She did not appear to be responding to internal stimuli. Attention was and concentration were intact and memory appeared grossly intact and none were formally tested. She is alert and oriented times three. Insight, judgment and impulse control appear limited versus impaired. Vitals/I&O/Wt Last Vital Signs Temp 98.3 F 01/29/23 06:00 Pulse 81 01/29/23 06:00 Resp 18 01/29/23 06:00 BP 128/75 01/29/23 06:00 Pulse Ox 98 01/29/23 06:00 O2 Del Method 01/28/23 06:00 FiO2 24 01/12/23 13:52 01/28/23 01/29/23 01/29/23 22:59 06:59 14:59 Intake Total 400 / 400 Output Total 4100 / 4100 Balance -3700 / -3700 Physical Exam Urinary Catheter Management: Shultz: Cath Placed During This Visit: yes, but has since been removed by the nurse Reason for Continuing Indwelling Catheter: Accurate Measurement of Urinary Output in Critically Ill Patients Urinary Catheter Date of Insertion: 01/11/23 Urinary Catheter Time of Insertion: 08:58 Date Urinary Catheter Removed: 01/13/23 Time Urinary Catheter Discontinued: 11:30 Data NPU 01/14/23 02:26 01/14/23 02:26 A&P Assessment and plan (1) Bipolar I disorder with depression: (2) Trigeminal neuralgia: (3) Overdose: (4) Tegretol toxicity: Plan Patient is a 37-year-old white female with a history of bipolar disorder with multiple potentially lethal overdoses in the last year now admitted to NPU currently reporting desire to continue medication prescribed despite previous failure with those stated medication to treat bipolar depression. 1. Continued Prozac at 20mg daily and monitor closely for treating depression. Continued Tegretol 200mg bid, Continued klonopin .5mg bid. Added Celebrex for pain. Consider Neurology consult for trigeminal neuralgia treatment. Increase Klonopin 0.5 mg to 3 times daily. Restarted Wellbutrin XL 150 mg p.o. every morning. Increased Wellbutrin XL to 300 mg p.o. q. morning. Increased Tegretol to 300 mg p.o. twice daily. 2. Continue involuntary hospitalization. 3. Continue individual, group and milieu therapy. 4. Patient placed on involuntary hold, may need residential placement/guardianship. 5. Encourage sober living treatment after discharge at the highest level of care to which she is willing to commit. 6. Need to have a family meeting with her guardian to discuss discharge planning Involuntary Hold Information 96 Hour Hold: 96 Hour Involuntary Admission: Yes 96 Hour Hold Ending Date: 12/06/22 96 Hour Hold Ending Time: 10:50 Attestations NPU Medical Necessity Statement*: Inpatient hospitalization is medically necessary and the clinically appropriate intervention at this time. We will monitor/initiate medications and make changes as indicated. Likely length of stay 4-8 days. Coding Level of Care Code Acute Code for [facility] Diagnoses Bipolar I disorder with depression F31.9 Trigeminal neuralgia G50.0 Overdose T50.901A Tegretol toxicity T42.1X1A
[2023-01-29 14:00] VITALS: BP 117/81; PULSE 71; RESP 16; TEMP 36.6; O2SAT 95
[2023-01-29] MEDS: gabapentin 300 mg Capsule 600 MG PO (19:40)
[2023-01-29 20:28] VITALS: BP 121/76; PULSE 85; TEMP 36.6; O2SAT 99
[2023-01-29] MEDS: OLANZapine 5 mg ODT PO (20:39)
[2023-01-30] MEDS: OLANZapine 5 mg ODT PO ×2 (01:40→09:14)
[2023-01-30] MEDS: ibuprofen 600 mg Tablet PO ×2 (03:41→11:53)
[2023-01-30] MEDS: nicotine 4 mg lozenge MUCOUS MEM ×7 (03:54→21:01)
[2023-01-30 05:55] VITALS: BP 107/71; PULSE 74; TEMP 36.7; O2SAT 100
[2023-01-30] MEDS: acetaminophen 325 mg Tablet 650 MG PO ×2 (07:56→16:21)
[2023-01-30] MEDS: gabapentin 300 mg Capsule 600 MG PO ×3 (08:50→20:15)
[2023-01-30] MEDS: buPROPion XL (24 HR) 300 mg Tablet PO (08:50)
[2023-01-30] MEDS: HYDROcodone-acetaminophen 10-325 mg Tablet 1 TAB PO ×2 (08:51→20:15)
[2023-01-30] MEDS: CLONazepam 0.5 mg Tablet PO ×3 (08:51→20:15)
[2023-01-30] MEDS: pantoprazole DR 40 mg Tablet PO ×2 (08:51→17:33)
[2023-01-30] MEDS: topiramate 100 mg Tablet PO (08:51)
[2023-01-30] MEDS: fluoxetine 20 mg Capsule PO (08:51)
[2023-01-30] MEDS: carBAMazepine 200 mg Tablet 300 MG PO ×2 (08:51→20:17)
--- NOTE | 2023-01-30 09:10 | PC.NURSE ---
Pt came to nurses station asking for something for agitation. Pt appeared distressed; said her trigeminal issue was intense and it was causing her intense anxiety. Medicated with zyprexa.
--- NOTE | 2023-01-30 10:30 | PC.NURSE ---
Pt up and about; appears much more relaxed. Said medication was helpful.
[2023-01-30 14:00] VITALS: BP 114/75; PULSE 70; RESP 16; TEMP 36.7; O2SAT 100
--- NOTE | 2023-01-30 15:45 | P.NPUPN_ITS ---
Subjective NPU Subjective: Patient presented today reporting being in a better mood than yesterday. She was able to truly converse about this program her mother/guardian introduced. She does acknowledge a continued desire to return home but at least expressed openness to have a conversation and start looking at things from standpoint of better self and avoiding a repeat of the suicide attempts. Mental Status Exam MSE Comments: This is an overweight female in hospital scrubs with appropriate grooming and eye contact. Notable scar starting at the angle of upper and lower lips on the left side angling up. No abnormal movements except for mild psychomotor retardation. She was cooperative with exam in no acute distress. Speech was more normal rate, rhythm and volume. Mood described as I am feeling better about the meeting. Her affect appeared congruent. Thought process was linear and logical. Thought content: patient endorses no suicidal ideation and no homicidal ideation. There was no evidence of any delusional thinking. She denies any auditory or visual hallucinations. She did not appear to be respond ing to internal stimuli. Attention was and concentration were intact and memory appeared grossly intact and none were formally tested. She is alert and oriented times three. Insight, judgment and impulse control appear limited, but improving. Vitals/I&O/Wt Last Vital Signs Temp 98.1 F 01/30/23 20:35 Pulse 71 01/30/23 20:35 Resp 16 01/30/23 20:35 BP 119/79 01/30/23 20:35 Pulse Ox 100 01/30/23 20:35 O2 Del Method 01/30/23 20:35 FiO2 24 01/12/23 13:52 Weight last 48 hrs Weight 77.621 kg Physical Exam Urinary Catheter Management: Shultz: Cath Placed During This Visit: yes, but has since been removed by the nurse Reason for Continuing Indwelling Catheter: Accurate Measurement of Urinary Output in Critically Ill Patients Urinary Catheter Date of Insertion: 01/11/23 Urinary Catheter Time of Insertion: 08:58 Date Urinary Catheter Removed: 01/13/23 Time Urinary Catheter Discontinued: 11:30 Data NPU 01/14/23 02:26 01/14/23 02:26 A&P Assessment and plan (1) Bipolar I disorder with depression: (2) Trigeminal neuralgia: (3) Overdose: (4) Tegretol toxicity: Plan Patient is a 37-year-old white female with a history of bipolar disorder with multiple potentially lethal overdoses in the last year now admitted to NPU currently reporting desire to continue medication prescribed despite previous failure with those stated medication to treat bipolar depression. 1. Continued Prozac at 20mg daily and monitor closely for treating depression. Continued Tegretol 200mg bid, Continued klonopin .5mg bid. Added Celebrex for pain. Consider Neurology consult for trigeminal neuralgia treatment. Increase Klonopin 0.5 mg to 3 times daily. Restarted Wellbutrin XL 150 mg p.o. every morning. Increased Wellbutrin XL to 300 mg p.o. q. morning. Increased Tegretol to 300 mg p.o. twice daily. 2. Continue involuntary hospitalization. 3. Continue individual, group and milieu therapy. 4. Patient placed on involuntary hold, may need residential placement/guardianship. 5. Encourage sober living treatment after discharge at the highest level of care to which she is willing to commit. 6. Need to have a family meeting with her guardian to discuss discharge planning Involuntary Hold Information 96 Hour Hold: 96 Hour Involuntary Admission: Yes 96 Hour Hold Ending Date: 12/06/22 96 Hour Hold Ending Time: 10:50 Attestations NPU Medical Necessity Statement*: Inpatient hospitalization is medically necessary and the clinically appropriate intervention at this time. We will monitor/initiate medications and make changes as indicated. Likely length of s matheus 3-7 days. Coding Level of Care Code Acute Code for [facility] Diagnoses Bipolar I disorder with depression F31.9 Trigeminal neuralgia G50.0 Overdose T50.901A Tegretol toxicity T42.1X1A
[2023-01-30] MEDS: topiramate 100 mg Tablet 200 MG PO (20:15)
[2023-01-30 20:35] VITALS: BP 119/79; PULSE 71; RESP 16; TEMP 36.7; O2SAT 100
[2023-01-31] MEDS: ibuprofen 600 mg Tablet PO ×2 (03:21→14:37)
[2023-01-31] MEDS: nicotine 4 mg lozenge MUCOUS MEM ×6 (05:17→20:28)
[2023-01-31] MEDS: acetaminophen 325 mg Tablet 650 MG PO ×2 (05:57→16:57)
[2023-01-31 06:00] VITALS: BP 121/73; PULSE 79; RESP 20; TEMP 36.4; O2SAT 99
[2023-01-31] MEDS: topiramate 100 mg Tablet PO (08:48)
[2023-01-31] MEDS: carBAMazepine 200 mg Tablet 300 MG PO ×2 (08:48→19:55)
[2023-01-31] MEDS: buPROPion XL (24 HR) 300 mg Tablet PO (08:48)
[2023-01-31] MEDS: fluoxetine 20 mg Capsule PO (08:49)
[2023-01-31] MEDS: HYDROcodone-acetaminophen 10-325 mg Tablet 1 TAB PO ×2 (08:50→19:55)
[2023-01-31] MEDS: gabapentin 300 mg Capsule 600 MG PO ×3 (08:50→19:55)
[2023-01-31] MEDS: CLONazepam 0.5 mg Tablet PO ×3 (08:50→19:55)
[2023-01-31] MEDS: pantoprazole DR 40 mg Tablet PO ×2 (08:50→17:40)
[2023-01-31] MEDS: OLANZapine 5 mg ODT PO ×2 (12:38→17:10)
[2023-01-31 14:00] VITALS: BP 108/75; PULSE 69; RESP 18; TEMP 36.6; O2SAT 97
--- NOTE | 2023-01-31 17:10 | PC.NURSE ---
Pt came to nurses station asking for something for anxiety/agitation. Said it was because of her mother and her brother. Pt refused to elaborate what the issues were and refused suggestion she journal about what she was feeling. Pt reminded it was very important for her to try to address the issues and not just rely on medications. Pt was not receptive to this. Pt was medicated as requested.
--- NOTE | 2023-01-31 18:58 | W.PM.NPUPNS ---
Subjective NPU Subjective: Patient presented today reporting a up-and-down day. She reports some unsettling conversations with her mother who is her guardian as well as her brother who is reportedly moving back home in February. But she also reports having had a successful conversation with the program recommended by her mother and them reporting that they would talk to the social work team today. She reports that it was her intake and she felt like it went well. She denies any new issues and reports she is feeling optimistic about taking this opportunity as a chance to establish her independence and move forward. Mental Status Exam MSE Comments: This is an overweight female in hospital scrubs with appropriate grooming and eye contact. Notable scar starting at the angle of upper and lower lips on the left side. No abnormal movements except for mild psychomotor retardation. She was cooperative with exam in no acute distress. Speech was more normal rate, rhythm and volume. Mood described as I am feeling better about things going forward. Her affect appeared congruent. Thought process was linear and logical. Thought content: patient endorses no suicidal ideation and no homicidal ideation. There was no evidence of any delusional thinking. She denies any auditory or visual hallucinations. She did not appear to be responding to internal stimuli. Attention was and concentration were intact and memory appeared grossly intact and none were formally tested. She is alert and oriented times three. Insight, judgment and impulse control appear improving. Vitals/I&O/Wt Last Vital Signs Temp 98.1 F 01/31/23 22:00 Pulse 67 01/31/23 22:00 Resp 18 01/31/23 22:00 BP 112/75 01/31/23 22:00 Pulse Ox 100 01/31/23 22:00 O2 Del Method 01/31/23 22:00 FiO2 24 01/12/23 13:52 Physical Exam Urinary Catheter Management: Shultz: Cath Placed During This Visit: yes, but has since been removed by the nurse Reason for Continuing Indwelling Catheter: Accurate Measurement of Urinary Output in Critically Ill Patients Urinary Catheter Date of Insertion: 01/11/23 Urinary Catheter Time of Insertion: 08:58 Date Urinary Catheter Removed: 01/13/23 Time Urinary Catheter Discontinued: 11:30 Data NPU 01/14/23 02:26 01/14/23 02:26 A&P Assessment and plan (1) Bipolar I disorder with depression: (2) Trigeminal neuralgia: (3) Overdose: (4) Tegretol toxicity: Plan Patient is a 37-year-old white female with a history of bipolar disorder with multiple potentially lethal overdoses in the last year now admitted to NPU currently reporting desire to continue medication prescribed despite previous failure with those stated medication to treat bipolar depression. 1. Continued Prozac at 20mg daily and monitor closely for treating depression. Continued Tegretol 200mg bid, Continued klonopin .5mg bid. Added Celebrex for pain. Consider Neurology consult for trigeminal neuralgia treatment. Increase Klonopin 0.5 mg to 3 times daily. Restarted Wellbutrin XL 150 mg p.o. every morning. Increased Wellbutrin XL to 300 mg p.o. q. morning. Increased Tegretol to 300 mg p.o. twice daily. 2. Continue involuntary hospitalization. 3. Continue individual, group and milieu therapy. 4. Patient placed on involuntary hold, may need residential placement/guardianship. 5. Encourage sober living treatment after discharge at the highest level of care to which she is willing to commit. 6. Need to have a family meeting with her guardian to discuss discharge planning Involuntary Hold Information 96 Hour Hold: 96 Hour Involuntary Admission: Yes 96 Hour Hold Ending Date: 12/06/22 96 Hour Hold Ending Time: 10:50 Attestations NPU Medical Necessity Statement*: Inpatient hospitalization is medically necessary and the clinically appropriate intervention at this time. We will monitor/initiate medications and make changes as indicated. Likely length of stay 2-6 days. Coding Level of Care Code Acute Code for [facility] Diagnoses Bipolar I disorder with depression F31.9 Trigeminal neuralgia G50.0 Overdose T50.901A Tegretol toxicity T42.1X1A
[2023-01-31] MEDS: topiramate 100 mg Tablet 200 MG PO (20:01)
--- NOTE | 2023-01-31 20:30 | PC.NURSE ---
nicotine lozenge given
[2023-01-31 22:00] VITALS: BP 112/75; PULSE 67; RESP 18; TEMP 36.7; O2SAT 100
[2023-02-01] MEDS: nicotine 4 mg lozenge MUCOUS MEM ×6 (00:47→20:34)
[2023-02-01] MEDS: ibuprofen 600 mg Tablet PO ×2 (01:21→12:59)
--- NOTE | 2023-02-01 01:22 | PC.NURSE ---
pt came to nurses station and stated I need an ibuprofen for my back pain . pt was given ibuprofen as ordered.
[2023-02-01 06:00] VITALS: BP 119/80; PULSE 71; RESP 16; TEMP 36.7; O2SAT 100
[2023-02-01] MEDS: acetaminophen 325 mg Tablet 650 MG PO ×2 (06:13→16:35)
[2023-02-01] MEDS: fluoxetine 20 mg Capsule PO (08:11)
[2023-02-01] MEDS: buPROPion XL (24 HR) 300 mg Tablet PO (08:11)
[2023-02-01] MEDS: CLONazepam 0.5 mg Tablet PO ×3 (08:11→20:34)
[2023-02-01] MEDS: carBAMazepine 200 mg Tablet 300 MG PO ×2 (08:11→20:34)
[2023-02-01] MEDS: pantoprazole DR 40 mg Tablet PO ×2 (08:11→17:18)
[2023-02-01] MEDS: gabapentin 300 mg Capsule 600 MG PO ×3 (08:12→20:34)
[2023-02-01] MEDS: HYDROcodone-acetaminophen 10-325 mg Tablet 1 TAB PO ×2 (08:12→20:34)
[2023-02-01] MEDS: topiramate 100 mg Tablet PO (08:51)
--- NOTE | 2023-02-01 12:18 | W.PM.NPUPNS ---
Subjective NPU Subjective: Patient comes today reporting that she is feeling optimistic about things moving forward and forward in her own trailer. She reports the program except that her aunt is that her mother is going to take her there. We discussed speaking with her mom to discuss discharge planning and the possibility of discharge in the next 8 hours. Mental Status Exam MSE Comments: This is an overweight female in hospital scrubs with appropriate grooming and eye contact. Notable scar starting at the angle of upper and lower lips on the left side. No abnormal movements except for mild psychomotor retardation. She was cooperative with exam in no acute distress. Speech was more normal rate, rhythm and volume. Mood described as pretty good. Her affect appeared congruent. Thought process was linear and logical. Thought content: patient endorses no suicidal ideation and no homicidal ideation. There was no evidence of any delusional thinking. She denies any auditory or visual hallucinations. She did not appear to be responding to internal stimuli. Attention was and concentration were intact and memory appeared grossly intact and none were formally tested. She is alert and oriented times three. Insight, judgment and impulse control appear improving. Vitals/I&O/Wt Last Vital Signs Temp 97.6 F 02/01/23 06:00 Pulse 79 02/01/23 06:00 Resp 20 H 02/01/23 06:00 BP 121/73 02/01/23 06:00 Pulse Ox 99 02/01/23 06:00 O2 Del Method 02/01/23 06:00 FiO2 24 01/12/23 13:52 Physical Exam Urinary Catheter Management: Shultz: Cath Placed During This Visit: yes, but has since been removed by the nurse Reason for Continuing Indwelling Catheter: Accurate Measurement of Urinary Output in Critically Ill Patients Urinary Catheter Date of Insertion: 01/11/23 Urinary Catheter Time of Insertion: 08:58 Date Urinary Catheter Removed: 01/13/23 Time Urinary Catheter Discontinued: 11:30 Data NPU 01/14/23 02:26 01/14/23 02:26 A&P Assessment and plan (1) Bipolar I disorder with depression: (2) Trigeminal neuralgia: (3) Overdose: (4) Tegretol toxicity: Plan Patient is a 37-year-old white female with a history of bipolar disorder with multiple potentially lethal overdoses in the last year now admitted to NPU currently reporting desire to continue medication prescribed despite previous failure with those stated medication to treat bipolar depression. 1. Continued Prozac at 20mg daily and monitor closely for treating depression. Continued Tegretol 200mg bid, Continued klonopin .5mg bid. Added Celebrex for pain. Consider Neurology consult for trigeminal neuralgia treatment. Increase Klonopin 0.5 mg to 3 times daily. Restarted Wellbutrin XL 150 mg p.o. every morning. Increased Wellbutrin XL to 300 mg p.o. q. morning. Increased Tegretol to 300 mg p.o. twice daily. 2. Continue involuntary hospitalization. 3. Continue individual, group and milieu therapy. 4. Patient placed on involuntary hold, may need residential placement/guardianship. 5. Encourage sober living treatment after discharge at the highest level of care to which she is willing to commit. 6. Interview with program has led to acceptance. We will consider discharge. Involuntary Hold Information 96 Hour Hold: 96 Hour Involuntary Admission: Yes 96 Hour Hold Ending Date: 12/06/22 96 Hour Hold Ending Time: 10:50 Attestations NPU Medical Necessity Statement*: Inpatient hospitalization is medically necessary and the clinically appropriate intervention at this time. We will monitor/initiate medications and make changes as indicated. Likely length of stay 1-3 days. Coding Level of Care Code Acute Code for [facility] Diagnoses Bipolar I disorder with depression F31.9 Trigeminal neuralgia G50.0 Overdose T50.901A Tegretol toxicity T42.1X1A
[2023-02-01 14:00] VITALS: BP 107/73; PULSE 71; RESP 16; TEMP 36.8; O2SAT 93
[2023-02-01] MEDS: topiramate 100 mg Tablet 200 MG PO (20:33)
[2023-02-01 21:48] VITALS: BP 119/81; PULSE 79; RESP 16; TEMP 36.4; O2SAT 100
[2023-02-02] MEDS: ibuprofen 600 mg Tablet PO ×3 (01:42→21:10)
--- NOTE | 2023-02-02 02:40 | PC.NURSE ---
pt requested ibuprofen for pain 03/07, pt sleeping upon reassessment. no distress noted.
[2023-02-02] MEDS: nicotine 4 mg lozenge MUCOUS MEM ×6 (03:29→20:40)
[2023-02-02] MEDS: acetaminophen 325 mg Tablet 650 MG PO ×3 (05:36→16:11)
[2023-02-02 06:00] VITALS: BP 111/70; PULSE 91; RESP 16; TEMP 36.6; O2SAT 96
[2023-02-02] MEDS: carBAMazepine 200 mg Tablet 300 MG PO ×2 (08:33→20:43)
[2023-02-02] MEDS: buPROPion XL (24 HR) 300 mg Tablet PO (08:33)
[2023-02-02] MEDS: HYDROcodone-acetaminophen 10-325 mg Tablet 1 TAB PO ×2 (08:34→21:50)
[2023-02-02] MEDS: topiramate 100 mg Tablet PO (08:34)
[2023-02-02] MEDS: fluoxetine 20 mg Capsule PO (08:34)
[2023-02-02] MEDS: pantoprazole DR 40 mg Tablet PO ×2 (08:34→16:50)
[2023-02-02] MEDS: gabapentin 300 mg Capsule 600 MG PO ×3 (08:34→20:42)
--- NOTE | 2023-02-02 08:44 | PC.NURSE ---
shift assessment bright, cheerful this morning, pleasant with staff interaction
[2023-02-02 14:00] VITALS: BP 134/93; PULSE 73; RESP 16; TEMP 36.6; O2SAT 100
[2023-02-02] MEDS: CLONazepam 0.5 mg Tablet PO ×2 (15:01→20:41)
--- NOTE | 2023-02-02 16:15 | W.PM.NPUPNS ---
Subjective NPU Subjective: Patient presented today reporting that things are going well as far as she is concerned. She has been accepted by that program and likelihood for admission on Tuesday. It is 7 hours away and she will need to get things together. Her guardian/mother will likely pick her up tomorrow and get her there on Tuesday morning. She denies any new concerns or lethality and reports optimism about this program. Mental Status Exam MSE Comments: This is an overweight female in hospital scrubs with appropriate grooming and eye contact. Notable scar starting at the angle of upper and lower lips on the left side. No abnormal movements except for mild psychomotor retardation. She was cooperative with exam in no acute distress. Speech was more normal rate, rhythm and volume. Mood described as pretty good. Her affect appeared congruent. Thought process was linear and logical. Thought content: patient endorses no suicidal ideation and no homicidal ideation. There was no evidence of any delusional thinking. She denies any auditory or visual hallucinations. She did not appear to be responding to internal stimuli. Attention was and concentration were intact and memory appeared grossly intact and none were formally tested. She is alert and oriented times three. Insight, judgment and impulse control appear improving. Vitals/I&O/Wt Last Vital Signs Temp 97.9 F 02/02/23 14:00 Pulse 73 02/02/23 14:00 Resp 16 02/02/23 14:00 BP 134/93 02/02/23 14:00 Pulse Ox 100 02/02/23 14:00 O2 Del Method 02/02/23 14:00 FiO2 24 01/12/23 13:52 Physical Exam Urinary Catheter Management: Shultz: Cath Placed During This Visit: yes, but has since been removed by the nurse Reason for Continuing Indwelling Catheter: Accurate Measurement of Urinary Output in Critically Ill Patients Urinary Catheter Date of Insertion: 01/11/23 Urinary Catheter Time of Insertion: 08:58 Date Urinary Catheter Removed: 01/13/23 Time Urinary Catheter Discontinued: 11:30 Data NPU 01/14/23 02:26 01/14/23 02:26 A&P Assessment and plan (1) Bipolar I disorder with depression: (2) Trigeminal neuralgia: (3) Overdose: (4) Tegretol toxicity: Plan Patient is a 37-year-old white female with a history of bipolar disorder with multiple potentially lethal overdoses in the last year now admitted to NPU currently reporting desire to continue medication prescribed despite previous failure with those stated medication to treat bipolar depression. 1. Continued Prozac at 20mg daily and monitor closely for treating depression. Continued Tegretol 200mg bid, Continued klonopin .5mg bid. Added Celebrex for pain. Consider Neurology consult for trigeminal neuralgia treatment. Increase Klonopin 0.5 mg to 3 times daily. Restarted Wellbutrin XL 150 mg p.o. every morning. Increased Wellbutrin XL to 300 mg p.o. q. morning. Increased Tegretol to 300 mg p.o. twice daily. 2. Continue involuntary hospitalization. 3. Continue individual, group and milieu therapy. 4. Patient placed on involuntary hold, may need residential placement/guardianship. 5. Encourage sober living treatment after discharge at the highest level of care to which she is willing to commit. 6. Interview with program has led to acceptance. We will consider discharge. Involuntary Hold Information 96 Hour Hold: 96 Hour Involuntary Admission: Yes 96 Hour Hold Ending Date: 12/06/22 96 Hour Hold Ending Time: 10:50 Attestations NPU Medical Necessity Statement*: Inpatient hospitalization is medically necessary and the clinically appropriate intervention at this time. We will monitor/initiate medications and make changes as indicated. Tentative plan for discharge tomorrow. Coding Level of Care Code Acute Code for [facility] Diagnoses Bipolar I disorder with depression F31.9 Trigeminal neuralgia G50.0 Overdose T50.901A Tegretol toxicity T42.1X1A
[2023-02-02 21:58] VITALS: BP 128/82; PULSE 75; RESP 17; TEMP 36.7; O2SAT 97
[2023-02-03] MEDS: ibuprofen 600 mg Tablet PO (04:32)
[2023-02-03] MEDS: acetaminophen 325 mg Tablet 650 MG PO ×2 (05:03→10:34)
[2023-02-03 06:00] VITALS: BP 112/73; PULSE 75; RESP 17; TEMP 36.9; O2SAT 96
[2023-02-03] MEDS: OLANZapine 5 mg ODT PO ×2 (06:28→10:01)
[2023-02-03] MEDS: buPROPion XL (24 HR) 300 mg Tablet PO (08:54)
[2023-02-03] MEDS: carBAMazepine 200 mg Tablet 300 MG PO (08:54)
[2023-02-03] MEDS: CLONazepam 0.5 mg Tablet PO ×2 (08:54→14:29)
[2023-02-03] MEDS: pantoprazole DR 40 mg Tablet PO (08:55)
[2023-02-03] MEDS: nicotine 4 mg lozenge MUCOUS MEM ×3 (08:55→13:24)
[2023-02-03] MEDS: HYDROcodone-acetaminophen 10-325 mg Tablet 1 TAB PO (08:55)
[2023-02-03] MEDS: fluoxetine 20 mg Capsule PO (08:55)
[2023-02-03] MEDS: gabapentin 300 mg Capsule 600 MG PO ×2 (08:56→14:29)
[2023-02-03] MEDS: topiramate 100 mg Tablet PO (08:58)
[2023-02-03 14:00] VITALS: BP 115/87; PULSE 88; RESP 16; TEMP 36.6; O2SAT 96
--- NOTE | 2023-02-03 17:06 | P.NPUDS_ITS ---
Diagnoses at Discharge Discharge Diagnosis (1) Bipolar I disorder with depression: Status: Acute (2) Trigeminal neuralgia: Status: Acute (3) Overdose: Status: Acute (4) Tegretol toxicity: Status: Acute Reason for Visit Reason for Visit: OVERDOSE Involuntary Hold Information 96 Hour Hold: 96 Hour Involuntary Admission: Yes 96 Hour Hold Ending Date: 12/06/22 96 Hour Hold Ending Time: 10:50 Physical Exam Urinary Catheter Management: Shultz: Cath Placed During This Visit: yes, but has since been removed by the nurse Reason for Continuing Indwelling Catheter: Accurate Measurement of Urinary Output in Critically Ill Patients Urinary Catheter Date of Insertion: 01/11/23 Urinary Catheter Time of Insertion: 08:58 Date Urinary Catheter Removed: 01/13/23 Time Urinary Catheter Discontinued: 11:30 Discharge Data Studies Completed and Pending: Completed Studies During Hospitalization Category Date Time Status CT abdomen pelvis w con* [id number] Stat Cat Scan 01/11/23 08:[address] head wo con* [id number] Stat Cat Scan 01/11/23 08:52 Completed XR chest 1V kev ble [id number] Routine Exams 01/11/23 12:55 Completed XR chest 1V kev ble [id number] Routine Exams 01/12/23 07:00 Completed XR chest 1V kev ble [id number] Stat Exams 01/11/23 08:53 Completed Radiology Impressions Head CT 01/11/23 08:52 IMPRESSION: 1. No acute intracranial hemorrhage or edema. 2. 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 Abdomen/Pelvis CT 01/11/23 08:53 IMPRESSION: 1. Mild fluid distention of the stomach and RIGHT colon. 2. Status post cholecystectomy with intrahepatic and extra hepatic mild duct dilatation is similar to prior studies. 3. No free fluid or free air. 4. RIGHT adnexal complex cystic mass measures 4.5 x 5.7 cm. This mass can be further evaluated by transvaginal ultrasound as patients condition permits. Chest X-Ray 01/12/23 07:00 IMPRESSION: 1. Stable satisfactory position of the endotracheal and nasogastric tubes. 2. Lungs are clear. 3. Right aortic arch. Laboratory Results WBC 8.0 10^3/uL (4.0- 10.0) 01/14/23 02:26 RBC 3.31 10^6/uL (4.1 -5.3) L 01/14/23 02:26 Hgb 10.3 g/dL (11.5-1 5.3) L 01/14/23 02: Hct 31.4 % (37.0-47.0 ) L 01/14/23 02: MCV 94.9 fl (81-99) 01/14/23 02: MCH 31.1 pg (28.0-34. 0) 01/14/23 02: MCHC 32.8 g/dL (30.0-3 6.0) D 01/14/23 02: RDW 12.4 % (12.1-15.1 ) 01/14/23 02: Plt Count 160 10^3/cmm (130 -400) 01/14/23 02: MPV 9.6 fL (7.4-10.4) 01/14/23 02: Neut % (Auto) 76.1 % 01/14/23 02: Lymph % (Auto) 11.4 % 01/14/23 02: [place] % (Auto) 9.8 % 01/14/23 02: Eos % (Auto) 1.9 % 01/14/23 02: Baso % (Auto) 0.4 % 01/14/23 02: Neut # (Auto) 6.09 10^3/uL (1.8 -7.7) 01/14/23 02: Lymph # (Auto) 0.9 10^3/uL (0.8- 4.8) 01/14/23 02: [place] # (Auto) 0.8 10^3/uL (0.2- 0.9) 01/14/23 02: Eos # (Auto) 0.2 10^3/uL (0.0- 0.8) 01/14/23 02: Baso # (Auto) 0.0 10^3/uL (0.0- 0.1) 01/14/23 02: Nucleated RBC % (a uto) 0 % 01/14/23 02: Nucleated RBCs # 0.0 /100WBC 01/14/23 02: PT 13.90 SECONDS (12 .1-14.9) 01/11/23 09:05 INR 1.04 (0.8-1.2) 01/11/23 09:05 APTT 22.0 SECONDS (23. 9-36.7) L 01/11/23 09:05 Specimen Type Arterial 01/12/23 03:25 Sample Site Radial, right 01/12/23 03:25 ABG pH 7.29 (7.35-7.45) L 01/12/23 03:25 ABG pCO2 38.5 mmHg (35-45) 01/12/23 03:25 ABG pO2 134.0 mmHg (80.0- 100.0) H 01/12/23 03:25 ABG HCO3 18.4 mmol/L (22-2 6) L 01/12/23 03:25 ABG O2 Saturation > 100.0 01/11/23 10:41 ABG Base Excess -7.6 mmol/L (-2.0 -2.0) L 01/12/23 03:25 Vince Test Pos 01/12/23 03:25 A-a O2 Gradient 20.8 mmHg (5-10) H 01/11/23 10:41 Hematocrit 37.8 % (37-47) 01/12/23 03:25 Hgb O2 Saturation > 98.5 % (95-100) 01/11/23 10:41 Carboxyhemoglobin < 1.0 %THgb (0.4- 20.1) 01/11/23 10:41 Methemoglobin 0.7 % (0.4-1.5) 01/11/23 10:41 Total Hemoglobin 13.1 g/dL (12-16) 01/11/23 10:41 Sodium 140.0 mmol/L (131 -143) 01/11/23 10:41 Potassium 4.2 mmol/L (3.5-5 .0) 01/11/23 10:41 Glucose 139.0 mg/dL (70-1 15) H 01/11/23 10:41 Ionized Calcium 1.1 mmol/L (1.1-1 .4) 01/11/23 10:41 O2 Delivery Device Vent 01/12/23 03:25 FiO2 30.0 % 01/12/23 03:25 Tidal Volume 0.40 01/12/23 03:25 PEEP 8.0 cmH20 01/12/23 03:25 Motion Picture Critic ID Zachariah 01/12/23 03:25 Sodium 140 mmol/L (136-1 45) 01/14/23 02:26 Potassium 3.3 mmol/L (3.5-5 .1) L 01/14/23 02:26 Chloride 108 mmol/L (98-10 7) H 01/14/23 02:26 Carbon Dioxide 22 mmol/L (22-29) 01/14/23 02:26 Anion Gap 13.3 (5-19) 01/14/23 02:26 BUN 3 mg/dL (6-20) L 01/14/23 02:26 Creatinine 0.5 mg/dL (0.5-0. 9) 01/14/23 02:26 GFR Calculation 138.1 mL/min (90- 130) H 01/14/23 02:26 Glucose 95 mg/dL (65-115) 01/14/23 02:26 POC Glucose 92 mg/dL (70-110) 01/26/23 12:00 Calculated Osmolal ity 286 mOsm/kg (285- 295) 01/14/23 02:26 Lactic Acid 1.4 mmol/L (0.5-2 .2) 01/11/23 09:39 Calcium 7.9 mg/dL (8.5-10 .5) L 01/14/23 02:26 Magnesium 1.5 mg/dL (1.7-2. 3) L 01/14/23 02:26 Total Bilirubin 0.2 mg/dL (0.15-1 .2) 01/14/23 02:26 AST 25 U/L (0-32) 01/14/23 02:26 ALT 21 U/L (0-33) 01/14/23 02:26 Alkaline Phosphata se 77 U/L (35-105) 01/14/23 02:26 Creatine Kinase 609 U/L (26-192) H* 01/13/23 02:38 Troponin T Baselin e 6 ng/L (0-10) 01/11/23 09:05 Troponin T 120 Min [place] 6.00 ng/L (0-10) 01/11/23 10:59 Delta Troponin T 0 ABS# (0-10) 01/11/23 10:59 Troponin T Hi Sens 6Hr 6.00 ng/L (0-10) 01/11/23 15:17 Troponin T Hi Sens 6Hr Delta 0 ng/L (0-12) 01/11/23 15:17 Total Protein 5.5 g/dL (6.6-8.7 ) L 01/14/23 02:26 Albumin 3.5 g/dL (3.5-5.2 ) 01/14/23 02:26 Globulin 2.0 g/dL (1.3-4.6 ) 01/14/23 02:26 Lipase 26 U/L (13-60) 01/11/23 09:05 Urine Color Yellow (Yellow) 01/11/23 08:56 Urine Appearance Clear (CLEAR) 01/11/23 08:56 Urine pH 6 (5-7) 01/11/23 08:56 Ur Specific Gravit y 1.010 (1.005-1.0 30) 01/11/23 08:56 Urine Protein Neg (Negative) 01/11/23 08:56 Urine Glucose (UA) Norm (Normal) 01/11/23 08:56 Urine Ketones Negative (Negati ve) 01/11/23 08:56 Urine Blood Neg (Negative) 01/11/23 08:56 Urine Nitrate Negative (Negati ve) 01/11/23 08:56 Urine Bilirubin Neg (Negative) 01/11/23 08:56 Urine Urobilinogen Norm mg/dL (Negat akua) 01/11/23 08:56 Ur Leukocyte Alannah ase Negative (Negati ve) 01/11/23 08:56 Salicylates < 0.3 mg/dL (3-10 ) L 01/11/23 09:05 Urine Opiates Scre en Positive ng/mL (N egative) H 01/11/23 08:56 Acetaminophen < 5.0 ug/mL (10-3 0) L 01/11/23 09:05 Ur Barbiturates Sc reen Negative ng/mL (N egative) 01/11/23 08:56 Carbamazepine 17.2 ug/mL (4.0-1 2.0) H 01/12/23 02:48 Ur Phencyclidine S crn Negative ng/mL (N egative) 01/11/23 08:56 Ur Amphetamines Sc reen Negative ng/mL (N egative) 01/11/23 08:56 U Benzodiazepines Scrn Positive ng/mL (N egative) H 01/11/23 08:56 Urine Cocaine Scre en Negative ng/mL (N egative) 01/11/23 08:56 U Marijuana (THC) Screen Negative ng/mL (N egative) 01/11/23 08:56 Ethyl Alcohol < 10 mg/dL (0-10) 01/11/23 09:05 Vitals: Last Vital Signs Temp 98 F 02/03/23 14:00 Pulse 88 02/03/23 14:00 Resp 16 02/03/23 14:00 BP 115/87 02/03/23 14:00 Pulse Ox 96 02/03/23 14:00 O2 Del Method 02/03/23 14:00 FiO2 24 01/12/23 13:52 Discharge Plan Discharge Patient Disposition: Home Condition: Stable Prescriptions: New clonazepam 0.5 mg Tablet 0.5 mg PO TID 30 Days Qty: 90 1RF carbamazepine 200 mg Tablet 300 mg PO 899,2099 30 Days Qty: 90 1RF hydrocodone-acetaminophen 10-325 mg Tablet 1 tab PO 899,2099 30 Days Qty: 60 0RF pantoprazole 40 mg Tablet,Delayed Release (Dr/Ec) 40 mg PO BID 30 Days Qty: 60 1RF Continued ibuprofen 200 mg Tablet 800 mg PO Q8H PRN (Reason: Pain) Excedrin Migraine 250-250-65 mg Tablet 1 tab PO Q6H PRN (Reason: Migraine Headache) gabapentin 600 mg tablet 600 mg PO TID 30 Days Qty: 90 1RF topiramate 100 mg tablet See Rx Instructions .ROUTE .COMPLEX 30 Days Qty: 90 1RF Rx Instructions: 100mg po daily and 200mg po bedtime fluoxetine 20 mg Capsule 20 mg PO DAILY 30 Days Qty: 30 1RF bupropion HCl 300 mg tablet extended release 24 hr 300 mg PO QAM 30 Days Qty: 30 1RF Discontinued cyclobenzaprine 5 mg tablet 5 mg PO Q12H PRN (Reason: Muscle Spasm) lorazepam 0.5 mg tablet 0.5 mg PO QID PRN (Reason: anxiety) Qty: 120 1RF hydrocodone-acetaminophen 10-325 mg tablet 1 tab PO Q6H MDD 2 tabs PRN (Reason: Pain) fluoxetine 10 mg capsule 10 mg PO DAILY Rx Instructions: take with 20mg daily carbamazepine 200 mg tablet extended release 12 hr 600 mg PO BID gabapentin 300 mg capsule 900 mg PO TID meloxicam 7.5 mg tablet 7.5 mg PO BID Pepcid 20 mg Tablet 20 mg PO DAILY Discharge Orders: Discharge Order (Routine); Ordered 02/03/23 Ordered By: John Linda Referrals: [facility] [Other] - 02/04/23 Discharge Diet: Regular Discharge Activity: Resume usual activity Patient Instructions: Opioid Safety Discharge Attestations NPU Time Spent in Discharge Care*: less than 30 min Specific Discharge Activities: Specific discharge activities: educating patient, discussing with human services case manager/social workers/dc planners, documenting/other paperwork and evaluating patient/reviewing data Coding Level of Care Code Acute Chg FW DC note Diagnoses Bipolar I disorder with depression F31.9 Trigeminal neuralgia G50.0 Overdose T50.901A Tegretol toxicity T42.1X1A
[2023-02-03 17:13] VITALS: BP 115/87; PULSE 88; RESP 16; TEMP 36.6; O2SAT 96
== END 2023-02-03 17:29 | disposition home or self-care (01) | DRG 917 ==
LOC: ER 10:31 → ICU 11:06 → NP 01-14 15:17
PROVIDERS: Admitting Provider Internal Medicine; Emergency Provider Family Medicine; PCP Family Medicine; Visit Provider Psychiatry & Neurology Psychiatry
DX: T42.1X2A Poisoning by iminostilbenes, intentional self-harm, initial encounter (principal); J96.00 Acute respiratory failure, unspecified whether with hypoxia or hypercapnia; N17.9 Acute kidney failure, unspecified; F31.9 Bipolar disorder, unspecified; G50.0 Trigeminal neuralgia; E03.9 Hypothyroidism, unspecified; F43.12 Post-traumatic stress disorder, chronic; F17.210 Nicotine dependence, cigarettes, uncomplicated; E87.6 Hypokalemia; D64.9 Anemia, unspecified
CPT/HCPCS: 31500; 36415; 36416; 36600; 51702; 70450; 71045; 74177; 80051; 80053; 80156; 80306; 80307; 81003; 82330; 82550; 82803; 82805; 82962; 83605; 83690; 83735; 84132; 84484; 85025; 85610; 85730; 87070; 87077; 87186; 87205; 93005; 94002; 94003; 94799; 96365; 96366; 96367; 96375; 96376; 97150; 97165; 99238; 99285; C9113; J1953; J2060; J2250; J2310; J2405; J2543; J2704; J3010; J3475; J3480; J7030; J7050; J7060; J7120; Q0162

== ENCOUNTER → 2023-03-21 13:25 | Outpatient (BNVA) | payer OTHER, MEDICAID, SELFPAY | PROVIDERS: PCP Family Medicine; Visit Provider Psychiatry & Neurology Psychiatry | DX: Z79.899 Other long term (current) drug therapy (principal); F11.21 Opioid dependence, in remission; F31.9 Bipolar disorder, unspecified; F43.12 Post-traumatic stress disorder, chronic; F60.3 Borderline personality disorder; F10.20 Alcohol dependence, uncomplicated | CPT/HCPCS: 80307 ==

== ENCOUNTER → 2023-04-18 13:38 | Outpatient (BNVA) | payer OTHER, MEDICAID, SELFPAY | PROVIDERS: PCP Family Medicine; Visit Provider Psychiatry & Neurology Psychiatry | DX: F11.21 Opioid dependence, in remission (principal); Z79.899 Other long term (current) drug therapy; F10.20 Alcohol dependence, uncomplicated | CPT/HCPCS: 80307 ==

== ENCOUNTER → 2023-05-27 15:46 | Outpatient (BNVA) | payer OTHER, SELFPAY | PROVIDERS: PCP Family Medicine; Visit Provider Psychiatry & Neurology Psychiatry | DX: F11.21 Opioid dependence, in remission (principal); Z79.899 Other long term (current) drug therapy | CPT/HCPCS: 80307 ==

== ENCOUNTER → 2023-07-15 16:03 | Outpatient (BNVA) | payer OTHER, SELFPAY | PROVIDERS: PCP Family Medicine; Visit Provider Psychiatry & Neurology Psychiatry | DX: F11.21 Opioid dependence, in remission (principal); Z79.899 Other long term (current) drug therapy | CPT/HCPCS: 80307 ==

== ENCOUNTER → 2023-09-13 13:20 | Outpatient (BNVA) | payer OTHER, SELFPAY | PROVIDERS: PCP Family Medicine; Visit Provider Psychiatry & Neurology Psychiatry | DX: F31.9 Bipolar disorder, unspecified (principal); F10.20 Alcohol dependence, uncomplicated; F11.21 Opioid dependence, in remission; Z79.899 Other long term (current) drug therapy; F60.3 Borderline personality disorder; G50.0 Trigeminal neuralgia; F43.12 Post-traumatic stress disorder, chronic | CPT/HCPCS: 80307 ==

== ENCOUNTER 2023-10-10 09:39 | Emergency (ER) | payer OTHER, MEDICAID, SELFPAY ==
[2023-10-10 10:02] VITALS: BP 120/85; PULSE 105; RESP 18; TEMP 36.5; O2SAT 99; BMI 21.9
[2023-10-10 10:16] LABS: Hematocrit 43.4 % (36-47); Red Blood Count 4.15 10^6/uL (3.85-5.65); White Blood Count 8.42 10^3/uL (3.29-11.43)
[2023-10-10 10:17] LABS: Basophils # 0.1 10^3/uL (0.0-0.1); Eosinophils # 0.1 10^3/uL (0.0-0.8); Lymphocytes # 1.6 10^3/uL (0.8-4.8); Lymphocytes % 18.6 %; Mean Corpuscular HGB Conc 32.5 g/dL (30-55); Mean Corpuscular Volume 104.6 fl (85-98); Mean Platelet Volume 8.5 fL (7.4-10.4); Monocytes # 0.3 10^3/uL (0.2-0.9); Monocytes % 3.8 %; Neutrophils # 6.33 10^3/uL (1.8-7.7); Neutrophils % 75.1 %; Nucleated Red Blood Cells % 0 %; Platelet Count 441 10^3/cmm (157-399); Red Cell Distribution Width 13.9 % (12.1-15.1)
[2023-10-10 10:30] LABS: Alanine Aminotransferase 58 U/L (0-33); Albumin Level 3.7 g/dL (3.5-5.2); Alkaline Phosphatase 95 U/L (35-105); Aspartate Amino Transferase 46 U/L (0-32); Blood Urea Nitrogen 19 mg/dL (6-20); Calcium 8.5 mg/dL (8.5-10.5); Carbon Dioxide 15 mmol/L (22-29); Chloride 109 mmol/L (98-107); Globulin 1.8 g/dL (1.3-4.6); Glomerular Filtration Rate 79.9 mL/min (90-130); Glucose 108 mg/dL (65-115); Lipase 16 U/L (13-60); Osmolality Calculated 291 mOsm/kg (285-295); Sodium 139 mmol/L (136-145); Total Bilirubin 0.3 mg/dL (0.15-1.2); Total Protein 5.5 g/dL (6.6-8.7)
[2023-10-10 10:32] LABS: HCG, Serum Qual Negative (Negative)
[2023-10-10 12:57] VITALS: BP 109/75; PULSE 95; O2SAT 100
[2023-10-10 13:06] LABS: Glucose Urine UA Norm (Normal); Protein Urine Trace (Negative); Specific Gravity, Urine 1.015 (1.005-1.030); Urine Appearance Hazy (CLEAR); Urine Color Yellow (Yellow); pH Urine 5 (5-7)
[2023-10-10 13:07] LABS: Add Urine Culture? Yes; Add Urine Microscopic? YES; Bacteria Urine TRACE /hpf; Bilirubin Urine Neg (Negative); Blood Urine 3+ (Negative); Ketones Urine 2+ (Negative); Leukocyte Esterase Urine Negative (Negative); Nitrate Urine Negative (Negative); RBC Urine 40-50 /hpf (0-2); Squamous Epithelial Cell Urine 0-4 /hpf (0-5); Urobilinogen Urine Norm (Negative)
--- NOTE | 2023-10-10 13:34 | ED_ITS ---
HPI - Back Pain/Injury General: Chief Complaint: Back Pain/Injury Stated Complaint: N/V Time Seen by Provider: 10/10/23 12:52 Source: patient and family Mode of arrival: ambulatory Limitations: no limitations History of Present Illness: Patient is a 38-year-old female with past medical history of alcohol use disorder, opioid use disorder, and PTSD who presents to the emergency department complaining of upper back pain onset 1 week. Patient states she developed sudden onset of bilateral thoracic musculoskeletal pain, and denies any recent trauma or strenuous exercise. She states that the pain seems to wrap around to her front and feels like a band squeezing on her, as she states her pain is wo rsened with deep breaths and she feels that she cannot take as deep of breath as normal. She has never had this problem before, but states she took hydrocodone for 20 years for lower back pain. She has no history of back surgeries or significant trauma. She states the pain has caused her to throw up multiple times since it began. She is currently wearing lidocaine patches for chronic pain. She denies any fever, chest pain, palpitations, distal neurovascular deficits, or any other symptoms. MD elicited complaint: back pain Pertinent past history: prior back pain Onset (ago): week(s) Timing: constant Quality: other (Squeezing) Location: right upper back and left upper back Radiation: chest Exacerbating factors: movement and deep breaths Relieving factors: none Associated symptoms: Reports nausea and vomiting; Deny abdominal pain, chills, dysuria, fever(s) or urinary urgency Review of Systems Const: Denies: fever(s) or chills Card: Denies: chest pain, palpitations or edema Resp: Reports: dyspnea and pain on inspiration GI: Reports: nausea and vomiting; Denies: abdominal pain : Denies: dysuria, urinary frequency or urinary urgency Musc: Reports: back pain; Denies: neck pain, extremity pain, extremity swelling or joint pain Skin/Breast: Denies: rash Psych: Reports: anxiety PFSH ED PFSH: Medical History Bipolar disorder with psychotic features Endometriosis Facial scar Hypothyroidism [place] use Lumbar post-laminectomy syndrome Motor nerve conduction block Post-traumatic stress disorder, chronic Psychiatric care Spondylosis of lumbar region without myelopathy or radiculopathy Surgical History History of liver biopsy Hx of cholecystectomy Family History Denies family history of Psychiatric illness Social History Smoking and tobacco/nicotine status: current every day tobacco/nicotine user cigarettes [ Other cigarette details: 3 to 4 cigarettes a day] Alcohol intake: current Substance/Drug Use: former Date of last use: Overdosed on her prescription medications such as lithium Household members: family Housing: House Current occupational status: employed Physical Exam 2 Const: COMMON NORMALS: healthy appearing GENERAL APPEARANCE: cooperative and anxious ORIENTATION/CONSCIOUSNESS: Yes awake, Yes oriented to person, Yes oriented to place and Yes oriented to time HENMT: COMMON NORMALS: normocephalic, atraumatic and hearing grossly normal bilaterally HEAD & SCALP: normocephalic and atraumatic Neck/C-Spine: COMMON NORMALS: no JVD Resp: COMMON NORMALS: normal respiratory effort, No retractions, No use of accessory muscles and clear to auscultation bilaterally EFFORT & INSPECTION: Yes able to speak in complete sentences, Yes symmetric chest movement, No tachypneic, No respiratory distress and No uses accessory muscles AUSCULTA TION: clear to auscultation bilaterally Cardio: COMMON NORMALS: no JVD, regular rate, regular rhythm, No gallops present (Cardio), No clicks present (Cardio), No murmurs present (Cardio) and No rub (Cardio) RATE: regular rate RHYTHM: regular rhythm GI: COMMON NORMALS: Normal to inspection, nondistended, normoactive bowel wanda nds present, Soft to palpation and No hepatosplenomegaly present AUSCULTATION: Yes normoactive bowel sounds PALPATION: Yes Soft to palpation, No Tenderness to palpation present (GI), No Guarding due to palpation present (GI) and Yes No hepatosplenomegaly present : COMMON NORMALS: Yes no CVA tenderness BLADDER/KIDNEY EXAM: Yes no CVA tenderness Back/Pelvis: COMMON NORMALS: no CVA tenderness and thoracic and lumbar spine normal to inspection THORACIC SPINE/UPPER BACK: Yes normal to inspection, No thoracic spinal tenderness and Yes paraspinal muscle tenderness Thoracic paraspinal muscle tenderness: bilateral LUMBAR SPINE/LOWER BACK: Yes normal to inspection and No lumbar spinal tenderness OTHER: Presence of lidocaine patch Extremity: COMMON NORMALS: normal to inspection, capillary refill normal, no clubbing, cyanosis or edema, no calf tenderness and no pedal edema Neuro: SENSORIUM/ORIENTATION: Yes oriented to person, Yes oriented to place and Yes oriented to time Skin: COMMON NORMALS: no rashes or lesions noted GENERAL SKIN EXAM: no rashes or lesions noted Course Vital Signs: Vital signs: Vital Signs Temperature 97.7 F 10/10/23 10:02 Pulse Rate 95 10/10/23 12:57 Respiratory Rate 18 10/10/23 10:02 Blood Pressure 109/75 10/10/23 12:57 Pulse Oximetry 100 10/10/23 12:57 Oxygen Delivery Me thod Room Air 10/10/23 12:57 MDM - Back Pain/Injury Medical Decision Making Cystitis no significant leukocytosis or flank pain. Started on oral antibiotics follow-up with primary care Medical Records I reviewed the patient's medical records. Labs I reviewed the patient's lab results. 10/10/23 10:00 10/10/23 10:00 Laboratory Results WBC 8.42 10^3/uL (3.29-11.43) 10/10/23 10:00 RBC 4.15 10^6/uL (3.85-5.65) 10/10/23 10:00 Hgb 14.10 g/dL (11.27-16.99) 10/10/23 10:00 Hct 43.4 % (36-47) 10/10/23 10:00 MCV 104.6 fl (85-98) H 10/10/23 10:00 MCH 34.0 pg (27-33) H 10/10/23 10:00 MCHC 32.5 g/dL (30-55) 10/10/23 10:00 RDW 13.9 % (12.1-15.1) 10/10/23 10:00 Plt Count 441 10^3/cmm (157-399) H 10/10/23 10:00 MPV 8.5 fL (7.4-10.4) 10/10/23 10:00 Neut % (Auto) 75.1 % 10/10/23 10:00 Lymph % (Auto) 18.6 % 10/10/23 10:00 [place] % (Auto) 3.8 % 10/10/23 10:00 Eos % (Auto) 1.0 % 10/10/23 10:00 Baso % (Auto) 1.0 % 10/10/23 10:00 Neut # (Auto) 6.33 10^3/uL (1.8-7.7) 10/10/23 10:00 Lymph # (Auto) 1.6 10^3/uL (0.8-4.8) 10/10/23 10:00 [place] # (Auto) 0.3 10^3/uL (0.2-0.9) 10/10/23 10:00 Eos # (Auto) 0.1 10^3/uL (0.0-0.8) 10/10/23 10:00 Baso # (Auto) 0.1 10^3/uL (0.0-0.1) 10/10/23 10:00 Nucleated RBC % (auto) 0 % 10/10/23 10:00 Nucleated RBCs # 0.0 /100WBC 10/10/23 10:00 Sodium 139 mmol/L (136-145) 10/10/23 10:00 Potassium 4.0 mmol/L (3.5-5.1) 10/10/23 10:00 Chloride 109 mmol/L (98-107) H 10/10/23 10:00 Carbon Dioxide 15 mmol/L (22-29) L 10/10/23 10:00 Anion Gap 19.0 (5-19) 10/10/23 10:00 BUN 19 mg/dL (6-20) 10/10/23 10:00 Creatinine 0.8 mg/dL (0.5-0.9) 10/10/23 10:00 GFR Calculation 79.9 mL/min (90-130) L 10/10/23 10:00 Glucose 108 mg/dL (65-115) 10/10/23 10:00 Calculated Osmolality 291 mOsm/kg (285-295) 10/10/23 10:00 Calcium 8.5 mg/dL (8.5-10.5) 10/10/23 10:00 Total Bilirubin 0.3 mg/dL (0.15-1.2) 10/10/23 10:00 AST 46 U/L (0-32) H 10/10/23 10:00 ALT 58 U/L (0-33) H 10/10/23 10:00 Alkaline Phosphatase 95 U/L (35-105) 10/10/23 10:00 Total Protein 5.5 g/dL (6.6-8.7) L 10/10/23 10:00 Albumin 3.7 g/dL (3.5-5.2) 10/10/23 10:00 Globulin 1.8 g/dL (1.3-4.6) 10/10/23 10:00 Lipase 16 U/L (13-60) 10/10/23 10:00 HCG, Qual Negative (Negative) 10/10/23 10:00 Urine Color Yellow (Yellow) 10/10/23 12:30 Urine Appearance Hazy (CLEAR) A 10/10/23 12:30 Urine pH 5 (5-7) 10/10/23 12:30 Ur Specific [place] 1.015 (1.005-1.030) 10/10/23 12:30 Urine Protein Trace (Negative) 10/10/23 12:30 Urine Glucose (UA) Norm (Normal) 10/10/23 12:30 Urine Ketones 2+ (Negative) H 10/10/23 12:30 Urine Blood 3+ (Negative) H 10/10/23 12:30 Urine Nitrate Negative (Negative) 10/10/23 12:30 Urine Bilirubin Neg (Negative) 10/10/23 12:30 Urine Urobilinogen Norm mg/dL (Negative) 10/10/23 12:30 Ur Leukocyte Esterase Negative (Negative) 10/10/23 12:30 Urine RBC 40-50 /hpf (0-2) H 10/10/23 12:30 Urine WBC 10-15 /hpf (0-5) H 10/10/23 12:30 Ur Squamous Epith Cells 0-4 /hpf (0-5) H 10/10/23 12:30 Amorphous Sediment Not Reportable 10/10/23 12:30 Urine Bacteria Trace /hpf (NONE) 10/10/23 12:30 All radiology interpretation(s) finalized by discharge Discharge Plan Discharge Patient Disposition: Home Clinical Impression: Cystitis Condition: Stable Prescriptions: New Macrobid 100 mg capsule 100 mg PO BID 7 Days Qty: 14 0RF Rx Instructions: must administer with a meal/food No Action tizanidine 4 mg capsule 4 mg PO .at bedtime fluoxetine [Prozac] 40 mg capsule 40 mg PO DAILY Qty: 30 2RF buprenorphine-naloxone 8-2 mg tablet, sublingual 1 tab sublingual BID Qty: 60 2RF bupropion HCl [Wellbutrin XL] 150 mg tablet extended release 24 hr 150 mg PO QAM Qty: 30 2RF carbamazepine 200 mg tablet 200 mg PO QID Qty: 120 2RF risperidone 0.5 mg tablet 0.5 mg PO BID Qty: 60 2RF topiramate 100 mg tablet 300 mg PO .HS 30 Days Qty: 90 2RF gabapentin 600 mg tablet 600 mg PO QID 30 Days Qty: 120 2RF Excedrin Migraine 250-250-65 mg Tablet 1 tab PO Q6H PRN (Reason: Migraine Headache) pantoprazole 40 mg Tablet,Delayed Release (Dr/Ec) 40 mg PO BID 30 Days Qty: 60 1RF Discharge Orders: Discharge ED (Routine); Ordered 10/10/23 Ordered By: Harry Julian Referrals: Jay Collins MD [Primary Care Provider] - Discharge Diet: Usual diet Discharge Activity: Increase activity as tolerated Patient Instructions: Opioid Safety, Pain Management Activity Restrictions/Additional Instructions: Thank you for choosing [facility] for your healthcare needs today. Please realize this is an emergency room and that we are providing you with a medical screening exam and this may not be complete and all inclusive of all the testing and or work up that you may need to determine your ailment or severity of your illness. It is very important that you follow up as instructed or that you return to the Emergency Department should you have concerns or if your condition changes or worsens in any way. You are seen today for some back pain. Laboratory test showed a mild bladder infection. Recommend start Macrobid 1 p.o. twice daily. Ror nausea use ondansetron as needed. Follow-up with your primary care doctor as needed Coding Level of Care Code ED Chief Maintenance Supervisor for Ranulfo Fernandez
--- NOTE | 2023-10-10 13:52 | XR_ITS ---
WS: [id number] Exam: XR chest 1V portable [id number] Date/Time of Exam: 10/10/2023 1:56 PM Reason For Exam: dyspnea/cough Comparison 03/18/2023. The lungs are hyperinflated and clear. Unremarkable cardiomediastinal silhouette. No pleural effusion s. S shaped thoracolumbar scoliosis. IMPRESSION: 1. Pulmonary hyperinflation. No acute process.
== END 2023-10-10 14:36 | disposition home or self-care (01) ==
PROVIDERS: Physician Assistant; Emergency Provider Family Medicine; PCP Family Medicine
DX: N30.90 Cystitis, unspecified without hematuria (principal); F17.210 Nicotine dependence, cigarettes, uncomplicated
CPT/HCPCS: 36415; 71045; 80053; 81001; 83690; 84703; 85025; 87086; 99284

== ENCOUNTER 2023-10-24 14:06 | Outpatient (CLI) | payer MEDICAID, SELFPAY ==
--- NOTE | 2023-10-24 14:11 | CT_ITS ---
WS: [id number] CT FACIAL BONES HISTORY: FALL/INJURY OF NOSE TECHNIQUE: Images obtained from the supraorbital location through the mandible. Soft tissue and bone windows are reviewed. Coronal and sagittal reformats have also been submitted. DLP: 583.[address] scans at [facility] use at least one of these dose optimization techniques: automated e xposure control; mA and/or kV adjustment per patient size (includes targeted exams where dose is matc hed to clinical indication); or iterative reconstruction. COMPARISON: None available. No acute facial bone fractures identified. The zygomatic arches and the mandibular condyles appear in tact. No nasal bone fracture or displacement. There is mucoperiosteal thickening throughout the LEFT maxillary sinus but no definite fracture. Slight cortical irregularity involving the floor of the LEF T orbit could represent a fracture. No herniation of orbital contents. The visualized upper cervical spine is negative. IMPRESSION: 1. No acute facial bone fractures identified. 2. Possible but indeterminate fracture along the floor of the LEFT globe. 3. Increased soft tissue LEFT maxillary sinus. May be from the recent trauma or from inflammatory sin us disease. Notified Jay Collins MD at 10/24/2023 3:15 PM.
--- NOTE | 2023-10-24 14:11 | CT_ITS ---
WS: [id number] CT HEAD NONCONTRAST HISTORY: INTRACRAINAL INJURY W/LOC TECHNIQUE: Contiguous axial imaging performed through the brain in 2.5 mm imaging. Bone and soft tiss ue windows. Sagittal and coronal reformats reviewed. All CT scans at [facility] use at least one of these dose optimization techniques: automated exposure control; mA and/or kV adjustment per pa tient size (includes targeted exams where dose is matched to clinical indication); or iterative recon struction. DLP: 1011.65 mGy.cm COMPARISON: 01/11/2023 No acute intracranial hemorrhage, midline shift or mass effect. No significant atrophy. There is artifact in the posterior fossa which limits evaluation of the poste rior fossa. No hemorrhage or acute blood product identified. Ventricles: Size of the ventricles is similar to the prior exam. No inferior displacement of the cerebellar tonsils. Fourth ventricle remains patent. Paranasal sinuses: Mucoperiosteal thickening and increased density in the LEFT maxillary and ethmoid air cells. Mastoid air cells: Clear. No blood along the internal auditory canals. Calvarium and scalp: No skull fracture identified. Facial bone CT performed on the same day. Please s ee that report to follow. Small scalp hematoma centered over the frontal bone. IMPRESSION: 1. No acute intracranial hemorrhage or edema. No midline shift. 2. No skull fracture. 3. Frontal soft tissue scalp hematoma. Notified Jay Collins MD at 10/24/2023 2:56 PM.
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
--- NOTE | 2023-10-24 15:59 | CT_ITS ---
WS: [id number] CT CERVICAL TRAUMA TECHNIQUE: Noncontrast CT of the cervical spine with coronal and sagittal reformatted images. CLINICAL INFORMATION: SUBLAXATION OF UNSPECIFIED CERVICAL VERTEBRAE COMPARISON: None. DLP: 170.[address] scans at [facility] use at least one of these dose optimization techniques: automated e xposure control; mA and/or kV adjustment per patient size (includes targeted exams where dose is matc hed to clinical indication); or iterative reconstruction. FINDINGS: Straightening with reversal of the normal cervical lordosis. Slight anterolisthesis C3 on C4 and C4 o n C5. Disc space narrowing worse at C5-C6 and C6-C7. Normal craniocervical junction. Normal C1-C2 art iculation. Dens is normal in appearance. Normal occipital condyles. No high-grade spinal canal narrow ing. Normal C1 ring. No evidence of acute fracture or dislocation. Normal prevertebral soft tissues. Mastoids air cells are well aerated. Chiari I malformation better evaluated on the prior head CT's an d unchanged. IMPRESSION: 1. Straightening with reversal normal cervical lordosis. 2. No evidence of acute fracture or dislocation.
== END 2023-10-24 14:07 | disposition home or self-care (01) ==
LOC: RAD 14:06
PROVIDERS: PCP Family Medicine; Visit Provider Family Medicine
DX: S06.9X9A Unspecified intracranial injury with loss of consciousness of unspecified duration, initial encounter (principal); S09.92XA Unspecified injury of nose, initial encounter; S13.4XXA Sprain of ligaments of cervical spine, initial encounter; S13.100A Subluxation of unspecified cervical vertebrae, initial encounter; S00.03XA Contusion of scalp, initial encounter; W19.XXXA Unspecified fall, initial encounter; M43.8X2 Other specified deforming dorsopathies, cervical region
CPT/HCPCS: 70450; 70486; 72040; 72125

== ENCOUNTER 2023-10-26 16:12 | Outpatient (CLI) | payer MEDICAID, SELFPAY ==
--- NOTE | 2023-10-26 16:25 | XR_ITS ---
WS: [id number] Cervical spine, 3 views, 10/26/2023 Clinical Data: STRAIN Comparison: Cervical spine, 10/24/2023 Findings: No compression fractures are seen. There is loss of the normal lordotic curvature. There is minimal disc narrowing at C5-C6 and C6-C7. There is no prevertebral soft tissue swelling. The odonto id is unremarkable. The soft tissues of the neck and the lung apices are normal. There is a small colby gical plate overlying the left mastoid. Impression: 1. Loss of normal lordotic curvature. 2. Negative for definite cervical spine fracture.
== END 2023-10-26 16:13 | disposition home or self-care (01) ==
LOC: RAD 16:14
PROVIDERS: PCP Family Medicine; Visit Provider Family Medicine
DX: S16.1XXA Strain of muscle, fascia and tendon at neck level, initial encounter (principal); X58.XXXA Exposure to other specified factors, initial encounter
CPT/HCPCS: 72040

== ENCOUNTER 2023-11-02 09:13 | Inpatient (IN) | payer MEDICAID, SELFPAY ==
[2023-11-02 09:17] VITALS: BMI 21.4
[2023-11-02 09:18] VITALS: BP 161/98; PULSE 101; RESP 16; TEMP 36.6; O2SAT 95
--- NOTE | 2023-11-02 09:22 | ED.C_ITS ---
HPI - Psych 2 General: Chief Complaint: Psychiatric Symptoms Stated Complaint: MHE Time Seen by Provider: 11/02/23 09:16 Source: patient Mode of arrival: ambulatory Limitations: no limitations History of Present Illness: 38-year-old female has a history of psyc hiatric disorder along with bipolar patient is here with mother states over the last 3 days she has had increased bryan states that she is been hallucinating she had found her sleeping in the bathtub with a blanket this morning. Patient denies any SI or HI does admit to feeling manic she did have a fall a week ago where she was seen and had imaging of her head and neck that were normal she has bruising denies any headache has continued to have muscular neck pain. Review of Systems 2 Const: Denies: fever(s), chills, body aches or change in appetite Eyes: Denies: blurry vision or eye discomfort ENMT: Denies: throat pain or dental pain Card: Denies: chest pain Resp: Denies: dyspnea GI: Denies: abdominal pain, nausea, vomiting or diarrhea Musc: Reports: neck pain; Denies: back pain Skin/Breast: Denies: rash Neuro: Reports: headache(s) PFSH ED 2 PFSH: Medical History Peters use Psychiatric care Endometriosis Facial scar Bipolar disorder with psychotic features Hypothyroidism Spondylosis of lumbar region without myelopathy or radiculopathy Lumbar post-laminectomy syndrome Motor nerve conduction block Post-traumatic stress disorder, chronic Surgical History History of liver biopsy Hx of cholecystectomy Family History Denies family history of Psychiatric illness Social History Smoking and tobacco/nicotine status: current every day tobacco/nicotine user cigarettes [ Other cigarette details: 3 to 4 cigarettes a day] Alcohol intake: current Substance/Drug Use: former Date of last use: Overdosed on her prescription medications such as lithium Household members: family Housing: House Current occupational status: employed Physical Exam 2 Const: COMMON NORMALS: no acute distress, patient oriented x3 and healthy appearing HENMT: COMMON NORMALS: normocephalic HEAD & SCALP: normocephalic OTHER: Contusions noted to head Eye: COMMON NORMALS: Equal, round and reactive pupils present and EOMs intact bilaterally PUPIL: Yes Equal, round and reactive pupils present Neck/C-Spine: COMMON NORMALS: full ROM and supple Chest: COMMONS NORMALS: normal inspection of the chest and normal palpation of entire chest wall Resp: COMMON NORMALS: normal respiratory effort, No retractions, No use of accessory muscles and clear to auscultation bilaterally AUSCULTATION: clear to auscultation bilaterally Cardio: COMMON NORMALS: regular rate, regular rhythm and No murmurs present (Cardio) RATE: regular rate RHYTHM: regular rhythm GI: COMMON NORMALS: Normal to inspection, nondistended, normoactive bowel sounds present, Soft to palpation, non-tender and no masses PALPATION: Yes Soft to palpation Extremity: COMMON NORMALS: normal to inspection and full ROM Neuro: COMMON NORMALS: patient oriented x3, moves all extremities and no focal motor deficits Psych: COMMON NORMALS: mental status grossly normal, Normal thought process present and cooperative THOUGHT PROCESS: Normal thought process present Skin: COMMON NORMALS: no rashes or lesions noted and no wounds GENERAL SKIN EXAM: no rashes or lesions noted Course 2 Vital Signs: Vital signs: Vital Signs Temperature 97.8 F 11/02/23 09:18 Pulse Rate 101 H 11/02/23 09:18 Respiratory Rate 15 11/02/23 11:36 Blood Pressure 161/98 11/02/23 09:18 Pulse Oximetry 95 11/02/23 09:18 Oxygen Delivery Me thod Room Air 11/02/23 09:18 [facility] - Psych Medical Decision Making Patient presents here with acute psychosis patient does have some hypokalemia here did give her oral potassium replacement here did talk to Dr. Linda will admit at this time she has been stable here. Medical Records I reviewed the patient's medical records. Lab Data I reviewed the patient's lab results. 11/02/23 09:31 12 09:31 Laboratory Results WBC 4.81 10^3/uL (3.29-11.43) 11/02/23 09:31 RBC 3.74 10^6/uL (3.85-5.65) L 11/02/23 09:31 Hgb 12.60 g/dL (11.27-16.99) 11/02/23 09: Hct 38.6 % (36-47) 11/02/23 09: MCV 103.2 fl (85-98) H 11/02/23 09:31 MCH 33.7 pg (27-33) H 11/02/23 09:31 MCHC 32.6 g/dL (30-55) 11/02/23 09: RDW 13.7 % (12.1-15.1) 11/02/23 09:31 Plt Count 390 10^3/cmm (157-399) 11/02/23 09:31 MPV 8.3 fL (7.4-10.4) 11/02/23 09: Neut % (Auto) 66.3 % 11/02/23 09: Lymph % (Auto) 24.7 % 11/02/23 09:31 [place] % (Auto) 6.7 % 11/02/23 09: Eos % (Auto) 0.4 % 11/02/23 09: Baso % (Auto) 1.7 % 11/02/23 09:31 Neut # (Auto) 3.19 10^3/uL (1.8-7.7) 11/02/23 09: Lymph # (Auto) 1.2 10^3/uL (0.8-4.8) 11/02/23 09:31 [place] # (Auto) 0.3 10^3/uL (0.2-0.9) 11/02/23 09: Eos # (Auto) 0.0 10^3/uL (0.0-0.8) 11/02/23 09: Baso # (Auto) 0.1 10^3/uL (0.0-0.1) 11/02/23 09: Nucleated RBC % (auto) 0 % 11/02/23 09: Nucleated RBCs # 0.0 /100WBC 11/02/23 09: Sodium 145 mmol/L (136-145) 11/02/23 09:31 Potassium 2.6 mmol/L (3.5-5.1) L* 11/02/23 09: Chloride 105 mmol/L (98-107) 11/02/23 09: Carbon Dioxide 24 mmol/L (22-29) 11/02/23 09:31 Anion Gap 18.6 (5-19) 11/02/23 09:31 BUN 9 mg/dL (6-20) 11/02/23 09:31 Creatinine 0.7 mg/dL (0.5-0.9) 11/02/23 09:31 GFR Calculation 93.2 mL/min (90-130) 11/02/23 09:31 Glucose 90 mg/dL (65-115) 11/02/23 09:31 Calculated Osmolality 298 mOsm/kg (285-295) H 11/02/23 09:31 Calcium 9.0 mg/dL (8.5-10.5) 11/02/23 09:31 Total Bilirubin 0.3 mg/dL (0.15-1.2) 11/02/23 09:31 AST 29 U/L (0-32) 11/02/23 09:31 ALT 24 U/L (0-33) 11/02/23 09:31 Alkaline Phosphatase 94 U/L (35-105) 11/02/23 09:31 Total Protein 7.1 g/dL (6.6-8.7) 11/02/23 09:31 Albumin 4.6 g/dL (3.5-5.2) 11/02/23 09:31 Globulin 2.5 g/dL (1.3-4.6) 11/02/23 09:31 Salicylates < 0.3 mg/dL (3-10) L 11/02/23 09:31 Acetaminophen < 5.0 ug/mL (10-30) L 11/02/23 09:31 Ethyl Alcohol < 10 mg/dL (0-10) 11/02/23 09:31 No radiology studies performed this visit Discharge Plan Discharge Patient Disposition: Admitted As Inpatient Admit Provider: John Linda Clinical Impression: Acute psychosis Condition: Stable Coding Level of Care Code ED Housekeeping And La[employer] Team Leader for Ranulfo Fernandez
[2023-11-02] MEDS: LORazepam 2 mg Tablet PO (09:24)
[2023-11-02 09:39] LABS: Basophils # 0.1 10^3/uL (0.0-0.1); Basophils % 1.7 %; Eosinophils % 0.4 %; Hematocrit 38.6 % (36-47); Lymphocytes # 1.2 10^3/uL (0.8-4.8); Lymphocytes % 24.7 %; Mean Corpuscular HGB Conc 32.6 g/dL (30-55); Mean Corpuscular Hemoglobin 33.7 pg (27-33); Mean Corpuscular Volume 103.2 fl (85-98); Mean Platelet Volume 8.3 fL (7.4-10.4); Monocytes # 0.3 10^3/uL (0.2-0.9); Monocytes % 6.7 %; Neutrophils # 3.19 10^3/uL (1.8-7.7); Neutrophils % 66.3 %; Nucleated Red Blood Cells % 0 %; Platelet Count 390 10^3/cmm (157-399); Red Blood Count 3.74 10^6/uL (3.85-5.65); Red Cell Distribution Width 13.7 % (12.1-15.1); White Blood Count 4.81 10^3/uL (3.29-11.43)
[2023-11-02 10:05] LABS: Alanine Aminotransferase 24 U/L (0-33); Albumin Level 4.6 g/dL (3.5-5.2); Alkaline Phosphatase 94 U/L (35-105); Anion Gap 18.6 (5-19); Aspartate Amino Transferase 29 U/L (0-32); Blood Urea Nitrogen 9 mg/dL (6-20); Carbon Dioxide 24 mmol/L (22-29); Chloride 105 mmol/L (98-107); Globulin 2.5 g/dL (1.3-4.6); Glomerular Filtration Rate 93.2 mL/min (90-130); Glucose 90 mg/dL (65-115); Osmolality Calculated 298 mOsm/kg (285-295); Sodium 145 mmol/L (136-145); Total Bilirubin 0.3 mg/dL (0.15-1.2); Total Protein 7.1 g/dL (6.6-8.7)
[2023-11-02 10:15] LABS: Acetaminophen < 5.0 ug/mL (10-30); Alcohol Level < 10 mg/dL (0-10); Potassium 2.6 mmol/L (3.5-5.1); Salicylate < 0.3 mg/dL (3-10)
[2023-11-02] MEDS: potassium chloride ER 20 mEq Tablet 80 MEQ PO (11:27)
[2023-11-02 11:36] VITALS: RESP 15
[2023-11-02 11:55] VITALS: RESP 15
[2023-11-02 12:37] VITALS: BP 143/104; PULSE 85; RESP 14; TEMP 36.6; O2SAT 99
[2023-11-02 13:31] LABS: HCG Qualitative Urine. Negative (Negative)
[2023-11-02 14:00] VITALS: BP 138/111; PULSE 119; RESP 14; TEMP 36.7; O2SAT 99
[2023-11-02 15:47] LABS: Amphetamines Screen Urine Negative (Negative); Barbiturates Screen Urine Negative (Negative); Benzodiazepines Screen Urine Positive (Negative); Cocaine Screen Urine Negative (Negative); Opiate Screen Urine Negative (Negative); PCP Screen Urine Negative (Negative); THC Screen Urine Negative (Negative)
[2023-11-02] MEDS: ibuprofen 600 mg Tablet PO ×2 (16:23→23:33)
[2023-11-02] MEDS: gabapentin 300 mg Capsule 600 MG PO ×2 (16:24→20:34)
[2023-11-02] MEDS: carBAMazepine 200 mg Tablet PO ×2 (16:24→20:34)
[2023-11-02] MEDS: risperiDONE 0.25 mg Tablet 0.5 MG PO (17:03)
[2023-11-02] MEDS: topiramate 100 mg Tablet 300 MG PO (17:04)
[2023-11-02] MEDS: acetaminophen 325 mg Tablet 650 MG PO ×2 (17:04→21:43)
[2023-11-02] MEDS: nicotine 4 mg lozenge MUCOUS MEM (18:22)
[2023-11-02] MEDS: tizanidine 4 mg Tablet PO (20:34)
[2023-11-02 20:36] VITALS: BP 130/78; PULSE 99; RESP 14; TEMP 36.7; O2SAT 98
--- NOTE | 2023-11-02 21:21 | PC.NURSE ---
IN BED RESTING AROUSES TO VOICE. PT IMMEDIATELY REQUEST SHE BE GIVEN PAIN MEDICATION, HYDROCODONE OR METHADONE. PT WAS EDUCATED THAT RN DID NOT SEE WHERE THAT HAD BEEN PRESCRIBED FOR HER. PT IS NOTED TO HAVE BRUISING AND SWELLING AROUND BOTH EYES THE LEFT ONE BEING WORSE. PT STATES SHE FELL AROUND OR ON THE September. PT WAS INFORMED THAT THIS RN DID PULL XANAFLEX 4 MG TO GIVE FOR PAIN WELL HER GABAPENTIN. PT WAS ALSO INFORMED SHE COULD HAVE TYLENOL AT 2100. PT REPORTS PAIN 9/[address] TALBERT WAS NOTIFIED OF PT REQUEST, AWAITING POSSIBLE ORDERS. PT DENIES SI/HI AND AVH AT THIS TIME. REPORTS ANXIETY 10/10 AND DEPRESION 0/10. PT IS NOTED TO HAVE A FLAT AFFECT. ALL QUESTIONS ANSWERED AND SUPPORT VOICED. PT WAS OFFERED ANXIETY MEDICATIONS BUT PT DECLINED STATING I CAN'T TAKE ANY OF THAT STUFF IT DOESN'T WORK, BUT I CAN TAKE ATIVAN. PT EDUCATED THAT SHE HAD NO ORDERS FOR ATIVAN AT THIS TIME.
--- NOTE | 2023-11-03 02:16 | PC.NURSE ---
PT CONTINUES TO BE UP AND DOWN THROUGHOUT THE SHIFT. PT CURRENTLY IN SHOWER, PT UP TO NURSES STATION SEVERAL TIMES REQUESTING PAIN MEDICATIONS. PT HAS BEEN GIVEN TYLENOL 650 MG, IBUPROFEN 600 MG AND XANAFLEX 4 MG ORDERED FOR PAIN IN FACE, NECK AND FEET 08/07. PT THEN CAME UP AGAIN AFTER TAKING IBUPROFEN STATING, MY LEGS ARE HURTING NOW I THINK I NEED BACLOFEN ORDERED OR MY PAIN PILLS. PT WAS EDUCATED THAT IT HAD ONLY BEEN 4 MINUTES SINCE SHE RECEIVED THE IBUPROFEN AND IT HAS TO BE GIVEN TIME FOR IT TO WORK. PT STATED OK SLUMPED HER SHOULDERS, MADE A SAD FACE AND WENT BACK TO ROOM TO SHOWER. SUPPORT WAS VOICED.
[2023-11-03] MEDS: acetaminophen 325 mg Tablet 650 MG PO ×2 (04:15→08:38)
[2023-11-03 06:00] VITALS: BP 143/92; PULSE 93; RESP 16; TEMP 36.8; O2SAT 98
[2023-11-03] MEDS: ibuprofen 600 mg Tablet PO ×3 (06:08→21:09)
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
--- NOTE | 2023-11-03 06:15 | PC.NURSE ---
PT CONTINUES TO COME TO NURSES STATION EVERY 2-3 HOURS STATING SHE IS IN PAIN IN MULTIPLE AREAS OF BODY. PT REPORTS HEAD, NECK, LEG AND FEET PAIN WITH RATINGS RANGING FROM 5/10 TO 10/10 PAIN. PT CONTINUES TO REQUEST BACLOFEN 10 MG THREE TIMES A DAY, WHICH SHE PICKED UP FROM [facility] BACK IN MARCH OF THIS YEAR. PT ALSO REQUEST METHADONE OR HYDROCODONE 10 MG FOR PAIN. RN REVIEWED PAST MEDICATIONS AND FOUND PT DID PLASTIC MOLDING OPERATOR A HYDROCODONE PRESCRIPTION BACK IN MARCH OF THIS YEAR BUT NO METHADONE PRESCRIPTION WAS FOUND IN SYSTEM. ALL INFORMATION REPORTED TO DR. TALBERT NO NEW ORDERS RECEIVED AT THIS TIME. PT WILL COME TO NURSES STATION GET TYLENOL OR IBUPROFEN, WALK BACK TO ROOM AND ON NEXT ROUNDING TIME RN OBSERVES PT RESTING IN BED QUIETLY IN NO APPARENT DISTRESS. PT WAS EDUCATED ON DOING DEEP BREATHING OR VISUAL IMAGERY BUT PT DECLINED STATING THAT NEVER WORKS FOR ME I JUST NEED MY MEDICATIONS. ALL QUESTIONS ANSWERED AND SUPPORT VOICED. WILL REPORT FINDINGS TO DAY SHIFT AND HAVE THEM CALL [facility] FOR MOST RECENT HYDROCODONE AND METHADONE PRESCRIPTION AND LET DR. TALBERT KNOW IF PT HAS ANY ACTIVE PRESCRIPTIONS THAT NEED TO BE RESTARTED.
[2023-11-03 07:04] LABS: Blood Urea Nitrogen 9 mg/dL (6-20); Calcium 8.2 mg/dL (8.5-10.5); Carbon Dioxide 20 mmol/L (22-29); Chloride 112 mmol/L (98-107); Glomerular Filtration Rate 111.3 mL/min (90-130); Glucose 94 mg/dL (65-115); Osmolality Calculated 296 mOsm/kg (285-295); Sodium 144 mmol/L (136-145)
[2023-11-03] MEDS: gabapentin 300 mg Capsule 600 MG PO ×4 (08:37→21:09)
[2023-11-03] MEDS: risperiDONE 0.25 mg Tablet 0.5 MG PO ×2 (08:37→17:29)
[2023-11-03] MEDS: carBAMazepine 200 mg Tablet PO ×4 (08:37→21:10)
[2023-11-03] MEDS: buPROPion XL (24 HR) 150 mg Tablet PO (08:37)
[2023-11-03] MEDS: fluoxetine 20 mg Capsule PO (08:37)
[2023-11-03 14:00] VITALS: BP 162/94; PULSE 92; RESP 20; TEMP 36.7; O2SAT 99
[2023-11-03] MEDS: OLANZapine 5 mg ODT PO (16:35)
[2023-11-03] MEDS: topiramate 100 mg Tablet 300 MG PO (17:29)
--- NOTE | 2023-11-03 17:45 | PC.NURSE ---
Patient has been presented with each meal, but has denied them, stating she isn't hungry. This nurse gave patient a package of peanut butter crackers and three packs of saltines. Patient has all the crackers except for a pack of saltines still in her room. This nurse spent some time encouraging patient to eat something.
--- NOTE | 2023-11-03 21:00 | PC.NURSE ---
COLLECTIONS CLERK WENT TO PT ROOM AROUND 2044 WITH SNACKS, THIS TIME PT DID TAKE SNACKS AND ATE 100% OF CRACKERS AND CHIPS. PT HAS BEEN DRINKING ADEQUATE AMOUNTS OF LIQUIDS. STAFF INFORMED OF PT NOT EATING MEALS AND TO OFFER SNACKS AND DRINKS FREQUENTLY.
--- NOTE | 2023-11-03 21:02 | PC.NURSE ---
PT OBSERVED STANDING IN THE MIDDLE OF ROOM IN THE DARK WHISPERING TO SOMEONE. PT IS NOTED TO BE PARANOID AND SUSPICIOUS OF STAFF AND ENVIRONMENT. PT WILL ASK FOR SOMETHING FOR PAIN AND WHEN THIS RN OFFERS TYLENOL OR IBUPROFEN PT STATES OH I THINK I'M OK. RN ASKS IF HER PAIN IS A ZERO PT STATES NO ITS A 5 IN MY BACK, NECK AND LEGS. RN ASSURED PT THAT RN WOULD ADMINISTER ZANAFLEX AND IBUPROFEN OR TYLENOL IF ITS TIME. PT AGREED. PT CONTINUES TO ASK FOR BACLOFEN. PT WAS INFORMED THAT DR. TALBERT WAS NOTIFIED AND RN ASKED FOR BACLOFEN [address] DID NOT GIVE ANY NEW ORDERS. PT DENIES SI/HI AND AVH AT THIS TIME. PT IS OBSERVED POSSIBLY RESPONDING TO INTERNAL STIMULI. PT REPORTS ANXIETY 10/10 BUT DECLINES PRN ANXIETY MEDS. PT STATES SHE WOULD LIKE ATIVAN. RN INFORMED PT SHE DOES NOT HAVE THAT ORDERED THEN PT WILL SAY OH I'M OK. PT REPORTS DEPRESSION 10/10. DAY SHIFT REPORTS PT HAS NOT BEEN EATING MEALS. STAFF OFFERED SNACKS, PT JUST LOOKS AND STARES AND DOES NOT RESPOND OR ACKNOWLEDGE THE FOOD. PT DID ASK SUPPLIER RELATIONSHIP DIRECTOR FOR ANXIETY MEDS AND SUPPLIER RELATIONSHIP DIRECTOR REPORTED TO THIS RN. HALDOL 5 MG PULLED, WILL SEE IF PT WILL TAKE. ALL QUESTIONS ANSWERED AND SUPPORT VOICED.
[2023-11-03] MEDS: haloperidol 5 mg Tablet PO (21:10)
[2023-11-03] MEDS: tizanidine 4 mg Tablet PO (21:10)
[2023-11-03 22:00] VITALS: BP 168/118; PULSE 135; RESP 20; TEMP 36.8; O2SAT 94
[2023-11-04] MEDS: acetaminophen 325 mg Tablet 650 MG PO ×4 (01:26→20:02)
[2023-11-04] MEDS: buPROPion XL (24 HR) 150 mg Tablet PO (05:56)
[2023-11-04] MEDS: ibuprofen 600 mg Tablet PO ×3 (05:56→18:05)
[2023-11-04 06:00] VITALS: BP 136/85; PULSE 100; RESP 16; TEMP 36.9; O2SAT 97
--- NOTE | 2023-11-04 06:28 | PC.NURSE ---
PT HAS SLEPT INTERMITTENTLY THROUGH OUT THE NIGHT,HAS BEEN UP 3 TIMES REQUESTING MEDICATIONS FOR PAIN THEN PT DRIFTS OFF TO SLEEP. PT HAS SLEPT APPROXIMATELY 8 HOURS TOTAL FOR THE NIGHT. PT WAS GIVEN HALDOL 5 MG LAST NIGHT DUE TO HAVING EXTREME ANXIETY AND PARANOIA, PT SBP WAS ELEVATED OVER 160/110, THIS AM IT WAS 136/85. HALDOL 5 MG DEEMED EFFECTIVE.
[2023-11-04] MEDS: carBAMazepine 200 mg Tablet PO ×4 (08:11→20:03)
[2023-11-04] MEDS: gabapentin 300 mg Capsule 600 MG PO ×4 (08:11→20:03)
[2023-11-04] MEDS: risperiDONE 0.25 mg Tablet 0.5 MG PO ×2 (08:11→17:06)
[2023-11-04] MEDS: fluoxetine 20 mg Capsule PO (08:11)
[2023-11-04] MEDS: baclofen 10 mg Tablet PO ×3 (08:27→20:03)
--- NOTE | 2023-11-04 10:10 | P.NPUPN_ITS ---
Subjective NPU 2 Subjective: Patient presented today reporting that she was doing okay. We discussed her meeting with her mother today and she denied any issues. She reports her mother is home for the hospital now and doing well. We discussed speaking with her given that she is the guardian to get her take on how Emily is doing as she is the one that had concerns. Patient continues to focus on being discharged and just being with her family and is downplaying that any issues at current and being here which is not the report that we received. Mental Status Exam 2 MSE Comments: This is an underweight white female in hospital scrubs with appropriate grooming and eye contact. Notable scar starting at the angle of upper and lower lips on the left side. Additional ecchymosis and a nearly raccoon pattern on her eyes and face that she attributes to a recent fall. No abnormal movements except for mild psychomotor retardation. She was cooperative with exam in mild distress. Speech was slightly decreased rate and volume. Mood described as I do not feel well I just need to get home. Her affect appeared subdued. Thought process was linear. Thought content: patient endorses no suicidal ideation and no homicidal ideation. There was no evidence of any delusional thinking. She denies any auditory or visual hallucinations. She did not appear to be responding to internal stimuli. Attention was and concentration were intact and memory appeared mostly intact and none were formally tested. She is alert and oriented times three. Insight, judgment and impulse control appear limited. Vitals/I&O/Wt Last Vital Signs Temp 98.4 F 11/04/23 06:00 Pulse 100 11/04/23 06:00 Resp 16 11/04/23 06:00 BP 136/85 11/04/23 06:00 Pulse Ox 97 11/04/23 06:00 O2 Del Method Room Air 11/04/23 06:00 Data NPU 11/02/23 09:31 11/03/23 06:32 A&P Assessment and plan (1) Acute psychosis: (2) Bipolar 1 disorder: (3) Post-traumatic stress disorder, chronic: (4) Suicidal ideation: (5) Overdose: (6) Alcohol use disorder, moderate, dependence: (7) Borderline personality disorder: (8) Opioid use disorder, moderate, in early remission: (9) Bipolar I disorder with depression: (10) Suicide attempt: (11) Trigeminal neuralgia: (12) Acute psychosis: Plan This is a 38-year old female with a history of bipolar 1 disorder, PTSD and borderline personality disorder who presents reporting recent issues with her mother's health and her medication getting mixed up leading to her mother who is her guardian feeling she needed to come to the hospital. Plan: 1. Continue current medication. 2. Continue every 15 minute checks for safety. 3. Encourage individual, group and milieu therapies. 4. Encourage sober living treatment after discharge at the highest level of care to which she is willing to commit. Evaluate the significance of her positive UDS. 5. Will need to speak with guardian/mother about what has been going on recently with stories being somewhat unclear. Involuntary Hold Information 2 96 Hour Hold: 96 Hour Involuntary Admission: No Attestations NPU 2 Medical Necessity Statement*: Inpatient hospitalization is medically necessary and the clinically appropriate intervention at this time. We will monitor/initiate medications and make changes as indicated. Likely length of stay 3-5 days. Coding Level of Care Code Acute Code for [facility] Diagnoses Acute psychosis F23 Bipolar 1 disorder F31.9 Post-traumatic stress disorder, chronic F43.12 Suicidal ideation R45.851 Overdose T50.901A Alcohol use disorder, moderate, dependence F10.20 Borderline personality disorder F60.3 Opioid use disorder, moderate, in early remission F11.21 Bipolar I disorder with depression F31.9 Suicide attempt T14.91XA Trigeminal neuralgia G50.0
[2023-11-04] MEDS: OLANZapine 5 mg ODT PO (12:25)
[2023-11-04 14:00] VITALS: BP 132/85; PULSE 110; RESP 18; TEMP 36.7; O2SAT 97
[2023-11-04] MEDS: topiramate 100 mg Tablet 300 MG PO (17:06)
[2023-11-04 21:00] VITALS: BP 120/76; PULSE 93; RESP 16; TEMP 36.9; O2SAT 98
[2023-11-05] MEDS: acetaminophen 325 mg Tablet 650 MG PO ×3 (04:51→21:02)
[2023-11-05] MEDS: buPROPion XL (24 HR) 150 mg Tablet PO (05:23)
[2023-11-05 06:00] VITALS: BP 116/77; PULSE 81; RESP 16; TEMP 37.2; O2SAT 98
[2023-11-05] MEDS: baclofen 10 mg Tablet PO ×3 (08:00→20:58)
[2023-11-05] MEDS: gabapentin 300 mg Capsule 600 MG PO ×4 (08:00→20:58)
[2023-11-05] MEDS: carBAMazepine 200 mg Tablet PO ×4 (08:00→20:58)
[2023-11-05] MEDS: risperiDONE 0.25 mg Tablet 0.5 MG PO ×2 (08:00→17:57)
[2023-11-05] MEDS: fluoxetine 20 mg Capsule PO (08:00)
--- NOTE | 2023-11-05 08:11 | P.NPUPN_ITS ---
Subjective NPU 2 Subjective: Patient presented today reporting that she is feeling okay. She continues to seem somewhat confused and foggy per staff reports and direct observation. She reported to staff that she was going home essentially to and she repeated that with this fiction and nonfiction writer prose stating some vague reality in her estimation that she was in a little much longer and she is wanting to discharge to be able to see her mom, her brother and her dog before she . We discussed not wanting to have her do something to harm herself and she did not really respond to that line of questioning. She denied any issues with the medication Mental Status Exam 2 MSE Comments: This is an underweight white female in hospital scrubs with appropriate grooming and eye contact. Notable scar starting at the angle of upper and lower lips on the left side. Additional ecchymosis and a nearly raccoon pattern on her eyes and face that she attributes to a recent fall. No abnormal movements except for mild psychomotor retardation. She was cooperative with exam in mild distress. Speech was slightly decreased rate and volume. Mood described as I do not feel well I just need to get home. Her affect appeared subdued. Thought process was linear. Thought content: patient endorses no suicidal ideation and no homicidal ideation. There was no evidence of any delusional thinking. She denies any auditory or visual hallucinations. She did not appear to be responding to internal stimuli. Attention was and concentration were intact and memory appeared mostly intact and none were formally tested. She is alert and oriented times three. Insight, judgment and impulse control appear limited. Vitals/I&O/Wt Last Vital Signs Temp 98.9 F 11/05/23 06:00 Pulse 81 11/05/23 06:00 Resp 16 11/05/23 06:00 BP 116/77 11/05/23 06:00 Pulse Ox 98 11/05/23 06:00 O2 Del Method Room Air 11/05/23 06:00 Data NPU 11/02/23 09:31 11/03/23 06:32 A&P Assessment and plan (1) Acute psychosis: (2) Bipolar 1 disorder: (3) Post-traumatic stress disorder, chronic: (4) Suicidal ideation: (5) Overdose: (6) Alcohol use disorder, moderate, dependence: (7) Borderline personality disorder: (8) Opioid use disorder, moderate, in early remission: (9) Bipolar I disorder with depression: (10) Suicide attempt: (11) Trigeminal neuralgia: (12) Acute psychosis: Plan This is a 38-year old female with a history of bipolar 1 disorder, PTSD and borderline personality disorder who presents reporting recent issues with her mother's health and her medication getting mixed up leading to her mother who is her guardian feeling she needed to come to the hospital. Plan: 1. Continue current medication. 2. Continue every 15 minute checks for safety. 3. Encourage individual, group and milieu therapies. 4. Encourage sober living treatment after discharge at the highest level of care to which she is willing to commit. Evaluate the significance of her positive UDS. 5. Will need to speak with guardian/mother about what has been going on recently with stories being somewhat unclear. Involuntary Hold Information 2 96 Hour Hold: 96 Hour Involuntary Admission: No Attestations NPU 2 Medical Necessity Statement*: Inpatient hospitalization is medically necessary and the clinically appropriate intervention at this time. We will monitor/initiate medications and make changes as indicated. Likely length of stay 3-5 days. Coding Level of Care Code Acute Code for [facility] Fwd Diagnoses Acute psychosis F23 Bipolar 1 disorder F31.9 Post-traumatic stress disorder, chronic F43.12 Suicidal ideation R45.851 Overdose T50.901A Alcohol use disorder, moderate, dependence F10.20 Borderline personality disorder F60.3 Opioid use disorder, moderate, in early remission F11.21 Bipolar I disorder with depression F31.9 Suicide attempt T14.91XA Trigeminal neuralgia G50.0
[2023-11-05] MEDS: ibuprofen 600 mg Tablet PO ×3 (08:24→23:03)
--- NOTE | 2023-11-05 09:20 | PC.NURSE ---
Denies avh and si/hi. She states she is extremely anxious this morning because she wants to get home to her mom and her dog.
[2023-11-05 14:00] VITALS: BP 119/84; PULSE 98; RESP 20; TEMP 37.1; O2SAT 96
[2023-11-05] MEDS: topiramate 100 mg Tablet 300 MG PO (17:57)
[2023-11-05 22:00] VITALS: BP 134/93; PULSE 89; RESP 16; TEMP 36.9; O2SAT 97
[2023-11-06] MEDS: acetaminophen 325 mg Tablet 650 MG PO ×4 (00:52→17:18)
[2023-11-06] MEDS: OLANZapine 5 mg ODT PO ×2 (01:34→19:41)
[2023-11-06 06:00] VITALS: BP 119/79; PULSE 105; RESP 18; O2SAT 98
[2023-11-06] MEDS: ibuprofen 600 mg Tablet PO ×3 (06:22→20:11)
[2023-11-06] MEDS: buPROPion XL (24 HR) 150 mg Tablet PO (06:22)
[2023-11-06] MEDS: risperiDONE 0.25 mg Tablet 0.5 MG PO ×2 (07:48→20:10)
[2023-11-06] MEDS: carBAMazepine 200 mg Tablet PO ×4 (07:49→20:10)
[2023-11-06] MEDS: fluoxetine 20 mg Capsule PO (07:49)
[2023-11-06] MEDS: docusate sodium 100 mg Capsule PO (07:49)
[2023-11-06] MEDS: gabapentin 300 mg Capsule 600 MG PO ×4 (07:49→20:10)
[2023-11-06] MEDS: baclofen 10 mg Tablet PO ×3 (07:49→20:10)
--- NOTE | 2023-11-06 09:04 | PC.NURSE ---
Patient states she is feeling miserable this morning because her whole body is hurting. She said, I feel like my central nervous system is damaged. I'm just miserable. She also said she was feeling anxious because she wants to talk to her brother and can't get ahold of him.
--- NOTE | 2023-11-06 13:01 | P.NPUPN_ITS ---
Subjective NPU 2 Subjective: The patient presented today reporting that she is doing fine. She seemed more with it per staff reports and direct observation. She is now reporting that she does not want to but that she was having those feelings before but denied any interest in hurting herself or killing herself. She now reports that her mom had some difficulties and she just wants to get home to be close to her. We acknowledge that her mom is the person that thought she needs to be here based on her behaviors. We agreed that we would work with her mother/guardian to make sure that she is safe at discharge. Mental Status Exam 2 MSE Comments: This is an underweight white female in hospital scrubs with appropriate grooming and eye contact. Notable scar starting at the angle of upper and lower lips on the left side. Additional ecchymosis and a nearly raccoon pattern on her eyes and face that she attributes to a recent fall. No abnormal movements except for mild psychomotor retardation. She was cooperative with exam in mild distress. Speech was slightly decreased rate and volume. Mood described as okay I just want to get home, her affect appeared less subdued. Thought process was linear. Thought content: patient endorses no suicidal ideation and no homicidal ideation. There was no evidence of any delusional thinking. She denies any auditory or visual hallucinations. She did not appear to be responding to internal stimuli. Attention was and concentration were intact and memory appeared mostly intact and none were formally tested. She is alert and oriented times three. Insight, judgment and impulse control appear limited. Vitals/I&O/Wt Last Vital Signs Temp 98.4 F 11/05/23 22:00 Pulse 105 H 11/06/23 06:00 Resp 18 11/06/23 06:00 BP 119/79 11/06/23 06:00 Pulse Ox 98 11/06/23 06:00 O2 Del Method Room Air 11/06/23 06:00 Weight last 48 hrs Weight 55.849 kg Data NPU 11/02/23 09:31 11/03/23 06:32 A&P Assessment and plan (1) Acute psychosis: (2) Bipolar 1 disorder: (3) Post-traumatic stress disorder, chronic: (4) Suicidal ideation: (5) Overdose: (6) Alcohol use disorder, moderate, dependence: (7) Borderline personality disorder: (8) Opioid use disorder, moderate, in early remission: (9) Bipolar I disorder with depression: (10) Suicide attempt: (11) Trigeminal neuralgia: (12) Acute psychosis: Plan This is a 38-year old female with a history of bipolar 1 disorder, PTSD and borderline personality disorder who presents reporting recent issues with her mother's health and her medication getting mixed up leading to her mother who is her guardian feeling she needed to come to the hospital. Plan: 1. Continue current medication. 2. Continue every 15 minute checks for safety. 3. Encourage individual, group and milieu therapies. 4. Encourage sober living treatment after discharge at the highest level of care to which she is willing to commit. Evaluate the significance of her positive UDS. 5. Will need to speak with guardian/mother about what has been going on recently with stories being somewhat unclear. Involuntary Hold Information 2 96 Hour Hold: 96 Hour Involuntary Admission: No Attestations NPU 2 Medical Necessity Statement*: Inpatient hospitalization is medically necessary and the clinically appropriate intervention at this time. We will monitor/initiate medications and make changes as indicated. Likely length of stay 2-4 days. Coding Level of Care Code Acute Code for [facility] Fwd Diagnoses Acute psychosis F23 Bipolar 1 disorder F31.9 Post-traumatic stress disorder, chronic F43.12 Suicidal ideation R45.851 Overdose T50.901A Alcohol use disorder, moderate, dependence F10.20 Borderline personality disorder F60.3 Opioid use disorder, moderate, in early remission F11.21 Bipolar I disorder with depression F31.9 Suicide attempt T14.91XA Trigeminal neuralgia G50.0
[2023-11-06 14:00] VITALS: BP 128/85; PULSE 89; RESP 20; TEMP 36.6; O2SAT 99
[2023-11-06 19:44] VITALS: BP 122/82; PULSE 90; RESP 16; O2SAT 97
[2023-11-06] MEDS: topiramate 100 mg Tablet 300 MG PO (20:10)
[2023-11-07] MEDS: acetaminophen 325 mg Tablet 650 MG PO ×3 (05:22→20:48)
[2023-11-07] MEDS: buPROPion XL (24 HR) 150 mg Tablet PO (05:22)
[2023-11-07 06:00] VITALS: BP 117/77; PULSE 79; RESP 18; O2SAT 98
[2023-11-07] MEDS: carBAMazepine 200 mg Tablet PO ×4 (07:59→20:29)
[2023-11-07] MEDS: fluoxetine 20 mg Capsule PO (07:59)
[2023-11-07] MEDS: risperiDONE 0.25 mg Tablet 0.5 MG PO ×2 (07:59→20:45)
[2023-11-07] MEDS: gabapentin 300 mg Capsule 600 MG PO ×4 (07:59→20:29)
[2023-11-07] MEDS: baclofen 10 mg Tablet PO ×3 (07:59→20:29)
[2023-11-07] MEDS: ibuprofen 600 mg Tablet PO ×3 (08:48→23:55)
[2023-11-07 14:00] VITALS: BP 117/81; PULSE 75; RESP 16; TEMP 36.5; O2SAT 100
--- NOTE | 2023-11-07 18:28 | P.NPUPN_ITS ---
Subjective NPU 2 Subjective: Patient presented today reporting that she is feeling okay. We discussed speaking with mother and mother was feeling that tomorrow would be reasonable for discharge. She continues to deny any active thoughts to harm herself and has limited commentary about this idea of dying. We discussed her mother stating that this seemed to reflect a statement of exhaustion but that she seemed no active suicidal behavior and she has the medications locked up and administers her medications to her. Mental Status Exam 2 MSE Comments: This is an underweight white female in hospital scrubs with appropriate grooming and eye contact. Notable scar starting at the angle of upper and lower lips on the left side. Additional ecchymosis and a nearly raccoon pattern on her eyes and face that she attributes to a recent fall. No abnormal movements except for mild psychomotor retardation. She was cooperative with exam in mild distress. Speech was slightly decreased rate and volume. Mood described as okay I just want to get home, her affect appeared less subdued. Thought process was linear. Thought content: patient endorses no suicidal ideation and no homicidal ideation. There was no evidence of any delusional thinking. She denies any auditory or visual hallucinations. She did not appear to be responding to internal stimuli. Attention was and concentration were intact and memory appeared mostly intact and none were formally tested. She is alert and oriented times three. Insight, judgment and impulse control appear limited. Vitals/I&O/Wt Last Vital Signs Temp 98.0 F 11/07/23 20:27 Pulse 84 11/07/23 20:27 Resp 16 11/07/23 20:27 BP 111/66 11/07/23 20:27 Pulse Ox 97 11/07/23 20:27 O2 Del Method Room Air 11/07/23 20:27 Data NPU 11/02/23 09:31 11/03/23 06:32 A&P Assessment and plan (1) Acute psychosis: (2) Bipolar 1 disorder: (3) Post-traumatic stress disorder, chronic: (4) Suicidal ideation: (5) Overdose: (6) Alcohol use disorder, moderate, dependence: (7) Borderline personality disorder: (8) Opioid use disorder, moderate, in early remission: (9) Bipolar I disorder with depression: (10) Suicide attempt: (11) Trigeminal neuralgia: (12) Acute psychosis: Plan This is a 38-year old female with a history of bipolar 1 disorder, PTSD and borderline personality disorder who presents reporting recent issues with her mother's health and her medication getting mixed up leading to her mother who is her guardian feeling she needed to come to the hospital. Plan: 1. Continue current medication. 2. Continue every 15 minute checks for safety. 3. Encourage individual, group and milieu therapies. 4. Encourage sober living treatment after discharge at the highest level of care to which she is willing to commit. Evaluate the significance of her positive UDS. 5. Spoke with mother and she identified that she feels she is ready to come home and she feels confident to deal with her from the standpoint of safety. Involuntary Hold Information 2 96 Hour Hold: 96 Hour Involuntary Admission: No Attestations NPU 2 Medical Necessity Statement*: Inpatient hospitalization is medically necessary and the clinically appropriate intervention at this time. We will monitor/initiate medications and make changes as indicated. Likely length of stay 1-3 days. Coding Level of Care Code Acute Code for [facility] Fwd Diagnoses Acute psychosis F23 Bipolar 1 disorder F31.9 Post-traumatic stress disorder, chronic F43.12 Suicidal ideation R45.851 Overdose T50.901A Alcohol use disorder, moderate, dependence F10.20 Borderline personality disorder F60.3 Opioid use disorder, moderate, in early remission F11.21 Bipolar I disorder with depression F31.9 Suicide attempt T14.91XA Trigeminal neuralgia G50.0
[2023-11-07 20:27] VITALS: BP 111/66; PULSE 84; RESP 16; TEMP 36.7; O2SAT 97
[2023-11-07] MEDS: topiramate 100 mg Tablet 300 MG PO (20:29)
[2023-11-07] MEDS: OLANZapine 5 mg ODT PO (23:35)
[2023-11-08 06:00] VITALS: BP 123/80; PULSE 106; RESP 16; O2SAT 98
[2023-11-08] MEDS: acetaminophen 325 mg Tablet 650 MG PO (06:15)
[2023-11-08] MEDS: fluoxetine 20 mg Capsule PO (07:36)
[2023-11-08] MEDS: carBAMazepine 200 mg Tablet PO ×2 (07:36→12:23)
[2023-11-08] MEDS: risperiDONE 0.25 mg Tablet 0.5 MG PO (07:36)
[2023-11-08] MEDS: gabapentin 300 mg Capsule 600 MG PO ×2 (07:37→12:23)
[2023-11-08] MEDS: baclofen 10 mg Tablet PO (07:37)
[2023-11-08] MEDS: buPROPion XL (24 HR) 150 mg Tablet PO (07:37)
[2023-11-08] MEDS: ibuprofen 600 mg Tablet PO (09:26)
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
[2023-11-08 10:47] VITALS: BP 123/80; PULSE 106; RESP 16; O2SAT 98
== END 2023-11-08 12:39 | disposition home or self-care (01) | DRG 885 ==
LOC: ER 09:33 → NP 10:33
PROVIDERS: Admitting Provider Psychiatry & Neurology Psychiatry; Emergency Provider Emergency Medicine; PCP Family Medicine; Visit Provider Psychiatry & Neurology Psychiatry
DX: F23 Brief psychotic disorder (principal); F31.9 Bipolar disorder, unspecified; E03.9 Hypothyroidism, unspecified; F43.12 Post-traumatic stress disorder, chronic; F17.210 Nicotine dependence, cigarettes, uncomplicated; E87.6 Hypokalemia; G50.0 Trigeminal neuralgia; F60.3 Borderline personality disorder; M54.9 Dorsalgia, unspecified; F10.20 Alcohol dependence, uncomplicated; Z91.410 Personal history of adult physical and sexual abuse; T42.1X2A Poisoning by iminostilbenes, intentional self-harm, initial encounter; Y92.009 Unspecified place in unspecified non-institutional (private) residence as the place of occurrence of the external cause; F11.21 Opioid dependence, in remission
CPT/HCPCS: 36415; 80048; 80053; 80306; 80307; 81025; 85025; 97150; 97165; 99285

== ENCOUNTER 2024-09-26 12:41 | Outpatient (CLI) | payer MEDICAID, SELFPAY ==
--- NOTE | 2024-09-26 12:40 | MM_ITS ---
WS: [id number] BILATERAL 3D TOMOSYNTHESIS DIGITAL SCREENING MAMMOGRAPHY WITH CAD CLINICAL INFORMATION: SCREENING HISTORY: Screening mammogram. No current complaints. COMPARISON: Baseline TECHNIQUE: Bilateral CC and MLO views. FINDINGS: Scattered fibroglandular densities bilaterally. No suspicious focal mass, asymmetry, calcifications, or architectural distortion. No evidence of malignancy. MM/MM scr BI tomosynthesis [id number] IMPRESSION: DENSITY: There are scattered areas of fibroglandular density. BI-RADS: 1 - Negative. FOLLOW UP: 1 Year Follow-up Recommend return to annual screening mammography.
== END 2024-09-26 12:42 | disposition home or self-care (01) ==
LOC: MOBLMAM 12:46
PROVIDERS: PCP Family Medicine; Visit Provider Family Medicine
DX: Z12.31 Encounter for screening mammogram for malignant neoplasm of breast (principal); R92.323 Mammographic fibroglandular density, bilateral breasts
CPT/HCPCS: 77063; 77067

== ENCOUNTER 2025-09-27 13:10 | Outpatient (CLI) | payer MEDICAID, SELFPAY ==
--- NOTE | 2025-09-27 13:15 | MM_ITS ---
WS: [id number] BILATERAL 3D TOMOSYNTHESIS DIGITAL SCREENING MAMMOGRAPHY WITH CAD CLINICAL INFORMATION: SCREENING HISTORY: Screening mammogram. No current complaints. COMPARISON: 2023 TECHNIQUE: Bilateral CC and MLO views. FINDINGS: Scattered fibroglandular densities bilaterally. No suspicious focal mass, asymmetry, calcifications, or architectural distortion. No evidence of malignancy. MM/MM scr BI tomosynthesis [id number] IMPRESSION: DENSITY: There are scattered areas of fibroglandular density. BI-RADS: 1 - Negative. FOLLOW UP: 1 Year Follow-up Recommend return to annual screening mammography.
== END 2025-09-27 13:11 | disposition home or self-care (01) ==
LOC: RAD 13:11
PROVIDERS: PCP Family Medicine; Visit Provider Family Medicine
DX: Z12.31 Encounter for screening mammogram for malignant neoplasm of breast (principal); R92.323 Mammographic fibroglandular density, bilateral breasts
CPT/HCPCS: 77063; 77067